=== PATIENT | female | born 1965 | race American Indian/Alaskan Native ===

== ENCOUNTER 2020-12-21 18:45 | Emergency (ER) | payer MEDICAID ==
[2020-12-21] MEDS: Ondansetron 4 MG Tab.DIS PO STA (19:41)
[2020-12-21] MEDS: Acetaminophen 500 MG Tab PO STA (19:41)
--- NOTE | 2020-12-21 20:48 | EDM.PDOC ---
ED HPI GENERAL MEDICAL PROBLEM - General Chief Complaint: Head Injury Stated Complaint: LACERATION Time Seen by Provider: 12/21/20 19:25 Source of Information: Reports: Patient History Limitations: Reports: No Limitations - History of Present Illness INITIAL COMMENTS - FREE TEXT/NARRATIVE: Patient presented to the ED because of head and facial injury. She was walking upstairs holding a cake lost her balance and hit her forehead on the stairs. There was no LOC but patient c/o headache, nausea and vomiting x1. She didn't sustain other injuries from the fall. Forehead Pain Score (Numeric/FACES): 10 - Related Data Allergies Allergy/AdvReac Type Severity Reaction Status Date / Time Penicillins Allergy Mild Rash Verified 12/23/20 00:50 Home Meds: Home Meds amLODIPine [Norvasc] 10 mg PO DAILY 12/21/20 [History] Acetaminophen [Tylenol Extra Strength] 1,000 mg PO Q6H PRN 12/23/20 [History] Gabapentin [Neurontin] 800 mg PO TID 12/23/20 [History] Ibuprofen 600 mg PO Q6H PRN 12/23/20 [History] Insulin Aspart [NovoLOG] 6 unit SUBCUT BIDMEALS 12/23/20 [History] Insulin Detemir [Levemir] 30 units SUBCUT BIDMEALS 12/23/20 [History] Levothyroxine 112 mcg PO DAILY@0600 12/23/20 [History] Loratadine 10 mg PO DAILY PRN 12/23/20 [History] Mirtazapine 7.5 mg PO BEDTIME 12/23/20 [History] PARoxetine [Paxil] 40 mg PO DAILY 12/23/20 [History] hydrOXYzine HCL [Hydroxyzine HCl] 50 mg PO Q6H PRN 12/23/20 [History] Past Medical History Cardiovascular History: Reports: Hypertension Psychiatric History: Reports: Anxiety Endocrine/Metabolic History: Reports: Diabetes, Type II Social & Family History - Tobacco Use Tobacco Use Status *Q: Current Every Day Tobacco User Years of Tobacco use: 20 Packs/Tins Daily: 0.2 - Caffeine Use Caffeine Use: Reports: Coffee ED ROS GENERAL - Review of Systems Review Of Systems: See Below Constitutional: Reports: No Symptoms HEENT: Reports: No Symptoms Respiratory: Reports: No Symptoms Cardiovascular: Reports: No Symptoms Endocrine: Reports: No Symptoms GI/Abdominal: Reports: No Symptoms : Reports: No Symptoms Musculoskeletal: Reports: No Symptoms Skin: Reports: Wound Neurological: Reports: Headache Psychiatric: Reports: No Symptoms ED EXAM, HEAD INJURY - Physical Exam Exam: See Below Exam Limited By: No Limitations General Appearance: Alert, No Apparent Distress Head: Facial Swelling (hematoma on forehead), Other Ears: Normal External Exam, Normal Canal, Hearing Grossly Normal, Normal TMs Nose: Normal Inspection, Normal Mucousa, No Blood Throat/Mouth: Normal Inspection, Normal Lips, Normal Teeth, Normal Oropharynx, Normal Voice, No Airway Compromise Neck: Non-Tender, Full Range of Motion, Normal Alignment Respiratory: No Respiratory Distress, Lungs Clear, Normal Breath Sounds, No Accessory Muscle Use, Chest Non-Tender Cardiovascular: Normal Peripheral Pulses, Regular Rate, Rhythm, No Edema GI/Abdominal Exam: Normal Bowel Sounds, Soft, Non-Tender, No Organomegaly, No Distention, No Abnormal Bruit Back Exam: Normal Inspection, Full Range of Motion Extremities: Normal Inspection, Normal Range of Motion, Non-Tender, No Pedal Edema, Normal Capillary Refill Neurologic: partner marketing intern II-XII nml As Tested, No Motor/Sensory Deficits, Alert, Normal Mood/Affect, Oriented x 3 Skin: Normal Color Course - Vital Signs Text/Narrative:: 1 cm laceration between eyebrows is already healing and didn't require any suturing. UTD with immunization Tylenol 1000 mg PO x1 Zofran ODT 4 mg PO x1 Phenergan 25 mg IM x1 Head and Facial CT result-negative Last Recorded V/S: Last Vital Signs Temp 36.6 C 12/21/20 21:00 Pulse 105 H 12/21/20 21:00 Resp 20 12/21/20 21:00 BP 159/94 H 12/21/20 21:00 Pulse Ox 98 12/21/20 21:00 - Orders/Labs/Meds Meds: Medications Discontinued Medications Generic Name Dose Route Start Last Admin Trade Name Mary PRN Reason Stop Dose Admin Acetaminophen 1,000 mg 12/21/20 19:26 12/21/20 19:41 Acetaminophen 500 Mg Tab PO 12/21/20 19:27 1,000 mg NOW STA Administration Ondansetron HCl 4 mg 12/21/20 19:25 12/21/20 19:41 Ondansetron 4 Mg Tab.Dis PO 12/21/20 19:26 4 mg NOW STA Administration Promethazine HCl 25 mg 12/21/20 21:01 12/21/20 21:07 Promethazine 25 Mg/Ml Sdv IM 12/21/20 21:02 25 mg NOW STA Administration Departure - Departure Time of Disposition: 21:00 Disposition: Home, Self-Care 01 Condition: Good Clinical Impression: Head, face & neck injury - Discharge Information Instructions: Facial or Scalp Contusion, [id number], Head Injury, Adult, [id number] Referrals: PCP,None [Primary Care Provider] - Forms: ED Department Discharge Additional Instructions: Please read discharge instructions on heads and facial injury, contusion(bruising) Take ibuprofen 800 mg with tylenol 1000 mg very 8 hours as needed for pain Zofran ODT 4 mg every 4 hours a needed for nausea Follow up as needed Sepsis Event Note (ED) - Evaluation Sepsis Screening Result: No Definite Risk
[2020-12-21] MEDS: Promethazine 25 MG/ML SDV IM STA (21:07)
== END 2020-12-21 21:10 | disposition home or self-care (01) ==
LOC: FB.ED 18:45
DX: S00.83XA Contusion of other part of head, initial encounter (principal); S19.9XXA Unspecified injury of neck, initial encounter; I10 Essential (primary) hypertension; E11.9 Type 2 diabetes mellitus without complications; Z72.0 Tobacco use; Z88.0 Allergy status to penicillin; Z79.4 Long term (current) use of insulin; Z79.899 Other long term (current) drug therapy; W22.09XA Striking against other stationary object, initial encounter
CPT/HCPCS: 70450; 70486; 96372; 99283; A9270; J2550

== ENCOUNTER 2020-12-22 17:45 | Inpatient (IN) | payer MEDICAID ==
[2020-12-22] MEDS ORDERED: Ketorolac 30 MG/ML SDV IVPUSH ONE (17:56)
[2020-12-22] MEDS ORDERED: Ondansetron 4 MG/2 ML SDV IVPUSH ONE (17:56)
[2020-12-22] MEDS ORDERED: Sodium Chloride 0.9% 1,000 ML IV ONE ×3 (17:57→20:14)
[2020-12-22] MEDS ORDERED: Metoclopramide 10 MG/2 ML SDV IVPUSH ONE (19:26)
[2020-12-22] MEDS ORDERED: Potassium Chloride 20 MEQ in Premix Bag 1 BAG IV ONE (20:14)
[2020-12-22] MEDS ORDERED: 50% Dextrose in Water 50 ML Syringe IVPUSH PRN ×2 (20:15→20:17)
[2020-12-22] MEDS ORDERED: Glucagon,Human Recombinant 1 MG Vial IM PRN ×2 (20:15→20:17)
[2020-12-22] MEDS ORDERED: Insulin Regular, Human 100 Units/ML 3 ML Vial IV ONE (20:15)
--- NOTE | 2020-12-22 20:18 | EDM.PDOC ---
ED HPI GENERAL MEDICAL PROBLEM - General Chief Complaint: General Stated Complaint: VOMITING W/ CONCUSSION Time Seen by Provider: 12/22/20 18:30 Source of Information: Reports: Patient, Family History Limitations: Reports: No Limitations - History of Present Illness INITIAL COMMENTS - FREE TEXT/NARRATIVE: c/o n/v x 12h fell on face 3d ago while intoxicated, CT head neg, CT max face neg has had since age 42, on insulin x 10y, takes Levemir 30u BID and Novolog 6u BID A1C was as low as 8, says it has now gone back up lives with dtr Yolanda who is just getting over COVID pt says she never had COVID, has had COVID vax x 2 no fever at home no diarrhea has mild GRIMM with inc'd pain at L orbit where she has swell, has had drainage down her throat Headache Pain Score (Numeric/FACES): 8 - Related Data Allergies Allergy/AdvReac Type Severity Reaction Status Date / Time No Known Allergies Allergy Verified 12/21/20 19:13 Home Meds: Home Meds amLODIPine [Norvasc] 10 mg PO DAILY 12/21/20 [History] Past Medical History Cardiovascular History: Reports: Hypertension Psychiatric History: Reports: Anxiety Endocrine/Metabolic History: Reports: Diabetes, Type II - Infectious Disease History Infectious Disease History: Reports: None Social & Family History - Family History Family Medical History: No Pertinent Family History - Tobacco Use Tobacco Use Status *Q: Current Every Day Tobacco User Years of Tobacco use: 40 Packs/Tins Daily: 1 - Caffeine Use Caffeine Use: Reports: None ED ROS GENERAL - Review of Systems Review Of Systems: See Below Constitutional: Reports: No Symptoms. Denies: Fever HEENT: Reports: No Symptoms Respiratory: Reports: No Symptoms Cardiovascular: Reports: No Symptoms Endocrine: Reports: No Symptoms GI/Abdominal: Reports: Nausea, Vomiting. Denies: Constipation, Diarrhea : Reports: No Symptoms Musculoskeletal: Reports: No Symptoms Skin: Reports: No Symptoms Neurological: Reports: No Symptoms Psychiatric: Reports: No Symptoms Hematologic/Lymphatic: Reports: No Symptoms Immunologic: Reports: No Symptoms ED EXAM, GENERAL - Physical Exam Exam: See Below Exam Limited By: No Limitations General Appearance: Alert, WD/WN, Other (alert, walks in room, not appearing ill despite high wbc/crp, does appear dehydrated, nontoxic) Eye Exam: Bilateral Eye: EOMI, PERRL, Other (mod periorbital edema b/l, some edema between L eye and ear, minimal ecchymosis) Ears: Normal External Exam, Normal Canal, Hearing Grossly Normal, Normal TMs Nose: Normal Inspection, Normal Mucosa, No Blood, Other (nares patent b/l, no visible d/c) Throat/Mouth: Normal Inspection, Normal Lips, Normal Gums, Normal Oropharynx, Normal Voice, No Airway Compromise Neck: Normal Inspection, Supple, Non-Tender, Full Range of Motion. No: Lymphadenopathy (R), Lymphadenopathy (L) Respiratory/Chest: No Respiratory Distress, Lungs Clear, Normal Breath Sounds, No Accessory Muscle Use, Chest Non-Tender, Other (no cough) Cardiovascular: Regular Rate, Rhythm, No Edema, No Murmur GI/Abdominal: Soft, Non-Tender, No Organomegaly, No Distention Back Exam: Normal Inspection, Full Range of Motion. No: CVA Tenderness (R), CVA Tenderness (L) Extremities: Normal Inspection, Normal Range of Motion, Non-Tender, No Pedal Edema Neurological: Alert, Oriented, CN II-XII Intact, Normal Cognition, No Motor/Sensory Deficits Psychiatric: Normal Affect, Normal Mood Skin Exam: Warm, Dry, Intact, Normal Color, No Rash Lymphatic: No Adenopathy Course - Vital Signs Last Recorded V/S: Last Vital Signs Temp 36.7 C 12/22/20 22:55 Pulse 116 H 12/22/20 22:55 Resp 18 12/22/20 22:55 BP 154/95 H 12/22/20 22:55 Pulse Ox 100 12/22/20 22:55 - Orders/Labs/Meds Orders: Active Orders 24 hr Category Date Time Status Admission Status [Patient Status] [ADT] Routine ADT 12/22/20 21:50 Active Chest 2V [CR] Stat Exams 12/22/20 20:11 Taken CULTURE BLOOD [BC] Urgent Lab 12/22/20 20:20 Received CULTURE BLOOD [BC] Urgent Lab 12/22/20 20:35 Received Dextrose 50% in Water Med 12/22/20 20:15 Active 50 ml IVPUSH ASDIRECTED PRN Dextrose 50% in Water Med 12/22/20 20:17 Active 50 ml IVPUSH ASDIRECTED PRN Glucagon,Human Recombinant [GlucaGen] Med 12/22/20 20:15 Active 1 mg IM ASDIRECTED PRN Glucagon,Human Recombinant [GlucaGen] Med 12/22/20 20:17 Active 1 mg IM ASDIRECTED PRN Insulin Glarg,Human.Rec.Analog [LantUS Solostar] Med 12/22/20 21:00 Active 30 units SUBCUT BID Blood Culture x2 Reflex Set [OM.PC] Urgent Oth 12/22/20 20:10 Ordered Medication Orders Dextrose/Water (50% Dextrose In Water 50 Ml Syringe) 50 ml IVPUSH ASDIRECTED PRN PRN Reason: Hypoglycemia Dextrose/Water (50% Dextrose In Water 50 Ml Syringe) 50 ml IVPUSH ASDIRECTED PRN PRN Reason: Hypoglycemia Glucagon (Glucagon,Human Recombinant 1 Mg Vial) 1 mg IM ASDIRECTED PRN PRN Reason: Hypoglycemia Glucagon (Glucagon,Human Recombinant 1 Mg Vial) 1 mg IM ASDIRECTED PRN PRN Reason: Hypoglycemia Insulin Glargine (Insulin Glargine,Human Rec. Analog 100 Units/Ml 3 Ml Pen) 30 units SUBCUT BID CAILIN Last Admin: 12/22/20 21:41 Dose: 30 units Documented by: NICOLÁS Cosigned by: DIFFCAL Labs: Laboratory Tests 12/22/20 12/22/20 12/22/20 Range/Units 18:25 18:25 18:25 WBC 29.5 H (3.0-10.3) x10-3/uL RBC 4.16 (3.60-5.20) x10(6)uL Hgb 12.7 (11.4-15.5) g/dL Hct 39.0 (34.2-48.2) % MCV 93.6 (76.7-100.5) fL MCH 30.6 (23.9-33.9) pg MCHC 32.7 (31.9-34.8) g/dL RDW 13.7 (12.3-16.5) % Plt Count 193 (151-488) x10(3)uL MPV 9.5 (7.1-12.4) fL Add Manual Diff Yes Neutrophils % (Manual) 80 (46-82) % Band Neutrophils % 7 H (0-6) % Lymphocytes % (Manual) 7 L (13-37) % Monocytes % (Manual) 5 (4-12) % Metamyelocytes % 1 H (0-0) % POC VBG pH (7.32-7.43) pH Units POC VBG pCO2 (41-51) mmHg POC VBG HCO3 (22-29) mmol/L VBG Base Excess (-2 - 3+) mmol/L O2 Delivery Device Oxygen Flow Rate LPM Sodium 128 L (135-145) mmol/L Potassium 3.2 L (3.5-5.3) mmol/L Chloride 88 L* (100-110) mmol/L Carbon Dioxide 20 L (21-32) mmol/L BUN 20 H (7-18) mg/dL Creatinine 1.3 H (0.55-1.02) mg/dL Est Cr Clr Drug Dosing 39.58 mL/min Estimated GFR (MDRD) 43 L (>60) BUN/Creatinine Ratio 15.4 (9-20) Glucose 618 H* (80-116) mg/dL Lactic Acid (0.4-2.0) mmol/L Calcium 8.6 (8.6-10.2) mg/dL Magnesium (1.8-2.5) mg/dL Total Bilirubin 1.6 H (0.1-1.3) mg/dL AST 17 (5-25) IU/L ALT 19 (12-36) U/L Alkaline Phosphatase 161 H (56-112) IU/L C-Reactive Protein 19.3 H* (0.5-0.9) mg/dL Total Protein 8.0 (6.0-8.0) g/dL Albumin 3.3 L (3.5-5.2) g/dL Globulin 4.7 g/dL Albumin/Globulin Ratio 0.7 SARS-CoV-2 RNA (JUAN) (NEGATIVE) 12/22/20 12/22/20 12/22/20 Range/Units 18:25 20:15 20:20 WBC (3.0-10.3) x10-3/uL RBC (3.60-5.20) x10(6)uL Hgb (11.4-15.5) g/dL Hct (34.2-48.2) % MCV (76.7-100.5) fL MCH (23.9-33.9) pg MCHC (31.9-34.8) g/dL RDW (12.3-16.5) % Plt Count (151-488) x10(3)uL MPV (7.1-12.4) fL Add Manual Diff Neutrophils % (Manual) (46-82) % Band Neutrophils % (0-6) % Lymphocytes % (Manual) (13-37) % Monocytes % (Manual) (4-12) % Metamyelocytes % (0-0) % POC VBG pH (7.32-7.43) pH Units POC VBG pCO2 (41-51) mmHg POC VBG HCO3 (22-29) mmol/L VBG Base Excess (-2 - 3+) mmol/L O2 Delivery Device Oxygen Flow Rate LPM Sodium (135-145) mmol/L Potassium (3.5-5.3) mmol/L Chloride (100-110) mmol/L Carbon Dioxide (21-32) mmol/L BUN (7-18) mg/dL Creatinine (0.55-1.02) mg/dL Est Cr Clr Drug Dosing mL/min Estimated GFR (MDRD) (>60) BUN/Creatinine Ratio (9-20) Glucose (80-116) mg/dL Lactic Acid 2.2 H* (0.4-2.0) mmol/L Calcium (8.6-10.2) mg/dL Magnesium 1.7 L (1.8-2.5) mg/dL Total Bilirubin (0.1-1.3) mg/dL AST (5-25) IU/L ALT (12-36) U/L Alkaline Phosphatase (56-112) IU/L C-Reactive Protein (0.5-0.9) mg/dL Total Protein (6.0-8.0) g/dL Albumin (3.5-5.2) g/dL Globulin g/dL Albumin/Globulin Ratio SARS-CoV-2 RNA (JUAN) Positive H (NEGATIVE) 12/22/20 Range/Units 20:20 WBC (3.0-10.3) x10-3/uL RBC (3.60-5.20) x10(6)uL Hgb (11.4-15.5) g/dL Hct (34.2-48.2) % MCV (76.7-100.5) fL MCH (23.9-33.9) pg MCHC (31.9-34.8) g/dL RDW (12.3-16.5) % Plt Count (151-488) x10(3)uL MPV (7.1-12.4) fL Add Manual Diff Neutrophils % (Manual) (46-82) % Band Neutrophils % (0-6) % Lymphocytes % (Manual) (13-37) % Monocytes % (Manual) (4-12) % Metamyelocytes % (0-0) % POC VBG pH 7.37 (7.32-7.43) pH Units POC VBG pCO2 37 L (41-51) mmHg POC VBG HCO3 21 L (22-29) mmol/L VBG Base Excess -4 L (-2 - 3+) mmol/L O2 Delivery Device Room air Oxygen Flow Rate 0 LPM Sodium (135-145) mmol/L Potassium (3.5-5.3) mmol/L Chloride (100-110) mmol/L Carbon Dioxide (21-32) mmol/L BUN (7-18) mg/dL Creatinine (0.55-1.02) mg/dL Est Cr Clr Drug Dosing mL/min Estimated GFR (MDRD) (>60) BUN/Creatinine Ratio (9-20) Glucose (80-116) mg/dL Lactic Acid (0.4-2.0) mmol/L Calcium (8.6-10.2) mg/dL Magnesium (1.8-2.5) mg/dL Total Bilirubin (0.1-1.3) mg/dL AST (5-25) IU/L ALT (12-36) U/L Alkaline Phosphatase (56-112) IU/L C-Reactive Protein (0.5-0.9) mg/dL Total Protein (6.0-8.0) g/dL Albumin (3.5-5.2) g/dL Globulin g/dL Albumin/Globulin Ratio SARS-CoV-2 RNA (JUAN) (NEGATIVE) Meds: Medications Generic Name Dose Route Start Last Admin Trade Name Freq PRN Reason Stop Dose Admin Dextrose/Water 50 ml 12/22/20 20:15 50% Dextrose In Water 50 Ml Syringe IVPUSH ASDIRECTED PRN Hypoglycemia Dextrose/Water 50 ml 12/22/20 20:17 50% Dextrose In Water 50 Ml Syringe IVPUSH ASDIRECTED PRN Hypoglycemia Glucagon 1 mg 12/22/20 20:15 Glucagon,Human Recombinant 1 Mg Vial IM ASDIRECTED PRN Hypoglycemia Glucagon 1 mg 12/22/20 20:17 Glucagon,Human Recombinant 1 Mg Vial IM ASDIRECTED PRN Hypoglycemia Insulin Glargine 30 units 12/22/20 21:00 12/22/20 21:41 Insulin Glargine,Human Rec. Analog 100 Units/Ml 3 Ml Pen SUBCUT 30 units BID CAILIN Administration Discontinued Medications Generic Name Dose Route Start Last Admin Trade Name Mary PRN Reason Stop Dose Admin Al Hydroxide/Mg Hydroxide 15 0 ml 12/22/20 21:45 12/22/20 21:50 ml/ Lidocaine HCl 15 ml PO 12/22/20 21:46 30 ml ONETIME ONE Administration Sodium Chloride 1,000 mls @ 999 mls/hr 12/22/20 17:57 12/22/20 18:10 Normal Saline IV 12/22/20 18:57 999 mls/hr .BOLUS ONE Administration Sodium Chloride 1,000 mls @ 999 mls/hr 12/22/20 20:14 12/22/20 21:00 Normal Saline IV 12/22/20 21:14 999 mls/hr .BOLUS ONE Administration Sodium Chloride 1,000 mls @ 999 mls/hr 12/22/20 20:14 12/22/20 22:28 Normal Saline IV 12/22/20 21:14 999 mls/hr .BOLUS ONE Administration Potassium Chloride 20 meq/ 100 mls @ 50 mls/hr 12/22/20 20:14 12/22/20 21:50 Premix IV 12/22/20 22:13 50 mls/hr ONETIME ONE Administration Insulin Human Regular 10 unit 12/22/20 20:15 12/22/20 20:55 Insulin Regular, Human 100 Units/Ml 3 Ml Vial IV 12/22/20 20:16 10 units ONETIME ONE Administration Ketorolac Tromethamine 30 mg 12/22/20 17:56 12/22/20 18:10 Ketorolac 30 Mg/Ml Sdv IVPUSH 12/22/20 17:57 30 mg ONETIME ONE Administration Metoclopramide HCl 10 mg 12/22/20 19:26 12/22/20 19:37 Metoclopramide 10 Mg/2 Ml Sdv IVPUSH 12/22/20 19:27 10 mg ONETIME ONE Administration Ondansetron HCl 4 mg 12/22/20 17:56 12/22/20 18:10 Ondansetron 4 Mg/2 Ml Sdv IVPUSH 12/22/20 17:57 4 mg ONETIME ONE Administration - Re-Assessments/Exams Free Text/Narrative Re-Assessment/Exam: 12/23/20 00:33 pt with positive COVID mod dehydration with secondary n/v Departure - Departure Time of Disposition: 23:30 Disposition: Admitted As Inpatient 68 Condition: Fair Clinical Impression: Pneumonia due to COVID-19 virus, DKA (diabetic ketoacidosis), Hypokalemia, Dehydration, Leukocytosis, Facial contusion - Discharge Information *PRESCRIPTION DRUG MONITORING PROGRAM REVIEWED*: Not Applicable *COPY OF PRESCRIPTION DRUG MONITORING REPORT IN PATIENT EMANI: Not Applicable Sepsis Event Note (ED) - Evaluation Sepsis Screening Result: No Definite Risk - Focused Exam Vital Signs: Vital Signs Temp Pulse Resp BP Pulse Ox 12/22/20 17:53 36.2 C 131 H 20 154/95 H 100 - My Orders Last 24 Hours: My Active Orders 12/22/20 20:10 Blood Culture x2 Reflex Set [OM.PC] Urgent 12/22/20 20:11 Chest 2V [CR] Stat 12/22/20 20:15 Dextrose 50% in Water 50 ml IVPUSH ASDIRECTED PRN Glucagon,Human Recombinant [GlucaGen] 1 mg IM ASDIRECTED PRN 12/22/20 20:17 Dextrose 50% in Water 50 ml IVPUSH ASDIRECTED PRN Glucagon,Human Recombinant [GlucaGen] 1 mg IM ASDIRECTED PRN 12/22/20 20:20 CULTURE BLOOD [BC] Urgent 12/22/20 20:35 CULTURE BLOOD [BC] Urgent 12/22/20 21:00 Insulin Glarg,Human.Rec.Analog [LantUS Solostar] 30 units SUBCUT BID 12/22/20 21:50 Admission Status [Patient Status] [ADT] Routine - Assessment/Plan Last 24 Hours: My Active Orders 12/22/20 20:10 Blood Culture x2 Reflex Set [OM.PC] Urgent 12/22/20 20:11 Chest 2V [CR] Stat 12/22/20 20:15 Dextrose 50% in Water 50 ml IVPUSH ASDIRECTED PRN Glucagon,Human Recombinant [GlucaGen] 1 mg IM ASDIRECTED PRN 12/22/20 20:17 Dextrose 50% in Water 50 ml IVPUSH ASDIRECTED PRN Glucagon,Human Recombinant [GlucaGen] 1 mg IM ASDIRECTED PRN 12/22/20 20:20 CULTURE BLOOD [BC] Urgent 12/22/20 20:35 CULTURE BLOOD [BC] Urgent 12/22/20 21:00 Insulin Glarg,Human.Rec.Analog [LantUS Solostar] 30 units SUBCUT BID 12/22/20 21:50 Admission Status [Patient Status] [ADT] Routine
[2020-12-22 21:08] LABS: BASE EXCESS VENOUS,POC -4 mmol/L (-2 - 3+); PCO2 VENOUS,POC 37 mmHg (41-51); PH VENOUS,POC 7.37 pH Units (7.32-7.43)
[2020-12-22] MEDS ORDERED: Insulin Glargine,Human Rec. Analog 100 Units/ML 3 ML Pen SUBCUT ONE (21:38)
[2020-12-22] MEDS: Insulin Glargine,Human Rec. Analog 100 Units/ML 3 ML Pen SUBCUT SCH (21:41)
[2020-12-22] MEDS ORDERED: Alum Hydroxide/Mag Hydroxide 15 ML, Lidocaine 2% 15 ML PO ONE ×2 (21:45)
[2020-12-23] MEDS ORDERED: 50% Dextrose in Water 50 ML Syringe IVPUSH PRN (00:41)
[2020-12-23] MEDS ORDERED: Glucagon,Human Recombinant 1 MG Vial IM PRN (00:41)
[2020-12-23] MEDS ORDERED: D5 1/2 NS w/ 20 mEq/L KCl 1,000 ML IV SCH ×2 (01:00→08:20)
[2020-12-23] MEDS: Metoclopramide 10 MG/2 ML SDV IVPUSH SCH ×4 (01:36→17:57)
[2020-12-23] MEDS: Magnesium Oxide 400 MG Tab PO SCH ×4 (01:37→18:00)
[2020-12-23] MEDS: Gabapentin 300 MG Cap PO SCH ×3 (01:37→20:45)
[2020-12-23] MEDS: Enoxaparin 40 MG/0.4 ML Syringe SUBCUT SCH (01:37)
[2020-12-23] MEDS: Ketorolac 30 MG/ML SDV IVPUSH SCH ×4 (01:51→17:57)
[2020-12-23] MEDS: Magnesium Hydroxide 400 MG/5 ML Susp 30 ML Cup PO PRN (01:57)
[2020-12-23] MEDS: Acetaminophen 325 MG Tab PO PRN ×2 (06:57→21:20)
[2020-12-23] MEDS ORDERED: Insulin Lispro 100 Unit/ML 3 ML KwikPen SUBCUT ONE (07:25)
[2020-12-23] MEDS: Sodium Chloride 0.9% 1,000 ML IV SCH ×3 (07:40→21:52)
[2020-12-23] MEDS: Insulin Lispro 100 Unit/ML 3 ML KwikPen SUBCUT SCH ×3 (07:47→17:58)
[2020-12-23] MEDS: Insulin Glargine,Human Rec. Analog 100 Units/ML 3 ML Pen SUBCUT SCH ×2 (08:30→20:52)
[2020-12-23] MEDS: amLODIPine 10 MG Tab PO SCH (08:33)
--- NOTE | 2020-12-23 09:22 | PCM.HP.2 ---
H&P History of Present Illness - General Date of Service: 12/23/20 Admit Problem/Dx: Admission Diagnosis/Problem Admission Diagnosis/Problem Diabetic ketoacidosis Source of Information: Patient, Old Records, Provider - History of Present Illness Initial Comments - Free Text/Narative: 55-year-old lady came to the emergency department due to a history of flulike symptoms that included nausea and vomiting. She states that she fell and hit her head hard bright 3 days ago. Emergency room notes show that she states she may have been intoxicated. CTs of face and head are negative. Patient was found to be Covid positive and found to likely have diabetic ketoacidosis. She was given insulin, fluids, electrolyte replenishment and admitted to inpatient status for treatment of DKA and Covid positive pneumonia. Headache Pain Score (Numeric/FACES): 3 - Related Data Allergies/Adverse Reactions: Allergies Allergy/AdvReac Type Severity Reaction Status Date / Time Penicillins Allergy Mild Rash Verified 12/23/20 00:50 Home Medications: Home Meds amLODIPine [Norvasc] 10 mg PO DAILY 12/21/20 [History] Acetaminophen [Tylenol Extra Strength] 1,000 mg PO Q6H PRN 12/23/20 [History] Gabapentin [Neurontin] 800 mg PO TID 12/23/20 [History] Ibuprofen 600 mg PO Q6H PRN 12/23/20 [History] Insulin Aspart [NovoLOG] 6 unit SUBCUT BIDMEALS 12/23/20 [History] Insulin Detemir [Levemir] 30 units SUBCUT BIDMEALS 12/23/20 [History] Levothyroxine 112 mcg PO DAILY@0600 12/23/20 [History] Loratadine 10 mg PO DAILY PRN 12/23/20 [History] Mirtazapine 7.5 mg PO BEDTIME 12/23/20 [History] PARoxetine [Paxil] 40 mg PO DAILY 12/23/20 [History] hydrOXYzine HCL [Hydroxyzine HCl] 50 mg PO Q6H PRN 12/23/20 [History] Past Medical History HEENT History: Reports: Sinusitis Cardiovascular History: Reports: Hypertension Gastrointestinal History: Reports: Chronic Constipation [employer] History: Reports: Musculoskeletal History: Reports: Fibromyalgia Neurological History: Reports: Neuropathy, Diabetic Psychiatric History: Reports: Anxiety Endocrine/Metabolic History: Reports: Diabetes, Type II Dermatologic History: Reports: Other (See Below) Other Dermatologic History: vitiligo since 14 years old - Infectious Disease History Infectious Disease History: Reports: None - Past Surgical History Cardiovascular Surgical History: Reports: None GI Surgical History: Reports: Appendectomy Female Surgical History: Reports: None Social & Family History - Family History Family Medical History: No Pertinent Family History - Tobacco Use Tobacco Use Status *Q: Current Every Day Tobacco User Years of Tobacco use: 40 Packs/Tins Daily: 0.5 - Caffeine Use Caffeine Use: Reports: None - Alcohol Use Days Per Week of Alcohol Use: 0 - Recreational Drug Use Recreational Drug Use: Yes Drug Use in Last 12 Months: Yes Recreational Drug Type: Reports: Marijuana/Hashish Recreational Drug Use Frequency: Daily Recreational Drug Last Use: 12/21/20 H&P Review of Systems - Review of Systems: Review Of Systems: See Below General: Reports: Weakness HEENT: Reports: Eye Pain, Headaches Pulmonary: Reports: Cough Cardiovascular: Reports: No Symptoms Gastrointestinal: Reports: Nausea, Vomiting Genitourinary: Reports: No Symptoms Musculoskeletal: Reports: Neck Pain Skin: Reports: No Symptoms Psychiatric: Reports: No Symptoms Neurological: Reports: No Symptoms Hematologic/Lymphatic: Reports: No Symptoms Immunologic: Reports: No Symptoms Exam - Exam Exam: See Below - Vital Signs Vital Signs: Last Vital Signs Temp 36.7 C 12/23/20 04:54 Pulse 116 H 12/23/20 04:54 Resp 18 12/23/20 04:54 BP 129/76 12/23/20 08:33 Pulse Ox 96 12/23/20 04:54 Weight: 64.864 kg - Exam Quality Assessment: Supplemental Oxygen, DVT Prophylaxis General: Alert, Oriented, Cooperative, Mild Distress HEENT: Other (Facial swelling, ecchymosis) Neck: Supple Lungs: Crackles Cardiovascular: Tachycardia GI/Abdominal Exam: Normal Bowel Sounds, Soft Back Exam: Normal Inspection Extremities: Pedal Edema Peripheral Pulses: 2+: Radial (L), Radial (R) Skin: Other (Facial abrasion left ear to the right) Neuro Extensive - Mental Status: Alert, Oriented x3 Psychiatric: Alert, Normal Affect - Patient Data Lab Results Last 24 hrs: Laboratory Results - last 24 hr 12/22/20 12/22/20 12/22/20 Range/Units 18:25 18:25 18:25 WBC 29.5 H (3.0-10.3) x10-3/uL RBC 4.16 (3.60-5.20) x10(6)uL Hgb 12.7 (11.4-15.5) g/dL Hct 39.0 (34.2-48.2) % MCV 93.6 (76.7-100.5) fL MCH 30.6 (23.9-33.9) pg MCHC 32.7 (31.9-34.8) g/dL RDW 13.7 (12.3-16.5) % Plt Count 193 (151-488) x10(3)uL MPV 9.5 (7.1-12.4) fL Add Manual Diff Yes Neutrophils % (Manual) 80 (46-82) % Band Neutrophils % 7 H (0-6) % Lymphocytes % (Manual) 7 L (13-37) % Monocytes % (Manual) 5 (4-12) % Metamyelocytes % 1 H (0-0) % POC VBG pH (7.32-7.43) pH Units POC VBG pCO2 (41-51) mmHg POC VBG HCO3 (22-29) mmol/L VBG Base Excess (-2 - 3+) mmol/L O2 Delivery Device Oxygen Flow Rate LPM Sodium 128 L (135-145) mmol/L Potassium 3.2 L (3.5-5.3) mmol/L Chloride 88 L* (100-110) mmol/L Carbon Dioxide 20 L (21-32) mmol/L BUN 20 H (7-18) mg/dL Creatinine 1.3 H (0.55-1.02) mg/dL Est Cr Clr Drug Dosing 39.58 mL/min Estimated GFR (MDRD) 43 L (>60) BUN/Creatinine Ratio 15.4 (9-20) Glucose 618 H* (80-116) mg/dL POC Glucose (80-116) mg/dL Lactic Acid (0.4-2.0) mmol/L Calcium 8.6 (8.6-10.2) mg/dL Magnesium (1.8-2.5) mg/dL Total Bilirubin 1.6 H (0.1-1.3) mg/dL AST 17 (5-25) IU/L ALT 19 (12-36) U/L Alkaline Phosphatase 161 H (56-112) IU/L C-Reactive Protein 19.3 H* (0.5-0.9) mg/dL Total Protein 8.0 (6.0-8.0) g/dL Albumin 3.3 L (3.5-5.2) g/dL Globulin 4.7 g/dL Albumin/Globulin Ratio 0.7 Urine Color (YELLOW) Urine Appearance (CLEAR) Urine pH (5.0-6.5) Ur Specific [place] (1.010-1.025) Urine Protein (NEGATIVE) mg/dL Urine Glucose (UA) (NORMAL) mg/dL Urine Ketones (NEGATIVE) mg/dL Urine Occult Blood (NEGATIVE) Urine Nitrite (NEGATIVE) Urine Bilirubin (NEGATIVE) Urine Urobilinogen (NEGATIVE) mg/dL Ur Leukocyte Esterase (NEGATIVE) Urine RBC (0-5) Urine WBC (0-5) Ur Squamous Epith Cells (NS,R,O) Urine Bacteria (NS) SARS-CoV-2 RNA (JUAN) (NEGATIVE) 12/22/20 12/22/20 12/22/20 Range/Units 18:25 20:15 20:20 WBC (3.0-10.3) x10-3/uL RBC (3.60-5.20) x10(6)uL Hgb (11.4-15.5) g/dL Hct (34.2-48.2) % MCV (76.7-100.5) fL MCH (23.9-33.9) pg MCHC (31.9-34.8) g/dL RDW (12.3-16.5) % Plt Count (151-488) x10(3)uL MPV (7.1-12.4) fL Add Manual Diff Neutrophils % (Manual) (46-82) % Band Neutrophils % (0-6) % Lymphocytes % (Manual) (13-37) % Monocytes % (Manual) (4-12) % Metamyelocytes % (0-0) % POC VBG pH (7.32-7.43) pH Units POC VBG pCO2 (41-51) mmHg POC VBG HCO3 (22-29) mmol/L VBG Base Excess (-2 - 3+) mmol/L O2 Delivery Device Oxygen Flow Rate LPM Sodium (135-145) mmol/L Potassium (3.5-5.3) mmol/L Chloride (100-110) mmol/L Carbon Dioxide (21-32) mmol/L BUN (7-18) mg/dL Creatinine (0.55-1.02) mg/dL Est Cr Clr Drug Dosing mL/min Estimated GFR (MDRD) (>60) BUN/Creatinine Ratio (9-20) Glucose (80-116) mg/dL POC Glucose (80-116) mg/dL Lactic Acid 2.2 H* (0.4-2.0) mmol/L Calcium (8.6-10.2) mg/dL Magnesium 1.7 L (1.8-2.5) mg/dL Total Bilirubin (0.1-1.3) mg/dL AST (5-25) IU/L ALT (12-36) U/L Alkaline Phosphatase (56-112) IU/L C-Reactive Protein (0.5-0.9) mg/dL Total Protein (6.0-8.0) g/dL Albumin (3.5-5.2) g/dL Globulin g/dL Albumin/Globulin Ratio Urine Color (YELLOW) Urine Appearance (CLEAR) Urine pH (5.0-6.5) Ur Specific [place] (1.010-1.025) Urine Protein (NEGATIVE) mg/dL Urine Glucose (UA) (NORMAL) mg/dL Urine Ketones (NEGATIVE) mg/dL Urine Occult Blood (NEGATIVE) Urine Nitrite (NEGATIVE) Urine Bilirubin (NEGATIVE) Urine Urobilinogen (NEGATIVE) mg/dL Ur Leukocyte Esterase (NEGATIVE) Urine RBC (0-5) Urine WBC (0-5) Ur Squamous Epith Cells (NS,R,O) Urine Bacteria (NS) SARS-CoV-2 RNA (JUAN) Positive H (NEGATIVE) 12/22/20 12/22/20 12/23/20 Range/Units 20:20 21:30 00:44 WBC (3.0-10.3) x10-3/uL RBC (3.60-5.20) x10(6)uL Hgb (11.4-15.5) g/dL Hct (34.2-48.2) % MCV (76.7-100.5) fL MCH (23.9-33.9) pg MCHC (31.9-34.8) g/dL RDW (12.3-16.5) % Plt Count (151-488) x10(3)uL MPV (7.1-12.4) fL Add Manual Diff Neutrophils % (Manual) (46-82) % Band Neutrophils % (0-6) % Lymphocytes % (Manual) (13-37) % Monocytes % (Manual) (4-12) % Metamyelocytes % (0-0) % POC VBG pH 7.37 (7.32-7.43) pH Units POC VBG pCO2 37 L (41-51) mmHg POC VBG HCO3 21 L (22-29) mmol/L VBG Base Excess -4 L (-2 - 3+) mmol/L O2 Delivery Device Room air Oxygen Flow Rate 0 LPM Sodium (135-145) mmol/L Potassium (3.5-5.3) mmol/L Chloride (100-110) mmol/L Carbon Dioxide (21-32) mmol/L BUN (7-18) mg/dL Creatinine (0.55-1.02) mg/dL Est Cr Clr Drug Dosing mL/min Estimated GFR (MDRD) (>60) BUN/Creatinine Ratio (9-20) Glucose (80-116) mg/dL POC Glucose 374 H (80-116) mg/dL Lactic Acid (0.4-2.0) mmol/L Calcium (8.6-10.2) mg/dL Magnesium (1.8-2.5) mg/dL Total Bilirubin (0.1-1.3) mg/dL AST (5-25) IU/L ALT (12-36) U/L Alkaline Phosphatase (56-112) IU/L C-Reactive Protein (0.5-0.9) mg/dL Total Protein (6.0-8.0) g/dL Albumin (3.5-5.2) g/dL Globulin g/dL Albumin/Globulin Ratio Urine Color Yellow (YELLOW) Urine Appearance Clear (CLEAR) Urine pH 5.0 (5.0-6.5) Ur Specific [place] 1.010 (1.010-1.025) Urine Protein 100 H (NEGATIVE) mg/dL Urine Glucose (UA) >1000 H (NORMAL) mg/dL Urine Ketones 50 H (NEGATIVE) mg/dL Urine Occult Blood Moderate H (NEGATIVE) Urine Nitrite Negative (NEGATIVE) Urine Bilirubin Negative (NEGATIVE) Urine Urobilinogen Normal (NEGATIVE) mg/dL Ur Leukocyte Esterase Negative (NEGATIVE) Urine RBC 0-5 (0-5) Urine WBC 0-5 (0-5) Ur Squamous Epith Cells Occasional (NS,R,O) Urine Bacteria Occasional H (NS) SARS-CoV-2 RNA (JUAN) (NEGATIVE) 12/23/20 12/23/20 Range/Units 06:20 06:20 WBC 24.3 H (3.0-10.3) x10-3/uL RBC 3.77 (3.60-5.20) x10(6)uL Hgb 11.4 (11.4-15.5) g/dL Hct 34.7 (34.2-48.2) % MCV 91.8 (76.7-100.5) fL MCH 30.3 (23.9-33.9) pg MCHC 32.9 (31.9-34.8) g/dL RDW 13.5 (12.3-16.5) % Plt Count 173 (151-488) x10(3)uL MPV 9.7 (7.1-12.4) fL Add Manual Diff Yes Neutrophils % (Manual) 86 H (46-82) % Band Neutrophils % 6 (0-6) % Lymphocytes % (Manual) 3 L (13-37) % Monocytes % (Manual) 5 (4-12) % Metamyelocytes % (0-0) % POC VBG pH (7.32-7.43) pH Units POC VBG pCO2 (41-51) mmHg POC VBG HCO3 (22-29) mmol/L VBG Base Excess (-2 - 3+) mmol/L O2 Delivery Device Oxygen Flow Rate LPM Sodium 129 L (135-145) mmol/L Potassium 3.7 (3.5-5.3) mmol/L Chloride 95 L D (100-110) mmol/L Carbon Dioxide 22 (21-32) mmol/L BUN 17 (7-18) mg/dL Creatinine 1.0 (0.55-1.02) mg/dL Est Cr Clr Drug Dosing 51.46 mL/min Estimated GFR (MDRD) 58 L (>60) BUN/Creatinine Ratio 17.0 (9-20) Glucose 396 H D (80-116) mg/dL POC Glucose (80-116) mg/dL Lactic Acid (0.4-2.0) mmol/L Calcium 7.4 L (8.6-10.2) mg/dL Magnesium (1.8-2.5) mg/dL Total Bilirubin (0.1-1.3) mg/dL AST (5-25) IU/L ALT (12-36) U/L Alkaline Phosphatase (56-112) IU/L C-Reactive Protein (0.5-0.9) mg/dL Total Protein (6.0-8.0) g/dL Albumin (3.5-5.2) g/dL Globulin g/dL Albumin/Globulin Ratio Urine Color (YELLOW) Urine Appearance (CLEAR) Urine pH (5.0-6.5) Ur Specific [place] (1.010-1.025) Urine Protein (NEGATIVE) mg/dL Urine Glucose (UA) (NORMAL) mg/dL Urine Ketones (NEGATIVE) mg/dL Urine Occult Blood (NEGATIVE) Urine Nitrite (NEGATIVE) Urine Bilirubin (NEGATIVE) Urine Urobilinogen (NEGATIVE) mg/dL Ur Leukocyte Esterase (NEGATIVE) Urine RBC (0-5) Urine WBC (0-5) Ur Squamous Epith Cells (NS,R,O) Urine Bacteria (NS) SARS-CoV-2 RNA (JUAN) (NEGATIVE) Result Diagrams: 12/23/20 06:20 12/23/20 06:20 Sepsis Event Note - Evaluation Sepsis Screening Result: Severe Sepsis Risk - Focused Exam Vital Signs: Vital Signs Temp Pulse Resp BP BP Pulse Ox 12/23/20 08:33 129/76 12/23/20 04:54 36.7 C 116 H 18 146/85 H 96 12/23/20 00:41 36.6 C 114 H 18 141/89 H 94 L 12/22/20 22:55 36.7 C 116 H 18 154/95 H 100 - Problem List (1) Diabetes mellitus type 2 in obese SNOMED Code(s): 31304692 ICD Code: E11.69 - TYPE 2 DIABETES MELLITUS WITH OTHER SPECIFIED COMPLICATION; E66.9 - OBESITY, UNSPECIFIED Status: Chronic Current Visit: Yes (2) Hypothyroidism SNOMED Code(s): 57276401 ICD Code: E03.9 - HYPOTHYROIDISM, UNSPECIFIED Status: Chronic Current Visit: Yes (3) DKA (diabetic ketoacidosis) SNOMED Code(s): 235001135, 463104136 ICD Code: E11.10 - TYPE 2 DIABETES MELLITUS WITH KETOACIDOSIS WITHOUT COMA Status: Acute Current Visit: Yes (4) Dehydration SNOMED Code(s): 46224664 ICD Code: E86.0 - DEHYDRATION Status: Acute Current Visit: Yes (5) Facial contusion SNOMED Code(s): 026357189 ICD Code: S00.83XA - CONTUSION OF OTHER PART OF HEAD, INITIAL ENCOUNTER Status: Acute Current Visit: Yes (6) Hypokalemia SNOMED Code(s): 18669408 ICD Code: E87.6 - HYPOKALEMIA Status: Acute Current Visit: Yes (7) Leukocytosis SNOMED Code(s): 231447325, 906468893 ICD Code: D72.829 - ELEVATED WHITE BLOOD CELL COUNT, UNSPECIFIED Status: A cute Current Visit: Yes (8) Pneumonia due to COVID-19 virus SNOMED Code(s): 735525081032850480 ICD Code: U07.1 - COVID-19; J12.82 - PNEUMONIA DUE TO CORONAVIRUS DISEASE 2018 Status: Acute Current Visit: Yes (9) Head, face & neck injury SNOMED Code(s): 926494818 ICD Code: S19.9XXA - UNSPECIFIED INJURY OF NECK, INITIAL ENCOUNTER; S09.90XA - UNSPECIFIED INJURY OF HEAD, INITIAL ENCOUNTER; S09.93XA - UNSPECIFIED INJURY OF FACE, INITIAL ENCOUNTER Status: Acute Current Visit: No (10) Hyponatremia SNOMED Code(s): 85032551 ICD Code: E87.1 - HYPO-OSMOLALITY AND HYPONATREMIA Status: Acute Current Visit: Yes Problem List Initiated/Reviewed/Updated: Yes Orders Last 24hrs: Active Orders 24 hr Category Date Time Status Admission Status [Patient Status] [ADT] Routine ADT 12/22/20 21:50 Active Patient Status [ADT] Routine ADT 12/23/20 09:19 Ordered Antiembolic Devices [RC] .Routine Care 12/23/20 09:21 Ordered Blood Glucose Check, Bedside [RC] QIDACANDBED Care 12/23/20 00:41 Active Oxygen Therapy [RC] PRN Care 12/23/20 00:41 Active Pulse Oximetry [RC] PRN Care 12/23/20 09:19 Ordered Up ad Jeny [RC] ASDIRECTED Care 12/23/20 00:41 Active VTE/DVT Education [RC] Click to Edit Care 12/23/20 09:21 Ordered VTE/DVT Education [RC] Per Unit Routine Care 12/23/20 00:41 Active VTE/DVT Education [RC] Per Unit Routine Care 12/23/20 00:54 Active Vital Signs [RC] Q4H Care 12/23/20 00:54 Active Vital Signs [RC] Q4H Care 12/23/20 09:19 Ordered Consistent Carbohydrate Diet [DIET] Diet 12/23/20 Breakfast Active Fluid Restriction [DIET] Diet 12/23/20 Lunch Active Chest 2V [CR] Stat Exams 12/22/20 20:11 Taken BASIC METABOLIC PANEL,BMP [CHEM] AM Lab 12/24/20 05:11 Ordered BASIC METABOLIC PANEL,BMP [CHEM] AM Lab 12/25/20 05:11 Ordered BASIC METABOLIC PANEL,BMP [CHEM] AM Lab 12/26/20 05:11 Ordered BASIC METABOLIC PANEL,BMP [CHEM] AM Lab 12/27/20 05:11 Ordered CBC WITH AUTO DIFF [HEME] AM Lab 12/24/20 05:11 Ordered CBC WITH AUTO DIFF [HEME] AM Lab 12/25/20 05:11 Ordered CBC WITH AUTO DIFF [HEME] AM Lab 12/26/20 05:11 Ordered CBC WITH AUTO DIFF [HEME] AM Lab 12/27/20 05:11 Ordered CULTURE BLOOD [BC] Urgent Lab 12/22/20 20:20 Received CULTURE BLOOD [BC] Urgent Lab 12/22/20 20:35 Received Acetaminophen [TylenoL] Med 12/23/20 00:54 Active 650 mg PO Q4H PRN Dextrose 50% in Water Med 12/23/20 00:41 Active 50 ml IVPUSH ASDIRECTED PRN Enoxaparin [Lovenox] Med 12/23/20 01:00 Active 40 mg SUBCUT Q24H Gabapentin [Neurontin] Med 12/23/20 01:00 Active 300 mg PO BID Glucagon,Human Recombinant [GlucaGen] Med 12/22/20 20:17 Active 1 mg IM ASDIRECTED PRN Insulin Glarg,Human.Rec.Analog [LantUS Solostar] Med 12/22/20 21:00 Active 30 units SUBCUT BID Insulin Lispro [HumaLOG] Med 12/23/20 08:00 Active See Protocol SUBCUT TIDMEALS Ketorolac [Toradol] Med 12/23/20 00:45 Active 30 mg IVPUSH Q6H Magnesium Hydroxide [Milk of Magnesia] Med 12/23/20 00:54 Active 30 ml PO Q12H PRN Magnesium Oxide Med 12/23/20 01:00 Active 400 mg PO Q6H Metoclopramide [Reglan] Med 12/23/20 00:45 Active 10 mg IVPUSH Q6H Sodium Chloride 0.9% [Normal Saline] 1,000 ml Med 12/23/20 08:00 Active IV ASDIRECTED Sodium Chloride 0.9% [Saline Flush] Med 12/23/20 06:32 Active 10 ml FLUSH ASDIRECTED PRN Zolpidem [Ambien] Med 12/23/20 00:54 Active 5 mg PO BEDTIME PRN amLODIPine [Norvasc] Med 12/23/20 09:00 Active 10 mg PO DAILY Blood Culture x2 Reflex Set [OM.PC] Urgent Oth 12/22/20 20:10 Ordered DVT/VTE Prophylaxis Reflex [OM.PC] Per Unit Routine Oth 12/23/20 09:19 Ordered Resuscitation Status Routine Resus Stat 12/23/20 00:41 Ordered Medication Orders Acetaminophen (Acetaminophen 325 Mg Tab) 650 mg PO Q4H PRN PRN Reason: Pain (Mild 1-3)/fever Last Admin: 12/23/20 06:57 Dose: 650 mg Documented by: KAVITA Amlodipine Besylate (Amlodipine 10 Mg Tab) 10 mg PO DAILY [facility] Last Admin: 12/23/20 08:33 Dose: 10 mg Documented by: KAVITA Dextrose/Water (50% Dextrose In Water 50 Ml Syringe) 50 ml IVPUSH ASDIRECTED PRN PRN Reason: Hypoglycemia Enoxaparin Sodium (Enoxaparin 40 Mg/0.4 Ml Syringe) 40 mg SUBCUT Q24H [facility] Last Admin: 12/23/20 01:37 Dose: 40 mg Documented by: KAVITA Gabapentin (Gabapentin 300 Mg Cap) 300 mg PO BID [facility] Last Admin: 12/23/20 09:12 Dose: 300 mg Documented by: Admin: 12/23/20 01:37 Dose: 300 mg Documented by: KAVITA Glucagon (Glucagon,Human Recombinant 1 Mg Vial) 1 mg IM ASDIRECTED PRN PRN Reason: Hypoglycemia Sodium Chloride (Normal Saline) 1,000 mls @ 150 mls/hr IV ASDIRECTED [facility] Insulin Glargine (Insulin Glargine,Human Rec. Analog 100 Units/Ml 3 Ml Pen) 30 units SUBCUT BID [facility] Last Admin: 12/23/20 08:30 Dose: 30 units Documented by: KAVITA Cosigned by: PJ Admin: 12/22/20 21:41 Dose: 30 units Documented by: NICOLÁS Cosigned by: ALEJANDRO Insulin Human Lispro (Insulin Lispro 100 Unit/Ml 3 Ml Kwikpen) 0 unit SUBCUT TIDMEALS [facility]; Protocol Last Admin: 12/23/20 07:47 Dose: 15 units Documented by: KAVITA Cosigned by: PJ Ketorolac Tromethamine (Ketorolac 30 Mg/Ml Sdv) 30 mg IVPUSH Q6H [facility] Stop: 12/28/20 00:43 Last Admin: 12/23/20 06:29 Dose: 30 mg Documented by: Admin: 12/23/20 01:51 Dose: 30 mg Documented by: KAVITA Magnesium Hydroxide (Magnesium Hydroxide 400 Mg/5 Ml Susp 30 Ml Cup) 30 ml PO Q12H PRN PRN Reason: Constipation Last Admin: 12/23/20 01:57 Dose: 30 ml Documented by: KAVITA Magnesium Oxide (Magnesium Oxide 400 Mg Tab) 400 mg PO Q6H [facility] Stop: 12/25/20 01:00 Last Admin: 12/23/20 06:32 Dose: 400 mg Documented by: Admin: 12/23/20 01:37 Dose: 400 mg Documented by: KAVITA Metoclopramide HCl (Metoclopramide 10 Mg/2 Ml Sdv) 10 mg IVPUSH Q6H [facility] Stop: 12/24/20 00:45 Last Admin: 12/23/20 06:28 Dose: 10 mg Documented by: Admin: 12/23/20 01:36 Dose: 10 mg Documented by: KAVITA Sodium Chloride (Sodium Chloride 0.9% 10 Ml Syringe) 10 ml FLUSH ASDIRECTED PRN PRN Reason: Keep Vein Open Zolpidem Tartrate (Zolpidem 5 Mg Tab) 5 mg PO BEDTIME PRN PRN Reason: Sleep Assessment/Plan Comment:: 1. Diabetes mellitus type 2 with significantly elevated glucose/DKA, hyponatremia, hypokalemia: Patient was well treated in the emergency department and DKA has grossly resolved. Continue with basal and subcutaneous sliding scale insulin, POC glucose x4, consistent carbohydrate diet, trend electrolytes 2. Facial contusion secondary to fall: Head and neck CTs are negative, continue to treat the patient with pain medication, ice 3. Chronic medical conditions: Restart home medications as indicated 4. DVT prophylaxis: Enoxaparin, 40 mg subcu every 12 hours 5. GI prophylaxis: Consistent carbohydrate diet 6. Disposition: Patient has only had Covid symptoms for approximately 4 to 5 days and will need continued isolation. Control of blood glucose likely achieved in 2 to 3 days. Patient is not requiring supplemental oxygen at this time but tomorrow is likely day 5 of Covid infection which sometimes sees exacerbation.
[2020-12-23] MEDS ORDERED: Sodium Chloride 0.9% 10 ML Syringe FLUSH SCH (12:00)
[2020-12-23] MEDS ORDERED: Bamlanivimab 700 MG, ETESEVIMAB 1,400 MG in Sodium Chloride 0.9% 100 ML IV ONE (12:00)
[2020-12-23] MEDS ORDERED: LORazepam 0.5 MG Tab PO ONE (12:03)
[2020-12-23] MEDS ORDERED: LORazepam 1 MG Tab PO SCH (13:00)
[2020-12-23] MEDS: Pantoprazole 40 MG Tab.CR PO SCH (13:55)
[2020-12-23] MEDS: Thiamine 100 MG Tab PO SCH (13:55)
[2020-12-23] MEDS: Multivitamin Tab PO SCH (13:55)
[2020-12-23] MEDS: Folic Acid 1 MG Tab PO SCH (13:55)
[2020-12-23] MEDS ORDERED: LORazepam 2 MG/ML SDV IV SCH (14:45)
[2020-12-23] MEDS: Morphine 2 MG/ML SYRINGE IVPUSH PRN (15:37)
[2020-12-24] MEDS: Magnesium Oxide 400 MG Tab PO SCH ×4 (00:45→18:17)
[2020-12-24] MEDS: Metoclopramide 10 MG/2 ML SDV IVPUSH SCH (00:46)
[2020-12-24] MEDS: Enoxaparin 40 MG/0.4 ML Syringe SUBCUT SCH (00:47)
[2020-12-24] MEDS: Sodium Chloride 0.9% 10 ML Syringe FLUSH PRN ×3 (00:53→21:13)
[2020-12-24] MEDS: Ketorolac 30 MG/ML SDV IVPUSH SCH ×4 (00:56→18:17)
[2020-12-24] MEDS: Sodium Chloride 0.9% 1,000 ML IV SCH ×2 (04:11→11:54)
[2020-12-24] MEDS: Acetaminophen 325 MG Tab PO PRN ×2 (05:15→20:18)
[2020-12-24] MEDS ORDERED: Potassium Chloride 20 MEQ Tab.ER PO ONE (07:54)
[2020-12-24] MEDS: Insulin Lispro 100 Unit/ML 3 ML KwikPen SUBCUT SCH ×3 (09:08→18:20)
[2020-12-24] MEDS: Insulin Glargine,Human Rec. Analog 100 Units/ML 3 ML Pen SUBCUT SCH ×2 (09:11→20:44)
[2020-12-24] MEDS: Folic Acid 1 MG Tab PO SCH (09:15)
[2020-12-24] MEDS: Multivitamin Tab PO SCH (09:16)
[2020-12-24] MEDS: Thiamine 100 MG Tab PO SCH (09:16)
[2020-12-24] MEDS: Pantoprazole 40 MG Tab.CR PO SCH (09:16)
[2020-12-24] MEDS: amLODIPine 10 MG Tab PO SCH (09:18)
[2020-12-24] MEDS: Gabapentin 300 MG Cap PO SCH ×2 (09:22→20:17)
--- NOTE | 2020-12-24 09:22 | PCM.PN ---
- General Info Date of Service: 12/24/20 Admission Dx/Problem (Free Text): Admission Diagnosis/Problem Admission Diagnosis/Problem Diabetic ketoacidosis Subjective Update: Patient lying in bed, awake, she does not open her eyes secondary to swelling, left greater than right secondary to traumatic fall prior to admission. She does complain of pain in her face Functional Status: Reports: Tolerating Diet, Ambulating, Urinating - Review of Systems General: Reports: No Symptoms HEENT: Reports: Other (Swelling, pain of the bilateral eyes and head) Pulmonary: Reports: No Symptoms Cardiovascular: Reports: No Symptoms Gastrointestinal: Reports: No Symptoms Genitourinary: Reports: No Symptoms Musculoskeletal: Reports: No Symptoms Skin: Reports: No Symptoms Neurological: Reports: No Symptoms Psychiatric: Reports: No Symptoms - Patient Data Vitals - Most Recent: Last Vital Signs Temp 37.6 C 12/24/20 04:00 Pulse 114 H 12/24/20 04:00 Resp 16 12/24/20 04:00 BP 143/80 H 12/24/20 04:00 Pulse Ox 96 12/24/20 04:00 Weight - Most Recent: 64.864 kg I&O - Last 24 Hours: Intake & Output 12/23/20 12/24/20 12/24/20 22:59 06:59 14:59 Intake Total 955 1207 Balance 955 1207 Lab Results Last 24 Hours: Laboratory Results - last 24 hr 12/23/20 12/23/20 12/23/20 Range/Units 11:22 12:20 17:02 WBC (3.0-10.3) x10-3/uL RBC (3.60-5.20) x10(6)uL Hgb (11.4-15.5) g/dL Hct (34.2-48.2) % MCV (76.7-100.5) fL MCH (23.9-33.9) pg MCHC (31.9-34.8) g/dL RDW (12.3-16.5) % Plt Count (151-488) x10(3)uL MPV (7.1-12.4) fL Add Manual Diff Neutrophils % (Manual) (46-82) % Band Neutrophils % (0-6) % Lymphocytes % (Manual) (13-37) % Monocytes % (Manual) (4-12) % Sodium (135-145) mmol/L Potassium (3.5-5.3) mmol/L Chloride (100-110) mmol/L Carbon Dioxide (21-32) mmol/L BUN (7-18) mg/dL Creatinine (0.55-1.02) mg/dL Est Cr Clr Drug Dosing mL/min Estimated GFR (MDRD) (>60) BUN/Creatinine Ratio (9-20) Glucose (80-116) mg/dL POC Glucose 267 H D 245 H (80-116) mg/dL Lactic Acid 1.4 (0.4-2.0) mmol/L Calcium (8.6-10.2) mg/dL Magnesium (1.8-2.5) mg/dL 12/23/20 12/24/20 12/24/20 Range/Units 20:50 06:50 06:50 WBC 18.6 H (3.0-10.3) x10-3/uL RBC 3.28 L (3.60-5.20) x10(6)uL Hgb 10.1 L (11.4-15.5) g/dL Hct 29.8 L (34.2-48.2) % MCV 90.8 (76.7-100.5) fL MCH 30.8 (23.9-33.9) pg MCHC 33.9 (31.9-34.8) g/dL RDW 13.8 (12.3-16.5) % Plt Count 168 (151-488) x10(3)uL MPV 8.9 (7.1-12.4) fL Add Manual Diff Yes Neutrophils % (Manual) 85 H (46-82) % Band Neutrophils % 6 (0-6) % Lymphocytes % (Manual) 4 L (13-37) % Monocytes % (Manual) 5 (4-12) % Sodium 130 L (135-145) mmol/L Potassium 3.3 L (3.5-5.3) mmol/L Chloride 100 D (100-110) mmol/L Carbon Dioxide 20 L (21-32) mmol/L BUN 12 (7-18) mg/dL Creatinine 0.7 (0.55-1.02) mg/dL Est Cr Clr Drug Dosing 73.51 mL/min Estimated GFR (MDRD) > 60 (>60) BUN/Creatinine Ratio 17.1 (9-20) Glucose 164 H D (80-116) mg/dL POC Glucose 210 H (80-116) mg/dL Lactic Acid (0.4-2.0) mmol/L Calcium 7.2 L (8.6-10.2) mg/dL Magnesium (1.8-2.5) mg/dL 12/24/20 12/24/20 Range/Units 06:50 08:59 WBC (3.0-10.3) x10-3/uL RBC (3.60-5.20) x10(6)uL Hgb (11.4-15.5) g/dL Hct (34.2-48.2) % MCV (76.7-100.5) fL MCH (23.9-33.9) pg MCHC (31.9-34.8) g/dL RDW (12.3-16.5) % Plt Count (151-488) x10(3)uL MPV (7.1-12.4) fL Add Manual Diff Neutrophils % (Manual) (46-82) % Band Neutrophils % (0-6) % Lymphocytes % (Manual) (13-37) % Monocytes % (Manual) (4-12) % Sodium (135-145) mmol/L Potassium (3.5-5.3) mmol/L Chloride (100-110) mmol/L Carbon Dioxide (21-32) mmol/L BUN (7-18) mg/dL Creatinine (0.55-1.02) mg/dL Est Cr Clr Drug Dosing mL/min Estimated GFR (MDRD) (>60) BUN/Creatinine Ratio (9-20) Glucose (80-116) mg/dL POC Glucose 220 H (80-116) mg/dL Lactic Acid (0.4-2.0) mmol/L Calcium (8.6-10.2) mg/dL Magnesium 1.9 (1.8-2.5) mg/dL Louie Results Last 24 Hours: Microbiology 12/22/20 20:35 Aerobic Blood Culture - Preliminary Blood - Venous - Lab Draw NO GROWTH AFTER 1 DAY Anaerobic Blood Culture - Preliminary NO GROWTH AFTER 1 DAY 12/22/20 20:20 Aerobic Blood Culture - Preliminary Blood - Venous NO GROWTH AFTER 1 DAY Anaerobic Blood Culture - Preliminary NO GROWTH AFTER 1 DAY Med Orders - Current: Current Medications Acetaminophen (Acetaminophen 325 Mg Tab) 650 mg PO Q4H PRN PRN Reason: Pain (Mild 1-3)/fever Last Admin: 12/24/20 05:15 Dose: 650 mg Documented by: Amlodipine Besylate (Amlodipine 10 Mg Tab) 10 mg PO DAILY [facility] Last Admin: 12/23/20 08:33 Dose: 10 mg Documented by: Dextrose/Water (50% Dextrose In Water 50 Ml Syringe) 50 ml IVPUSH ASDIRECTED PRN PRN Reason: Hypoglycemia Enoxaparin Sodium (Enoxaparin 40 Mg/0.4 Ml Syringe) 40 mg SUBCUT Q24H [facility] Last Admin: 12/24/20 00:47 Dose: 40 mg Documented by: Folic Acid (Folic Acid 1 Mg Tab) 1 mg PO DAILY [facility] Last Admin: 12/24/20 09:15 Dose: 1 mg Documented by: Gabapentin (Gabapentin 300 Mg Cap) 300 mg PO BID [facility] Last Admin: 12/23/20 20:45 Dose: 300 mg Documented by: Glucagon (Glucagon,Human Recombinant 1 Mg Vial) 1 mg IM ASDIRECTED PRN PRN Reason: Hypoglycemia Sodium Chloride (Normal Saline) 1,000 mls @ 150 mls/hr IV ASDIRECTED [facility] Last Admin: 12/24/20 04:11 Dose: 150 mls/hr Documented by: Insulin Glargine (Insulin Glargine,Human Rec. Analog 100 Units/Ml 3 Ml Pen) 30 units SUBCUT BID [facility] Last Admin: 12/24/20 09:11 Dose: 30 units Documented by: Insulin Human Lispro (Insulin Lispro 100 Unit/Ml 3 Ml Kwikpen) 0 unit SUBCUT TIDMEALS [facility]; Protocol Last Admin: 12/24/20 09:08 Dose: 6 units Documented by: Ketorolac Tromethamine (Ketorolac 30 Mg/Ml Sdv) 30 mg IVPUSH Q6H [facility] Stop: 12/28/20 00:43 Last Admin: 12/24/20 06:50 Dose: 30 mg Documented by: Lorazepam (Lorazepam 1 Mg Tab) 0 mg PO ASDIRECTED [facility]; Protocol Lorazepam (Lorazepam 2 Mg/Ml Sdv) 0 mg IV ASDIRECTED [facility]; Protocol Magnesium Hydroxide (Magnesium Hydroxide 400 Mg/5 Ml Susp 30 Ml Cup) 30 ml PO Q12H PRN PRN Reason: Constipation Last Admin: 12/23/20 01:57 Dose: 30 ml Documented by: Magnesium Oxide (Magnesium Oxide 400 Mg Tab) 400 mg PO Q6H [facility] Stop: 12/25/20 01:00 Last Admin: 12/24/20 06:50 Dose: 400 mg Documented by: Morphine Sulfate (Morphine 2 Mg/Ml Syringe) 2 mg IVPUSH Q4H PRN PRN Reason: Pain (severe 7-10) Last Admin: 12/23/20 15:37 Dose: 2 mg Documented by: Multivitamins/Minerals/Vitamin C (Multivitamin Tab) 1 tab PO DAILY [facility] Last Admin: 12/24/20 09:16 Dose: 1 tab Documented by: Pantoprazole Sodium (Pantoprazole 40 Mg Tab.Cr) 40 mg PO DAILY [facility] Last Admin: 12/24/20 09:16 Dose: 40 mg Documented by: Sodium Chloride (Sodium Chloride 0.9% 10 Ml Syringe) 10 ml FLUSH ASDIRECTED PRN PRN Reason: Keep Vein Open Last Admin: 12/24/20 00:53 Dose: 10 ml Documented by: Thiamine HCl (Thiamine 100 Mg Tab) 100 mg PO DAILY [facility] Last Admin: 12/24/20 09:16 Dose: 100 mg Documented by: Zolpidem Tartrate (Zolpidem 5 Mg Tab) 5 mg PO BEDTIME PRN PRN Reason: Sleep Discontinued Medications Al Hydroxide/Mg Hydroxide 15 (ml/ Lidocaine HCl 15 ml) 0 ml PO ONETIME ONE Stop: 12/22/20 21:46 Last Admin: 12/22/20 21:50 Dose: 30 ml Documented by: Dextrose/Water (50% Dextrose In Water 50 Ml Syringe) 50 ml IVPUSH ASDIRECTED PRN PRN Reason: Hypoglycemia Dextrose/Water (50% Dextrose In Water 50 Ml Syringe) 50 ml IVPUSH ASDIRECTED PRN PRN Reason: Hypoglycemia Glucagon (Glucagon,Human Recombinant 1 Mg Vial) 1 mg IM ASDIRECTED PRN PRN Reason: Hypoglycemia Glucagon (Glucagon,Human Recombinant 1 Mg Vial) 1 mg IM ASDIRECTED PRN PRN Reason: Hypoglycemia Sodium Chloride (Normal Saline) 1,000 mls @ 999 mls/hr IV .BOLUS ONE Stop: 12/22/20 18:57 Last Admin: 12/22/20 18:10 Dose: 999 mls/hr Documented by: Sodium Chloride (Normal Saline) 1,000 mls @ 999 mls/hr IV .BOLUS ONE Stop: 12/22/20 21:14 Last Admin: 12/22/20 21:00 Dose: 999 mls/hr Documented by: Sodium Chloride (Normal Saline) 1,000 mls @ 999 mls/hr IV .BOLUS ONE Stop: 12/22/20 21:14 Last Admin: 12/22/20 22:28 Dose: 999 mls/hr Documented by: Potassium Chloride 20 meq/ (Premix) 100 mls @ 50 mls/hr IV ONETIME ONE Stop: 12/22/20 22:13 Last Admin: 12/22/20 21:50 Dose: 50 mls/hr Documented by: Potassium Chloride/Dextrose/Sod Cl (D5 1/2 Ns W/ 20 Meq/L Kcl) 1,000 mls @ 150 mls/hr IV ASDIRECTED [facility] Stop: 12/23/20 08:20 Last Admin: 12/23/20 01:39 Dose: 150 mls/hr Documented by: Potassium Chloride/Dextrose/Sod Cl (D5 1/2 Ns W/ 20 Meq/L Kcl) 1,000 mls @ 150 mls/hr IV Q7H [facility] Magnesium Sulfate 4 gm/ (Dextrose/Water) 258 mls @ 100 mls/hr IV ONETIME ONE Stop: 12/23/20 10:06 Last Admin: 12/23/20 13:00 Dose: Not Given Documented by: Bamlanivimab 700 mg/Etesevimab 1,400 mg/ Sodium Chloride 160 mls @ 310 mls/hr I V ONETIME ONE Stop: 12/23/20 12:30 Last Admin: 12/23/20 12:29 Dose: 310 mls/hr Documented by: Insulin Human Regular (Insulin Regular, Human 100 Units/Ml 3 Ml Vial) 10 unit IV ONETIME ONE Stop: 12/22/20 20:16 Last Admin: 12/22/20 20:55 Dose: 10 units Documented by: Ketorolac Tromethamine (Ketorolac 30 Mg/Ml Sdv) 30 mg IVPUSH ONETIME ONE Stop: 12/22/20 17:57 Last Admin: 12/22/20 18:10 Dose: 30 mg Documented by: Lorazepam (Lorazepam 0.5 Mg Tab) 0.5 mg PO ONETIME ONE Stop: 12/23/20 12:04 Last Admin: 12/23/20 12:30 Dose: 0.5 mg Documented by: Metoclopramide HCl (Metoclopramide 10 Mg/2 Ml Sdv) 10 mg IVPUSH ONETIME ONE Stop: 12/22/20 19:27 Last Admin: 12/22/20 19:37 Dose: 10 mg Documented by: Metoclopramide HCl (Metoclopramide 10 Mg/2 Ml Sdv) 10 mg IVPUSH Q6H [facility] Stop: 12/24/20 00:45 Last Admin: 12/24/20 00:46 Dose: 10 mg Documented by: Ondansetron HCl (Ondansetron 4 Mg/2 Ml Sdv) 4 mg IVPUSH ONETIME ONE Stop: 12/22/20 17:57 Last Admin: 12/22/20 18:10 Dose: 4 mg Documented by: Potassium Chloride (Potassium Chloride 20 Meq Tab.Er) 40 meq PO ONETIME ONE Stop: 12/24/20 07:55 Last Admin: 12/24/20 09:07 Dose: 40 meq Documented by: Sodium Chloride (Sodium Chloride 0.9% 10 Ml Syringe) 30 ml FLUSH ASDIRECTED [facility] Stop: 12/23/20 16:00 Comments:: Patient was able to sit up in bed and sit with her legs crossed without any difficulties or pain. She did complain of pain in her head and was not able to open her eyes secondary to pain and swelling - Exam Quality Assessment: Supplemental Oxygen, DVT Prophylaxis General: Alert, Oriented, Cooperative, Mild Distress HEENT: Other (Significant swelling around the bilateral eyes, left greater than right, ecchymosis) Lungs: Crackles Cardiovascular: Regular Rhythm, No Murmurs, Tachycardia GI/Abdominal Exam: Normal Bowel Sounds, Soft, Non-Tender Back Exam: Normal Inspection Extremities: Normal Inspection Peripheral Pulses: 2+: Radial (L), Radial (R), Dorsalis Pedis (L), Dorsalis Pedis (R) Skin: Warm, Dry Wound/Incisions: Healing Well Neurological: No New Focal Deficit Psy/Mental Status: Alert, Anxious - Patient Data Lab Results Last 24 hrs: Laboratory Results - last 24 hr 12/23/20 12/23/20 12/23/20 Range/Units 11:22 12:20 17:02 WBC (3.0-10.3) x10-3/uL RBC (3.60-5.20) x10(6)uL Hgb (11.4-15.5) g/dL Hct (34.2-48.2) % MCV (76.7-100.5) fL MCH (23.9-33.9) pg MCHC (31.9-34.8) g/dL RDW (12.3-16.5) % Plt Count (151-488) x10(3)uL MPV (7.1-12.4) fL Add Manual Diff Neutrophils % (Manual) (46-82) % Band Neutrophils % (0-6) % Lymphocytes % (Manual) (13-37) % Monocytes % (Manual) (4-12) % Sodium (135-145) mmol/L Potassium (3.5-5.3) mmol/L Chloride (100-110) mmol/L Carbon Dioxide (21-32) mmol/L BUN (7-18) mg/dL Creatinine (0.55-1.02) mg/dL Est Cr Clr Drug Dosing mL/min Estimated GFR (MDRD) (>60) BUN/Creatinine Ratio (9-20) Glucose (80-116) mg/dL POC Glucose 267 H D 245 H (80-116) mg/dL Lactic Acid 1.4 (0.4-2.0) mmol/L Calcium (8.6-10.2) mg/dL Magnesium (1.8-2.5) mg/dL 12/23/20 12/24/20 12/24/20 Range/Units 20:50 06:50 06:50 WBC 18.6 H (3.0-10.3) x10-3/uL RBC 3.28 L (3.60-5.20) x10(6)uL Hgb 10.1 L (11.4-15.5) g/dL Hct 29.8 L (34.2-48.2) % MCV 90.8 (76.7-100.5) fL MCH 30.8 (23.9-33.9) pg MCHC 33.9 (31.9-34.8) g/dL RDW 13.8 (12.3-16.5) % Plt Count 168 (151-488) x10(3)uL MPV 8.9 (7.1-12.4) fL Add Manual Diff Yes Neutrophils % (Manual) 85 H (46-82) % Band Neutrophils % 6 (0-6) % Lymphocytes % (Manual) 4 L (13-37) % Monocytes % (Manual) 5 (4-12) % Sodium 130 L (135-145) mmol/L Potassium 3.3 L (3.5-5.3) mmol/L Chloride 100 D (100-110) mmol/L Carbon Dioxide 20 L (21-32) mmol/L BUN 12 (7-18) mg/dL Creatinine 0.7 (0.55-1.02) mg/dL Est Cr Clr Drug Dosing 73.51 mL/min Estimated GFR (MDRD) > 60 (>60) BUN/Creatinine Ratio 17.1 (9-20) Glucose 164 H D (80-116) mg/dL POC Glucose 210 H (80-116) mg/dL Lactic Acid (0.4-2.0) mmol/L Calcium 7.2 L (8.6-10.2) mg/dL Magnesium (1.8-2.5) mg/dL 12/24/20 12/24/20 Range/Units 06:50 08:59 WBC (3.0-10.3) x10-3/uL RBC (3.60-5.20) x10(6)uL Hgb (11.4-15.5) g/dL Hct (34.2-48.2) % MCV (76.7-100.5) fL MCH (23.9-33.9) pg MCHC (31.9-34.8) g/dL RDW (12.3-16.5) % Plt Count (151-488) x10(3)uL MPV (7.1-12.4) fL Add Manual Diff Neutrophils % (Manual) (46-82) % Band Neutrophils % (0-6) % Lymphocytes % (Manual) (13-37) % Monocytes % (Manual) (4-12) % Sodium (135-145) mmol/L Potassium (3.5-5.3) mmol/L Chloride (100-110) mmol/L Carbon Dioxide (21-32) mmol/L BUN (7-18) mg/dL Creatinine (0.55-1.02) mg/dL Est Cr Clr Drug Dosing mL/min Estimated GFR (MDRD) (>60) BUN/Creatinine Ratio (9-20) Glucose (80-116) mg/dL POC Glucose 220 H (80-116) mg/dL Lactic Acid (0.4-2.0) mmol/L Calcium (8.6-10.2) mg/dL Magnesium 1.9 (1.8-2.5) mg/dL Result Diagrams: 12/24/20 06:50 12/24/20 06:50 Louie Results Last 24 hrs: Microbiology 12/22/20 20:35 Aerobic Blood Culture - Preliminary Blood - Venous - Lab Draw NO GROWTH AFTER 1 DAY Anaerobic Blood Culture - Preliminary NO GROWTH AFTER 1 DAY 12/22/20 20:20 Aerobic Blood Culture - Preliminary Blood - Venous NO GROWTH AFTER 1 DAY Anaerobic Blood Culture - Preliminary NO GROWTH AFTER 1 DAY Sepsis Event Note - Evaluation Sepsis Screening Result: Sepsis Risk - Focused Exam Vital Signs: Vital Signs Temp Temp Pulse Resp BP Pulse Ox 12/24/20 04:00 37.6 C 114 H 16 143/80 H 96 12/24/20 01:00 37.4 C 112 H 16 120/73 94 L 12/23/20 21:20 37.7 C - Problem List & Annotations (1) Diabetes mellitus type 2 in obese SNOMED Code(s): 20323342 Code(s): E11.69 - TYPE 2 DIABETES MELLITUS WITH OTHER SPECIFIED COMPLICATION; E66.9 - OBESITY, UNSPECIFIED Status: Chronic Current Visit: Yes (2) Hypothyroidism SNOMED Code(s): 01730768 Code(s): E03.9 - HYPOTHYROIDISM, UNSPECIFIED Status: Chronic Current Visit: Yes (3) DKA (diabetic ketoacidosis) SNOMED Code(s): 973458829, 811113358 Code(s): E11.10 - TYPE 2 DIABETES MELLITUS WITH KETOACIDOSIS WITHOUT COMA Status: Acute Current Visit: Yes (4) Dehydration SNOMED Code(s): 67749580 Code(s): E86.0 - DEHYDRATION Status: Acute Current Visit: Yes (5) Facial contusion SNOMED Code(s): 776196841 Code(s): S00.83XA - CONTUSION OF OTHER PART OF HEAD, INITIAL ENCOUNTER Status: Acute Current Visit: Yes (6) Hypokalemia SNOMED Code(s): 00893567 Code(s): E87.6 - HYPOKALEMIA Status: Acute Current Visit: Yes (7) Leukocytosis SNOMED Code(s): 291428191, 355201722 Code(s): D72.829 - ELEVATED WHITE BLOOD CELL COUNT, UNSPECIFIED Status: Acute Current Visit: Yes (8) Pneumonia due to COVID-19 virus SNOMED Code(s): 400906067010384898 Code(s): U07.1 - COVID-19; J12.82 - PNEUMONIA DUE TO CORONAVIRUS DISEASE 2019 Status: Acute Current Visit: Yes (9) Head, face & neck injury SNOMED Code(s): 755374162 Code(s): S19.9XXA - UNSPECIFIED INJURY OF NECK, INITIAL ENCOUNTER; S09.90XA - UNSPECIFIED INJURY OF HEAD, INITIAL ENCOUNTER; S09.93XA - UNSPECIFIED INJURY OF FACE, INITIAL ENCOUNTER Status: Acute Current Visit: No (10) Hyponatremia SNOMED Code(s): 27810384 Code(s): E87.1 - HYPO-OSMOLALITY AND HYPONATREMIA Status: Acute Current Visit: Yes - Problem List Review Problem List Initiated/Reviewed/Updated: Yes - My Orders Last 24 Hours: My Active Orders 12/23/20 09:19 Patient Status [ADT] Routine Pulse Oximetry [RC] PRN DVT/VTE Prophylaxis Reflex [OM.PC] Per Unit Routine 12/23/20 09:21 Antiembolic Devices [RC] .Routine 12/23/20 10:05 Vital Signs [RC] Q12H 12/23/20 Lunch Fluid Restriction [DIET] 12/23/20 12:47 CIWAA Assessment [RC] Q1H Notify Provider [RC] PRN Anticoagulation Contraindications VTE [AST] Routine 12/23/20 13:00 Folic Acid 1 mg PO DAILY LORazepam [Ativan] See Protocol PO ASDIRECTED Multivitamins [Tab-A-Gunner] 1 tab PO DAILY Pantoprazole [ProTONIX] 40 mg PO DAILY Thiamine [Vitamin B-1] 100 mg PO DAILY 12/23/20 14:39 Morphine 2 mg IVPUSH Q4H PRN 12/23/20 14:45 LORazepam [Ativan] See Protocol IV ASDIRECTED - Plan Plan:: 1. Diabetes mellitus type 2 with significantly elevated glucose/DKA, hyponatremia, hypokalemia: Continue basal and sliding scale insulin, continue to trend glucose and electrolytes, patient's glucose has significantly improved there is no DKA/HHS at this time patient will be given electrolytes as needed 2. Facial contusion secondary to fall: Head and neck CTs are negative, continue to treat the patient with pain medication, ice. Added morphine yesterday but patient still complains of pain and nervous type feelings secondary to pain 3. Chronic medical conditions: Restart home medications as indicated 4. DVT prophylaxis: Enoxaparin, 40 mg subcu every 12 hours 5. GI prophylaxis: Consistent carbohydrate diet 6. Disposition: Patient has only had Covid symptoms for approximately 4 to 5 days and will need continued isolation, today is likely day 6. Patient has not had exacerbation of Covid symptoms at this time. We will continue to try to control pain and tenuous CIWA scale and treatment. Likely discharge in 2 to 3 days
[2020-12-24] MEDS: Morphine 2 MG/ML SYRINGE IVPUSH PRN (09:23)
[2020-12-24] MEDS: Azithromycin 500 MG in Sodium Chloride 0.9% 250 ML IV SCH (10:07)
[2020-12-24] MEDS ORDERED: cefTRIAXone 2 GM Vial IVPUSH ONE (20:39)
[2020-12-24] MEDS ORDERED: Acetaminophen/HYDROcodone 325-5 MG Tab PO PRN (20:44)
[2020-12-24] MEDS: Acetaminophen/HYDROcodone 325-5 MG Tab PO PRN (21:29)
[2020-12-24] MEDS ORDERED: Ketorolac 30 MG/ML SDV IVPUSH PRN (22:23)
[2020-12-25] MEDS: Magnesium Oxide 400 MG Tab PO SCH (00:17)
[2020-12-25] MEDS: Enoxaparin 40 MG/0.4 ML Syringe SUBCUT SCH (00:17)
[2020-12-25] MEDS: Acetaminophen/HYDROcodone 325-5 MG Tab PO PRN ×3 (04:12→22:20)
[2020-12-25] MEDS: Insulin Lispro 100 Unit/ML 3 ML KwikPen SUBCUT SCH ×3 (08:09→18:10)
[2020-12-25] MEDS: Gabapentin 300 MG Cap PO SCH ×2 (08:15→20:43)
[2020-12-25] MEDS: Folic Acid 1 MG Tab PO SCH (08:16)
[2020-12-25] MEDS: Pantoprazole 40 MG Tab.CR PO SCH (08:17)
[2020-12-25] MEDS: Multivitamin Tab PO SCH (08:17)
[2020-12-25] MEDS: Thiamine 100 MG Tab PO SCH (08:18)
[2020-12-25] MEDS: Insulin Glargine,Human Rec. Analog 100 Units/ML 3 ML Pen SUBCUT SCH ×2 (08:31→21:39)
[2020-12-25] MEDS: amLODIPine 10 MG Tab PO SCH (08:39)
--- NOTE | 2020-12-25 09:37 | PCM.PN ---
- General Info Date of Service: 12/25/20 Admission Dx/Problem (Free Text): Admission Diagnosis/Problem Admission Diagnosis/Problem Diabetic ketoacidosis Subjective Update: Patient continues to complain of bilateral forehead/eye pain with now complaints of back of the neck type pain. She states her eyes feel so swollen she cannot even open them. - Review of Systems General: Reports: No Symptoms HEENT: Reports: Other (Forehead/eye pain, neck pain as above) Pulmonary: Reports: No Symptoms Cardiovascular: Reports: No Symptoms Gastrointestinal: Reports: No Symptoms Genitourinary: Reports: No Symptoms Musculoskeletal: Reports: No Symptoms Skin: Reports: No Symptoms Neurological: Reports: No Symptoms Psychiatric: Reports: No Symptoms - Patient Data Vitals - Most Recent: Last Vital Signs Temp 37.4 C 12/25/20 09:00 Pulse 108 H 12/25/20 09:00 Resp 18 12/25/20 09:00 BP 146/82 H 12/25/20 09:00 Pulse Ox 95 12/25/20 09:00 Weight - Most Recent: 64.864 kg I&O - Last 24 Hours: Intake & Output 12/24/20 12/25/20 12/25/20 22:59 06:59 14:59 Intake Total 876 Balance 876 Lab Results Last 24 Hours: Laboratory Results - last 24 hr 12/24/20 12/24/20 12/24/20 Range/Units 11:40 17:59 20:39 WBC (3.0-10.3) x10-3/uL RBC (3.60-5.20) x10(6)uL Hgb (11.4-15.5) g/dL Hct (34.2-48.2) % MCV (76.7-100.5) fL MCH (23.9-33.9) pg MCHC (31.9-34.8) g/dL RDW (12.3-16.5) % Plt Count (151-488) x10(3)uL MPV (7.1-12.4) fL Add Manual Diff Neutrophils % (Manual) (46-82) % Lymphocytes % (Manual) (13-37) % Monocytes % (Manual) (4-12) % Sodium (135-145) mmol/L Potassium (3.5-5.3) mmol/L Chloride (100-110) mmol/L Carbon Dioxide (21-32) mmol/L BUN (7-18) mg/dL Creatinine (0.55-1.02) mg/dL Est Cr Clr Drug Dosing mL/min Estimated GFR (MDRD) (>60) BUN/Creatinine Ratio (9-20) Glucose (80-116) mg/dL POC Glucose 202 H 210 H 237 H (80-116) mg/dL Calcium (8.6-10.2) mg/dL 12/25/20 12/25/20 Range/Units 06:20 06:20 WBC 18.0 H (3.0-10.3) x10-3/uL RBC 3.18 L (3.60-5.20) x10(6)uL Hgb 9.9 L (11.4-15.5) g/dL Hct 29.1 L (34.2-48.2) % MCV 91.3 (76.7-100.5) fL MCH 31.0 (23.9-33.9) pg MCHC 33.9 (31.9-34.8) g/dL RDW 13.9 (12.3-16.5) % Plt Count 192 (151-488) x10(3)uL MPV 8.4 (7.1-12.4) fL Add Manual Diff Yes Neutrophils % (Manual) 87 H (46-82) % Lymphocytes % (Manual) 6 L (13-37) % Monocytes % (Manual) 7 (4-12) % Sodium 135 (135-145) mmol/L Potassium 3.5 (3.5-5.3) mmol/L Chloride 104 (100-110) mmol/L Carbon Dioxide 22 (21-32) mmol/L BUN 8 (7-18) mg/dL Creatinine 0.7 (0.55-1.02) mg/dL Est Cr Clr Drug Dosing 73.51 mL/min Estimated GFR (MDRD) > 60 (>60) BUN/Creatinine Ratio 11.4 (9-20) Glucose 174 H (80-116) mg/dL POC Glucose (80-116) mg/dL Calcium 7.1 L (8.6-10.2) mg/dL Louie Results Last 24 Hours: Microbiology 12/22/20 20:35 Aerobic Blood Culture - Preliminary Blood - Venous - Lab Draw NO GROWTH AFTER 2 DAYS Anaerobic Blood Culture - Preliminary NO GROWTH AFTER 2 DAYS 12/22/20 20:20 Aerobic Blood Culture - Preliminary Blood - Venous NO GROWTH AFTER 2 DAYS Anaerobic Blood Culture - Preliminary NO GROWTH AFTER 2 DAYS Med Orders - Current: Current Medications Acetaminophen (Acetaminophen 325 Mg Tab) 650 mg PO Q4H PRN PRN Reason: Pain (Mild 1-3)/fever Last Admin: 12/24/20 20:18 Dose: 650 mg Documented by: Hydrocodone Bitart/Acetaminophen (Acetaminophen/Hydrocodone 325-5 Mg Tab) 1 tab PO Q4H PRN PRN Reason: Pain (moderate 4-6) Hydrocodone Bitart/Acetaminophen (Acetaminophen/Hydrocodone 325-5 Mg Tab) 2 tab PO Q4H PRN PRN Reason: Pain (severe 7-10) Last Admin: 12/25/20 04:12 Dose: 2 tab Documented by: Amlodipine Besylate (Amlodipine 10 Mg Tab) 10 mg PO DAILY [facility] Last Admin: 12/25/20 08:39 Dose: 10 mg Documented by: Ceftriaxone Sodium (Ceftriaxone 1 Gm Vial) 1 gm IVPUSH Q24H [facility] Dextrose/Water (50% Dextrose In Water 50 Ml Syringe) 50 ml IVPUSH ASDIRECTED PRN PRN Reason: Hypoglycemia Enoxaparin Sodium (Enoxaparin 40 Mg/0.4 Ml Syringe) 40 mg SUBCUT Q24H [facility] Last Admin: 12/25/20 00:17 Dose: 40 mg Documented by: Erythromycin (Erythromycin Base 0.5% Ophth Oint 1 Gm Tube) 0 gm EYEBOTH BID [facility] Stop: 12/31/20 23:00 Folic Acid (Folic Acid 1 Mg Tab) 1 mg PO DAILY [facility] Last Admin: 12/25/20 08:16 Dose: 1 mg Documented by: Gabapentin (Gabapentin 300 Mg Cap) 300 mg PO BID [facility] Last Admin: 12/25/20 08:15 Dose: 300 mg Documented by: Glucagon (Glucagon,Human Recombinant 1 Mg Vial) 1 mg IM ASDIRECTED PRN PRN Reason: Hypoglycemia Azithromycin 500 mg/ Sodium (Chloride) 250 mls @ 250 mls/hr IV Q24H [facility] Last Admin: 12/24/20 10:07 Dose: 250 mls/hr Documented by: Insulin Glargine (Insulin Glargine,Human Rec. Analog 100 Units/Ml 3 Ml Pen) 30 units SUBCUT BID [facility] Last Admin: 12/25/20 08:31 Dose: 30 units Documented by: Insulin Human Lispro (Insulin Lispro 100 Unit/Ml 3 Ml Kwikpen) 0 unit SUBCUT TIDMEALS [facility]; Protocol Last Admin: 12/25/20 08:09 Dose: 3 units Documented by: Ketorolac Tromethamine (Ketorolac 30 Mg/Ml Sdv) 30 mg IVPUSH Q6H PRN PRN Reason: Headache/Pain Stop: 12/29/20 22:23 Lorazepam (Lorazepam 1 Mg Tab) 0 mg PO ASDIRECTED [facility]; Protocol Lorazepam (Lorazepam 2 Mg/Ml Sdv) 0 mg IV ASDIRECTED [facility]; Protocol Magnesium Hydroxide (Magnesium Hydroxide 400 Mg/5 Ml Susp 30 Ml Cup) 30 ml PO Q12H PRN PRN Reason: Constipation Last Admin: 12/23/20 01:57 Dose: 30 ml Documented by: Morphine Sulfate (Morphine 2 Mg/Ml Syringe) 2 mg IVPUSH Q4H PRN PRN Reason: Pain (severe 7-10) Last Admin: 12/24/20 09:23 Dose: 2 mg Documented by: Multivitamins/Minerals/Vitamin C (Multivitamin Tab) 1 tab PO DAILY [facility] Last Admin: 12/25/20 08:17 Dose: 1 tab Documented by: Pantoprazole Sodium (Pantoprazole 40 Mg Tab.Cr) 40 mg PO DAILY [facility] Last Admin: 12/25/20 08:17 Dose: 40 mg Documented by: Sodium Chloride (Sodium Chloride 0.9% 10 Ml Syringe) 10 ml FLUSH ASDIRECTED PRN PRN Reason: Keep Vein Open Last Admin: 12/24/20 21:13 Dose: 10 ml Documented by: Thiamine HCl (Thiamine 100 Mg Tab) 100 mg PO DAILY [facility] Last Admin: 12/25/20 08:18 Dose: 100 mg Documented by: Zolpidem Tartrate (Zolpidem 5 Mg Tab) 5 mg PO BEDTIME PRN PRN Reason: Sleep Discontinued Medications Ceftriaxone Sodium (Ceftriaxone 2 Gm Vial) 2 gm IVPUSH ONETIME ONE Stop: 12/24/20 20:40 Last Admin: 12/24/20 21:12 Dose: 2 gm Documented by: Al Hydroxide/Mg Hydroxide 15 (ml/ Lidocaine HCl 15 ml) 0 ml PO ONETIME ONE Stop: 12/22/20 21:46 Last Admin: 12/22/20 21:50 Dose: 30 ml Documented by: Dextrose/Water (50% Dextrose In Water 50 Ml Syringe) 50 ml IVPUSH ASDIRECTED PRN PRN Reason: Hypoglycemia Dextrose/Water (50% Dextrose In Water 50 Ml Syringe) 50 ml IVPUSH ASDIRECTED PRN PRN Reason: Hypoglycemia Glucagon (Glucagon,Human Recombinant 1 Mg Vial) 1 mg IM ASDIRECTED PRN PRN Reason: Hypoglycemia Glucagon (Glucagon,Human Recombinant 1 Mg Vial) 1 mg IM ASDIRECTED PRN PRN Reason: Hypoglycemia Sodium Chloride (Normal Saline) 1,000 mls @ 999 mls/hr IV .BOLUS ONE Stop: 12/22/20 18:57 Last Admin: 12/22/20 18:10 Dose: 999 mls/hr Documented by: Sodium Chloride (Normal Saline) 1,000 mls @ 999 mls/hr IV .BOLUS ONE Stop: 12/22/20 21:14 Last Admin: 12/22/20 21:00 Dose: 999 mls/hr Documented by: Sodium Chloride (Normal Saline) 1,000 mls @ 999 mls/hr IV .BOLUS ONE Stop: 12/22/20 21:14 Last Admin: 12/22/20 22:28 Dose: 999 mls/hr Documented by: Potassium Chloride 20 meq/ (Premix) 100 mls @ 50 mls/hr IV ONETIME ONE Stop: 12/22/20 22:13 Last Admin: 12/22/20 21:50 Dose: 50 mls/hr Documented by: Potassium Chloride/Dextrose/Sod Cl (D5 1/2 Ns W/ 20 Meq/L Kcl) 1,000 mls @ 150 mls/hr IV ASDIRECTED [facility] Stop: 12/23/20 08:20 Last Admin: 12/23/20 01:39 Dose: 150 mls/hr Documented by: Potassium Chloride/Dextrose/Sod Cl (D5 1/2 Ns W/ 20 Meq/L Kcl) 1,000 mls @ 150 mls/hr IV Q7H [facility] Sodium Chloride (Normal Saline) 1,000 mls @ 150 mls/hr IV ASDIRECTED [facility] Last Admin: 12/24/20 11:54 Dose: 150 mls/hr Documented by: Magnesium Sulfate 4 gm/ (Dextrose/Water) 258 mls @ 100 mls/hr IV ONETIME ONE Stop: 12/23/20 10:06 Last Admin: 12/23/20 13:00 Dose: Not Given Documented by: Bamlanivimab 700 mg/Etesevimab 1,400 mg/ Sodium Chloride 160 mls @ 310 mls/hr IV ONETIME ONE Stop: 12/23/20 12:30 Last Admin: 12/23/20 12:29 Dose: 310 mls/hr Documented by: Insulin Human Regular (Insulin Regular, Human 100 Units/Ml 3 Ml Vial) 10 unit IV ONETIME ONE Stop: 12/22/20 20:16 Last Admin: 12/22/20 20:55 Dose: 10 units Documented by: Ketorolac Tromethamine (Ketorolac 30 Mg/Ml Sdv) 30 mg IVPUSH ONETIME ONE Stop: 12/22/20 17:57 Last Admin: 12/22/20 18:10 Dose: 30 mg Documented by: Ketorolac Tromethamine (Ketorolac 30 Mg/Ml Sdv) 30 mg IVPUSH Q6H [facility] Stop: 12/28/20 00:43 Last Admin: 12/24/20 18:17 Dose: 30 mg Documented by: Lorazepam (Lorazepam 0.5 Mg Tab) 0.5 mg PO ONETIME ONE Stop: 12/23/20 12:04 Last Admin: 12/23/20 12:30 Dose: 0.5 mg Documented by: Magnesium Oxide (Magnesium Oxide 400 Mg Tab) 400 mg PO Q6H [facility] Stop: 12/25/20 01:00 Last Admin: 12/25/20 00:17 Dose: 400 mg Documented by: Metoclopramide HCl (Metoclopramide 10 Mg/2 Ml Sdv) 10 mg IVPUSH ONETIME ONE Stop: 12/22/20 19:27 Last Admin: 12/22/20 19:37 Dose: 10 mg Documented by: Metoclopramide HCl (Metoclopramide 10 Mg/2 Ml Sdv) 10 mg IVPUSH Q6H [facility] Stop: 12/24/20 00:45 Last Admin: 12/24/20 00:46 Dose: 10 mg Documented by: Ondansetron HCl (Ondansetron 4 Mg/2 Ml Sdv) 4 mg IVPUSH ONETIME ONE Stop: 12/22/20 17:57 Last Admin: 12/22/20 18:10 Dose: 4 mg Documented by: Potassium Chloride (Potassium Chloride 20 Meq Tab.Er) 40 meq PO ONETIME ONE Stop: 12/24/20 07:55 Last Admin: 12/24/20 09:07 Dose: 40 meq Documented by: Sodium Chloride (Sodium Chloride 0.9% 10 Ml Syringe) 30 ml FLUSH ASDIRECTED [facility] Stop: 12/23/20 16:00 Comments:: Patient awake, alert, oriented, able to roll over or sit up in bed without effort or help - Exam Quality Assessment: Supplemental Oxygen, DVT Prophylaxis General: Alert, Oriented, Mild Distress HEENT: Other (Bilateral eyes are significantly swollen from the proximal forehead to the upper eyelids, today her right eye is more swollen than left, clear fluid discharge from wounds on the right eyelid) Neck: Other (Tender to palpation posteriorly) Lungs: Clear to Auscultation Cardiovascular: Tachycardia GI/Abdominal Exam: Normal Bowel Sounds, Soft, Non-Tender Back Exam: Normal Inspection Extremities: Normal Inspection Peripheral Pulses: 2+: Radial (L), Radial (R), Dorsalis Pedis (L), Dorsalis Pedis (R) Skin: Other (Abrasions on forehead and upper eyelids as mentioned above) Wound/Incisions: Other (Some clear fluid drainage from abrasions on eyelids as mentioned above) Neurological: No New Focal Deficit Psy/Mental Status: Alert, Anxious - Patient Data Lab Results Last 24 hrs: Laboratory Results - last 24 hr 12/24/20 12/24/20 12/24/20 Range/Units 11:40 17:59 20:39 WBC (3.0-10.3) x10-3/uL RBC (3.60-5.20) x10(6)uL Hgb (11.4-15.5) g/dL Hct (34.2-48.2) % MCV (76.7-100.5) fL MCH (23.9-33.9) pg MCHC (31.9-34.8) g/dL RDW (12.3-16.5) % Plt Count (151-488) x10(3)uL MPV (7.1-12.4) fL Add Manual Diff Neutrophils % (Manual) (46-82) % Lymphocytes % (Manual) (13-37) % Monocytes % (Manual) (4-12) % Sodium (135-145) mmol/L Potassium (3.5-5.3) mmol/L Chloride (100-110) mmol/L Carbon Dioxide (21-32) mmol/L BUN (7-18) mg/dL Creatinine (0.55-1.02) mg/dL Est Cr Clr Drug Dosing mL/min Estimated GFR (MDRD) (>60) BUN/Creatinine Ratio (9-20) Glucose (80-116) mg/dL POC Glucose 202 H 210 H 237 H (80-116) mg/dL Calcium (8.6-10.2) mg/dL 12/25/20 12/25/20 Range/Units 06:20 06:20 WBC 18.0 H (3.0-10.3) x10-3/uL RBC 3.18 L (3.60-5.20) x10(6)uL Hgb 9.9 L (11.4-15.5) g/dL Hct 29.1 L (34.2-48.2) % MCV 91.3 (76.7-100.5) fL MCH 31.0 (23.9-33.9) pg MCHC 33.9 (31.9-34.8) g/dL RDW 13.9 (12.3-16.5) % Plt Count 192 (151-488) x10(3)uL MPV 8.4 (7.1-12.4) fL Add Manual Diff Yes Neutrophils % (Manual) 87 H (46-82) % Lymphocytes % (Manual) 6 L (13-37) % Monocytes % (Manual) 7 (4-12) % Sodium 135 (135-145) mmol/L Potassium 3.5 (3.5-5.3) mmol/L Chloride 104 (100-110) mmol/L Carbon Dioxide 22 (21-32) mmol/L BUN 8 (7-18) mg/dL Creatinine 0.7 (0.55-1.02) mg/dL Est Cr Clr Drug Dosing 73.51 mL/min Estimated GFR (MDRD) > 60 (>60) BUN/Creatinine Ratio 11.4 (9-20) Glucose 174 H (80-116) mg/dL POC Glucose (80-116) mg/dL Calcium 7.1 L (8.6-10.2) mg/dL Result Diagrams: 12/25/20 06:20 12/25/20 06:20 Louie Results Last 24 hrs: Microbiology 12/22/20 20:35 Aerobic Blood Culture - Preliminary Blood - Venous - Lab Draw NO GROWTH AFTER 2 DAYS Anaerobic Blood Culture - Preliminary NO GROWTH AFTER 2 DAYS 12/22/20 20:20 Aerobic Blood Culture - Preliminary Blood - Venous NO GROWTH AFTER 2 DAYS Anaerobic Blood Culture - Preliminary NO GROWTH AFTER 2 DAYS Sepsis Event Note - Evaluation Sepsis Screening Result: Sepsis Risk - Focused Exam Vital Signs: Vital Signs Temp Temp Pulse Resp BP BP Pulse Ox 12/25/20 09:00 37.4 C 108 H 18 146/82 H 95 12/25/20 08:39 146/82 H 12/25/20 04:09 37.8 C 110 H 20 160/88 H 96 12/25/20 00:50 37.4 C 98 20 131/75 97 - Problem List & Annotations (1) Diabetes mellitus type 2 in obese SNOMED Code(s): 42940710 Code(s): E11.69 - TYPE 2 DIABETES MELLITUS WITH OTHER SPECIFIED COMPLICATION; E66.9 - OBESITY, UNSPECIFIED Status: Chronic Current Visit: Yes (2) Hypothyroidism SNOMED Code(s): 26892759 Code(s): E03.9 - HYPOTHYROIDISM, UNSPECIFIED Status: Chronic Current Visit: Yes (3) DKA (diabetic ketoacidosis) SNOMED Code(s): 000372518, 002164100 Code(s): E11.10 - TYPE 2 DIABETES MELLITUS WITH KETOACIDOSIS WITHOUT COMA Status: Acute Current Visit: Yes (4) Dehydration SNOMED Code(s): 68659516 Code(s): E86.0 - DEHYDRATION Status: Acute Current Visit: Yes (5) Facial contusion SNOMED Code(s): 548817754 Code(s): S00.83XA - CONTUSION OF OTHER PART OF HEAD, INITIAL ENCOUNTER Status: Acute Current Visit: Yes (6) Hypokalemia SNOMED Code(s): 23298619 Code(s): E87.6 - HYPOKALEMIA Status: Acute Current Visit: Yes (7) Leukocytosis SNOMED Code(s): 255471936, 663257679 Code(s): D72.829 - ELEVATED WHITE BLOOD CELL COUNT, UNSPECIFIED Status: Acute Current Visit: Yes (8) Pneumonia due to COVID-19 virus SNOMED Code(s): 606308432896619250 Code(s): U07.1 - COVID-19; J12.82 - PNEUMONIA DUE TO CORONAVIRUS DISEASE 2018 Status: Acute Current Visit: Yes (9) Head, face & neck injury SNOMED Code(s): 442704004 Code(s): S19.9XXA - UNSPECIFIED INJURY OF NECK, INITIAL ENCOUNTER; S09.90XA - UNSPECIFIED INJURY OF HEAD, INITIAL ENCOUNTER; S09.93XA - UNSPECIFIED INJURY OF FACE, INITIAL ENCOUNTER Status: Acute Current Visit: No (10) Hyponatremia SNOMED Code(s): 28706271 Code(s): E87.1 - HYPO-OSMOLALITY AND HYPONATREMIA Status: Acute Current Visit: Yes - Problem List Review Problem List Initiated/Reviewed/Updated: Yes - My Orders Last 24 Hours: My Active Orders 12/24/20 10:00 Azithromycin [Zithromax] 500 mg Sodium Chloride 0.9% [Normal Saline AdvBag] 250 ml IV Q24H 12/25/20 09:45 Erythromycin Base [Erythromycin 0.5% Ophth Oint] See Dose Instructions EYEBOTH BID - Plan Plan:: 1. Diabetes mellitus type 2 with significantly elevated glucose/DKA, hyponatremia, hypokalemia: Continue basal and sliding scale insulin, continue to trend glucose and electrolytes, patient's glucose has significantly improved there is no DKA/HHS at this time patient will be given electrolytes as needed 2. Facial contusion secondary to fall: Head and neck CTs are negative, continue to treat the patient with pain medication, ice. Increased pain control yesterd ay, patient started on ceftriaxone in addition to azithromycin for possible soft skin/tissue infection, started erythromycin ointment to the eyes today 3. Chronic medical conditions: Restart home medications as indicated 4. DVT prophylaxis: Enoxaparin, 40 mg subcu every 12 hours 5. GI prophylaxis: Consistent carbohydrate diet 6. Disposition: Patient likely on day 7-8 beginning of Covid symptoms. Is asymptomatic for Covid at this time. Continue to treat patient's injuries from her fall. It looks like she may have developed some cellulitis around her eyes, upper eyelids. Patient started on ceftriaxone overnight in addition to azithromycin which was started yesterday for possible lung infection. Patient started on erythromycin ointment topically today. Discharge 1 to 2 days pending improvement of swelling. Consider transfer to a facility for incision and drainage if patient swelling/skin infection does not significantly improve.
[2020-12-25] MEDS: Erythromycin Base 0.5% Ophth Oint 1 GM Tube EYEBOTH SCH ×2 (10:00→21:37)
[2020-12-25] MEDS: Azithromycin 500 MG in Sodium Chloride 0.9% 250 ML IV SCH (10:03)
[2020-12-25] MEDS: Sodium Chloride 0.9% 10 ML Syringe FLUSH PRN ×2 (10:05→20:44)
[2020-12-25] MEDS: Acetaminophen 325 MG Tab PO PRN (18:33)
[2020-12-25] MEDS: Magnesium Hydroxide 400 MG/5 ML Susp 30 ML Cup PO PRN (20:43)
[2020-12-25] MEDS: cefTRIAXone 1 GM Vial IVPUSH SCH (21:38)
[2020-12-26] MEDS: Enoxaparin 40 MG/0.4 ML Syringe SUBCUT SCH (00:50)
[2020-12-26] MEDS: Insulin Lispro 100 Unit/ML 3 ML KwikPen SUBCUT SCH ×3 (08:13→17:04)
[2020-12-26] MEDS: Gabapentin 300 MG Cap PO SCH ×2 (08:14→21:23)
[2020-12-26] MEDS: Thiamine 100 MG Tab PO SCH (08:14)
[2020-12-26] MEDS: Folic Acid 1 MG Tab PO SCH (08:15)
[2020-12-26] MEDS: Pantoprazole 40 MG Tab.CR PO SCH (08:15)
[2020-12-26] MEDS: Multivitamin Tab PO SCH (08:15)
[2020-12-26] MEDS: amLODIPine 10 MG Tab PO SCH (08:15)
[2020-12-26] MEDS: Acetaminophen 325 MG Tab PO PRN (08:24)
[2020-12-26] MEDS: Erythromycin Base 0.5% Ophth Oint 1 GM Tube EYEBOTH SCH (08:25)
[2020-12-26] MEDS: Magnesium Hydroxide 400 MG/5 ML Susp 30 ML Cup PO PRN (08:26)
[2020-12-26] MEDS: Insulin Glargine,Human Rec. Analog 100 Units/ML 3 ML Pen SUBCUT SCH ×2 (08:27→21:57)
[2020-12-26] MEDS: Acetaminophen 325 MG Tab PO SCH ×3 (09:12→21:24)
[2020-12-26] MEDS: Ketorolac 30 MG/ML SDV IVPUSH SCH ×3 (09:13→21:23)
[2020-12-26] MEDS: Doxycycline 100 MG Tab PO SCH ×2 (09:14→21:24)
[2020-12-26] MEDS: Sodium Chloride 0.9% 10 ML Syringe FLUSH PRN ×3 (09:15→21:25)
--- NOTE | 2020-12-26 10:36 | PCM.PN ---
- General Info Date of Service: 12/26/20 Admission Dx/Problem (Free Text): Sayda denies any withdrawal symptoms, states she had itching and hallucinations with Hydrocodone last night, she had been changed from scheduled Toradol to prn and had Hydrocodone added yesterday, received 7 doses total. She has not had any fevers. Having more swelling in her jaw and back of her head/neck which is where her pain is located. She states when she fell she landing on her nose, that feels better. She is still having serous drainage out of her eyes, they are swollen shut. She also states she has her taste back, denies any shortness of breath, cough. She is 8-9 days out of onset of covid symptoms. She had bamlanivimab, sodium improved. - Patient Data Vitals - Most Recent: Last Vital Signs Temp 99.1 F 12/26/20 08:00 Pulse 99 12/26/20 08:00 Resp 18 12/26/20 08:00 BP 141/78 H 12/26/20 08:15 Pulse Ox 98 12/26/20 08:00 Weight - Most Recent: 143 lb Lab Results Last 24 Hours: Laboratory Results - last 24 hr 12/25/20 12/25/20 12/25/20 Range/Units 11:59 17:59 20:56 WBC (3.0-10.3) x10-3/uL RBC (3.60-5.20) x10(6)uL Hgb (11.4-15.5) g/dL Hct (34.2-48.2) % MCV (76.7-100.5) fL MCH (23.9-33.9) pg MCHC (31.9-34.8) g/dL RDW (12.3-16.5) % Plt Count (151-488) x10(3)uL MPV (7.1-12.4) fL Add Manual Diff Neutrophils % (Manual) (46-82) % Band Neutrophils % (0-6) % Lymphocytes % (Manual) (13-37) % Monocytes % (Manual) (4-12) % Metamyelocytes % (0-0) % Sodium (135-145) mmol/L Potassium (3.5-5.3) mmol/L Chloride (100-110) mmol/L Carbon Dioxide (21-32) mmol/L BUN (7-18) mg/dL Creatinine (0.55-1.02) mg/dL Est Cr Clr Drug Dosing mL/min Estimated GFR (MDRD) (>60) BUN/Creatinine Ratio (9-20) Glucose (80-116) mg/dL POC Glucose 268 H 248 H 274 H (80-116) mg/dL Calcium (8.6-10.2) mg/dL 12/26/20 12/26/20 Range/Units 06:30 06:30 WBC 15.4 H (3.0-10.3) x10-3/uL RBC 3.33 L (3.60-5.20) x10(6)uL Hgb 10.0 L (11.4-15.5) g/dL Hct 30.4 L (34.2-48.2) % MCV 91.2 (76.7-100.5) fL MCH 30.0 (23.9-33.9) pg MCHC 32.9 (31.9-34.8) g/dL RDW 13.9 (12.3-16.5) % Plt Count 249 (151-488) x10(3)uL MPV 8.3 (7.1-12.4) fL Add Manual Diff Yes Neutrophils % (Manual) 77 (46-82) % Band Neutrophils % 1 (0-6) % Lymphocytes % (Manual) 16 (13-37) % Monocytes % (Manual) 5 (4-12) % Metamyelocytes % 1 H (0-0) % Sodium 135 (135-145) mmol/L Potassium 3.4 L (3.5-5.3) mmol/L Chloride 102 (100-110) mmol/L Carbon Dioxide 25 (21-32) mmol/L BUN 7 (7-18) mg/dL Creatinine 0.7 (0.55-1.02) mg/dL Est Cr Clr Drug Dosing 73.51 mL/min Estimated GFR (MDRD) > 60 (>60) BUN/Creatinine Ratio 10.0 (9-20) Glucose 128 H (80-116) mg/dL POC Glucose (80-116) mg/dL Calcium 7.2 L (8.6-10.2) mg/dL Louie Results Last 24 Hours: Microbiology 12/22/20 20:35 Aerobic Blood Culture - Preliminary Blood - Venous - Lab Draw NO GROWTH AFTER 3 DAYS Anaerobic Blood Culture - Preliminary NO GROWTH AFTER 3 DAYS 12/22/20 20:20 Aerobic Blood Culture - Preliminary Blood - Venous NO GROWTH AFTER 3 DAYS Anaerobic Blood Culture - Preliminary NO GROWTH AFTER 3 DAYS Med Orders - Current: Current Medications Acetaminophen (Acetaminophen 325 Mg Tab) 650 mg PO Q6H [facility] Last Admin: 12/26/20 09:12 Dose: Not Given Documented by: Amlodipine Besylate (Amlodipine 10 Mg Tab) 10 mg PO DAILY [facility] [place] Last Admin: 12/26/20 08:15 Dose: 10 mg Documented by: Ceftriaxone Sodium (Ceftriaxone 1 Gm Vial) 1 gm IVPUSH Q24H [facility] [place] Last Admin: 12/25/20 21:38 Dose: 1 gm Documented by: Dextrose/Water (50% Dextrose In Water 50 Ml Syringe) 50 ml IVPUSH ASDIRECTED PRN PRN Reason: Hypoglycemia Doxycycline Hyclate (Doxycycline 100 Mg Tab) 100 mg PO BID [facility] [place] Last Admin: 12/26/20 09:14 Dose: 100 mg Documented by: Enoxaparin Sodium (Enoxaparin 40 Mg/0.4 Ml Syringe) 40 mg SUBCUT Q24H [facility] [place] Last Admin: 12/26/20 00:50 Dose: 40 mg Documented by: Erythromycin (Erythromycin Base 0.5% Ophth Oint 1 Gm Tube) 0 gm EYEBOTH BID [facility] [place] Stop: 12/31/20 23:00 Last Admin: 12/26/20 08:25 Dose: 1 applic Documented by: Folic Acid (Folic Acid 1 Mg Tab) 1 mg PO DAILY [facility] [place] Last Admin: 12/26/20 08:15 Dose: 1 mg Documented by: Gabapentin (Gabapentin 300 Mg Cap) 300 mg PO BID [facility] [place] Last Admin: 12/26/20 08:14 Dose: 300 mg Documented by: Glucagon (Glucagon,Human Recombinant 1 Mg Vial) 1 mg IM ASDIRECTED PRN PRN Reason: Hypoglycemia Insulin Glargine (Insulin Glargine,Human Rec. Analog 100 Units/Ml 3 Ml Pen) 30 units SUBCUT BID [facility] [place] Last Admin: 12/26/20 08:27 Dose: 30 units Documented by: Insulin Human Lispro (Insulin Lispro 100 Unit/Ml 3 Ml Kwikpen) 0 unit SUBCUT TIDMEALS [facility] [place]; Protocol Last Admin: 12/26/20 08:13 Dose: Not Given Documented by: Ketorolac Tromethamine (Ketorolac 30 Mg/Ml Sdv) 30 mg IVPUSH Q6H [facility] [place] Stop: 12/29/20 03:01 Last Admin: 12/26/20 09:13 Dose: 30 mg Documented by: Magnesium Hydroxide (Magnesium Hydroxide 400 Mg/5 Ml Susp 30 Ml Cup) 30 ml PO Q12H PRN PRN Reason: Constipation Last Admin: 12/26/20 08:26 Dose: 30 ml Documented by: Morphine Sulfate (Morphine 2 Mg/Ml Syringe) 2 mg IVPUSH Q4H PRN PRN Reason: Pain (severe 7-10) Last Admin: 12/24/20 09:23 Dose: 2 mg Documented by: Multivitamins/Minerals/Vitamin C (Multivitamin Tab) 1 tab PO DAILY [facility] [place] Last Admin: 12/26/20 08:15 Dose: 1 tab Documented by: Pantoprazole Sodium (Pantoprazole 40 Mg Tab.Cr) 40 mg PO DAILY [facility] [place] Last Admin: 12/26/20 08:15 Dose: 40 mg Documented by: Sodium Chloride (Sodium Chloride 0.9% 10 Ml Syringe) 10 ml FLUSH ASDIRECTED PRN PRN Reason: Keep Vein Open Last Admin: 12/26/20 09:15 Dose: 10 ml Documented by: Thiamine HCl (Thiamine 100 Mg Tab) 100 mg PO DAILY [facility] [place] Last Admin: 12/26/20 08:14 Dose: 100 mg Documented by: Zolpidem Tartrate (Zolpidem 5 Mg Tab) 5 mg PO BEDTIME PRN PRN Reason: Sleep Discontinued Medications Acetaminophen (Acetaminophen 325 Mg Tab) 650 mg PO Q4H PRN PRN Reason: Pain (Mild 1-3)/fever Last Admin: 12/26/20 08:24 Dose: 650 mg Documented by: Hydrocodone Bitart/Acetaminophen (Acetaminophen/Hydrocodone 325-5 Mg Tab) 1 tab PO Q4H PRN PRN Reason: Pain (moderate 4-6) Last Admin: 12/26/20 04:04 Dose: 1 tab Documented by: Hydrocodone Bitart/Acetaminophen (Acetaminophen/Hydrocodone 325-5 Mg Tab) 2 tab PO Q4H PRN PRN Reason: Pain (severe 7-10) Last Admin: 12/25/20 22:20 Dose: 2 tab Documented by: Ceftriaxone Sodium (Ceftriaxone 2 Gm Vial) 2 gm IVPUSH ONETIME ONE Stop: 12/24/20 20:40 Last Admin: 12/24/20 21:12 Dose: 2 gm Documented by: Al Hydroxide/Mg Hydroxide 15 (ml/ Lidocaine HCl 15 ml) 0 ml PO ONETIME ONE Stop: 12/22/20 21:46 Last Admin: 12/22/20 21:50 Dose: 30 ml Documented by: Dextrose/Water (50% Dextrose In Water 50 Ml Syringe) 50 ml IVPUSH ASDIRECTED PRN PRN Reason: Hypoglycemia Dextrose/Water (50% Dextrose In Water 50 Ml Syringe) 50 ml IVPUSH ASDIRECTED PRN PRN Reason: Hypoglycemia Glucagon (Glucagon,Human Recombinant 1 Mg Vial) 1 mg IM ASDIRECTED PRN PRN Reason: Hypoglycemia Glucagon (Glucagon,Human Recombinant 1 Mg Vial) 1 mg IM ASDIRECTED PRN PRN Reason: Hypoglycemia Sodium Chloride (Normal Saline) 1,000 mls @ 999 mls/hr IV .BOLUS ONE Stop: 12/22/20 18:57 Last Admin: 12/22/20 18:10 Dose: 999 mls/hr Documented by: Sodium Chloride (Normal Saline) 1,000 mls @ 999 mls/hr IV .BOLUS ONE Stop: 12/22/20 21:14 Last Admin: 12/22/20 21:00 Dose: 999 mls/hr Documented by: Sodium Chloride (Normal Saline) 1,000 mls @ 999 mls/hr IV .BOLUS ONE Stop: 12/22/20 21:14 Last Admin: 12/22/20 22:28 Dose: 999 mls/hr Documented by: Potassium Chloride 20 meq/ (Premix) 100 mls @ 50 mls/hr IV ONETIME ONE Stop: 12/22/20 22:13 Last Admin: 12/22/20 21:50 Dose: 50 mls/hr Documented by: Potassium Chloride/Dextrose/Sod Cl (D5 1/2 Ns W/ 20 Meq/L Kcl) 1,000 mls @ 150 mls/hr IV ASDIRECTED [facility] Stop: 12/23/20 08:20 Last Admin: 12/23/20 01:39 Dose: 150 mls/hr Documented by: Potassium Chloride/Dextrose/Sod Cl (D5 1/2 Ns W/ 20 Meq/L Kcl) 1,000 mls @ 150 mls/hr IV Q7H [facility] [place] Sodium Chloride (Normal Saline) 1,000 mls @ 150 mls/hr IV ASDIRECTED [facility] Last Admin: 12/24/20 11:54 Dose: 150 mls/hr Documented by: Magnesium Sulfate 4 gm/ (Dextrose/Water) 258 mls @ 100 mls/hr IV ONETIME ONE Stop: 12/23/20 10:06 Last Admin: 12/23/20 13:00 Dose: Not Given Documented by: Bamlanivimab 700 mg/Etesevimab 1,400 mg/ Sodium Chloride 160 mls @ 310 mls/hr IV ONETIME ONE Stop: 12/23/20 12:30 Last Admin: 12/23/20 12:29 Dose: 310 mls/hr Documented by: Azithromycin 500 mg/ Sodium (Chloride) 250 mls @ 250 mls/hr IV Q24H [facility] Last Admin: 12/25/20 10:03 Dose: 250 mls/hr Documented by: Insulin Human Regular (Insulin Regular, Human 100 Units/Ml 3 Ml Vial) 10 unit IV ONETIME ONE Stop: 12/22/20 20:16 Last Admin: 12/22/20 20:55 Dose: 10 units Documented by: Ketorolac Tromethamine (Ketorolac 30 Mg/Ml Sdv) 30 mg IVPUSH ONETIME ONE Stop: 12/22/20 17:57 Last Admin: 12/22/20 18:10 Dose: 30 mg Documented by: Ketorolac Tromethamine (Ketorolac 30 Mg/Ml Sdv) 30 mg IVPUSH Q6H [facility] Stop: 12/28/20 00:43 Last Admin: 12/24/20 18:17 Dose: 30 mg Documented by: Ketorolac Tromethamine (Ketorolac 30 Mg/Ml Sdv) 30 mg IVPUSH Q6H PRN PRN Reason: Headache/Pain Stop: 12/29/20 22:23 Lorazepam (Lorazepam 0.5 Mg Tab) 0.5 mg PO ONETIME ONE Stop: 12/23/20 12:04 Last Admin: 12/23/20 12:30 Dose: 0.5 mg Documented by: Lorazepam (Lorazepam 1 Mg Tab) 0 mg PO ASDIRECTED [facility]; Protocol Lorazepam (Lorazepam 2 Mg/Ml Sdv) 0 mg IV ASDIRECTED [facility]; Protocol Magnesium Oxide (Magnesium Oxide 400 Mg Tab) 400 mg PO Q6H [facility] Stop: 12/25/20 01:00 Last Admin: 12/25/20 00:17 Dose: 400 mg Documented by: Metoclopramide HCl (Metoclopramide 10 Mg/2 Ml Sdv) 10 mg IVPUSH ONETIME ONE Stop: 12/22/20 19:27 Last Admin: 12/22/20 19:37 Dose: 10 mg Documented by: Metoclopramide HCl (Metoclopramide 10 Mg/2 Ml Sdv) 10 mg IVPUSH Q6H [facility] [place] Stop: 12/24/20 00:45 Last Admin: 12/24/20 00:46 Dose: 10 mg Documented by: Ondansetron HCl (Ondansetron 4 Mg/2 Ml Sdv) 4 mg IVPUSH ONETIME ONE Stop: 12/22/20 17:57 Last Admin: 12/22/20 18:10 Dose: 4 mg Documented by: Potassium Chloride (Potassium Chloride 20 Meq Tab.Er) 40 meq PO ONETIME ONE Stop: 12/24/20 07:55 Last Admin: 12/24/20 09:07 Dose: 40 meq Documented by: Sodium Chloride (Sodium Chloride 0.9% 10 Ml Syringe) 30 ml FLUSH ASDIRECTED [facility] Stop: 12/23/20 16:00 - Exam Quality Assessment: No: Supplemental Oxygen General: Alert, Oriented, Cooperative HEENT: Other (Bilateral eyelids: Markedly swollen, TTP, serosanguinous fluid expressed, unable to open; Bilateral occiput: TTP, moderate swelling, No erythema or warmth.) Neck: Supple (TTP along paraspinal mm), Other (Swelling under bilateral mandible, TTP, no erythema or warmth) Lungs: Clear to Auscultation, Normal Respiratory Effort Cardiovascular: Regular Rate, Regular Rhythm GI/Abdominal Exam: Normal Bowel Sounds, Soft, Non-Tender, No Distention Extremities: No Pedal Edema, Normal Capillary Refill Peripheral Pulses: 2+: Brachial (R), Radial (L) - Patient Data Lab Results Last 24 hrs: Laboratory Results - last 24 hr 12/25/20 12/25/20 12/25/20 Range/Units 11:59 17:59 20:56 WBC (3.0-10.3) x10-3/uL RBC (3.60-5.20) x10(6)uL Hgb (11.4-15.5) g/dL Hct (34.2-48.2) % MCV (76.7-100.5) fL MCH (23.9-33.9) pg MCHC (31.9-34.8) g/dL RDW (12.3-16.5) % Plt Count (151-488) x10(3)uL MPV (7.1-12.4) fL Add Manual Diff Neutrophils % (Manual) (46-82) % Band Neutrophils % (0-6) % Lymphocytes % (Manual) (13-37) % Monocytes % (Manual) (4-12) % Metamyelocytes % (0-0) % Sodium (135-145) mmol/L Potassium (3.5-5.3) mmol/L Chloride (100-110) mmol/L Carbon Dioxide (21-32) mmol/L BUN (7-18) mg/dL Creatinine (0.55-1.02) mg/dL Est Cr Clr Drug Dosing mL/min Estimated GFR (MDRD) (>60) BUN/Creatinine Ratio (9-20) Glucose (80-116) mg/dL POC Glucose 268 H 248 H 274 H (80-116) mg/dL Calcium (8.6-10.2) mg/dL 12/26/20 12/26/20 Range/Units 06:30 06:30 WBC 15.4 H (3.0-10.3) x10-3/uL RBC 3.33 L (3.60-5.20) x10(6)uL Hgb 10.0 L (11.4-15.5) g/dL Hct 30.4 L (34.2-48.2) % MCV 91.2 (76.7-100.5) fL MCH 30.0 (23.9-33.9) pg MCHC 32.9 (31.9-34.8) g/dL RDW 13.9 (12.3-16.5) % Plt Count 249 (151-488) x10(3)uL MPV 8.3 (7.1-12.4) fL Add Manual Diff Yes Neutrophils % (Manual) 77 (46-82) % Band Neutrophils % 1 (0-6) % Lymphocytes % (Manual) 16 (13-37) % Monocytes % (Manual) 5 (4-12) % Metamyelocytes % 1 H (0-0) % Sodium 135 (135-145) mmol/L Potassium 3.4 L (3.5-5.3) mmol/L Chloride 102 (100-110) mmol/L Carbon Dioxide 25 (21-32) mmol/L BUN 7 (7-18) mg/dL Creatinine 0.7 (0.55-1.02) mg/dL Est Cr Clr Drug Dosing 73.51 mL/min Estimated GFR (MDRD) > 60 (>60) BUN/Creatinine Ratio 10.0 (9-20) Glucose 128 H (80-116) mg/dL POC Glucose (80-116) mg/dL Calcium 7.2 L (8.6-10.2) mg/dL Result Diagrams: 12/26/20 06:30 12/26/20 06:30 Louie Results Last 24 hrs: Microbiology 12/22/20 20:35 Aerobic Blood Culture - Preliminary Blood - Venous - Lab Draw NO GROWTH AFTER 3 DAYS Anaerobic Blood Culture - Preliminary NO GROWTH AFTER 3 DAYS 12/22/20 20:20 Aerobic Blood Culture - Preliminary Blood - Venous NO GROWTH AFTER 3 DAYS Anaerobic Blood Culture - Preliminary NO GROWTH AFTER 3 DAYS Sepsis Event Note - Evaluation Sepsis Screening Result: Sepsis Risk - Focused Exam Vital Signs: Vital Signs Temp Pulse Resp BP BP Pulse Ox Pulse Ox 12/26/20 08:15 141/78 H 12/26/20 08:00 99.1 F 99 18 141/78 H 98 12/26/20 04:00 98.8 F 98 16 131/80 99 12/26/20 00:51 98.4 F 91 16 129/80 97 12/26/20 00:50 97 - Problem List & Annotations (1) Cellulitis SNOMED Code(s): 950638742 Code(s): L03.90 - CELLULITIS, UNSPECIFIED Status: Acute Current Visit: Ye s Qualifiers: Site of cellulitis: face Qualified Code(s): L03.211 - Cellulitis of face (2) Facial contusion SNOMED Code(s): 374817569 Code(s): S00.83XA - CONTUSION OF OTHER PART OF HEAD, INITIAL ENCOUNTER Status: Acute Current Visit: Yes (3) Hypokalemia SNOMED Code(s): 17917171 Code(s): E87.6 - HYPOKALEMIA Status: Acute Current Visit: Yes (4) Leukocytosis SNOMED Code(s): 267274937, 625187975 Code(s): D72.829 - ELEVATED WHITE BLOOD CELL COUNT, UNSPECIFIED Status: Acute Current Visit: Yes (5) Head, face & neck injury SNOMED Code(s): 053290719 Code(s): S19.9XXA - UNSPECIFIED INJURY OF NECK, INITIAL ENCOUNTER; S09.90XA - UNSPECIFIED INJURY OF HEAD, INITIAL ENCOUNTER; S09.93XA - UNSPECIFIED INJURY OF FACE, INITIAL ENCOUNTER Status: Acute Current Visit: No (6) SARS-CoV-2 positive SNOMED Code(s): 7897146138339626 Code(s): U07.1 - COVID-19 Status: Acute Current Visit: Yes Annotation/Comment:: CXR: clear, no pneumonia. Positive on admission, received Bamlanivimab. (7) Diabetes mellitus type 2 in obese SNOMED Code(s): 63460834 Code(s): E11.69 - TYPE 2 DIABETES MELLITUS WITH OTHER SPECIFIED COMPLICATION; E66.9 - OBESITY, UNSPECIFIED Status: Chronic Current Visit: Yes (8) Hypothyroidism SNOMED Code(s): 08139258 Code(s): E03.9 - HYPOTHYROIDISM, UNSPECIFIED Status: Chronic Current Visit: Yes (9) Hyponatremia SNOMED Code(s): 21557831 Code(s): E87.1 - HYPO-OSMOLALITY AND HYPONATREMIA Status: Resolved Current Visit: Yes - Problem List Review Problem List Initiated/Reviewed/Updated: Yes - My Orders Last 24 Hours: My Active Orders 12/26/20 09:00 Acetaminophen [TylenoL] 650 mg PO Q6H Doxycycline [Vibra-Tabs] 100 mg PO BID Ketorolac [Toradol] 30 mg IVPUSH Q6H - Plan Plan:: 1. Cellulitis/Facial contusion secondary to fall: Rocephin and dc azithromycin changed to Doxycycline for better soft tissue penetration. Discontinue Erythromycin ointment. Acetaminophen 650 mg q6h with Toradol 30 mg IV q6h, Morphine as needed severe pain. If not improved with change of antibiotics and s cheduled antiinflammatories, will add Decadron. Repeat CBC tomorrow. 2. DM: glucose checks tid, Humalog sliding scale, Lantus 30 units bid. 3. Hyponatremia: resolved. 4. Disposition: Covid, taste has returned, possibly day 8-9. Received Bamlanivimab infusion. WBC has trended down, will adjust treatments as necessary. If swelling worsens will repeat Max/facial CT.
[2020-12-26] MEDS ORDERED: Bisacodyl 10 MG Supp RECTAL PRN (20:17)
[2020-12-26] MEDS: cefTRIAXone 1 GM Vial IVPUSH SCH (21:23)
[2020-12-26] MEDS: Zolpidem 5 MG Tab PO PRN (22:45)
[2020-12-27] MEDS: Enoxaparin 40 MG/0.4 ML Syringe SUBCUT SCH (00:21)
[2020-12-27] MEDS: Ketorolac 30 MG/ML SDV IVPUSH SCH ×4 (03:25→21:41)
[2020-12-27] MEDS: Acetaminophen 325 MG Tab PO SCH ×4 (03:26→21:43)
[2020-12-27] MEDS: Sodium Chloride 0.9% 10 ML Syringe FLUSH PRN ×5 (03:27→21:34)
[2020-12-27] MEDS: Insulin Lispro 100 Unit/ML 3 ML KwikPen SUBCUT SCH ×3 (07:57→17:57)
[2020-12-27] MEDS: Gabapentin 300 MG Cap PO SCH (07:59)
[2020-12-27] MEDS: Folic Acid 1 MG Tab PO SCH (07:59)
[2020-12-27] MEDS: Pantoprazole 40 MG Tab.CR PO SCH (07:59)
[2020-12-27] MEDS: Doxycycline 100 MG Tab PO SCH (07:59)
[2020-12-27] MEDS: Thiamine 100 MG Tab PO SCH (07:59)
[2020-12-27] MEDS: amLODIPine 10 MG Tab PO SCH (08:19)
[2020-12-27] MEDS: Multivitamin Tab PO SCH (08:21)
[2020-12-27] MEDS ORDERED: Loratadine 10 MG Tab PO PRN (08:53)
[2020-12-27] MEDS ORDERED: Insulin Glargine,Human Rec. Analog 100 Units/ML 3 ML Pen SUBCUT ONE ×2 (08:58→21:57)
[2020-12-27] MEDS ORDERED: Iopamidol 755 Mg/ML 100 ML Bottle IV ONE ×2 (09:00→09:18)
[2020-12-27] MEDS: Levothyroxine 112 MCG Tab PO SCH (09:18)
[2020-12-27] MEDS: PARoxetine 20 MG Tab PO SCH (09:18)
[2020-12-27] MEDS: Polyethylene Glycol 3350 Powder 17 GM Packet PO SCH (09:18)
[2020-12-27] MEDS ORDERED: Dexamethasone 4 MG/ML SDV IVPUSH ONE (10:47)
--- NOTE | 2020-12-27 11:02 | PCM.PN ---
- General Info Date of Service: 12/27/20 Subjective Update: Sayda states pain in her neck is better and swelling under her jaw is improved but still having drainage from her eyes and nose, swelling about the same, can't open her eyes. Had minimal response to prune juice yesterday so added MiraLax today. CT max/sinus done this morning. - Patient Data Vitals - Most Recent: Last Vital Signs Temp 99.4 F 12/27/20 08:00 Pulse 98 12/27/20 08:00 Resp 18 12/27/20 08:00 BP 145/89 H 12/27/20 08:19 Pulse Ox 100 12/27/20 08:00 Weight - Most Recent: 143 lb I&O - Last 24 Hours: Intake & Output 12/26/20 12/27/20 12/27/20 22:59 06:59 14:59 Intake Total 200 Balance 200 Lab Results Last 24 Hours: Laboratory Results - last 24 hr 12/26/20 12/26/20 12/26/20 Range/Units 11:31 17:00 21:19 WBC (3.0-10.3) x10-3/uL RBC (3.60-5.20) x10(6)uL Hgb (11.4-15.5) g/dL Hct (34.2-48.2) % MCV (76.7-100.5) fL MCH (23.9-33.9) pg MCHC (31.9-34.8) g/dL RDW (12.3-16.5) % Plt Count (151-488) x10(3)uL MPV (7.1-12.4) fL Add Manual Diff Neutrophils % (Manual) (46-82) % Band Neutrophils % (0-6) % Lymphocytes % (Manual) (13-37) % Monocytes % (Manual) (4-12) % Sodium (135-145) mmol/L Potassium (3.5-5.3) mmol/L Chloride (100-110) mmol/L Carbon Dioxide (21-32) mmol/L BUN (7-18) mg/dL Creatinine (0.55-1.02) mg/dL Est Cr Clr Drug Dosing mL/min Estimated GFR (MDRD) (>60) BUN/Creatinine Ratio (9-20) Glucose (80-116) mg/dL POC Glucose 151 H D 207 H 166 H (80-116) mg/dL Calcium (8.6-10.2) mg/dL 12/27/20 12/27/20 12/27/20 Range/Units 06:05 06:30 06:30 WBC 16.6 H (3.0-10.3) x10-3/uL RBC 3.32 L (3.60-5.20) x10(6)uL Hgb 10.1 L (11.4-15.5) g/dL Hct 29.6 L (34.2-48.2) % MCV 89.3 (76.7-100.5) fL MCH 30.4 (23.9-33.9) pg MCHC 34.1 (31.9-34.8) g/dL RDW 13.8 (12.3-16.5) % Plt Count 304 (151-488) x10(3)uL MPV 7.8 (7.1-12.4) fL Add Manual Diff Yes Neutrophils % (Manual) 73 (46-82) % Band Neutrophils % 1 (0-6) % Lymphocytes % (Manual) 15 (13-37) % Monocytes % (Manual) 11 (4-12) % Sodium 127 L (135-145) mmol/L Potassium 3.5 (3.5-5.3) mmol/L Chloride 103 (100-110) mmol/L Carbon Dioxide 26 (21-32) mmol/L BUN 7 (7-18) mg/dL Creatinine 0.7 (0.55-1.02) mg/dL Est Cr Clr Drug Dosing 73.51 mL/min Estimated GFR (MDRD) > 60 (>60) BUN/Creatinine Ratio 10.0 (9-20) Glucose 73 L (80-116) mg/dL POC Glucose 83 D (80-116) mg/dL Calcium 7.5 L (8.6-10.2) mg/dL Louie Results Last 24 Hours: Microbiology 12/22/20 20:35 Aerobic Blood Culture - Preliminary Blood - Venous - Lab Draw NO GROWTH AFTER 4 DAYS Anaerobic Blood Culture - Preliminary NO GROWTH AFTER 4 DAYS 12/22/20 20:20 Aerobic Blood Culture - Preliminary Blood - Venous NO GROWTH AFTER 4 DAYS Anaerobic Blood Culture - Preliminary NO GROWTH AFTER 4 DAYS Med Orders - Current: Current Medications Acetaminophen (Acetaminophen 325 Mg Tab) 650 mg PO Q6H [facility] Last Admin: 12/27/20 07:59 Dose: 650 mg Documented by: Amlodipine Besylate (Amlodipine 10 Mg Tab) 10 mg PO DAILY [facility] Last Admin: 12/27/20 08:19 Dose: 10 mg Documented by: Bisacodyl (Bisacodyl 10 Mg Supp) 10 mg RECTAL DAILY PRN PRN Reason: Constipation Last Admin: 12/26/20 21:58 Dose: 10 mg Documented by: Ceftriaxone Sodium (Ceftriaxone 1 Gm Vial) 2 gm IVPUSH Q24H [facility] Dexamethasone (Dexamethasone 4 Mg/Ml Sdv) 6 mg IVPUSH ONETIME ONE Stop: 12/27/20 10:48 Dextrose/Water (50% Dextrose In Water 50 Ml Syringe) 50 ml IVPUSH ASDIRECTED PRN PRN Reason: Hypoglycemia Enoxaparin Sodium (Enoxaparin 40 Mg/0.4 Ml Syringe) 40 mg SUBCUT Q24H [facility] Last Admin: 12/27/20 00:21 Dose: 40 mg Documented by: Folic Acid (Folic Acid 1 Mg Tab) 1 mg PO DAILY [facility] Last Admin: 12/27/20 07:59 Dose: 1 mg Documented by: Gabapentin (Gabapentin 400 Mg Cap) 800 mg PO TID [facility] Glucagon (Glucagon,Human Recombinant 1 Mg Vial) 1 mg IM ASDIRECTED PRN PRN Reason: Hypoglycemia Hydroxyzine Pamoate (Hydroxyzine Pamoate 50 Mg Cap) 50 mg PO Q6H PRN PRN Reason: Anxiety Doxycycline Hyclate 100 mg/ (Sodium Chloride) 100 mls @ 100 mls/hr IV Q12HR [facility] Insulin Glargine (Insulin Glargine,Human Rec. Analog 100 Units/Ml 3 Ml Pen) 30 units SUBCUT BID [facility] Last Admin: 12/26/20 21:57 Dose: 30 units Documented by: Insulin Human Lispro (Insulin Lispro 100 Unit/Ml 3 Ml Kwikpen) 0 unit SUBCUT TIDMEALS [facility]; Protocol Last Admin: 12/27/20 07:57 Dose: Not Given Documented by: Ketorolac Tromethamine (Ketorolac 30 Mg/Ml Sdv) 30 mg IVPUSH Q6H [facility] Stop: 12/29/20 03:01 Last Admin: 12/27/20 07:59 Dose: 30 mg Documented by: Levothyroxine Sodium (Levothyroxine 112 Mcg Tab) 112 mcg PO DAILY@0600 [facility] Last Admin: 12/27/20 09:18 Dose: 112 mcg Documented by: Loratadine (Loratadine 10 Mg Tab) 10 mg PO DAILY PRN PRN Reason: Allergies Magnesium Hydroxide (Magnesium Hydroxide 400 Mg/5 Ml Susp 30 Ml Cup) 30 ml PO Q12H PRN PRN Reason: Constipation Last Admin: 12/26/20 08:26 Dose: 30 ml Documented by: Mirtazapine (Mirtazapine 15 Mg Tab) 7.5 mg PO BEDTIME [facility] Morphine Sulfate (Morphine 2 Mg/Ml Syringe) 2 mg IVPUSH Q4H PRN PRN Reason: Pain (severe 7-10) Last Admin: 12/24/20 09:23 Dose: 2 mg Documented by: Multivitamins/Minerals/Vitamin C (Multivitamin Tab) 1 tab PO DAILY [facility] Last Admin: 12/27/20 08:21 Dose: 1 tab Documented by: Pantoprazole Sodium (Pantoprazole 40 Mg Tab.Cr) 40 mg PO DAILY [facility] Last Admin: 12/27/20 07:59 Dose: 40 mg Documented by: Paroxetine HCl (Paroxetine 20 Mg Tab) 40 mg PO DAILY [facility] Last Admin: 12/27/20 09:18 Dose: 40 mg Documented by: Polyethylene Glycol (Polyethylene Glycol 3350 Powder 17 Gm Packet) 17 gm PO DAILY [facility] Last Admin: 12/27/20 09:18 Dose: 17 gm Documented by: Sodium Chloride (Sodium Chloride 0.9% 10 Ml Syringe) 10 ml FLUSH ASDIRECTED PRN PRN Reason: Keep Vein Open Last Admin: 12/27/20 03:27 Dose: 10 ml Documented by: Thiamine HCl (Thiamine 100 Mg Tab) 100 mg PO DAILY [facility] Last Admin: 12/27/20 07:59 Dose: 100 mg Documented by: Zolpidem Tartrate (Zolpidem 5 Mg Tab) 5 mg PO BEDTIME PRN PRN Reason: Sleep Last Admin: 12/26/20 22:45 Dose: 5 mg Documented by: Discontinued Medications Acetaminophen (Acetaminophen 325 Mg Tab) 650 mg PO Q4H PRN PRN Reason: Pain (Mild 1-3)/fever Last Admin: 12/26/20 08:24 Dose: 650 mg Documented by: Hydrocodone Bitart/Acetaminophen (Acetaminophen/Hydrocodone 325-5 Mg Tab) 1 tab PO Q4H PRN PRN Reason: Pain (moderate 4-6) Last Admin: 12/26/20 04:04 Dose: 1 tab Documented by: Hydrocodone Bitart/Acetaminophen (Acetaminophen/Hydrocodone 325-5 Mg Tab) 2 tab PO Q4H PRN PRN Reason: Pain (severe 7-10) Last Admin: 12/25/20 22:20 Dose: 2 tab Documented by: Ceftriaxone Sodium (Ceftriaxone 2 Gm Vial) 2 gm IVPUSH ONETIME ONE Stop: 12/24/20 20:40 Last Admin: 12/24/20 21:12 Dose: 2 gm Documented by: Ceftriaxone Sodium (Ceftriaxone 1 Gm Vial) 1 gm IVPUSH Q24H [facility] Last Admin: 12/26/20 21:23 Dose: 1 gm Documented by: Al Hydroxide/Mg Hydroxide 15 (ml/ Lidocaine HCl 15 ml) 0 ml PO ONETIME ONE Stop: 12/22/20 21:46 Last Admin: 12/22/20 21:50 Dose: 30 ml Documented by: Dextrose/Water (50% Dextrose In Water 50 Ml Syringe) 50 ml IVPUSH ASDIRECTED PRN PRN Reason: Hypoglycemia Dextrose/Water (50% Dextrose In Water 50 Ml Syringe) 50 ml IVPUSH ASDIRECTED PRN PRN Reason: Hypoglycemia Doxycycline Hyclate (Doxycycline 100 Mg Tab) 100 mg PO BID [facility] Last Admin: 12/27/20 07:59 Dose: 100 mg Documented by: Erythromycin (Erythromycin Base 0.5% Ophth Oint 1 Gm Tube) 0 gm EYEBOTH BID [facility] Stop: 12/31/20 23:00 Last Admin: 12/26/20 08:25 Dose: 1 applic Documented by: Gabapentin (Gabapentin 300 Mg Cap) 300 mg PO BID [facility] Last Admin: 12/27/20 07:59 Dose: 300 mg Documented by: Glucagon (Glucagon,Human Recombinant 1 Mg Vial) 1 mg IM ASDIRECTED PRN PRN Reason: Hypoglycemia Glucagon (Glucagon,Human Recombinant 1 Mg Vial) 1 mg IM ASDIRECTED PRN PRN Reason: Hypoglycemia Sodium Chloride (Normal Saline) 1,000 mls @ 999 mls/hr IV .BOLUS ONE Stop: 12/22/20 18:57 Last Admin: 12/22/20 18:10 Dose: 999 mls/hr Documented by: Sodium Chloride (Normal Saline) 1,000 mls @ 999 mls/hr IV .BOLUS ONE Stop: 12/22/20 21:14 Last Admin: 12/22/20 21:00 Dose: 999 mls/hr Documented by: Sodium Chloride (Normal Saline) 1,000 mls @ 999 mls/hr IV .BOLUS ONE Stop: 12/22/20 21:14 Last Admin: 12/22/20 22:28 Dose: 999 mls/hr Documented by: Potassium Chloride 20 meq/ (Premix) 100 mls @ 50 mls/hr IV ONETIME ONE Stop: 12/22/20 22:13 Last Admin: 12/22/20 21:50 Dose: 50 mls/hr Documented by: Potassium Chloride/Dextrose/Sod Cl (D5 1/2 Ns W/ 20 Meq/L Kcl) 1,000 mls @ 150 mls/hr IV ASDIRECTED [facility] Stop: 12/23/20 08:20 Last Admin: 12/23/20 01:39 Dose: 150 mls/hr Documented by: Potassium Chloride/Dextrose/Sod Cl (D5 1/2 Ns W/ 20 Meq/L Kcl) 1,000 mls @ 150 mls/hr IV Q7H [facility] Sodium Chloride (Normal Saline) 1,000 mls @ 150 mls/hr IV ASDIRECTED [facility] Last Admin: 12/24/20 11:54 Dose: 150 mls/hr Documented by: Magnesium Sulfate 4 gm/ (Dextrose/Water) 258 mls @ 100 mls/hr IV ONETIME ONE Stop: 12/23/20 10:06 Last Admin: 12/23/20 13:00 Dose: Not Given Documented by: Bamlanivimab 700 mg/Etesevimab 1,400 mg/ Sodium Chloride 160 mls @ 310 mls/hr IV ONETIME ONE Stop: 12/23/20 12:30 Last Admin: 12/23/20 12:29 Dose: 310 mls/hr Documented by: Azithromycin 500 mg/ Sodium (Chloride) 250 mls @ 250 mls/hr IV Q24H [facility] Last Admin: 12/25/20 10:03 Dose: 250 mls/hr Documented by: Insulin Glargine (Insulin Glargine,Human Rec. Analog 100 Units/Ml 3 Ml Pen) 15 units SUBCUT ONETIME ONE Stop: 12/27/20 08:59 Last Admin: 12/27/20 09:20 Dose: 15 unit Documented by: Insulin Human Regular (Insulin Regular, Human 100 Units/Ml 3 Ml Vial) 10 unit IV ONETIME ONE Stop: 12/22/20 20:16 Last Admin: 12/22/20 20:55 Dose: 10 units Documented by: Iopamidol (Iopamidol 755 Mg/Ml 100 Ml Bottle) 85 ml IV . DIRECTED ONE Stop: 12/27/20 09:19 Last Admin: 12/27/20 10:02 Dose: Not Given Documented by: Ketorolac Tromethamine (Ketorolac 30 Mg/Ml Sdv) 30 mg IVPUSH ONETIME ONE Stop: 12/22/20 17:57 Last Admin: 12/22/20 18:10 Dose: 30 mg Documented by: Ketorolac Tromethamine (Ketorolac 30 Mg/Ml Sdv) 30 mg IVPUSH Q6H [facility] Stop: 12/28/20 00:43 Last Admin: 12/24/20 18:17 Dose: 30 mg Documented by: Ketorolac Tromethamine (Ketorolac 30 Mg/Ml Sdv) 30 mg IVPUSH Q6H PRN PRN Reason: Headache/Pain Stop: 12/29/20 22:23 Lorazepam (Lorazepam 0.5 Mg Tab) 0.5 mg PO ONETIME ONE Stop: 12/23/20 12:04 Last Admin: 12/23/20 12:30 Dose: 0.5 mg Documented by: Lorazepam (Lorazepam 1 Mg Tab) 0 mg PO ASDIRECTED [facility]; Protocol Lorazepam (Lorazepam 2 Mg/Ml Sdv) 0 mg IV ASDIRECTED [facility]; Protocol Magnesium Oxide (Magnesium Oxide 400 Mg Tab) 400 mg PO Q6H [facility] Stop: 12/25/20 01:00 Last Admin: 12/25/20 00:17 Dose: 400 mg Documented by: Metoclopramide HCl (Metoclopramide 10 Mg/2 Ml Sdv) 10 mg IVPUSH ONETIME ONE Stop: 12/22/20 19:27 Last Admin: 12/22/20 19:37 Dose: 10 mg Documented by: Metoclopramide HCl (Metoclopramide 10 Mg/2 Ml Sdv) 10 mg IVPUSH Q6H [facility] Stop: 12/24/20 00:45 Last Admin: 12/24/20 00:46 Dose: 10 mg Documented by: Ondansetron HCl (Ondansetron 4 Mg/2 Ml Sdv) 4 mg IVPUSH ONETIME ONE Stop: 12/22/20 17:57 Last Admin: 12/22/20 18:10 Dose: 4 mg Documented by: Potassium Chloride (Potassium Chloride 20 Meq Tab.Er) 40 meq PO ONETIME ONE Stop: 12/24/20 07:55 Last Admin: 12/24/20 09:07 Dose: 40 meq Documented by: Sodium Chloride (Sodium Chloride 0.9% 10 Ml Syringe) 30 ml FLUSH ASDIRECTED [facility] Stop: 12/23/20 16:00 - Exam General: Alert, Oriented, Cooperative HEENT: Other (Bilateral eyes: swelling unchanged, erythema improved, serous drainage from eyes and nose bridge, unable to open her eyelids manually, TTP) Neck: Lymphadenopathy, Other (Paraspinal mm: NT. Postauricular TTP, under mandible swelling improved, mild TTP.) Lungs: Clear to Auscultation, Normal Respiratory Effort. No: Crackles, Wheezing Cardiovascular: Regular Rate, Regular Rhythm GI/Abdominal Exam: Normal Bowel Sounds, Soft, Non-Tender, No Distention Extremities: No Pedal Edema Wound/Incisions: Drainage, Erythema Improving - Patient Data Lab Results Last 24 hrs: Laboratory Results - last 24 hr 12/26/20 12/26/20 12/26/20 Range/Units 11:31 17:00 21:19 WBC (3.0-10.3) x10-3/uL RBC (3.60-5.20) x10(6)uL Hgb (11.4-15.5) g/dL Hct (34.2-48.2) % MCV (76.7-100.5) fL MCH (23.9-33.9) pg MCHC (31.9-34.8) g/dL RDW (12.3-16.5) % Plt Count (151-488) x10(3)uL MPV (7.1-12.4) fL Add Manual Diff Neutrophils % (Manual) (46-82) % Band Neutrophils % (0-6) % Lymphocytes % (Manual) (13-37) % Monocytes % (Manual) (4-12) % Sodium (135-145) mmol/L Potassium (3.5-5.3) mmol/L Chloride (100-110) mmol/L Carbon Dioxide (21-32) mmol/L BUN (7-18) mg/dL Creatinine (0.55-1.02) mg/dL Est Cr Clr Drug Dosing mL/min Estimated GFR (MDRD) (>60) BUN/Creatinine Ratio (9-20) Glucose (80-116) mg/dL POC Glucose 151 H D 207 H 166 H (80-116) mg/dL Calcium (8.6-10.2) mg/dL 12/27/20 12/27/20 12/27/20 Range/Units 06:05 06:30 06:30 WBC 16.6 H (3.0-10.3) x10-3/uL RBC 3.32 L (3.60-5.20) x10(6)uL Hgb 10.1 L (11.4-15.5) g/dL Hct 29.6 L (34.2-48.2) % MCV 89.3 (76.7-100.5) fL MCH 30.4 (23.9-33.9) pg MCHC 34.1 (31.9-34.8) g/dL RDW 13.8 (12.3-16.5) % Plt Count 304 (151-488) x10(3)uL MPV 7.8 (7.1-12.4) fL Add Manual Diff Yes Neutrophils % (Manual) 73 (46-82) % Band Neutrophils % 1 (0-6) % Lymphocytes % (Manual) 15 (13-37) % Monocytes % (Manual) 11 (4-12) % Sodium 127 L (135-145) mmol/L Potassium 3.5 (3.5-5.3) mmol/L Chloride 103 (100-110) mmol/L Carbon Dioxide 26 (21-32) mmol/L BUN 7 (7-18) mg/dL Creatinine 0.7 (0.55-1.02) mg/dL Est Cr Clr Drug Dosing 73.51 mL/min Estimated GFR (MDRD) > 60 (>60) BUN/Creatinine Ratio 10.0 (9-20) Glucose 73 L (80-116) mg/dL POC Glucose 83 D (80-116) mg/dL Calcium 7.5 L (8.6-10.2) mg/dL Result Diagrams: 12/27/20 06:30 12/27/20 06:30 Louie Results Last 24 hrs: Microbiology 12/22/20 20:35 Aerobic Blood Culture - Preliminary Blood - Venous - Lab Draw NO GROWTH AFTER 4 DAYS Anaerobic Blood Culture - Preliminary NO GROWTH AFTER 4 DAYS 12/22/20 20:20 Aerobic Blood Culture - Preliminary Blood - Venous NO GROWTH AFTER 4 DAYS Anaerobic Blood Culture - Preliminary NO GROWTH AFTER 4 DAYS Sepsis Event Note - Evaluation Sepsis Screening Result: Sepsis Risk - Focused Exam Vital Signs: Vital Signs Temp Pulse Pulse Resp BP BP Pulse Ox 12/27/20 08:19 145/89 H 12/27/20 08:00 99.4 F 98 18 145/89 H 100 12/27/20 04:00 98.5 F 100 16 142/78 H 96 12/27/20 00:31 98.5 F 94 16 137/65 99 12/27/20 00:30 99 - Problem List & Annotations (1) Cellulitis SNOMED Code(s): 110306968 Code(s): L03.90 - CELLULITIS, UNSPECIFIED Status: Acute Current Visit: Yes Qualifiers: Site of cellulitis: face Qualified Code(s): L03.211 - Cellulitis of face Annotation/Comment:: Preseptal periorbital cellulitis per CT max/sinus today. No abscess. (2) Facial contusion SNOMED Code(s): 660659433 Code(s): S00.83XA - CONTUSION OF OTHER PART OF HEAD, INITIAL ENCOUNTER Status: Acute Current Visit: Yes (3) Hypokalemia SNOMED Code(s): 11194594 Code(s): E87.6 - HYPOKALEMIA Status: Acute Current Visit: Yes Annotation/Comment:: Improving. (4) Leukocytosis SNOMED Code(s): 855659244, 064371386 Code(s): D72.829 - ELEVATED WHITE BLOOD CELL COUNT, UNSPECIFIED Status: Acute Current Visit: Yes (5) Head, face & neck injury SNOMED Code(s): 957661324 Code(s): S19.9XXA - UNSPECIFIED INJURY OF NECK, INITIAL ENCOUNTER; S09.90XA - UNSPECIFIED INJURY OF HEAD, INITIAL ENCOUNTER; S09.93XA - UNSPECIFIED INJURY OF FACE, INITIAL ENCOUNTER Status: Acute Current Visit: No (6) SARS-CoV-2 positive SNOMED Code(s): 3788119758505636 Code(s): U07.1 - COVID-19 Status: Acute Current Visit: Yes Annotation/Comment:: CXR: clear, no pneumonia. Positive on admission, received Bamlanivimab. (7) Diabetes mellitus type 2 in obese SNOMED Code(s): 29019526 Code(s): E11.69 - TYPE 2 DIABETES MELLITUS WITH OTHER SPECIFIED COMPLICATION; E66.9 - OBESITY, UNSPECIFIED Status: Chronic Current Visit: Yes (8) Hypothyroidism SNOMED Code(s): 57403041 Code(s): E03.9 - HYPOTHYROIDISM, UNSPECIFIED Status: Chronic Current Visit: Yes (9) Hyponatremia SNOMED Code(s): 86248139 Code(s): E87.1 - HYPO-OSMOLALITY AND HYPONATREMIA Status: Acute Current Visit: Yes Annotation/Comment:: Normal yesterday but back down to 127 today. - Problem List Review Problem List Initiated/Reviewed/Updated: Yes - My Orders Last 24 Hours: My Active Orders 12/26/20 15:38 Warming Measures [Cooling Warming Measures] [RC] ASDIRECTED 12/26/20 20:17 bisacodyL [Dulcolax] 10 mg RECTAL DAILY PRN 12/27/20 06:00 Levothyroxine 112 mcg PO DAILY@0600 12/27/20 08:51 Max Facial Sinus w Cont [CT] Routine 12/27/20 08:53 Loratadine [Claritin] 10 mg PO DAILY PRN hydrOXYzine pamoate [Vistaril] 50 mg PO Q6H PRN 12/27/20 09:00 PARoxetine [Paxil] 40 mg PO DAILY polyethylene glycoL 3350 [MiraLAX] 17 gm PO DAILY 12/27/20 10:47 dexAMETHasone [Decadron] 6 mg IVPUSH ONETIME ONE 12/27/20 10:55 cefTRIAXone [Rocephin] 2 gm IVPUSH Q24H 12/27/20 14:00 Gabapentin [Neurontin] 800 mg PO TID 12/27/20 21:00 Doxycycline [Vibramycin] 100 mg Sodium Chloride 0.9% [Normal Saline] 100 ml IV Q12HR Mirtazapine [Remeron] 7.5 mg PO BEDTIME 12/28/20 06:00 BASIC METABOLIC PANEL,BMP [CHEM] Routine CBC WITH AUTO DIFF [HEME] Routine - Plan Plan:: 1. Preseptal periorbital Cellulitis secondary to trauma: Rocephin increased 2g IV q24h, change Doxycycline to IV. Discontinue Erythromycin ointment. Acetaminophen 650 mg q6h with Toradol 30 mg IV q6h, Morphine as needed severe pain. CT max/sinus showed preseptal periorbital cellulitis, no abscess formation, reactive lymph nodes. No sinusitis. Decadron 6 mg IV x 1, reassess tomorrow if she needs another dose. If not improving will need to change doxycycline to Vancomycin. Repeat CBC tomorrow. 2. DM: glucose checks tid, Humalog sliding scale change to medium dose, Lantus 30 units bid. Had low of 70s this morning so held Lantus 30 units and gave 15 units onetime dose. Resume 30 units bid for this evening. 3. Hyponatremia: 127 today, recheck tomorrow.. 4. Covid positive: taste has returned. Received Bamlanivimab infusion. 5. Disposition: anticipate 24-48hr of IV antibiotics for periorbital cellulitis. Switch to orals when able.
[2020-12-27] MEDS: cefTRIAXone 1 GM Vial IVPUSH SCH (11:21)
[2020-12-27] MEDS: Gabapentin 400 MG Cap PO SCH ×2 (13:44→21:41)
[2020-12-27] MEDS: Insulin Glargine,Human Rec. Analog 100 Units/ML 3 ML Pen SUBCUT SCH (21:30)
[2020-12-27] MEDS: Doxycycline 100 MG in Sodium Chloride 0.9% 100 ML IV SCH (21:33)
[2020-12-27] MEDS: Mirtazapine 15 MG Tab PO SCH (21:40)
[2020-12-28] MEDS: Enoxaparin 40 MG/0.4 ML Syringe SUBCUT SCH (00:41)
[2020-12-28] MEDS: Ketorolac 30 MG/ML SDV IVPUSH SCH ×4 (03:11→21:06)
[2020-12-28] MEDS: Acetaminophen 325 MG Tab PO SCH ×4 (03:11→21:05)
[2020-12-28] MEDS: Sodium Chloride 0.9% 10 ML Syringe FLUSH PRN ×4 (03:12→23:00)
[2020-12-28] MEDS: Levothyroxine 112 MCG Tab PO SCH (06:57)
[2020-12-28] MEDS: Insulin Lispro 100 Unit/ML 3 ML KwikPen SUBCUT SCH ×3 (07:57→17:47)
[2020-12-28] MEDS: Doxycycline 100 MG in Sodium Chloride 0.9% 100 ML IV SCH ×2 (08:48→21:42)
[2020-12-28] MEDS: PARoxetine 20 MG Tab PO SCH (08:51)
[2020-12-28] MEDS: Multivitamin Tab PO SCH (08:52)
[2020-12-28] MEDS: Folic Acid 1 MG Tab PO SCH (08:52)
[2020-12-28] MEDS: Polyethylene Glycol 3350 Powder 17 GM Packet PO SCH (08:52)
[2020-12-28] MEDS: Gabapentin 400 MG Cap PO SCH ×3 (08:52→21:18)
[2020-12-28] MEDS: amLODIPine 10 MG Tab PO SCH (08:53)
[2020-12-28] MEDS: Thiamine 100 MG Tab PO SCH (08:53)
[2020-12-28] MEDS: Pantoprazole 40 MG Tab.CR PO SCH (08:53)
[2020-12-28] MEDS: Insulin Glargine,Human Rec. Analog 100 Units/ML 3 ML Pen SUBCUT SCH ×2 (08:55→21:22)
[2020-12-28] MEDS: cefTRIAXone 1 GM Vial IVPUSH SCH (10:14)
--- NOTE | 2020-12-28 17:23 | PCM.PN ---
- General Info Date of Service: 12/28/20 Subjective Update: Lori's swelling is improved, states she can open her left eye a little bit today and no drainage out of either eye or nose. Pain is improved. She states she feels her thinking is clearer today. She remembered that her son/daughter tested positive for Covid on Dec 15, she had been with them over the holiday weekend and started having flu-like symptoms on Dec 17, but didn't think anything of it at the time since she was vaccinated. She tested positive on Dec 22. She has not had BM yet but feels she will, she states normally she goes every 3 days. - Patient Data Vitals - Most Recent: Last Vital Signs Temp 98.7 F 12/28/20 16:00 Pulse 93 12/28/20 16:00 Resp 18 12/28/20 16:00 BP 137/80 12/28/20 16:00 Pulse Ox 100 12/28/20 16:00 Weight - Most Recent: 143 lb Lab Results Last 24 Hours: Laboratory Results - last 24 hr 12/27/20 12/27/20 12/28/20 Range/Units 17:53 22:00 06:55 WBC 20.6 H (3.0-10.3) x10-3/uL RBC 3.30 L (3.60-5.20) x10(6)uL Hgb 10.0 L (11.4-15.5) g/dL Hct 30.1 L (34.2-48.2) % MCV 91.4 (76.7-100.5) fL MCH 30.4 (23.9-33.9) pg MCHC 33.3 (31.9-34.8) g/dL RDW 14.1 (12.3-16.5) % Plt Count 400 (151-488) x10(3)uL MPV 7.4 (7.1-12.4) fL Add Manual Diff Yes Neutrophils % (Manual) 75 (46-82) % Band Neutrophils % 2 (0-6) % Lymphocytes % (Manual) 17 (13-37) % Monocytes % (Manual) 6 (4-12) % Sodium (135-145) mmol/L Potassium (3.5-5.3) mmol/L Chloride (100-110) mmol/L Carbon Dioxide (21-32) mmol/L BUN (7-18) mg/dL Creatinine (0.55-1.02) mg/dL Est Cr Clr Drug Dosing mL/min Estimated GFR (MDRD) (>60) BUN/Creatinine Ratio (9-20) Glucose (80-116) mg/dL POC Glucose 273 H 363 H D (80-116) mg/dL Calcium (8.6-10.2) mg/dL 12/28/20 12/28/20 Range/Units 06:55 11:56 WBC (3.0-10.3) x10-3/uL RBC (3.60-5.20) x10(6)uL Hgb (11.4-15.5) g/dL Hct (34.2-48.2) % MCV (76.7-100.5) fL MCH (23.9-33.9) pg MCHC (31.9-34.8) g/dL RDW (12.3-16.5) % Plt Count (151-488) x10(3)uL MPV (7.1-12.4) fL Add Manual Diff Neutrophils % (Manual) (46-82) % Band Neutrophils % (0-6) % Lymphocytes % (Manual) (13-37) % Monocytes % (Manual) (4-12) % Sodium 134 L (135-145) mmol/L Potassium 4.0 (3.5-5.3) mmol/L Chloride 101 (100-110) mmol/L Carbon Dioxide 25 (21-32) mmol/L BUN 10 (7-18) mg/dL Creatinine 0.8 (0.55-1.02) mg/dL Est Cr Clr Drug Dosing 64.32 mL/min Estimated GFR (MDRD) > 60 (>60) BUN/Creatinine Ratio 12.5 (9-20) Glucose 234 H D (80-116) mg/dL POC Glucose 189 H D (80-116) mg/dL Calcium 7.8 L (8.6-10.2) mg/dL Louie Results Last 24 Hours: Microbiology 12/22/20 20:35 Aerobic Blood Culture - Final Blood - Venous - Lab Draw NO GROWTH AFTER 5 DAYS Anaerobic Blood Culture - Final NO GROWTH AFTER 5 DAYS 12/22/20 20:20 Aerobic Blood Culture - Final Blood - Venous NO GROWTH AFTER 5 DAYS Anaerobic Blood Culture - Final NO GROWTH AFTER 5 DAYS Med Orders - Current: Current Medications Acetaminophen (Acetaminophen 325 Mg Tab) 650 mg PO Q6H [facility] Last Admin: 12/28/20 14:43 Dose: 650 mg Documented by: Amlodipine Besylate (Amlodipine 10 Mg Tab) 10 mg PO DAILY [facility] Last Admin: 12/28/20 08:53 Dose: 10 mg Documented by: Bisacodyl (Bisacodyl 10 Mg Supp) 10 mg RECTAL DAILY PRN PRN Reason: Constipation Last Admin: 12/26/20 21:58 Dose: 10 mg Documented by: Ceftriaxone Sodium (Ceftriaxone 1 Gm Vial) 2 gm IVPUSH Q24H [facility] Last Admin: 12/28/20 10:14 Dose: 2 gm Documented by: Dextrose/Water (50% Dextrose In Water 50 Ml Syringe) 50 ml IVPUSH ASDIRECTED PRN PRN Reason: Hypoglycemia Enoxaparin Sodium (Enoxaparin 40 Mg/0.4 Ml Syringe) 40 mg SUBCUT Q24H [facility] Last Admin: 12/28/20 00:41 Dose: 40 mg Documented by: Folic Acid (Folic Acid 1 Mg Tab) 1 mg PO DAILY [facility] Last Admin: 12/28/20 08:52 Dose: 1 mg Documented by: Gabapentin (Gabapentin 400 Mg Cap) 800 mg PO TID [facility] Last Admin: 12/28/20 14:43 Dose: 800 mg Documented by: Glucagon (Glucagon,Human Recombinant 1 Mg Vial) 1 mg IM ASDIRECTED PRN PRN Reason: Hypoglycemia Hydroxyzine Pamoate (Hydroxyzine Pamoate 50 Mg Cap) 50 mg PO Q6H PRN PRN Reason: Anxiety Doxycycline Hyclate 100 mg/ (Sodium Chloride) 100 mls @ 100 mls/hr IV Q12H [facility] Last Admin: 12/28/20 08:48 Dose: 100 mls/hr Documented by: Insulin Glargine (Insulin Glargine,Human Rec. Analog 100 Units/Ml 3 Ml Pen) 30 units SUBCUT BID [facility] Last Admin: 12/28/20 08:55 Dose: 30 units Documented by: Insulin Human Lispro (Insulin Lispro 100 Unit/Ml 3 Ml Kwikpen) 0 unit SUBCUT TIDMEALS [facility]; Protocol Last Admin: 12/28/20 12:07 Dose: 3 units Documented by: Ketorolac Tromethamine (Ketorolac 30 Mg/Ml Sdv) 30 mg IVPUSH Q6H [facility] Stop: 12/29/20 03:01 Last Admin: 12/28/20 14:43 Dose: 30 mg Documented by: Levothyroxine Sodium (Levothyroxine 112 Mcg Tab) 112 mcg PO DAILY@0600 [facility] Last Admin: 12/28/20 06:57 Dose: 112 mcg Documented by: Loratadine (Loratadine 10 Mg Tab) 10 mg PO DAILY PRN PRN Reason: Allergies Magnesium Hydroxide (Magnesium Hydroxide 400 Mg/5 Ml Susp 30 Ml Cup) 30 ml PO Q12H PRN PRN Reason: Constipation Last Admin: 12/26/20 08:26 Dose: 30 ml Documented by: Mirtazapine (Mirtazapine 15 Mg Tab) 7.5 mg PO BEDTIME [facility] Last Admin: 12/27/20 21:40 Dose: 7.5 mg Documented by: Morphine Sulfate (Morphine 2 Mg/Ml Syringe) 2 mg IVPUSH Q4H PRN PRN Reason: Pain (severe 7-10) Last Admin: 12/24/20 09:23 Dose: 2 mg Documented by: Multivitamins/Minerals/Vitamin C (Multivitamin Tab) 1 tab PO DAILY [facility] Last Admin: 12/28/20 08:52 Dose: 1 tab Documented by: Pantoprazole Sodium (Pantoprazole 40 Mg Tab.Cr) 40 mg PO DAILY [facility] Last Admin: 12/28/20 08:53 Dose: 40 mg Documented by: Paroxetine HCl (Paroxetine 20 Mg Tab) 40 mg PO DAILY [facility] Last Admin: 12/28/20 08:51 Dose: 40 mg Documented by: Polyethylene Glycol (Polyethylene Glycol 3350 Powder 17 Gm Packet) 17 gm PO DAILY [facility] Last Admin: 12/28/20 08:52 Dose: 17 gm Documented by: Sodium Chloride (Sodium Chloride 0.9% 10 Ml Syringe) 10 ml FLUSH ASDIRECTED PRN PRN Reason: Keep Vein Open Last Admin: 12/28/20 14:43 Dose: 10 ml Documented by: Thiamine HCl (Thiamine 100 Mg Tab) 100 mg PO DAILY [facility] Last Admin: 12/28/20 08:53 Dose: 100 mg Documented by: Zolpidem Tartrate (Zolpidem 5 Mg Tab) 5 mg PO BEDTIME PRN PRN Reason: Sleep Last Admin: 12/26/20 22:45 Dose: 5 mg Documented by: Discontinued Medications Acetaminophen (Acetaminophen 325 Mg Tab) 650 mg PO Q4H PRN PRN Reason: Pain (Mild 1-3)/fever Last Admin: 12/26/20 08:24 Dose: 650 mg Documented by: Hydrocodone Bitart/Acetaminophen (Acetaminophen/Hydrocodone 325-5 Mg Tab) 1 tab PO Q4H PRN PRN Reason: Pain (moderate 4-6) Last Admin: 12/26/20 04:04 Dose: 1 tab Documented by: Hydrocodone Bitart/Acetaminophen (Acetaminophen/Hydrocodone 325-5 Mg Tab) 2 tab PO Q4H PRN PRN Reason: Pain (severe 7-10) Last Admin: 12/25/20 22:20 Dose: 2 tab Documented by: Ceftriaxone Sodium (Ceftriaxone 2 Gm Vial) 2 gm IVPUSH ONETIME ONE Stop: 12/24/20 20:40 Last Admin: 12/24/20 21:12 Dose: 2 gm Documented by: Ceftriaxone Sodium (Ceftriaxone 1 Gm Vial) 1 gm IVPUSH Q24H [facility] Last Admin: 12/26/20 21:23 Dose: 1 gm Documented by: Al Hydroxide/Mg Hydroxide 15 (ml/ Lidocaine HCl 15 ml) 0 ml PO ONETIME ONE Stop: 12/22/20 21:46 Last Admin: 12/22/20 21:50 Dose: 30 ml Documented by: Dexamethasone (Dexamethasone 4 Mg/Ml Sdv) 6 mg IVPUSH ONETIME ONE Stop: 12/27/20 10:48 Last Admin: 12/27/20 11:21 Dose: 6 mg Documented by: Dextrose/Water (50% Dextrose In Water 50 Ml Syringe) 50 ml IVPUSH ASDIRECTED PRN PRN Reason: Hypoglycemia Dextrose/Water (50% Dextrose In Water 50 Ml Syringe) 50 ml IVPUSH ASDIRECTED PRN PRN Reason: Hypoglycemia Doxycycline Hyclate (Doxycycline 100 Mg Tab) 100 mg PO BID [facility] Last Admin: 12/27/20 07:59 Dose: 100 mg Documented by: Erythromycin (Erythromycin Base 0.5% Ophth Oint 1 Gm Tube) 0 gm EYEBOTH BID [facility] Stop: 12/31/20 23:00 Last Admin: 12/26/20 08:25 Dose: 1 applic Documented by: Gabapentin (Gabapentin 300 Mg Cap) 300 mg PO BID [facility] Last Admin: 12/27/20 07:59 Dose: 300 mg Documented by: Glucagon (Glucagon,Human Recombinant 1 Mg Vial) 1 mg IM ASDIRECTED PRN PRN Reason: Hypoglycemia Glucagon (Glucagon,Human Recombinant 1 Mg Vial) 1 mg IM ASDIRECTED PRN PRN Reason: Hypoglycemia Sodium Chloride (Normal Saline) 1,000 mls @ 999 mls/hr IV .BOLUS ONE Stop: 12/22/20 18:57 Last Admin: 12/22/20 18:10 Dose: 999 mls/hr Documented by: Sodium Chloride (Normal Saline) 1,000 mls @ 999 mls/hr IV .BOLUS ONE Stop: 12/22/20 21:14 Last Admin: 12/22/20 21:00 Dose: 999 mls/hr Documented by: Sodium Chloride (Normal Saline) 1,000 mls @ 999 mls/hr IV .BOLUS ONE Stop: 12/22/20 21:14 Last Admin: 12/22/20 22:28 Dose: 999 mls/hr Documented by: Potassium Chloride 20 meq/ (Premix) 100 mls @ 50 mls/hr IV ONETIME ONE Stop: 12/22/20 22:13 Last Admin: 12/22/20 21:50 Dose: 50 mls/hr Documented by: Potassium Chloride/Dextrose/Sod Cl (D5 1/2 Ns W/ 20 Meq/L Kcl) 1,000 mls @ 150 mls/hr IV ASDIRECTED [facility] Stop: 12/23/20 08:20 Last Admin: 12/23/20 01:39 Dose: 150 mls/hr Documented by: Potassium Chloride/Dextrose/Sod Cl (D5 1/2 Ns W/ 20 Meq/L Kcl) 1,000 mls @ 150 mls/hr IV Q7H [facility] Sodium Chloride (Normal Saline) 1,000 mls @ 150 mls/hr IV ASDIRECTED [facility] Last Admin: 12/24/20 11:54 Dose: 150 mls/hr Documented by: Magnesium Sulfate 4 gm/ (Dextrose/Water) 258 mls @ 100 mls/hr IV ONETIME ONE Stop: 12/23/20 10:06 Last Admin: 12/23/20 13:00 Dose: Not Given Documented by: Bamlanivimab 700 mg/Etesevimab 1,400 mg/ Sodium Chloride 160 mls @ 310 mls/hr IV ONETIME ONE Stop: 12/23/20 12:30 Last Admin: 12/23/20 12:29 Dose: 310 mls/hr Documented by: Azithromycin 500 mg/ Sodium (Chloride) 250 mls @ 250 mls/hr IV Q24H [facility] Last Admin: 12/25/20 10:03 Dose: 250 mls/hr Documented by: Insulin Glargine (Insulin Glargine,Human Rec. Analog 100 Units/Ml 3 Ml Pen) 15 units SUBCUT ONETIME ONE Stop: 12/27/20 08:59 Last Admin: 12/27/20 09:20 Dose: 15 unit Documented by: Insulin Human Regular (Insulin Regular, Human 100 Units/Ml 3 Ml Vial) 10 unit IV ONETIME ONE Stop: 12/22/20 20:16 Last Admin: 12/22/20 20:55 Dose: 10 units Documented by: Iopamidol (Iopamidol 755 Mg/Ml 100 Ml Bottle) 85 ml IV . DIRECTED ONE Stop: 12/27/20 09:19 Last Admin: 12/27/20 10:02 Dose: Not Given Documented by: Iopamidol (Iopamidol 755 Mg/Ml 100 Ml Bottle) 85 ml IV . DIRECTED ONE Stop: 12/27/20 09:01 Last Admin: 12/28/20 08:45 Dose: 85 ml Documented by: Ketorolac Tromethamine (Ketorolac 30 Mg/Ml Sdv) 30 mg IVPUSH ONETIME ONE Stop: 12/22/20 17:57 Last Admin: 12/22/20 18:10 Dose: 30 mg Documented by: Ketorolac Tromethamine (Ketorolac 30 Mg/Ml Sdv) 30 mg IVPUSH Q6H [facility] Stop: 12/28/20 00:43 Last Admin: 12/24/20 18:17 Dose: 30 mg Documented by: Ketorolac Tromethamine (Ketorolac 30 Mg/Ml Sdv) 30 mg IVPUSH Q6H PRN PRN Reason: Headache/Pain Stop: 12/29/20 22:23 Lorazepam (Lorazepam 0.5 Mg Tab) 0.5 mg PO ONETIME ONE Stop: 12/23/20 12:04 Last Admin: 12/23/20 12:30 Dose: 0.5 mg Documented by: Lorazepam (Lorazepam 1 Mg Tab) 0 mg PO ASDIRECTED [facility]; Protocol Lorazepam (Lorazepam 2 Mg/Ml Sdv) 0 mg IV ASDIRECTED [facility]; Protocol Magnesium Oxide (Magnesium Oxide 400 Mg Tab) 400 mg PO Q6H [facility] Stop: 12/25/20 01:00 Last Admin: 12/25/20 00:17 Dose: 400 mg Documented by: Metoclopramide HCl (Metoclopramide 10 Mg/2 Ml Sdv) 10 mg IVPUSH ONETIME ONE Stop: 12/22/20 19:27 Last Admin: 12/22/20 19:37 Dose: 10 mg Documented by: Metoclopramide HCl (Metoclopramide 10 Mg/2 Ml Sdv) 10 mg IVPUSH Q6H [facility] Stop: 12/24/20 00:45 Last Admin: 12/24/20 00:46 Dose: 10 mg Documented by: Ondansetron HCl (Ondansetron 4 Mg/2 Ml Sdv) 4 mg IVPUSH ONETIME ONE Stop: 12/22/20 17:57 Last Admin: 12/22/20 18:10 Dose: 4 mg Documented by: Potassium Chloride (Potassium Chloride 20 Meq Tab.Er) 40 meq PO ONETIME ONE Stop: 12/24/20 07:55 Last Admin: 12/24/20 09:07 Dose: 40 meq Documented by: Sodium Chloride (Sodium Chloride 0.9% 10 Ml Syringe) 30 ml FLUSH ASDIRECTED [facility] Stop: 12/23/20 16:00 - Exam General: Alert, Oriented, Cooperative HEENT: Other (Swelling & erythema improved, abrasions have crusted over, no drainage on palpation, mild TTP bilateral eyelids, can open left eyelid 3 mm) Neck: Lymphadenopathy (improved), Other (Swelling decreased postauricular area and under mandible) Lungs: Clear to Auscultation, Normal Respiratory Effort Cardiovascular: Regular Rate, Regular Rhythm GI/Abdominal Exam: Normal Bowel Sounds, Soft, Non-Tender, No Distention - Patient Data Lab Results Last 24 hrs: Laboratory Results - last 24 hr 12/27/20 12/27/20 12/28/20 Range/Units 17:53 22:00 06:55 WBC 20.6 H (3.0-10.3) x10-3/uL RBC 3.30 L (3.60-5.20) x10(6)uL Hgb 10.0 L (11.4-15.5) g/dL Hct 30.1 L (34.2-48.2) % MCV 91.4 (76.7-100.5) fL MCH 30.4 (23.9-33.9) pg MCHC 33.3 (31.9-34.8) g/dL RDW 14.1 (12.3-16.5) % Plt Count 400 (151-488) x10(3)uL MPV 7.4 (7.1-12.4) fL Add Manual Diff Yes Neutrophils % (Manual) 75 (46-82) % Band Neutrophils % 2 (0-6) % Lymphocytes % (Manual) 17 (13-37) % Monocytes % (Manual) 6 (4-12) % Sodium (135-145) mmol/L Potassium (3.5-5.3) mmol/L Chloride (100-110) mmol/L Carbon Dioxide (21-32) mmol/L BUN (7-18) mg/dL Creatinine (0.55-1.02) mg/dL Est Cr Clr Drug Dosing mL/min Estimated GFR (MDRD) (>60) BUN/Creatinine Ratio (9-20) Glucose (80-116) mg/dL POC Glucose 273 H 363 H D (80-116) mg/dL Calcium (8.6-10.2) mg/dL 12/28/20 12/28/20 Range/Units 06:55 11:56 WBC (3.0-10.3) x10-3/uL RBC (3.60-5.20) x10(6)uL Hgb (11.4-15.5) g/dL Hct (34.2-48.2) % MCV (76.7-100.5) fL MCH (23.9-33.9) pg MCHC (31.9-34.8) g/dL RDW (12.3-16.5) % Plt Count (151-488) x10(3)uL MPV (7.1-12.4) fL Add Manual Diff Neutrophils % (Manual) (46-82) % Band Neutrophils % (0-6) % Lymphocytes % (Manual) (13-37) % Monocytes % (Manual) (4-12) % Sodium 134 L (135-145) mmol/L Potassium 4.0 (3.5-5.3) mmol/L Chloride 101 (100-110) mmol/L Carbon Dioxide 25 (21-32) mmol/L BUN 10 (7-18) mg/dL Creatinine 0.8 (0.55-1.02) mg/dL Est Cr Clr Drug Dosing 64.32 mL/min Estimated GFR (MDRD) > 60 (>60) BUN/Creatinine Ratio 12.5 (9-20) Glucose 234 H D (80-116) mg/dL POC Glucose 189 H D (80-116) mg/dL Calcium 7.8 L (8.6-10.2) mg/dL Result Diagrams: 12/28/20 06:55 12/28/20 06:55 Louie Results Last 24 hrs: Microbiology 12/22/20 20:35 Aerobic Blood Culture - Final Blood - Venous - Lab Draw NO GROWTH AFTER 5 DAYS Anaerobic Blood Culture - Final NO GROWTH AFTER 5 DAYS 12/22/20 20:20 Aerobic Blood Culture - Final Blood - Venous NO GROWTH AFTER 5 DAYS Anaerobic Blood Culture - Final NO GROWTH AFTER 5 DAYS Sepsis Event Note - Evaluation Sepsis Screening Result: Sepsis Risk - Focused Exam Vital Signs: Vital Signs Temp Pulse Resp BP BP BP Pulse Ox 12/28/20 16:00 98.7 F 93 18 137/80 100 12/28/20 12:00 98.0 F 95 16 140/84 98 12/28/20 08:53 135/85 12/28/20 08:00 98.5 F 88 16 135/85 98 - Problem List & Annotations (1) Cellulitis SNOMED Code(s): 030677886 Code(s): L03.90 - CELLULITIS, UNSPECIFIED Status: Acute Current Visit: Yes Qualifiers: Site of cellulitis: face Qualified Code(s): L03.211 - Cellulitis of face Annotation/Comment:: Preseptal periorbital cellulitis per CT max/sinus today. No abscess. (2) Facial contusion SNOMED Code(s): 298673156 Code(s): S00.83XA - CONTUSION OF OTHER PART OF HEAD, INITIAL ENCOUNTER Sta tus: Acute Current Visit: Yes (3) Hypokalemia SNOMED Code(s): 46960343 Code(s): E87.6 - HYPOKALEMIA Status: Resolved Current Visit: Yes Annotation/Comment:: Resolved, 4.0 (4) Leukocytosis SNOMED Code(s): 336937176, 481574798 Code(s): D72.829 - ELEVATED WHITE BLOOD CELL COUNT, UNSPECIFIED Status: Acute Current Visit: Yes (5) Head, face & neck injury SNOMED Code(s): 491670718 Code(s): S19.9XXA - UNSPECIFIED INJURY OF NECK, INITIAL ENCOUNTER; S09.90XA - UNSPECIFIED INJURY OF HEAD, INITIAL ENCOUNTER; S09.93XA - UNSPECIFIED INJURY OF FACE, INITIAL ENCOUNTER Status: Acute Current Visit: No (6) SARS-CoV-2 positive SNOMED Code(s): 8862917476647457 Code(s): U07.1 - COVID-19 Status: Acute Current Visit: Yes Annotation/Comment:: CXR: clear, no pneumonia. Positive on admission, received Bamlanivimab. (7) Diabetes mellitus type 2 in obese SNOMED Code(s): 38632946 Code(s): E11.69 - TYPE 2 DIABETES MELLITUS WITH OTHER SPECIFIED COMPLICATION; E66.9 - OBESITY, UNSPECIFIED Status: Chronic Current Visit: Yes (8) Hypothyroidism SNOMED Code(s): 53286462 Code(s): E03.9 - HYPOTHYROIDISM, UNSPECIFIED Status: Chronic Current Visit: Yes (9) Hyponatremia SNOMED Code(s): 21349931 Code(s): E87.1 - HYPO-OSMOLALITY AND HYPONATREMIA Status: Resolved Current Visit: Yes Annotation/Comment:: 134 today. - Problem List Review Problem List Initiated/Reviewed/Updated: Yes - My Orders Last 24 Hours: My Active Orders 12/27/20 21:00 Doxycycline [Vibramycin] 100 mg Sodium Chloride 0.9% [Normal Saline] 100 ml IV Q12H Mirtazapine [Remeron] 7.5 mg PO BEDTIME 12/29/20 06:00 BASIC METABOLIC PANEL,BMP [CHEM] Routine CBC WITH AUTO DIFF [HEME] Routine - Plan Plan:: 1. Preseptal periorbital Cellulitis secondary to trauma: Rocephin 2g IV q24h, Doxycycline IV. Acetaminophen 650 mg q6h with Toradol 30 mg IV q6h, Morphine as needed severe pain. CT max/sinus showed preseptal periorbital cellulitis, no abscess formation, reactive lymph nodes. No sinusitis. Decadron 6 mg IV x 1, Repeat CBC tomorrow. 2. DM: glucose checks tid, Humalog sliding scale change to high dose, Lantus 30 units bid. 3. Hyponatremia: 134 today, recheck tomorrow. 4. Covid positive: Exposure Dec 12, family tested positive Nov 1, she had flulike symptoms Nov 3, tested positive Nov 8, would come out of isolation Nov 19 if she hospitalized. Received Bamlanivimab infusion. 5. Disposition: anticipate 48hr of IV antibiotics for periorbital cellulitis. Switch to orals when able.
[2020-12-28] MEDS: Mirtazapine 15 MG Tab PO SCH (21:18)
[2020-12-28] MEDS: Zolpidem 5 MG Tab PO PRN (23:24)
[2020-12-29] MEDS: Enoxaparin 40 MG/0.4 ML Syringe SUBCUT SCH (01:17)
[2020-12-29] MEDS: Ketorolac 30 MG/ML SDV IVPUSH SCH (04:11)
[2020-12-29] MEDS: Acetaminophen 325 MG Tab PO SCH ×4 (04:12→20:33)
[2020-12-29] MEDS: Levothyroxine 112 MCG Tab PO SCH (06:33)
[2020-12-29] MEDS: Pantoprazole 40 MG Tab.CR PO SCH ×2 (06:33→09:50)
[2020-12-29] MEDS: Insulin Lispro 100 Unit/ML 3 ML KwikPen SUBCUT SCH ×3 (08:22→18:22)
[2020-12-29] MEDS: Insulin Glargine,Human Rec. Analog 100 Units/ML 3 ML Pen SUBCUT SCH ×3 (08:23→20:30)
[2020-12-29] MEDS: Gabapentin 400 MG Cap PO SCH ×3 (08:26→20:32)
[2020-12-29] MEDS: amLODIPine 10 MG Tab PO SCH (08:27)
[2020-12-29] MEDS: Folic Acid 1 MG Tab PO SCH (08:27)
[2020-12-29] MEDS: Multivitamin Tab PO SCH (08:28)
[2020-12-29] MEDS: Thiamine 100 MG Tab PO SCH (08:28)
[2020-12-29] MEDS: Polyethylene Glycol 3350 Powder 17 GM Packet PO SCH (08:31)
[2020-12-29] MEDS ORDERED: cefTRIAXone 2 GM Vial IVPUSH SCH (09:00)
[2020-12-29] MEDS: PARoxetine 20 MG Tab PO SCH (09:51)
[2020-12-29] MEDS: Doxycycline 100 MG in Sodium Chloride 0.9% 100 ML IV SCH ×2 (09:53→21:13)
[2020-12-29] MEDS: Sodium Chloride 0.9% 10 ML Syringe FLUSH PRN ×3 (09:54→21:15)
[2020-12-29] MEDS: Ibuprofen 200 MG Tab PO SCH ×3 (10:07→20:31)
[2020-12-29] MEDS ORDERED: Dexamethasone 4 MG/ML SDV IVPUSH SCH (10:45)
[2020-12-29] MEDS: cefTRIAXone 2 GM Vial IVPUSH SCH (11:11)
--- NOTE | 2020-12-29 13:14 | PCM.PN ---
- General Info Date of Service: 12/29/20 Subjective Update: Lori states she can't open her eye today, no drainage, pain is controlled. I didn't order Dexamethasone yesterday which was only change from Tuesday. No fevers, chills. No shortness of breath or cough. Had BM, urinating well. Functional Status: Reports: Pain Controlled, Tolerating Diet, Ambulating, Urinating - Patient Data Vitals - Most Recent: Last Vital Signs Temp 98.2 F 12/29/20 08:00 Pulse 86 12/29/20 08:00 Resp 18 12/29/20 08:00 BP 147/82 H 12/29/20 08:27 Pulse Ox 97 12/29/20 08:00 Weight - Most Recent: 143 lb Lab Results Last 24 Hours: Laboratory Results - last 24 hr 12/28/20 12/28/20 12/29/20 Range/Units 17:43 21:34 06:45 WBC 19.2 H (3.0-10.3) x10-3/uL Corrected WBC 18.8 H (4.5-12.0) X10(3) RBC 3.08 L (3.60-5.20) x10(6)uL Hgb 9.4 L (11.4-15.5) g/dL Hct 28.3 L (34.2-48.2) % MCV 91.8 (76.7-100.5) fL MCH 30.6 (23.9-33.9) pg MCHC 33.4 (31.9-34.8) g/dL RDW 14.1 (12.3-16.5) % Plt Count 448 (151-488) x10(3)uL MPV 7.1 (7.1-12.4) fL Add Manual Diff Yes Neutrophils % (Manual) 71 (46-82) % Band Neutrophils % 5 (0-6) % Lymphocytes % (Manual) 17 (13-37) % Monocytes % (Manual) 6 (4-12) % Metamyelocytes % 1 H (0-0) % Nucleated RBCs 2 H (0-0) /100WBC Polychromasia Few Sodium (135-145) mmol/L Potassium (3.5-5.3) mmol/L Chloride (100-110) mmol/L Carbon Dioxide (21-32) mmol/L BUN (7-18) mg/dL Creatinine (0.55-1.02) mg/dL Est Cr Clr Drug Dosing mL/min Estimated GFR (MDRD) (>60) BUN/Creatinine Ratio (9-20) Glucose (80-116) mg/dL POC Glucose 176 H 122 H (80-116) mg/dL Calcium (8.6-10.2) mg/dL 12/29/20 12/29/20 12/29/20 Range/Units 06:45 06:45 12:07 WBC (3.0-10.3) x10-3/uL Corrected WBC (4.5-12.0) X10(3) RBC (3.60-5.20) x10(6)uL Hgb (11.4-15.5) g/dL Hct (34.2-48.2) % MCV (76.7-100.5) fL MCH (23.9-33.9) pg MCHC (31.9-34.8) g/dL RDW (12.3-16.5) % Plt Count (151-488) x10(3)uL MPV (7.1-12.4) fL Add Manual Diff Neutrophils % (Manual) (46-82) % Band Neutrophils % (0-6) % Lymphocytes % (Manual) (13-37) % Monocytes % (Manual) (4-12) % Metamyelocytes % (0-0) % Nucleated RBCs (0-0) /100WBC Polychromasia Sodium 140 (135-145) mmol/L Potassium 4.0 (3.5-5.3) mmol/L Chloride 106 D (100-110) mmol/L Carbon Dioxide 28 (21-32) mmol/L BUN 9 (7-18) mg/dL Creatinine 0.8 (0.55-1.02) mg/dL Est Cr Clr Drug Dosing 64.32 mL/min Estimated GFR (MDRD) > 60 (>60) BUN/Creatinine Ratio 11.3 (9-20) Glucose 233 H (80-116) mg/dL POC Glucose 205 H D 328 H D (80-116) mg/dL Calcium 7.4 L (8.6-10.2) mg/dL Med Orders - Current: Current Medications Acetaminophen (Acetaminophen 325 Mg Tab) 650 mg PO Q6H [facility] Last Admin: 12/29/20 08:28 Dose: 650 mg Documented by: Amlodipine Besylate (Amlodipine 10 Mg Tab) 10 mg PO DAILY [facility] Last Admin: 12/29/20 08:27 Dose: 10 mg Documented by: Bisacodyl (Bisacodyl 10 Mg Supp) 10 mg RECTAL DAILY PRN PRN Reason: Constipation Last Admin: 12/26/20 21:58 Dose: 10 mg Documented by: Ceftriaxone Sodium (Ceftriaxone 2 Gm Vial) 2 gm IVPUSH Q24H [facility] Last Admin: 12/29/20 11:11 Dose: 2 gm Documented by: Dexamethasone (Dexamethasone 4 Mg/Ml Sdv) 8 mg IVPUSH DAILY [facility] Stop: 12/31/20 10:46 Last Admin: 12/29/20 11:08 Dose: 8 mg Documented by: Dextrose/Water (50% Dextrose In Water 50 Ml Syringe) 50 ml IVPUSH ASDIRECTED PRN PRN Reason: Hypoglycemia Enoxaparin Sodium (Enoxaparin 40 Mg/0.4 Ml Syringe) 40 mg SUBCUT Q24H [facility] Last Admin: 12/29/20 01:17 Dose: 40 mg Documented by: Folic Acid (Folic Acid 1 Mg Tab) 1 mg PO DAILY [facility] Last Admin: 12/29/20 08:27 Dose: 1 mg Documented by: Gabapentin (Gabapentin 400 Mg Cap) 800 mg PO TID [facility] Last Admin: 12/29/20 08:26 Dose: 800 mg Documented by: Glucagon (Glucagon,Human Recombinant 1 Mg Vial) 1 mg IM ASDIRECTED PRN PRN Reason: Hypoglycemia Hydroxyzine Pamoate (Hydroxyzine Pamoate 50 Mg Cap) 50 mg PO Q6H PRN PRN Reason: Anxiety Last Admin: 12/29/20 01:26 Dose: 50 mg Documented by: Doxycycline Hyclate 100 mg/ (Sodium Chloride) 100 mls @ 100 mls/hr IV Q12H [facility] Last Admin: 12/29/20 09:53 Dose: 100 mls/hr Documented by: Ibuprofen (Ibuprofen 200 Mg Tab) 200 mg PO Q6H [facility] Last Admin: 12/29/20 10:07 Dose: 200 mg Documented by: Insulin Glargine (Insulin Glargine,Human Rec. Analog 100 Units/Ml 3 Ml Pen) 30 units SUBCUT BID [facility] Last Admin: 12/29/20 08:23 Dose: 30 units Documented by: Insulin Human Lispro (Insulin Lispro 100 Unit/Ml 3 Ml Kwikpen) 0 unit SUBCUT TIDMEALS [facility]; Protocol Last Admin: 12/29/20 12:14 Dose: 12 units Documented by: Levothyroxine Sodium (Levothyroxine 112 Mcg Tab) 112 mcg PO DAILY@0600 [facility] Last Admin: 12/29/20 06:33 Dose: 112 mcg Documented by: Loratadine (Loratadine 10 Mg Tab) 10 mg PO DAILY PRN PRN Reason: Allergies Magnesium Hydroxide (Magnesium Hydroxide 400 Mg/5 Ml Susp 30 Ml Cup) 30 ml PO Q12H PRN PRN Reason: Constipation Last Admin: 12/26/20 08:26 Dose: 30 ml Documented by: Mirtazapine (Mirtazapine 15 Mg Tab) 7.5 mg PO BEDTIME [facility] Last Admin: 12/28/20 21:18 Dose: 7.5 mg Documented by: Morphine Sulfate (Morphine 2 Mg/Ml Syringe) 2 mg IVPUSH Q4H PRN PRN Reason: Pain (severe 7-10) Last Admin: 12/24/20 09:23 Dose: 2 mg Documented by: Multivitamins/Minerals/Vitamin C (Multivitamin Tab) 1 tab PO DAILY [facility] Last Admin: 12/29/20 08:28 Dose: 1 tab Documented by: Pantoprazole Sodium (Pantoprazole 40 Mg Tab.Cr) 40 mg PO DAILY [facility] Last Admin: 12/29/20 09:50 Dose: 40 mg Documented by: Paroxetine HCl (Paroxetine 20 Mg Tab) 40 mg PO DAILY [facility] Last Admin: 12/29/20 09:51 Dose: 40 mg Documented by: Polyethylene Glycol (Polyethylene Glycol 3350 Powder 17 Gm Packet) 17 gm PO DAILY [facility] Last Admin: 12/29/20 08:31 Dose: Not Given Documented by: Sodium Chloride (Sodium Chloride 0.9% 10 Ml Syringe) 10 ml FLUSH ASDIRECTED PRN PRN Reason: Keep Vein Open Last Admin: 12/29/20 11:07 Dose: 10 ml Documented by: Thiamine HCl (Thiamine 100 Mg Tab) 100 mg PO DAILY [facility] Last Admin: 12/29/20 08:28 Dose: 100 mg Documented by: Zolpidem Tartrate (Zolpidem 5 Mg Tab) 5 mg PO BEDTIME PRN PRN Reason: Sleep Last Admin: 12/26/20 22:45 Dose: 5 mg Documented by: Discontinued Medications Acetaminophen (Acetaminophen 325 Mg Tab) 650 mg PO Q4H PRN PRN Reason: Pain (Mild 1-3)/fever Last Admin: 12/26/20 08:24 Dose: 650 mg Documented by: Hydrocodone Bitart/Acetaminophen (Acetaminophen/Hydrocodone 325-5 Mg Tab) 1 tab PO Q4H PRN PRN Reason: Pain (moderate 4-6) Last Admin: 12/26/20 04:04 Dose: 1 tab Documented by: Hydrocodone Bitart/Acetaminophen (Acetaminophen/Hydrocodone 325-5 Mg Tab) 2 tab PO Q4H PRN PRN Reason: Pain (severe 7-10) Last Admin: 12/25/20 22:20 Dose: 2 tab Documented by: Ceftriaxone Sodium (Ceftriaxone 2 Gm Vial) 2 gm IVPUSH ONETIME ONE Stop: 12/24/20 20:40 Last Admin: 12/24/20 21:12 Dose: 2 gm Documented by: Ceftriaxone Sodium (Ceftriaxone 1 Gm Vial) 1 gm IVPUSH Q24H [facility] Last Admin: 12/26/20 21:23 Dose: 1 gm Documented by: Ceftriaxone Sodium (Ceftriaxone 1 Gm Vial) 2 gm IVPUSH Q24H [facility] Last Admin: 12/28/20 10:14 Dose: 2 gm Documented by: Al Hydroxide/Mg Hydroxide 15 (ml/ Lidocaine HCl 15 ml) 0 ml PO ONETIME ONE Stop: 12/22/20 21:46 Last Admin: 12/22/20 21:50 Dose: 30 ml Documented by: Dexamethasone (Dexamethasone 4 Mg/Ml Sdv) 6 mg IVPUSH ONETIME ONE Stop: 12/27/20 10:48 Last Admin: 12/27/20 11:21 Dose: 6 mg Documented by: Dextrose/Water (50% Dextrose In Water 50 Ml Syringe) 50 ml IVPUSH ASDIRECTED PRN PRN Reason: Hypoglycemia Dextrose/Water (50% Dextrose In Water 50 Ml Syringe) 50 ml IVPUSH ASDIRECTED PRN PRN Reason: Hypoglycemia Doxycycline Hyclate (Doxycycline 100 Mg Tab) 100 mg PO BID [facility] Last Admin: 12/27/20 07:59 Dose: 100 mg Documented by: Erythromycin (Erythromycin Base 0.5% Ophth Oint 1 Gm Tube) 0 gm EYEBOTH BID [facility] Stop: 12/31/20 23:00 Last Admin: 12/26/20 08:25 Dose: 1 applic Documented by: Gabapentin (Gabapentin 300 Mg Cap) 300 mg PO BID [facility] Last Admin: 12/27/20 07:59 Dose: 300 mg Documented by: Glucagon (Glucagon,Human Recombinant 1 Mg Vial) 1 mg IM ASDIRECTED PRN PRN Reason: Hypoglycemia Glucagon (Glucagon,Human Recombinant 1 Mg Vial) 1 mg IM ASDIRECTED PRN PRN Reason: Hypoglycemia Sodium Chloride (Normal Saline) 1,000 mls @ 999 mls/hr IV .BOLUS ONE Stop: 12/22/20 18:57 Last Admin: 12/22/20 18:10 Dose: 999 mls/hr Documented by: Sodium Chloride (Normal Saline) 1,000 mls @ 999 mls/hr IV .BOLUS ONE Stop: 12/22/20 21:14 Last Admin: 12/22/20 21:00 Dose: 999 mls/hr Documented by: Sodium Chloride (Normal Saline) 1,000 mls @ 999 mls/hr IV .BOLUS ONE Stop: 12/22/20 21:14 Last Admin: 12/22/20 22:28 Dose: 999 mls/hr Documented by: Potassium Chloride 20 meq/ (Premix) 100 mls @ 50 mls/hr IV ONETIME ONE Stop: 12/22/20 22:13 Last Admin: 12/22/20 21:50 Dose: 50 mls/hr Documented by: Potassium Chloride/Dextrose/Sod Cl (D5 1/2 Ns W/ 20 Meq/L Kcl) 1,000 mls @ 150 mls/hr IV ASDIRECTED [facility] Stop: 12/23/20 08:20 Last Admin: 12/23/20 01:39 Dose: 150 mls/hr Documented by: Potassium Chloride/Dextrose/Sod Cl (D5 1/2 Ns W/ 20 Meq/L Kcl) 1,000 mls @ 150 mls/hr IV Q7H [facility] Sodium Chloride (Normal Saline) 1,000 mls @ 150 mls/hr IV ASDIRECTED [facility] Last Admin: 12/24/20 11:54 Dose: 150 mls/hr Documented by: Magnesium Sulfate 4 gm/ (Dextrose/Water) 258 mls @ 100 mls/hr IV ONETIME ONE Stop: 12/23/20 10:06 Last Admin: 12/23/20 13:00 Dose: Not Given Documented by: Bamlanivimab 700 mg/Etesevimab 1,400 mg/ Sodium Chloride 160 mls @ 310 mls/hr IV ONETIME ONE Stop: 12/23/20 12:30 Last Admin: 12/23/20 12:29 Dose: 310 mls/hr Documented by: Azithromycin 500 mg/ Sodium (Chloride) 250 mls @ 250 mls/hr IV Q24H [facility] Last Admin: 12/25/20 10:03 Dose: 250 mls/hr Documented by: Insulin Glargine (Insulin Glargine,Human Rec. Analog 100 Units/Ml 3 Ml Pen) 15 units SUBCUT ONETIME ONE Stop: 12/27/20 08:59 Last Admin: 12/27/20 09:20 Dose: 15 unit Documented by: Insulin Human Regular (Insulin Regular, Human 100 Units/Ml 3 Ml Vial) 10 unit IV ONETIME ONE Stop: 12/22/20 20:16 Last Admin: 12/22/20 20:55 Dose: 10 units Documented by: Iopamidol (Iopamidol 755 Mg/Ml 100 Ml Bottle) 85 ml IV . DIRECTED ONE Stop: 12/27/20 09:19 Last Admin: 12/27/20 10:02 Dose: Not Given Documented by: Iopamidol (Iopamidol 755 Mg/Ml 100 Ml Bottle) 85 ml IV . DIRECTED ONE Stop: 12/27/20 09:01 Last Admin: 12/28/20 08:45 Dose: 85 ml Documented by: Ketorolac Tromethamine (Ketorolac 30 Mg/Ml Sdv) 30 mg IVPUSH ONETIME ONE Stop: 12/22/20 17:57 Last Admin: 12/22/20 18:10 Dose: 30 mg Documented by: Ketorolac Tromethamine (Ketorolac 30 Mg/Ml Sdv) 30 mg IVPUSH Q6H [facility] Stop: 12/28/20 00:43 Last Admin: 12/24/20 18:17 Dose: 30 mg Documented by: Ketorolac Tromethamine (Ketorolac 30 Mg/Ml Sdv) 30 mg IVPUSH Q6H PRN PRN Reason: Headache/Pain Stop: 12/29/20 22:23 Ketorolac Tromethamine (Ketorolac 30 Mg/Ml Sdv) 30 mg IVPUSH Q6H [facility] Stop: 12/29/20 03:01 Last Admin: 12/29/20 04:11 Dose: 30 mg Documented by: Lorazepam (Lorazepam 0.5 Mg Tab) 0.5 mg PO ONETIME ONE Stop: 12/23/20 12:04 Last Admin: 12/23/20 12:30 Dose: 0.5 mg Documented by: Lorazepam (Lorazepam 1 Mg Tab) 0 mg PO ASDIRECTED [facility]; Protocol Lorazepam (Lorazepam 2 Mg/Ml Sdv) 0 mg IV ASDIRECTED [facility]; Protocol Magnesium Oxide (Magnesium Oxide 400 Mg Tab) 400 mg PO Q6H [facility] Stop: 12/25/20 01:00 Last Admin: 12/25/20 00:17 Dose: 400 mg Documented by: Metoclopramide HCl (Metoclopramide 10 Mg/2 Ml Sdv) 10 mg IVPUSH ONETIME ONE Stop: 12/22/20 19:27 Last Admin: 12/22/20 19:37 Dose: 10 mg Documented by: Metoclopramide HCl (Metoclopramide 10 Mg/2 Ml Sdv) 10 mg IVPUSH Q6H [facility] Stop: 12/24/20 00:45 Last Admin: 12/24/20 00:46 Dose: 10 mg Documented by: Ondansetron HCl (Ondansetron 4 Mg/2 Ml Sdv) 4 mg IVPUSH ONETIME ONE Stop: 12/22/20 17:57 Last Admin: 12/22/20 18:10 Dose: 4 mg Documented by: Potassium Chloride (Potassium Chloride 20 Meq Tab.Er) 40 meq PO ONETIME ONE Stop: 12/24/20 07:55 Last Admin: 12/24/20 09:07 Dose: 40 meq Documented by: Sodium Chloride (Sodium Chloride 0.9% 10 Ml Syringe) 30 ml FLUSH ASDIRECTED [facility] Stop: 12/23/20 16:00 - Exam General: Alert, Oriented, Cooperative HEENT: Other (Bilateral eyelids: swelling slightly increased today. Abrasions crusted over. No drainage. TTP just over eyelids today, NT over forehead. No swelling under mandible. ) Neck: Trachea Midline Lungs: Clear to Auscultation, Normal Respiratory Effort Cardiovascular: Regular Rate, Regular Rhythm GI/Abdominal Exam: Normal Bowel Sounds, Soft, Non-Tender, No Distention - Patient Data Lab Results Last 24 hrs: Laboratory Results - last 24 hr 12/28/20 12/28/20 12/29/20 Range/Units 17:43 21:34 06:45 WBC 19.2 H (3.0-10.3) x10-3/uL Corrected WBC 18.8 H (4.5-12.0) X10(3) RBC 3.08 L (3.60-5.20) x10(6)uL Hgb 9.4 L (11.4-15.5) g/dL Hct 28.3 L (34.2-48.2) % MCV 91.8 (76.7-100.5) fL MCH 30.6 (23.9-33.9) pg MCHC 33.4 (31.9-34.8) g/dL RDW 14.1 (12.3-16.5) % Plt Count 448 (151-488) x10(3)uL MPV 7.1 (7.1-12.4) fL Add Manual Diff Yes Neutrophils % (Manual) 71 (46-82) % Band Neutrophils % 5 (0-6) % Lymphocytes % (Manual) 17 (13-37) % Monocytes % (Manual) 6 (4-12) % Metamyelocytes % 1 H (0-0) % Nucleated RBCs 2 H (0-0) /100WBC Polychromasia Few Sodium (135-145) mmol/L Potassium (3.5-5.3) mmol/L Chloride (100-110) mmol/L Carbon Dioxide (21-32) mmol/L BUN (7-18) mg/dL Creatinine (0.55-1.02) mg/dL Est Cr Clr Drug Dosing mL/min Estimated GFR (MDRD) (>60) BUN/Creatinine Ratio (9-20) Glucose (80-116) mg/dL POC Glucose 176 H 122 H (80-116) mg/dL Calcium (8.6-10.2) mg/dL 12/29/20 12/29/20 12/29/20 Range/Units 06:45 06:45 12:07 WBC (3.0-10.3) x10-3/uL Corrected WBC (4.5-12.0) X10(3) RBC (3.60-5.20) x10(6)uL Hgb (11.4-15.5) g/dL Hct (34.2-48.2) % MCV (76.7-100.5) fL MCH (23.9-33.9) pg MCHC (31.9-34.8) g/dL RDW (12.3-16.5) % Plt Count (151-488) x10(3)uL MPV (7.1-12.4) fL Add Manual Diff Neutrophils % (Manual) (46-82) % Band Neutrophils % (0-6) % Lymphocytes % (Manual) (13-37) % Monocytes % (Manual) (4-12) % Metamyelocytes % (0-0) % Nucleated RBCs (0-0) /100WBC Polychromasia Sodium 140 (135-145) mmol/L Potassium 4.0 (3.5-5.3) mmol/L Chloride 106 D (100-110) mmol/L Carbon Dioxide 28 (21-32) mmol/L BUN 9 (7-18) mg/dL Creatinine 0.8 (0.55-1.02) mg/dL Est Cr Clr Drug Dosing 64.32 mL/min Estimated GFR (MDRD) > 60 (>60) BUN/Creatinine Ratio 11.3 (9-20) Glucose 233 H (80-116) mg/dL POC Glucose 205 H D 328 H D (80-116) mg/dL Calcium 7.4 L (8.6-10.2) mg/dL Result Diagrams: 12/29/20 06:45 12/29/20 06:45 Sepsis Event Note - Evaluation Sepsis Screening Result: Sepsis Risk - Focused Exam Vital Signs: Vital Signs Temp Temp Pulse Resp BP BP Pulse Ox 12/29/20 08:27 147/82 H 12/29/20 08:00 98.2 F 86 18 147/82 H 97 12/29/20 04:00 98.6 F 88 16 157/79 H 98 12/29/20 02:00 96 12/29/20 01:30 97.9 F 75 16 158/80 H 96 - Problem List & Annotations (1) Cellulitis SNOMED Code(s): 713517109 Code(s): L03.90 - CELLULITIS, UNSPECIFIED Status: Acute Current Visit: Yes Qualifiers: Site of cellulitis: face Qualified Code(s): L03.211 - Cellulitis of face Annotation/Comment:: Preseptal periorbital cellulitis per CT max/sinus today. No abscess. (2) Facial contusion SNOMED Code(s): 698898371 Code(s): S00.83XA - CONTUSION OF OTHER PART OF HEAD, INITIAL ENCOUNTER Status: Acute Current Visit: Yes (3) Leukocytosis SNOMED Code(s): 531411444, 315824383 Code(s): D72.829 - ELEVATED WHITE BLOOD CELL COUNT, UNSPECIFIED Status: Acute Current Visit: Yes (4) Head, face & neck injury SNOMED Code(s): 386326453 Code(s): S19.9XXA - UNSPECIFIED INJURY OF NECK, INITIAL ENCOUNTER; S09.90XA - UNSPECIFIED INJURY OF HEAD, INITIAL ENCOUNTER; S09.93XA - UNSPECIFIED INJURY OF FACE, INITIAL ENCOUNTER Status: Acute Current Visit: No (5) SARS-CoV-2 positive SNOMED Code(s): 2868233267723848 Code(s): U07.1 - COVID-19 Status: Acute Current Visit: Yes Annotation/Comment:: CXR: clear, no pneumonia. Positive on admission, received Bamlanivimab. (6) Diabetes mellitus type 2 in obese SNOMED Code(s): 97985105 Code(s): E11.69 - TYPE 2 DIABETES MELLITUS WITH OTHER SPECIFIED COMPLICATION; E66.9 - OBESITY, UNSPECIFIED Status: Chronic Current Visit: Yes (7) Hypothyroidism SNOMED Code(s): 40055506 Code(s): E03.9 - HYPOTHYROIDISM, UNSPECIFIED Status: Chronic Current Visit: Yes (8) Hyponatremia SNOMED Code(s): 67316514 Code(s): E87.1 - HYPO-OSMOLALITY AND HYPONATREMIA Status: Resolved Current Visit: Yes (9) Hypokalemia SNOMED Code(s): 49024853 Code(s): E87.6 - HYPOKALEMIA Status: Resolved Current Visit: Yes Annotation/Comment:: Resolved, 4.0 - Problem List Review Problem List Initiated/Reviewed/Updated: Yes - My Orders Last 24 Hours: My Active Orders 12/29/20 09:00 Ibuprofen [Motrin] 200 mg PO Q6H 12/29/20 10:45 dexAMETHasone [Decadron] 8 mg IVPUSH DAILY 12/29/20 11:00 cefTRIAXone [Rocephin] 2 gm IVPUSH Q24H 12/30/20 06:00 BASIC METABOLIC PANEL,BMP [CHEM] Routine CBC WITH AUTO DIFF [HEME] Routine - Plan Plan:: 1. Preseptal periorbital Cellulitis secondary to trauma: Rocephin 2g IV q24h, Doxycycline 100 mg IV bid, day 3. Acetaminophen 650 mg q6h with Ibuprofen 200 mg po q6h, Morphine as needed severe pain. Dexamethasone 8 mg IV x 2 days. Repeat labs tomorrow. 2. DM: glucose checks tid, Humalog sliding scale change to high dose, Lantus 30 units bid. 3. Covid positive: Exposure Dec 12-, family tested positive Nov 1, she had flulike symptoms Nov 3, tested positive Nov 8, would come out of isolation Dec 19 if she hospitalized. Received Bamlanivimab infusion. 5. Disposition: anticipate 48hr of IV antibiotics for periorbital cellulitis. Switch to orals when able.
[2020-12-29] MEDS: Mirtazapine 15 MG Tab PO SCH (20:33)
[2020-12-29] MEDS ORDERED: Insulin Lispro 100 Unit/ML 3 ML KwikPen SUBCUT ONE (20:54)
[2020-12-30] MEDS: Enoxaparin 40 MG/0.4 ML Syringe SUBCUT SCH (00:25)
[2020-12-30] MEDS: Zolpidem 5 MG Tab PO PRN (00:33)
[2020-12-30] MEDS: Ibuprofen 200 MG Tab PO SCH ×2 (02:44→08:07)
[2020-12-30] MEDS: Acetaminophen 325 MG Tab PO SCH ×4 (02:52→20:38)
[2020-12-30] MEDS: Levothyroxine 112 MCG Tab PO SCH (05:51)
[2020-12-30] MEDS: Insulin Lispro 100 Unit/ML 3 ML KwikPen SUBCUT SCH ×4 (08:02→21:11)
[2020-12-30] MEDS: Insulin Glargine,Human Rec. Analog 100 Units/ML 3 ML Pen SUBCUT SCH ×2 (08:03→21:10)
[2020-12-30] MEDS: Polyethylene Glycol 3350 Powder 17 GM Packet PO SCH (08:05)
[2020-12-30] MEDS: Folic Acid 1 MG Tab PO SCH (08:05)
[2020-12-30] MEDS: amLODIPine 10 MG Tab PO SCH (08:06)
[2020-12-30] MEDS: Pantoprazole 40 MG Tab.CR PO SCH (08:06)
[2020-12-30] MEDS: Multivitamin Tab PO SCH (08:06)
[2020-12-30] MEDS: PARoxetine 20 MG Tab PO SCH (08:06)
[2020-12-30] MEDS: Thiamine 100 MG Tab PO SCH (08:07)
[2020-12-30] MEDS: Gabapentin 400 MG Cap PO SCH ×3 (08:09→20:37)
[2020-12-30] MEDS ORDERED: ALPRAZolam 0.5 MG Tab PO ONE (08:45)
[2020-12-30] MEDS: Doxycycline 100 MG in Sodium Chloride 0.9% 100 ML IV SCH ×2 (09:22→20:36)
[2020-12-30] MEDS ORDERED: Sodium Chloride 0.9% 250 ML IV SCH (10:00)
[2020-12-30] MEDS: Saccharomyces Boulardii (Probiotic) 250 MG Cap PO SCH ×2 (11:34→20:37)
--- NOTE | 2020-12-30 11:54 | PCM.PN ---
- General Info Date of Service: 12/30/20 Subjective Update: Sayda did not sleep at all last night even with Mirtazapine, Ambien & Vistaril. She can open her right eye a little bit, swelling is down but left eye is more swollen today. 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 She has tolerated Doxycycline in the past. She stated she felt very anxious and tired this morning, will discontinue Dexamethasone. She had bowel movement. No fevers, chills. No drainage from eyes or nose abrasion. Crust on both eyelids have fallen off. - Patient Data Vitals - Most Recent: Last Vital Signs Temp 97.7 F 12/30/20 08:00 Pulse 88 12/30/20 08:00 Resp 18 12/30/20 08:00 BP 146/83 H 12/30/20 08:06 Pulse Ox 97 12/30/20 08:00 Weight - Most Recent: 143 lb Lab Results Last 24 Hours: Laboratory Results - last 24 hr 12/29/20 12/29/20 12/29/20 Range/Units 12:07 18:00 20:21 WBC (3.0-10.3) x10-3/uL RBC (3.60-5.20) x10(6)uL Hgb (11.4-15.5) g/dL Hct (34.2-48.2) % MCV (76.7-100.5) fL MCH (23.9-33.9) pg MCHC (31.9-34.8) g/dL RDW (12.3-16.5) % Plt Count (151-488) x10(3)uL MPV (7.1-12.4) fL Add Manual Diff Neutrophils % (Manual) (46-82) % Band Neutrophils % (0-6) % Lymphocytes % (Manual) (13-37) % Monocytes % (Manual) (4-12) % Sodium (135-145) mmol/L Potassium (3.5-5.3) mmol/L Chloride (100-110) mmol/L Carbon Dioxide (21-32) mmol/L BUN (7-18) mg/dL Creatinine (0.55-1.02) mg/dL Est Cr Clr Drug Dosing mL/min Estimated GFR (MDRD) (>60) BUN/Creatinine Ratio (9-20) Glucose (80-116) mg/dL POC Glucose 328 H D 493 H* D 535 H* (80-116) mg/dL Calcium (8.6-10.2) mg/dL 12/29/20 12/30/20 12/30/20 Range/Units 22:34 06:20 06:20 WBC 25.1 H (3.0-10.3) x10-3/uL RBC 3.25 L (3.60-5.20) x10(6)uL Hgb 9.7 L (11.4-15.5) g/dL Hct 30.0 L (34.2-48.2) % MCV 92.3 (76.7-100.5) fL MCH 29.9 (23.9-33.9) pg MCHC 32.4 (31.9-34.8) g/dL RDW 14.2 (12.3-16.5) % Plt Count 510 H (151-488) x10(3)uL MPV 7.2 (7.1-12.4) fL Add Manual Diff Yes Neutrophils % (Manual) 87 H (46-82) % Band Neutrophils % 1 (0-6) % Lymphocytes % (Manual) 10 L (13-37) % Monocytes % (Manual) 2 L (4-12) % Sodium 129 L D (135-145) mmol/L Potassium 4.1 (3.5-5.3) mmol/L Chloride 96 L D (100-110) mmol/L Carbon Dioxide 22 (21-32) mmol/L BUN 16 (7-18) mg/dL Creatinine 0.9 (0.55-1.02) mg/dL Est Cr Clr Drug Dosing 57.17 mL/min Estimated GFR (MDRD) > 60 (>60) BUN/Creatinine Ratio 17.8 (9-20) Glucose 418 H* D (80-116) mg/dL POC Glucose 446 H* D (80-116) mg/dL Calcium 7.9 L (8.6-10.2) mg/dL 12/30/20 Range/Units 11:35 WBC (3.0-10.3) x10-3/uL RBC (3.60-5.20) x10(6)uL Hgb (11.4-15.5) g/dL Hct (34.2-48.2) % MCV (76.7-100.5) fL MCH (23.9-33.9) pg MCHC (31.9-34.8) g/dL RDW (12.3-16.5) % Plt Count (151-488) x10(3)uL MPV (7.1-12.4) fL Add Manual Diff Neutrophils % (Manual) (46-82) % Band Neutrophils % (0-6) % Lymphocytes % (Manual) (13-37) % Monocytes % (Manual) (4-12) % Sodium (135-145) mmol/L Potassium (3.5-5.3) mmol/L Chloride (100-110) mmol/L Carbon Dioxide (21-32) mmol/L BUN (7-18) mg/dL Creatinine (0.55-1.02) mg/dL Est Cr Clr Drug Dosing mL/min Estimated GFR (MDRD) (>60) BUN/Creatinine Ratio (9-20) Glucose (80-116) mg/dL POC Glucose 368 H (80-116) mg/dL Calcium (8.6-10.2) mg/dL Med Orders - Current: Current Medications Acetaminophen (Acetaminophen 325 Mg Tab) 650 mg PO Q6H [facility] Last Admin: 12/30/20 08:05 Dose: 650 mg Documented by: Amlodipine Besylate (Amlodipine 10 Mg Tab) 10 mg PO DAILY [facility] Last Admin: 12/30/20 08:06 Dose: 10 mg Documented by: Bisacodyl (Bisacodyl 10 Mg Supp) 10 mg RECTAL DAILY PRN PRN Reason: Constipation Last Admin: 12/26/20 21:58 Dose: 10 mg Documented by: Ceftriaxone Sodium (Ceftriaxone 2 Gm Vial) 2 gm IVPUSH Q24H [facility] Last Admin: 12/29/20 11:11 Dose: 2 gm Documented by: Dextrose/Water (50% Dextrose In Water 50 Ml Syringe) 50 ml IVPUSH ASDIRECTED PRN PRN Reason: Hypoglycemia Enoxaparin Sodium (Enoxaparin 40 Mg/0.4 Ml Syringe) 40 mg SUBCUT Q24H [facility] Last Admin: 12/30/20 00:25 Dose: 40 mg Documented by: Folic Acid (Folic Acid 1 Mg Tab) 1 mg PO DAILY [facility] Last Admin: 12/30/20 08:05 Dose: 1 mg Documented by: Gabapentin (Gabapentin 400 Mg Cap) 800 mg PO TID [facility] Last Admin: 12/30/20 08:09 Dose: 800 mg Documented by: Glucagon (Glucagon,Human Recombinant 1 Mg Vial) 1 mg IM ASDIRECTED PRN PRN Reason: Hypoglycemia Hydroxyzine Pamoate (Hydroxyzine Pamoate 50 Mg Cap) 50 mg PO Q6H PRN PRN Reason: Anxiety Last Admin: 12/29/20 20:34 Dose: 50 mg Documented by: Doxycycline Hyclate 100 mg/ (Sodium Chloride) 100 mls @ 100 mls/hr IV Q12H [facility] Last Admin: 12/30/20 09:22 Dose: 100 mls/hr Documented by: Sodium Chloride (Normal Saline) 250 mls @ 30 mls/hr IV ASDIRECTED [facility] Last Admin: 12/30/20 10:00 Dose: 30 mls/hr Documented by: Ibuprofen (Ibuprofen 600 Mg Tab) 600 mg PO Q6H [facility] Insulin Glargine (Insulin Glargine,Human Rec. Analog 100 Units/Ml 3 Ml Pen) 35 units SUBCUT BID [facility] Last Admin: 12/30/20 08:03 Dose: 35 units Documented by: Insulin Human Lispro (Insulin Lispro 100 Unit/Ml 3 Ml Kwikpen) 0 unit SUBCUT QIDACANDBED [facility]; Protocol Last Admin: 12/30/20 11:38 Dose: 15 units Documented by: Levothyroxine Sodium (Levothyroxine 112 Mcg Tab) 112 mcg PO DAILY@0600 [facility] Last Admin: 12/30/20 05:51 Dose: 112 mcg Documented by: Loratadine (Loratadine 10 Mg Tab) 10 mg PO DAILY PRN PRN Reason: Allergies Magnesium Hydroxide (Magnesium Hydroxide 400 Mg/5 Ml Susp 30 Ml Cup) 30 ml PO Q12H PRN PRN Reason: Constipation Last Admin: 12/26/20 08:26 Dose: 30 ml Documented by: Mirtazapine (Mirtazapine 15 Mg Tab) 7.5 mg PO BEDTIME [facility] Last Admin: 12/29/20 20:33 Dose: 7.5 mg Documented by: Morphine Sulfate (Morphine 2 Mg/Ml Syringe) 2 mg IVPUSH Q4H PRN PRN Reason: Pain (severe 7-10) Last Admin: 12/24/20 09:23 Dose: 2 mg Documented by: Multivitamins/Minerals/Vitamin C (Multivitamin Tab) 1 tab PO DAILY [facility] Last Admin: 12/30/20 08:06 Dose: 1 tab Documented by: Pantoprazole Sodium (Pantoprazole 40 Mg Tab.Cr) 40 mg PO DAILY [facility] Last Admin: 12/30/20 08:06 Dose: 40 mg Documented by: Paroxetine HCl (Paroxetine 20 Mg Tab) 40 mg PO DAILY [facility] Last Admin: 12/30/20 08:06 Dose: 40 mg Documented by: Polyethylene Glycol (Polyethylene Glycol 3350 Powder 17 Gm Packet) 17 gm PO DAILY [facility] Last Admin: 12/30/20 08:05 Dose: 17 gm Documented by: Saccharomyces Boulardii (Saccharomyces Boulardii (Probiotic) 250 Mg Cap) 250 mg PO BID [facility] Last Admin: 12/30/20 11:34 Dose: 250 mg Documented by: Sodium Chloride (Sodium Chloride 0.9% 10 Ml Syringe) 10 ml FLUSH ASDIRECTED PRN PRN Reason: Keep Vein Open Last Admin: 12/29/20 21:15 Dose: 10 ml Documented by: Thiamine HCl (Thiamine 100 Mg Tab) 100 mg PO DAILY [facility] Last Admin: 12/30/20 08:07 Dose: 100 mg Documented by: Zolpidem Tartrate (Zolpidem 5 Mg Tab) 5 mg PO BEDTIME PRN PRN Reason: Sleep Last Admin: 12/30/20 00:33 Dose: 5 mg Documented by: Discontinued Medications Acetaminophen (Acetaminophen 325 Mg Tab) 650 mg PO Q4H PRN PRN Reason: Pain (Mild 1-3)/fever Last Admin: 12/26/20 08:24 Dose: 650 mg Documented by: Hydrocodone Bitart/Acetaminophen (Acetaminophen/Hydrocodone 325-5 Mg Tab) 1 tab PO Q4H PRN PRN Reason: Pain (moderate 4-6) Last Admin: 12/26/20 04:04 Dose: 1 tab Documented by: Hydrocodone Bitart/Acetaminophen (Acetaminophen/Hydrocodone 325-5 Mg Tab) 2 tab PO Q4H PRN PRN Reason: Pain (severe 7-10) Last Admin: 12/25/20 22:20 Dose: 2 tab Documented by: Alprazolam (Alprazolam 0.5 Mg Tab) 0.5 mg PO ONETIME ONE Stop: 12/30/20 08:46 Last Admin: 12/30/20 09:22 Dose: 0.5 mg Documented by: Ceftriaxone Sodium (Ceftriaxone 2 Gm Vial) 2 gm IVPUSH ONETIME ONE Stop: 12/24/20 20:40 Last Admin: 12/24/20 21:12 Dose: 2 gm Documented by: Ceftriaxone Sodium (Ceftriaxone 1 Gm Vial) 1 gm IVPUSH Q24H [facility] Last Admin: 12/26/20 21:23 Dose: 1 gm Documented by: Ceftriaxone Sodium (Ceftriaxone 1 Gm Vial) 2 gm IVPUSH Q24H [facility] Last Admin: 12/28/20 10:14 Dose: 2 gm Documented by: Al Hydroxide/Mg Hydroxide 15 (ml/ Lidocaine HCl 15 ml) 0 ml PO ONETIME ONE Stop: 12/22/20 21:46 Last Admin: 12/22/20 21:50 Dose: 30 ml Documented by: Dexamethasone (Dexamethasone 4 Mg/Ml Sdv) 6 mg IVPUSH ONETIME ONE Stop: 12/27/20 10:48 Last Admin: 12/27/20 11:21 Dose: 6 mg Documented by: Dexamethasone (Dexamethasone 4 Mg/Ml Sdv) 8 mg IVPUSH DAILY [facility] Stop: 12/31/20 10:46 Last Admin: 12/29/20 11:08 Dose: 8 mg Documented by: Dextrose/Water (50% Dextrose In Water 50 Ml Syringe) 50 ml IVPUSH ASDIRECTED PRN PRN Reason: Hypoglycemia Dextrose/Water (50% Dextrose In Water 50 Ml Syringe) 50 ml IVPUSH ASDIRECTED PRN PRN Reason: Hypoglycemia Doxycycline Hyclate (Doxycycline 100 Mg Tab) 100 mg PO BID [facility] Last Admin: 12/27/20 07:59 Dose: 100 mg Documented by: Erythromycin (Erythromycin Base 0.5% Ophth Oint 1 Gm Tube) 0 gm EYEBOTH BID [facility] Stop: 12/31/20 23:00 Last Admin: 12/26/20 08:25 Dose: 1 applic Documented by: Gabapentin (Gabapentin 300 Mg Cap) 300 mg PO BID [facility] Last Admin: 12/27/20 07:59 Dose: 300 mg Documented by: Glucagon (Glucagon,Human Recombinant 1 Mg Vial) 1 mg IM ASDIRECTED PRN PRN Reason: Hypoglycemia Glucagon (Glucagon,Human Recombinant 1 Mg Vial) 1 mg IM ASDIRECTED PRN PRN Reason: Hypoglycemia Sodium Chloride (Normal Saline) 1,000 mls @ 999 mls/hr IV .BOLUS ONE Stop: 12/22/20 18:57 Last Admin: 12/22/20 18:10 Dose: 999 mls/hr Documented by: Sodium Chloride (Normal Saline) 1,000 mls @ 999 mls/hr IV .BOLUS ONE Stop: 12/22/20 21:14 Last Admin: 12/22/20 21:00 Dose: 999 mls/hr Documented by: Sodium Chloride (Normal Saline) 1,000 mls @ 999 mls/hr IV .BOLUS ONE Stop: 12/22/20 21:14 Last Admin: 12/22/20 22:28 Dose: 999 mls/hr Documented by: Potassium Chloride 20 meq/ (Premix) 100 mls @ 50 mls/hr IV ONETIME ONE Stop: 12/22/20 22:13 Last Admin: 12/22/20 21:50 Dose: 50 mls/hr Documented by: Potassium Chloride/Dextrose/Sod Cl (D5 1/2 Ns W/ 20 Meq/L Kcl) 1,000 mls @ 150 mls/hr IV ASDIRECTED [facility] Stop: 12/23/20 08:20 Last Admin: 12/23/20 01:39 Dose: 150 mls/hr Documented by: Potassium Chloride/Dextrose/Sod Cl (D5 1/2 Ns W/ 20 Meq/L Kcl) 1,000 mls @ 150 mls/hr IV Q7H [facility] Sodium Chloride (Normal Saline) 1,000 mls @ 150 mls/hr IV ASDIRECTED [facility] Last Admin: 12/24/20 11:54 Dose: 150 mls/hr Documented by: Magnesium Sulfate 4 gm/ (Dextrose/Water) 258 mls @ 100 mls/hr IV ONETIME ONE Stop: 12/23/20 10:06 Last Admin: 12/23/20 13:00 Dose: Not Given Documented by: Bamlanivimab 700 mg/Etesevimab 1,400 mg/ Sodium Chloride 160 mls @ 310 mls/hr IV ONETIME ONE Stop: 12/23/20 12:30 Last Admin: 12/23/20 12:29 Dose: 310 mls/hr Documented by: Azithromycin 500 mg/ Sodium (Chloride) 250 mls @ 250 mls/hr IV Q24H [facility] Last Admin: 12/25/20 10:03 Dose: 250 mls/hr Documented by: Ibuprofen (Ibuprofen 200 Mg Tab) 200 mg PO Q6H [facility] Last Admin: 12/30/20 08:07 Dose: 200 mg Documented by: Insulin Glargine (Insulin Glargine,Human Rec. Analog 100 Units/Ml 3 Ml Pen) 30 units SUBCUT BID [facility] Last Admin: 12/29/20 20:30 Dose: Not Given Documented by: Insulin Glargine (Insulin Glargine,Human Rec. Analog 100 Units/Ml 3 Ml Pen) 15 units SUBCUT ONETIME ONE Stop: 12/27/20 08:59 Last Admin: 12/27/20 09:20 Dose: 15 unit Documented by: Insulin Human Lispro (Insulin Lispro 100 Unit/Ml 3 Ml Kwikpen) 0 unit SUBCUT TIDMEALS [facility]; Protocol Last Admin: 12/30/20 08:02 Dose: 15 units Documented by: Insulin Human Lispro (Insulin Lispro 100 Unit/Ml 3 Ml Kwikpen) 20 unit SUBCUT ONETIME ONE Stop: 12/29/20 20:55 Last Admin: 12/29/20 21:17 Dose: 20 units Documented by: Insulin Human Regular (Insulin Regular, Human 100 Units/Ml 3 Ml Vial) 10 unit IV ONETIME ONE Stop: 12/22/20 20:16 Last Admin: 12/22/20 20:55 Dose: 10 units Documented by: Iopamidol (Iopamidol 755 Mg/Ml 100 Ml Bottle) 85 ml IV . DIRECTED ONE Stop: 12/27/20 09:19 Last Admin: 12/27/20 10:02 Dose: Not Given Documented by: Iopamidol (Iopamidol 755 Mg/Ml 100 Ml Bottle) 85 ml IV . DIRECTED ONE Stop: 12/27/20 09:01 Last Admin: 12/28/20 08:45 Dose: 85 ml Documented by: Ketorolac Tromethamine (Ketorolac 30 Mg/Ml Sdv) 30 mg IVPUSH ONETIME ONE Stop: 12/22/20 17:57 Last Admin: 12/22/20 18:10 Dose: 30 mg Documented by: Ketorolac Tromethamine (Ketorolac 30 Mg/Ml Sdv) 30 mg IVPUSH Q6H [facility] Stop: 12/28/20 00:43 Last Admin: 12/24/20 18:17 Dose: 30 mg Documented by: Ketorolac Tromethamine (Ketorolac 30 Mg/Ml Sdv) 30 mg IVPUSH Q6H PRN PRN Reason: Headache/Pain Stop: 12/29/20 22:23 Ketorolac Tromethamine (Ketorolac 30 Mg/Ml Sdv) 30 mg IVPUSH Q6H [facility] Stop: 12/29/20 03:01 Last Admin: 12/29/20 04:11 Dose: 30 mg Documented by: Lorazepam (Lorazepam 0.5 Mg Tab) 0.5 mg PO ONETIME ONE Stop: 12/23/20 12:04 Last Admin: 12/23/20 12:30 Dose: 0.5 mg Documented by: Lorazepam (Lorazepam 1 Mg Tab) 0 mg PO ASDIRECTED [facility]; Protocol Lorazepam (Lorazepam 2 Mg/Ml Sdv) 0 mg IV ASDIRECTED [facility]; Protocol Magnesium Oxide (Magnesium Oxide 400 Mg Tab) 400 mg PO Q6H [facility] Stop: 12/25/20 01:00 Last Admin: 12/25/20 00:17 Dose: 400 mg Documented by: Metoclopramide HCl (Metoclopramide 10 Mg/2 Ml Sdv) 10 mg IVPUSH ONETIME ONE Stop: 12/22/20 19:27 Last Admin: 12/22/20 19:37 Dose: 10 mg Documented by: Metoclopramide HCl (Metoclopramide 10 Mg/2 Ml Sdv) 10 mg IVPUSH Q6H [facility] Stop: 12/24/20 00:45 Last Admin: 12/24/20 00:46 Dose: 10 mg Documented by: Ondansetron HCl (Ondansetron 4 Mg/2 Ml Sdv) 4 mg IVPUSH ONETIME ONE Stop: 12/22/20 17:57 Last Admin: 12/22/20 18:10 Dose: 4 mg Documented by: Potassium Chloride (Potassium Chloride 20 Meq Tab.Er) 40 meq PO ONETIME ONE Stop: 12/24/20 07:55 Last Admin: 12/24/20 09:07 Dose: 40 meq Documented by: Sodium Chloride (Sodium Chloride 0.9% 10 Ml Syringe) 30 ml FLUSH ASDIRECTED [facility] Stop: 12/23/20 16:00 - Exam General: Alert, Oriented, Cooperative HEENT: Other (Right eye opens 5 mm, erythema resolved on right, swelling signficantly down. Left eye: more swollen than yesterday, erythema more pronounced on amelanotic skin. Crust have come off bilateral eyelids. No drainage expressed. TTP on left, improved on right. ) Lungs: Clear to Auscultation, Normal Respiratory Effort Cardiovascular: Regular Rate, Regular Rhythm GI/Abdominal Exam: Normal Bowel Sounds, Soft, Non-Tender, No Distention Peripheral Pulses: 2+: Radial (L), Radial (R) Psy/Mental Status: Anxious - Patient Data Lab Results Last 24 hrs: Laboratory Results - last 24 hr 12/29/20 12/29/20 12/29/20 Range/Units 12:07 18:00 20:21 WBC (3.0-10.3) x10-3/uL RBC (3.60-5.20) x10(6)uL Hgb (11.4-15.5) g/dL Hct (34.2-48.2) % MCV (76.7-100.5) fL MCH (23.9-33.9) pg MCHC (31.9-34.8) g/dL RDW (12.3-16.5) % Plt Count (151-488) x10(3)uL MPV (7.1-12.4) fL Add Manual Diff Neutrophils % (Manual) (46-82) % Band Neutrophils % (0-6) % Lymphocytes % (Manual) (13-37) % Monocytes % (Manual) (4-12) % Sodium (135-145) mmol/L Potassium (3.5-5.3) mmol/L Chloride (100-110) mmol/L Carbon Dioxide (21-32) mmol/L BUN (7-18) mg/dL Creatinine (0.55-1.02) mg/dL Est Cr Clr Drug Dosing mL/min Estimated GFR (MDRD) (>60) BUN/Creatinine Ratio (9-20) Glucose (80-116) mg/dL POC Glucose 328 H D 493 H* D 535 H* (80-116) mg/dL Calcium (8.6-10.2) mg/dL 12/29/20 12/30/20 12/30/20 Range/Units 22:34 06:20 06:20 WBC 25.1 H (3.0-10.3) x10-3/uL RBC 3.25 L (3.60-5.20) x10(6)uL Hgb 9.7 L (11.4-15.5) g/dL Hct 30.0 L (34.2-48.2) % MCV 92.3 (76.7-100.5) fL MCH 29.9 (23.9-33.9) pg MCHC 32.4 (31.9-34.8) g/dL RDW 14.2 (12.3-16.5) % Plt Count 510 H (151-488) x10(3)uL MPV 7.2 (7.1-12.4) fL Add Manual Diff Yes Neutrophils % (Manual) 87 H (46-82) % Band Neutrophils % 1 (0-6) % Lymphocytes % (Manual) 10 L (13-37) % Monocytes % (Manual) 2 L (4-12) % Sodium 129 L D (135-145) mmol/L Potassium 4.1 (3.5-5.3) mmol/L Chloride 96 L D (100-110) mmol/L Carbon Dioxide 22 (21-32) mmol/L BUN 16 (7-18) mg/dL Creatinine 0.9 (0.55-1.02) mg/dL Est Cr Clr Drug Dosing 57.17 mL/min Estimated GFR (MDRD) > 60 (>60) BUN/Creatinine Ratio 17.8 (9-20) Glucose 418 H* D (80-116) mg/dL POC Glucose 446 H* D (80-116) mg/dL Calcium 7.9 L (8.6-10.2) mg/dL // Range/Units 11:35 WBC (3.0-10.3) x10-3/uL RBC (3.60-5.20) x10(6)uL Hgb (11.4-15.5) g/dL Hct (34.2-48.2) % MCV (76.7-100.5) fL MCH (23.9-33.9) pg MCHC (31.9-34.8) g/dL RDW (12.3-16.5) % Plt Count (151-488) x10(3)uL MPV (7.1-12.4) fL Add Manual Diff Neutrophils % (Manual) (46-82) % Band Neutrophils % (0-6) % Lymphocytes % (Manual) (13-37) % Monocytes % (Manual) (4-12) % Sodium (135-145) mmol/L Potassium (3.5-5.3) mmol/L Chloride (100-110) mmol/L Carbon Dioxide (21-32) mmol/L BUN (7-18) mg/dL Creatinine (0.55-1.02) mg/dL Est Cr Clr Drug Dosing mL/min Estimated GFR (MDRD) (>60) BUN/Creatinine Ratio (9-20) Glucose (80-116) mg/dL POC Glucose 368 H (80-116) mg/dL Calcium (8.6-10.2) mg/dL Result Diagrams: 12/30/20 06:20 12/30/20 06:20 Sepsis Event Note - Evaluation Sepsis Screening Result: No Definite Risk - Focused Exam Vital Signs: Vital Signs Temp Temp Pulse Resp BP BP Pulse Ox 12/30/20 08:06 146/83 H 12/30/20 08:00 97.7 F 88 18 146/83 H 97 12/30/20 05:30 92 20 136/75 97 12/30/20 00:00 98.9 F 93 18 131/77 98 - Problem List & Annotations (1) Cellulitis SNOMED Code(s): 372141455 Code(s): L03.90 - CELLULITIS, UNSPECIFIED Status: Acute Current Visit: Yes Qualifiers: Site of cellulitis: face Qualified Code(s): L03.211 - Cellulitis of face Annotation/Comment:: Preseptal periorbital cellulitis per CT max/sinus today. No abscess. (2) Facial contusion SNOMED Code(s): 827075080 Code(s): S00.83XA - CONTUSION OF OTHER PART OF HEAD, INITIAL ENCOUNTER Status: Acute Current Visit: Yes (3) Leukocytosis SNOMED Code(s): 665215012, 737392023 Code(s): D72.829 - ELEVATED WHITE BLOOD CELL COUNT, UNSPECIFIED Status: Acute Current Visit: Yes (4) Head, face & neck injury SNOMED Code(s): 850376890 Code(s): S19.9XXA - UNSPECIFIED INJURY OF NECK, INITIAL ENCOUNTER; S09.90XA - UNSPECIFIED INJURY OF HEAD, INITIAL ENCOUNTER; S09.93XA - UNSPECIFIED INJURY OF FACE, INITIAL ENCOUNTER Status: Acute Current Visit: No (5) SARS-CoV-2 positive SNOMED Code(s): 0163692862952554 Code(s): U07.1 - COVID-19 Status: Acute Current Visit: Yes Annotation/Comment:: CXR: clear, no pneumonia. Positive on admission, received Bamlanivimab. (6) Diabetes mellitus type 2 in obese SNOMED Code(s): 39556352 Code(s): E11.69 - TYPE 2 DIABETES MELLITUS WITH OTHER SPECIFIED COMPLICATION; E66.9 - OBESITY, UNSPECIFIED Status: Chronic Current Visit: Yes (7) Hypothyroidism SNOMED Code(s): 07221761 Code(s): E03.9 - HYPOTHYROIDISM, UNSPECIFIED Status: Chronic Current Visit: Yes (8) Hyponatremia SNOMED Code(s): 12154964 Code(s): E87.1 - HYPO-OSMOLALITY AND HYPONATREMIA Status: Acute Current Visit: Yes (9) Hypokalemia SNOMED Code(s): 13776854 Code(s): E87.6 - HYPOKALEMIA Status: Resolved Current Visit: Yes Annotation/Comment:: Resolved, 4.1 - Problem List Review Problem List Initiated/Reviewed/Updated: Yes - My Orders Last 24 Hours: My Active Orders 12/29/20 11:00 cefTRIAXone [Rocephin] 2 gm IVPUSH Q24H 12/30/20 09:00 Insulin Glarg,Human.Rec.Analog [LantUS Solostar] 35 units SUBCUT BID 12/30/20 10:00 Saccharomyces Boulardii [Florastor] 250 mg PO BID Sodium Chloride 0.9% [Normal Saline] 250 ml IV ASDIRECTED 12/30/20 15:00 Ibuprofen [Motrin] 600 mg PO Q6H 12/31/20 06:00 CBC WITH AUTO DIFF [HEME] Routine COMPREHENSIVE METABOLIC PN,CMP [CHEM] Routine - Plan Plan:: 1. Preseptal periorbital Cellulitis secondary to trauma: Rocephin 2g IV q24h, Doxycycline 100 mg IV bid, day 4. Acetaminophen 650 mg q6h with Ibuprofen 600 mg po q6h, Morphine as needed severe pain. Discontinue Dexamethasone, likely steroid flare, though could have laid on that side more to account for one eye better and other eye worse. WBC increased 25, after Dexamethasone, Plts increased 510, could be secondary to steroids. Pt reported it took 4-5 days with prior MRSA infections to see a change. IV infiltrated, new one placed. If that one goes, may need PICC. She does live in town and could do outpatient infusions if needed, but would have be able to see to go home, to drive as well as to give her home insulin. Repeat labs tomorrow. 2. DM: glucose checks qid&hs, Humalog high dose sliding scale change to qid&hs. Lantus 35 units bid. 3. Covid positive: Exposure Dec 12-, family tested positive Nov 1, she had flulike symptoms Nov 3, tested positive Nov 8, would come out of isolation Dec 19 if she still hospitalized. Received Bamlanivimab infusion. 5. Disposition: fluctuating course, clinically improved though left eye worse today. Hold steroids, continue antibiotics. When we are able ideal to switch to orals, but if needs longer course of IV will look at doing PICC line, midline catheter is not available at our facility. Discharge Thurs/Fri.
[2020-12-30] MEDS: cefTRIAXone 2 GM Vial IVPUSH SCH (12:00)
[2020-12-30] MEDS: Ibuprofen 600 MG Tab PO SCH ×2 (14:09→20:39)
--- NOTE | 2020-12-30 17:29 | CR ---
CHEST ONE VIEW INDICATION: Status post PICC line placement. FINDINGS: An AP portable upright view of the chest 12/30/20 was compared with 12/22/20 and now reveals a PICC line from the left arm with its tip in the area of the right atrium. It should be retracted 2 cm from better positioning. The chest was otherwise unchanged in appearance with no definite acute process. Report was called to Dr. Summers at 1625 hours. PERLAD
[2020-12-30] MEDS: Heparin Sodium 10 Units/ML 5 ML Syringe FLUSH PRN ×2 (17:48→22:06)
--- NOTE | 2020-12-30 19:02 | CR ---
CHEST ONE VIEW FINDINGS: Two views of the chest, one upright and one supine with LPO positioning revealed the tip of the PICC line to be well within the right atrium. It should be retracted approximately 7 to 8 cm for better positioning. No complicating process was identified - no other changes suggested compared with the previous study. Report was called to Dr. Summers at 1827 hours 12/30/20. TAYLOR
[2020-12-30] MEDS: Mirtazapine 15 MG Tab PO SCH (20:38)
[2020-12-30] MEDS: Sodium Chloride 0.9% 10 ML Syringe FLUSH PRN ×2 (21:00→22:06)
[2020-12-31] MEDS: Enoxaparin 40 MG/0.4 ML Syringe SUBCUT SCH (02:41)
[2020-12-31] MEDS: Ibuprofen 600 MG Tab PO SCH ×4 (02:42→20:50)
[2020-12-31] MEDS: Acetaminophen 325 MG Tab PO SCH ×4 (02:43→20:49)
[2020-12-31] MEDS: Levothyroxine 112 MCG Tab PO SCH (06:52)
[2020-12-31] MEDS: Saccharomyces Boulardii (Probiotic) 250 MG Cap PO SCH ×2 (08:00→20:49)
[2020-12-31] MEDS: Folic Acid 1 MG Tab PO SCH (08:01)
[2020-12-31] MEDS: Polyethylene Glycol 3350 Powder 17 GM Packet PO SCH (08:04)
[2020-12-31] MEDS: Gabapentin 400 MG Cap PO SCH ×3 (08:08→20:49)
[2020-12-31] MEDS: Insulin Glargine,Human Rec. Analog 100 Units/ML 3 ML Pen SUBCUT SCH ×2 (08:09→21:13)
[2020-12-31] MEDS: amLODIPine 10 MG Tab PO SCH (08:12)
[2020-12-31] MEDS: Multivitamin Tab PO SCH (08:13)
[2020-12-31] MEDS: Pantoprazole 40 MG Tab.CR PO SCH (08:13)
[2020-12-31] MEDS: PARoxetine 20 MG Tab PO SCH (08:13)
[2020-12-31] MEDS: Thiamine 100 MG Tab PO SCH (08:16)
[2020-12-31] MEDS: Insulin Lispro 100 Unit/ML 3 ML KwikPen SUBCUT SCH ×4 (08:28→21:16)
[2020-12-31] MEDS: Doxycycline 100 MG in Sodium Chloride 0.9% 100 ML IV SCH (08:29)
[2020-12-31] MEDS: Heparin Sodium 10 Units/ML 5 ML Syringe FLUSH PRN ×3 (09:55→22:05)
[2020-12-31] MEDS: Sodium Chloride 0.9% 10 ML Syringe FLUSH PRN ×5 (09:55→21:01)
[2020-12-31] MEDS: Morphine 2 MG/ML SYRINGE IVPUSH PRN ×3 (10:00→20:33)
[2020-12-31] MEDS: cefTRIAXone 2 GM Vial IVPUSH SCH (10:17)
--- NOTE | 2020-12-31 10:56 | PCM.PN ---
- General Info Date of Service: 12/31/20 Subjective Update: PICC line placed as IV infiltrated and second peripheral was also causing pain, continue need to IV antibiotics. No drainage. Right eye continues to improve. Forehead more swollen today, left eye same. States she would like to try something in addition to Tylenol/Ibuprofen for pain that is oral. She can see out of right eye now. No discharge. BS trending down. - Patient Data Vitals - Most Recent: Last Vital Signs Temp 98.2 F 12/31/20 03:00 Pulse 93 12/31/20 03:00 Resp 16 12/31/20 03:00 BP 143/76 H 12/31/20 08:12 Pulse Ox 96 12/31/20 03:00 Weight - Most Recent: 143 lb Lab Results Last 24 Hours: Laboratory Results - last 24 hr 12/30/20 12/30/20 12/30/20 Range/Units 11:35 17:20 20:56 WBC (3.0-10.3) x10-3/uL RBC (3.60-5.20) x10(6)uL Hgb (11.4-15.5) g/dL Hct (34.2-48.2) % MCV (76.7-100.5) fL MCH (23.9-33.9) pg MCHC (31.9-34.8) g/dL RDW (12.3-16.5) % Plt Count (151-488) x10(3)uL MPV (7.1-12.4) fL Add Manual Diff Neutrophils % (Manual) (46-82) % Band Neutrophils % (0-6) % Lymphocytes % (Manual) (13-37) % Monocytes % (Manual) (4-12) % Sodium (135-145) mmol/L Potassium (3.5-5.3) mmol/L Chloride (100-110) mmol/L Carbon Dioxide (21-32) mmol/L BUN (7-18) mg/dL Creatinine (0.55-1.02) mg/dL Est Cr Clr Drug Dosing mL/min Estimated GFR (MDRD) (>60) BUN/Creatinine Ratio (9-20) Glucose (80-116) mg/dL POC Glucose 368 H 332 H 255 H (80-116) mg/dL Calcium (8.6-10.2) mg/dL Total Bilirubin (0.1-1.3) mg/dL AST (5-25) IU/L ALT (12-36) U/L Alkaline Phosphatase (56-112) IU/L Total Protein (6.0-8.0) g/dL Albumin (3.5-5.2) g/dL Globulin g/dL Albumin/Globulin Ratio 12/31/20 12/31/20 Range/Units 06:50 06:50 WBC 20.1 H (3.0-10.3) x10-3/uL RBC 3.21 L (3.60-5.20) x10(6)uL Hgb 9.8 L (11.4-15.5) g/dL Hct 29.7 L (34.2-48.2) % MCV 92.5 (76.7-100.5) fL MCH 30.4 (23.9-33.9) pg MCHC 32.9 (31.9-34.8) g/dL RDW 14.5 (12.3-16.5) % Plt Count 558 H (151-488) x10(3)uL MPV 6.9 L (7.1-12.4) fL Add Manual Diff Yes Neutrophils % (Manual) 77 (46-82) % Band Neutrophils % 4 (0-6) % Lymphocytes % (Manual) 15 (13-37) % Monocytes % (Manual) 4 (4-12) % Sodium 138 (135-145) mmol/L Potassium 4.1 (3.5-5.3) mmol/L Chloride 105 D (100-110) mmol/L Carbon Dioxide 26 (21-32) mmol/L BUN 11 (7-18) mg/dL Creatinine 0.9 (0.55-1.02) mg/dL Est Cr Clr Drug Dosing 57.17 mL/min Estimated GFR (MDRD) > 60 (>60) BUN/Creatinine Ratio 12.2 (9-20) Glucose 302 H D (80-116) mg/dL POC Glucose (80-116) mg/dL Calcium 7.8 L (8.6-10.2) mg/dL Total Bilirubin 0.2 (0.1-1.3) mg/dL AST 16 (5-25) IU/L ALT 21 D (12-36) U/L Alkaline Phosphatase 142 H (56-112) IU/L Total Protein 6.4 (6.0-8.0) g/dL Albumin 2.1 L (3.5-5.2) g/dL Globulin 4.3 g/dL Albumin/Globulin Ratio 0.5 Med Orders - Current: Current Medications Acetaminophen (Acetaminophen 325 Mg Tab) 650 mg PO Q6H [facility] Last Admin: 12/31/20 08:14 Dose: 650 mg Documented by: Amlodipine Besylate (Amlodipine 10 Mg Tab) 10 mg PO DAILY [facility] Last Admin: 12/31/20 08:12 Dose: 10 mg Documented by: Bisacodyl (Bisacodyl 10 Mg Supp) 10 mg RECTAL DAILY PRN PRN Reason: Constipation Last Admin: 12/26/20 21:58 Dose: 10 mg Documented by: Ceftriaxone Sodium (Ceftriaxone 2 Gm Vial) 2 gm IVPUSH Q24H [facility] Last Admin: 12/31/20 10:17 Dose: 2 gm Documented by: Dextrose/Water (50% Dextrose In Water 50 Ml Syringe) 50 ml IVPUSH ASDIRECTED PRN PRN Reason: Hypoglycemia Enoxaparin Sodium (Enoxaparin 40 Mg/0.4 Ml Syringe) 40 mg SUBCUT Q24H [facility] Last Admin: 12/31/20 02:41 Dose: 40 mg Documented by: Folic Acid (Folic Acid 1 Mg Tab) 1 mg PO DAILY [facility] Last Admin: 12/31/20 08:01 Dose: 1 mg Documented by: Gabapentin (Gabapentin 400 Mg Cap) 800 mg PO TID [facility] Last Admin: 12/31/20 08:08 Dose: 800 mg Documented by: Glucagon (Glucagon,Human Recombinant 1 Mg Vial) 1 mg IM ASDIRECTED PRN PRN Reason: Hypoglycemia Heparin Sodium (Porcine) (Heparin Sodium 10 Units/Ml 5 Ml Syringe) 50 unit FLUSH ASDIRECTED PRN PRN Reason: Keep Vein Open Last Admin: 12/31/20 10:31 Dose: 50 unit Documented by: Hydroxyzine Pamoate (Hydroxyzine Pamoate 50 Mg Cap) 50 mg PO Q6H PRN PRN Reason: Anxiety Last Admin: 12/29/20 20:34 Dose: 50 mg Documented by: Doxycycline Hyclate 100 mg/ (Sodium Chloride) 100 mls @ 100 mls/hr IV Q12H [facility] Last Admin: 12/31/20 08:29 Dose: 100 mls/hr Documented by: Sodium Chloride (Normal Saline) 250 mls @ 30 mls/hr IV ASDIRECTED [facility] Last Admin: 12/30/20 10:00 Dose: 30 mls/hr Documented by: Ibuprofen (Ibuprofen 600 Mg Tab) 600 mg PO Q6H [facility] Last Admin: 12/31/20 08:06 Dose: 600 mg Documented by: Insulin Glargine (Insulin Glargine,Human Rec. Analog 100 Units/Ml 3 Ml Pen) 35 units SUBCUT BID [facility] Last Admin: 12/31/20 08:09 Dose: 35 units Documented by: Insulin Human Lispro (Insulin Lispro 100 Unit/Ml 3 Ml Kwikpen) 0 unit SUBCUT QIDACANDBED [facility]; Protocol Last Admin: 12/31/20 08:28 Dose: 12 units Documented by: Levothyroxine Sodium (Levothyroxine 112 Mcg Tab) 112 mcg PO DAILY@0600 [facility] Last Admin: 12/31/20 06:52 Dose: 112 mcg Documented by: Loratadine (Loratadine 10 Mg Tab) 10 mg PO DAILY PRN PRN Reason: Allergies Magnesium Hydroxide (Magnesium Hydroxide 400 Mg/5 Ml Susp 30 Ml Cup) 30 ml PO Q12H PRN PRN Reason: Constipation Last Admin: 12/26/20 08:26 Dose: 30 ml Documented by: Mirtazapine (Mirtazapine 15 Mg Tab) 7.5 mg PO BEDTIME [facility] Last Admin: 12/30/20 20:38 Dose: 7.5 mg Documented by: Morphine Sulfate (Morphine 2 Mg/Ml Syringe) 2 mg IVPUSH Q4H PRN PRN Reason: Pain (severe 7-10) Last Admin: 12/31/20 10:00 Dose: 2 mg Documented by: Multivitamins/Minerals/Vitamin C (Multivitamin Tab) 1 tab PO DAILY [facility] Last Admin: 12/31/20 08:13 Dose: 1 tab Documented by: Pantoprazole Sodium (Pantoprazole 40 Mg Tab.Cr) 40 mg PO DAILY [facility] Last Admin: 12/31/20 08:13 Dose: 40 mg Documented by: Paroxetine HCl (Paroxetine 20 Mg Tab) 40 mg PO DAILY [facility] Last Admin: 12/31/20 08:13 Dose: 40 mg Documented by: Polyethylene Glycol (Polyethylene Glycol 3350 Powder 17 Gm Packet) 17 gm PO DAILY [facility] Last Admin: 12/31/20 08:04 Dose: Not Given Documented by: Saccharomyces Boulardii (Saccharomyces Boulardii (Probiotic) 250 Mg Cap) 250 mg PO BID [facility] Last Admin: 12/31/20 08:00 Dose: 250 mg Documented by: Sodium Chloride (Sodium Chloride 0.9% 10 Ml Syringe) 10 ml FLUSH ASDIRECTED PRN PRN Reason: Keep Vein Open Last Admin: 12/31/20 10:17 Dose: 10 ml Documented by: Thiamine HCl (Thiamine 100 Mg Tab) 100 mg PO DAILY [facility] Last Admin: 12/31/20 08:16 Dose: 100 mg Documented by: Zolpidem Tartrate (Zolpidem 5 Mg Tab) 5 mg PO BEDTIME PRN PRN Reason: Sleep Last Admin: 12/30/20 00:33 Dose: 5 mg Documented by: Discontinued Medications Acetaminophen (Acetaminophen 325 Mg Tab) 650 mg PO Q4H PRN PRN Reason: Pain (Mild 1-3)/fever Last Admin: 12/26/20 08:24 Dose: 650 mg Documented by: Hydrocodone Bitart/Acetaminophen (Acetaminophen/Hydrocodone 325-5 Mg Tab) 1 tab PO Q4H PRN PRN Reason: Pain (moderate 4-6) Last Admin: 12/26/20 04:04 Dose: 1 tab Documented by: Hydrocodone Bitart/Acetaminophen (Acetaminophen/Hydrocodone 325-5 Mg Tab) 2 tab PO Q4H PRN PRN Reason: Pain (severe 7-10) Last Admin: 12/25/20 22:20 Dose: 2 tab Documented by: Alprazolam (Alprazolam 0.5 Mg Tab) 0.5 mg PO ONETIME ONE Stop: 12/30/20 08:46 Last Admin: 12/30/20 09:22 Dose: 0.5 mg Documented by: Ceftriaxone Sodium (Ceftriaxone 2 Gm Vial) 2 gm IVPUSH ONETIME ONE Stop: 12/24/20 20:40 Last Admin: 12/24/20 21:12 Dose: 2 gm Documented by: Ceftriaxone Sodium (Ceftriaxone 1 Gm Vial) 1 gm IVPUSH Q24H [facility] Last Admin: 12/26/20 21:23 Dose: 1 gm Documented by: Ceftriaxone Sodium (Ceftriaxone 1 Gm Vial) 2 gm IVPUSH Q24H [facility] Last Admin: 12/28/20 10:14 Dose: 2 gm Documented by: Al Hydroxide/Mg Hydroxide 15 (ml/ Lidocaine HCl 15 ml) 0 ml PO ONETIME ONE Stop: 12/22/20 21:46 Last Admin: 12/22/20 21:50 Dose: 30 ml Documented by: Dexamethasone (Dexamethasone 4 Mg/Ml Sdv) 6 mg IVPUSH ONETIME ONE Stop: 12/27/20 10:48 Last Admin: 12/27/20 11:21 Dose: 6 mg Documented by: Dexamethasone (Dexamethasone 4 Mg/Ml Sdv) 8 mg IVPUSH DAILY [facility] Stop: 12/31/20 10:46 Last Admin: 12/29/20 11:08 Dose: 8 mg Documented by: Dextrose/Water (50% Dextrose In Water 50 Ml Syringe) 50 ml IVPUSH ASDIRECTED PRN PRN Reason: Hypoglycemia Dextrose/Water (50% Dextrose In Water 50 Ml Syringe) 50 ml IVPUSH ASDIRECTED PRN PRN Reason: Hypoglycemia Doxycycline Hyclate (Doxycycline 100 Mg Tab) 100 mg PO BID [facility] Last Admin: 12/27/20 07:59 Dose: 100 mg Documented by: Erythromycin (Erythromycin Base 0.5% Ophth Oint 1 Gm Tube) 0 gm EYEBOTH BID [facility] Stop: 12/31/20 23:00 Last Admin: 12/26/20 08:25 Dose: 1 applic Documented by: Gabapentin (Gabapentin 300 Mg Cap) 300 mg PO BID [facility] Last Admin: 12/27/20 07:59 Dose: 300 mg Documented by: Glucagon (Glucagon,Human Recombinant 1 Mg Vial) 1 mg IM ASDIRECTED PRN PRN Reason: Hypoglycemia Glucagon (Glucagon,Human Recombinant 1 Mg Vial) 1 mg IM ASDIRECTED PRN PRN Reason: Hypoglycemia Sodium Chloride (Normal Saline) 1,000 mls @ 999 mls/hr IV .BOLUS ONE Stop: 12/22/20 18:57 Last Admin: 12/22/20 18:10 Dose: 999 mls/hr Documented by: Sodium Chloride (Normal Saline) 1,000 mls @ 999 mls/hr IV .BOLUS ONE Stop: 12/22/20 21:14 Last Admin: 12/22/20 21:00 Dose: 999 mls/hr Documented by: Sodium Chloride (Normal Saline) 1,000 mls @ 999 mls/hr IV .BOLUS ONE Stop: 12/22/20 21:14 Last Admin: 12/22/20 22:28 Dose: 999 mls/hr Documented by: Potassium Chloride 20 meq/ (Premix) 100 mls @ 50 mls/hr IV ONETIME ONE Stop: 12/22/20 22:13 Last Admin: 12/22/20 21:50 Dose: 50 mls/hr Documented by: Potassium Chloride/Dextrose/Sod Cl (D5 1/2 Ns W/ 20 Meq/L Kcl) 1,000 mls @ 150 mls/hr IV ASDIRECTED [facility] Stop: 12/23/20 08:20 Last Admin: 12/23/20 01:39 Dose: 150 mls/hr Documented by: Potassium Chloride/Dextrose/Sod Cl (D5 1/2 Ns W/ 20 Meq/L Kcl) 1,000 mls @ 150 mls/hr IV Q7H [facility] Sodium Chloride (Normal Saline) 1,000 mls @ 150 mls/hr IV ASDIRECTED [facility] Last Admin: 12/24/20 11:54 Dose: 150 mls/hr Documented by: Magnesium Sulfate 4 gm/ (Dextrose/Water) 258 mls @ 100 mls/hr IV ONETIME ONE Stop: 12/23/20 10:06 Last Admin: 12/23/20 13:00 Dose: Not Given Documented by: Bamlanivimab 700 mg/Etesevimab 1,400 mg/ Sodium Chloride 160 mls @ 310 mls/hr IV ONETIME ONE Stop: 12/23/20 12:30 Last Admin: 12/23/20 12:29 Dose: 310 mls/hr Documented by: Azithromycin 500 mg/ Sodium (Chloride) 250 mls @ 250 mls/hr IV Q24H [facility] Last Admin: 12/25/20 10:03 Dose: 250 mls/hr Documented by: Ibuprofen (Ibuprofen 200 Mg Tab) 200 mg PO Q6H [facility] Last Admin: 12/30/20 08:07 Dose: 200 mg Documented by: Insulin Glargine (Insulin Glargine,Human Rec. Analog 100 Units/Ml 3 Ml Pen) 30 units SUBCUT BID [facility] Last Admin: 12/29/20 20:30 Dose: Not Given Documented by: Insulin Glargine (Insulin Glargine,Human Rec. Analog 100 Units/Ml 3 Ml Pen) 15 units SUBCUT ONETIME ONE Stop: 12/27/20 08:59 Last Admin: 12/27/20 09:20 Dose: 15 unit Documented by: Insulin Human Lispro (Insulin Lispro 100 Unit/Ml 3 Ml Kwikpen) 0 unit SUBCUT TIDMEALS [facility]; Protocol Last Admin: 12/30/20 08:02 Dose: 15 units Documented by: Insulin Human Lispro (Insulin Lispro 100 Unit/Ml 3 Ml Kwikpen) 20 unit SUBCUT ONETIME ONE Stop: 12/29/20 20:55 Last Admin: 12/29/20 21:17 Dose: 20 units Documented by: Insulin Human Regular (Insulin Regular, Human 100 Units/Ml 3 Ml Vial) 10 unit IV ONETIME ONE Stop: 12/22/20 20:16 Last Admin: 12/22/20 20:55 Dose: 10 units Documented by: Iopamidol (Iopamidol 755 Mg/Ml 100 Ml Bottle) 85 ml IV . DIRECTED ONE Stop: 12/27/20 09:19 Last Admin: 12/27/20 10:02 Dose: Not Given Documented by: Iopamidol (Iopamidol 755 Mg/Ml 100 Ml Bottle) 85 ml IV . DIRECTED ONE Stop: 12/27/20 09:01 Last Admin: 12/28/20 08:45 Dose: 85 ml Documented by: Ketorolac Tromethamine (Ketorolac 30 Mg/Ml Sdv) 30 mg IVPUSH ONETIME ONE Stop: 12/22/20 17:57 Last Admin: 12/22/20 18:10 Dose: 30 mg Documented by: Ketorolac Tromethamine (Ketorolac 30 Mg/Ml Sdv) 30 mg IVPUSH Q6H [facility] Stop: 12/28/20 00:43 Last Admin: 12/24/20 18:17 Dose: 30 mg Documented by: Ketorolac Tromethamine (Ketorolac 30 Mg/Ml Sdv) 30 mg IVPUSH Q6H PRN PRN Reason: Headache/Pain Stop: 12/29/20 22:23 Ketorolac Tromethamine (Ketorolac 30 Mg/Ml Sdv) 30 mg IVPUSH Q6H [facility] Stop: 12/29/20 03:01 Last Admin: 12/29/20 04:11 Dose: 30 mg Documented by: Lorazepam (Lorazepam 0.5 Mg Tab) 0.5 mg PO ONETIME ONE Stop: 12/23/20 12:04 Last Admin: 12/23/20 12:30 Dose: 0.5 mg Documented by: Lorazepam (Lorazepam 1 Mg Tab) 0 mg PO ASDIRECTED [facility]; Protocol Lorazepam (Lorazepam 2 Mg/Ml Sdv) 0 mg IV ASDIRECTED [facility]; Protocol Magnesium Oxide (Magnesium Oxide 400 Mg Tab) 400 mg PO Q6H [facility] Stop: 12/25/20 01:00 Last Admin: 12/25/20 00:17 Dose: 400 mg Documented by: Metoclopramide HCl (Metoclopramide 10 Mg/2 Ml Sdv) 10 mg IVPUSH ONETIME ONE Stop: 12/22/20 19:27 Last Admin: 12/22/20 19:37 Dose: 10 mg Documented by: Metoclopramide HCl (Metoclopramide 10 Mg/2 Ml Sdv) 10 mg IVPUSH Q6H [facility] Stop: 12/24/20 00:45 Last Admin: 12/24/20 00:46 Dose: 10 mg Documented by: Ondansetron HCl (Ondansetron 4 Mg/2 Ml Sdv) 4 mg IVPUSH ONETIME ONE Stop: 12/22/20 17:57 Last Admin: 12/22/20 18:10 Dose: 4 mg Documented by: Potassium Chloride (Potassium Chloride 20 Meq Tab.Er) 40 meq PO ONETIME ONE Stop: 12/24/20 07:55 Last Admin: 12/24/20 09:07 Dose: 40 meq Documented by: Sodium Chloride (Sodium Chloride 0.9% 10 Ml Syringe) 30 ml FLUSH ASDIRECTED [facility] Stop: 12/23/20 16:00 - Exam Quality Assessment: Central Line/PICC Central Line Total Time: 0Days 9Hours General: Alert, Oriented, Cooperative HEENT: Other (Right eye: swelling down, no erythema, NT, can open on her own. Left eye: swollen same, erythema only in areas of vitiligo, TTP; Forehead swelling increased.) Neck: Other (No swelling under mandible, occiput, postauricular or neck. ) Lungs: Clear to Auscultation, Normal Respiratory Effort Cardiovascular: Regular Rate, Regular Rhythm GI/Abdominal Exam: Normal Bowel Sounds, Soft, Non-Tender, No Distention Extremities: No Pedal Edema, Normal Capillary Refill - Patient Data Lab Results Last 24 hrs: Laboratory Results - last 24 hr 12/30/20 12/30/20 12/30/20 Range/Units 11:35 17:20 20:56 WBC (3.0-10.3) x10-3/uL RBC (3.60-5.20) x10(6)uL Hgb (11.4-15.5) g/dL Hct (34.2-48.2) % MCV (76.7-100.5) fL MCH (23.9-33.9) pg MCHC (31.9-34.8) g/dL RDW (12.3-16.5) % Plt Count (151-488) x10(3)uL MPV (7.1-12.4) fL Add Manual Diff Neutrophils % (Manual) (46-82) % Band Neutrophils % (0-6) % Lymphocytes % (Manual) (13-37) % Monocytes % (Manual) (4-12) % Sodium (135-145) mmol/L Potassium (3.5-5.3) mmol/L Chloride (100-110) mmol/L Carbon Dioxide (21-32) mmol/L BUN (7-18) mg/dL Creatinine (0.55-1.02) mg/dL Est Cr Clr Drug Dosing mL/min Estimated GFR (MDRD) (>60) BUN/Creatinine Ratio (9-20) Glucose (80-116) mg/dL POC Glucose 368 H 332 H 255 H (80-116) mg/dL Calcium (8.6-10.2) mg/dL Total Bilirubin (0.1-1.3) mg/dL AST (5-25) IU/L ALT (12-36) U/L Alkaline Phosphatase (56-112) IU/L Total Protein (6.0-8.0) g/dL Albumin (3.5-5.2) g/dL Globulin g/dL Albumin/Globulin Ratio 12/31/20 12/31/20 Range/Units 06:50 06:50 WBC 20.1 H (3.0-10.3) x10-3/uL RBC 3.21 L (3.60-5.20) x10(6)uL Hgb 9.8 L (11.4-15.5) g/dL Hct 29.7 L (34.2-48.2) % MCV 92.5 (76.7-100.5) fL MCH 30.4 (23.9-33.9) pg MCHC 32.9 (31.9-34.8) g/dL RDW 14.5 (12.3-16.5) % Plt Count 558 H (151-488) x10(3)uL MPV 6.9 L (7.1-12.4) fL Add Manual Diff Yes Neutrophils % (Manual) 77 (46-82) % Band Neutrophils % 4 (0-6) % Lymphocytes % (Manual) 15 (13-37) % Monocytes % (Manual) 4 (4-12) % Sodium 138 (135-145) mmol/L Potassium 4.1 (3.5-5.3) mmol/L Chloride 105 D (100-110) mmol/L Carbon Dioxide 26 (21-32) mmol/L BUN 11 (7-18) mg/dL Creatinine 0.9 (0.55-1.02) mg/dL Est Cr Clr Drug Dosing 57.17 mL/min Estimated GFR (MDRD) > 60 (>60) BUN/Creatinine Ratio 12.2 (9-20) Glucose 302 H D (80-116) mg/dL POC Glucose (80-116) mg/dL Calcium 7.8 L (8.6-10.2) mg/dL Total Bilirubin 0.2 (0.1-1.3) mg/dL AST 16 (5-25) IU/L ALT 21 D (12-36) U/L Alkaline Phosphatase 142 H (56-112) IU/L Total Protein 6.4 (6.0-8.0) g/dL Albumin 2.1 L (3.5-5.2) g/dL Globulin 4.3 g/dL Albumin/Globulin Ratio 0.5 Result Diagrams: 12/31/20 06:50 12/31/20 06:50 Sepsis Event Note - Evaluation Sepsis Screening Result: No Definite Risk - Focused Exam Vital Signs: Vital Signs Temp Pulse Resp BP BP Pulse Ox 12/31/20 08:12 143/76 H 12/31/20 03:00 98.2 F 93 16 157/86 H 96 - Problem List & Annotations (1) Cellulitis SNOMED Code(s): 681361153 Code(s): L03.90 - CELLULITIS, UNSPECIFIED Status: Acute Current Visit: Yes Qualifiers: Site of cellulitis: face Qualified Code(s): L03.211 - Cellulitis of face Annotation/Comment:: Preseptal periorbital cellulitis per CT max/sinus today. No abscess. (2) Facial contusion SNOMED Code(s): 371449487 Code(s): S00.83XA - CONTUSION OF OTHER PART OF HEAD, INITIAL ENCOUNTER Status: Acute Current Visit: Yes (3) Leukocytosis SNOMED Code(s): 829656778, 262689668 Code(s): D72.829 - ELEVATED WHITE BLOOD CELL COUNT, UNSPECIFIED Status: Acute Current Visit: Yes (4) Head, face & neck injury SNOMED Code(s): 610510306 Code(s): S19.9XXA - UNSPECIFIED INJURY OF NECK, INITIAL ENCOUNTER; S09.90XA - UNSPECIFIED INJURY OF HEAD, INITIAL ENCOUNTER; S09.93XA - UNSPECIFIED INJURY OF FACE, INITIAL ENCOUNTER Status: Acute Current Visit: No (5) SARS-CoV-2 positive SNOMED Code(s): 9223660262363770 Code(s): U07.1 - COVID-19 Status: Acute Current Visit: Yes Annotation/Comment:: CXR: clear, no pneumonia. Positive on admission, received Bamlanivimab. (6) Diabetes mellitus type 2 in obese SNOMED Code(s): 69907578 Code(s): E11.69 - TYPE 2 DIABETES MELLITUS WITH OTHER SPECIFIED COMPLICATION; E66.9 - OBESITY, UNSPECIFIED Status: Chronic Current Visit: Yes (7) Hypothyroidism SNOMED Code(s): 70124328 Code(s): E03.9 - HYPOTHYROIDISM, UNSPECIFIED Status: Chronic Current Visit: Yes (8) Hyponatremia SNOMED Code(s): 57701775 Code(s): E87.1 - HYPO-OSMOLALITY AND HYPONATREMIA Status: Resolved Current Visit: Yes Annotation/Comment:: NA 138. (9) Hypokalemia SNOMED Code(s): 55324284 Code(s): E87.6 - HYPOKALEMIA Status: Resolved Current Visit: Yes Annotation/Comment:: Resolved, 4.1 - Problem List Review Problem List Initiated/Reviewed/Updated: Yes - My Orders Last 24 Hours: My Active Orders 12/30/20 10:00 Saccharomyces Boulardii [Florastor] 250 mg PO BID Sodium Chloride 0.9% [Normal Saline] 250 ml IV ASDIRECTED 12/30/20 15:00 Ibuprofen [Motrin] 600 mg PO Q6H 12/30/20 17:28 Heparin Sodium [Heparin Lock Flush 10 Units/ML] 50 unit FLUSH ASDIRECTED PRN 12/30/20 18:34 CXR [Chest 1V Frontal] [CR] Routine - Plan Plan:: 1. Preseptal periorbital Cellulitis secondary to trauma: Rocephin 2g IV q24h, Doxycycline 100 mg IV bid, day 5. Acetaminophen 650 mg q6h with Ibuprofen 600 mg po q6h, Morphine as needed severe pain. WBC decreased 20, Plts increased 558, could be secondary to steroids. PICC placed due to peripheral IV infiltration & second IV is hurting so will remove. She does live in town and could do outpatient infusions if needed, but would have be able to see to go home, to drive as well as to give her home insulin. Repeat labs tomorrow. Continue moist warm compresses to eyes. 2. DM: glucose checks qid&hs, Humalog high dose sliding scale change to qid&hs. Lantus 35 units bid. 3. Covid positive: would come out of isolation Jan 02 if she still hospitalized. Received Bamlanivimab infusion. 4. Disposition: fluctuating course, clinically improving right eye, left eye stable. Continue IV antibiotics. PICC line placed, will continue IV antibiotics. Discharge once she can see and manage insulin at home.
--- NOTE | 2020-12-31 11:19 | CT ---
An AP view of the chest was obtained and revealed the PICC line to be poorly visualized, but felt to be definitely within the right atrium, retraction of 2 cm is recommended for further evaluation. MTDD
--- NOTE | 2020-12-31 11:22 | CT ---
INDICATION: PICC line placement, further retraction. FINDINGS: After approximately 7 cm to 8 cm retraction, the tip of the PICC line appeared to be at or in the opening to the right atrium and should be retracted 2 cm for better positioning. Report was called to Dr. Summers at 1916 hours 12/30/20. [facility]
[2020-12-31] MEDS: Acetaminophen/HYDROcodone 325-10 MG Tab PO PRN ×3 (12:30→21:24)
[2020-12-31] MEDS: metroNIDAZOLE/Normal Saline 500 MG in Premix Bag 1 BAG IV SCH (18:18)
--- NOTE | 2020-12-31 18:56 | CT ---
INDICATION: Followup cellulitis. Unable to obtain IV access. CT MAXILLOFACIAL WITHOUT CONTRAST: Spiral 2.5 mm axial sections were obtained through the maxillofacial area with sagittal and coronal reconstructions, 12/31/20, and compared with 12/27/20. TOTAL EXAM DLP: 797.35 mGy/cm. Increased density of the periorbital tissues extending into the temporal areas and frontal areas remains present with soft tissue swelling in the frontal area and bitemporal area, slightly more prominent than on the previous examination. The periorbital swelling also appears to be increased with increased density of the soft tissues. There are some of what appear to be gas bubbles in the soft tissues about the right orbit and nasal area on the right of midline. Findings suggest progressively more severe cellulitis. The paranasal sinuses remain well aerated. Underlying bony structures appear to be intact without periosteal new bone formation to suggest a definite inflammatory process of bone. IMPRESSION: Findings are compatible with increasing severity of cellulitis. Bilateral mid and posterior cervical lymphadenopathy remains present with some fairly enlarged lymph nodes present, especially on the left. Report was called to Dr. Summers at 1820 hours. [facility]
[2020-12-31] MEDS ORDERED: VANCOmycin 1 GM/200 ML 1 GM in Premix Bag 1 BAG IV SCH (20:00)
[2020-12-31] MEDS: Mirtazapine 15 MG Tab PO SCH (20:49)
[2020-12-31] MEDS: VANCOmycin 1 GM/200 ML 1 GM in Premix Bag 1 BAG IV SCH (20:52)
[2020-12-31] MEDS: Zolpidem 5 MG Tab PO PRN (21:18)
[2021-01-01] MEDS: Enoxaparin 40 MG/0.4 ML Syringe SUBCUT SCH (01:16)
[2021-01-01] MEDS: metroNIDAZOLE/Normal Saline 500 MG in Premix Bag 1 BAG IV SCH ×3 (01:17→18:27)
[2021-01-01] MEDS: Morphine 2 MG/ML SYRINGE IVPUSH PRN ×2 (01:24→06:43)
[2021-01-01] MEDS: Heparin Sodium 10 Units/ML 5 ML Syringe FLUSH PRN ×3 (02:26→21:34)
[2021-01-01] MEDS: Acetaminophen/HYDROcodone 325-10 MG Tab PO PRN ×3 (02:26→23:43)
[2021-01-01] MEDS: Acetaminophen 325 MG Tab PO SCH ×4 (02:31→20:25)
[2021-01-01] MEDS: Ibuprofen 600 MG Tab PO SCH ×4 (02:32→20:26)
[2021-01-01] MEDS: Levothyroxine 112 MCG Tab PO SCH (06:42)
[2021-01-01] MEDS: Saccharomyces Boulardii (Probiotic) 250 MG Cap PO SCH ×2 (08:58→20:26)
[2021-01-01] MEDS: Insulin Lispro 100 Unit/ML 3 ML KwikPen SUBCUT SCH ×4 (08:58→20:27)
[2021-01-01] MEDS: VANCOmycin 1 GM/200 ML 1 GM in Premix Bag 1 BAG IV SCH ×2 (08:59→20:18)
[2021-01-01] MEDS: PARoxetine 20 MG Tab PO SCH (08:59)
[2021-01-01] MEDS: Thiamine 100 MG Tab PO SCH (08:59)
[2021-01-01] MEDS: Pantoprazole 40 MG Tab.CR PO SCH (09:00)
[2021-01-01] MEDS: Multivitamin Tab PO SCH (09:00)
[2021-01-01] MEDS: Folic Acid 1 MG Tab PO SCH (09:01)
[2021-01-01] MEDS: Polyethylene Glycol 3350 Powder 17 GM Packet PO SCH (09:01)
[2021-01-01] MEDS: amLODIPine 10 MG Tab PO SCH (09:01)
[2021-01-01] MEDS ORDERED: Insulin Glargine,Human Rec. Analog 100 Units/ML 3 ML Pen SUBCUT ONE (09:10)
[2021-01-01] MEDS: Insulin Glargine,Human Rec. Analog 100 Units/ML 3 ML Pen SUBCUT SCH ×2 (09:23→22:14)
[2021-01-01] MEDS: HYDROmorphone 2 MG/ML SDV IVPUSH PRN ×3 (09:39→20:03)
[2021-01-01] MEDS: Gabapentin 400 MG Cap PO SCH ×3 (09:40→20:26)
[2021-01-01] MEDS: cefTRIAXone 2 GM Vial IVPUSH SCH (12:00)
[2021-01-01] MEDS ORDERED: Ondansetron 4 MG/2 ML SDV IVPUSH PRN (13:49)
--- NOTE | 2021-01-01 15:27 | PCM.PN ---
- General Info Date of Service: 01/01/21 Subjective Update: Sayda had worsening swelling yesterday afternoon, had purulent drainage from nose bridge, and left eye. Wound culture obtained, grew gram positive cocci, moderate growth so far. Repeated CT facial/sinus but unable to do contrast as couldn't use PICC line and couldn't get peripheral IV in. CT showed worsening cellulitis and areas of gas in the tissues but no abscess. Spoke with [facility] last night as they had no medical beds available, he r ecommended discontinuing Doxycycline, keep Rocephin and Flagyl(had been add after results of CT were known), add Vancomycin. He recommended IV antibiotics for 14 days, will day 1 being today. This morning, her eyes are less swollen, no drainage. Pain controlled partially with morphine, Hydrocodone/APAP, Tylenol/ibuprofen, so Morphine was discontinued and Dilaudid given at 1 mg; she had better pain control but felt she was more loopy and nauseous so decreased dose to 0.5 mg with Hydroxyzine po as needed and Zofran IV as needed. Also had low blood sugar 67 this morning, Lantus 15 units given, decreased Lantus evening dose to 30 units. She had juice and symptoms improved. - Patient Data Vitals - Most Recent: Last Vital Signs Temp 98.8 F 01/01/21 10:05 Pulse 98 01/01/21 10:05 Resp 18 01/01/21 10:05 BP 128/73 01/01/21 10:05 Pulse Ox 95 01/01/21 10:05 Weight - Most Recent: 143 lb Lab Results Last 24 Hours: Laboratory Results - last 24 hr 12/31/20 12/31/20 01/01/21 Range/Units 17:11 20:46 06:35 WBC 18.3 H (3.0-10.3) x10-3/uL RBC 2.87 L (3.60-5.20) x10(6)uL Hgb 8.8 L (11.4-15.5) g/dL Hct 26.6 L (34.2-48.2) % MCV 92.9 (76.7-100.5) fL MCH 30.6 (23.9-33.9) pg MCHC 32.9 (31.9-34.8) g/dL RDW 14.4 (12.3-16.5) % Plt Count 565 H (151-488) x10(3)uL MPV 6.7 L (7.1-12.4) fL Add Manual Diff Yes Neutrophils % (Manual) 81 (46-82) % Band Neutrophils % 2 (0-6) % Lymphocytes % (Manual) 13 (13-37) % Monocytes % (Manual) 4 (4-12) % Sodium (135-145) mmol/L Potassium (3.5-5.3) mmol/L Chloride (100-110) mmol/L Carbon Dioxide (21-32) mmol/L BUN (7-18) mg/dL Creatinine (0.55-1.02) mg/dL Est Cr Clr Drug Dosing mL/min Estimated GFR (MDRD) (>60) BUN/Creatinine Ratio (9-20) Glucose (80-116) mg/dL POC Glucose 137 H D 214 H (80-116) mg/dL Calcium (8.6-10.2) mg/dL 01/01/21 01/01/21 01/01/21 Range/Units 06:35 08:54 11:19 WBC (3.0-10.3) x10-3/uL RBC (3.60-5.20) x10(6)uL Hgb (11.4-15.5) g/dL Hct (34.2-48.2) % MCV (76.7-100.5) fL MCH (23.9-33.9) pg MCHC (31.9-34.8) g/dL RDW (12.3-16.5) % Plt Count (151-488) x10(3)uL MPV (7.1-12.4) fL Add Manual Diff Neutrophils % (Manual) (46-82) % Band Neutrophils % (0-6) % Lymphocytes % (Manual) (13-37) % Monocytes % (Manual) (4-12) % Sodium 140 (135-145) mmol/L Potassium 4.0 (3.5-5.3) mmol/L Chloride 105 (100-110) mmol/L Carbon Dioxide 27 (21-32) mmol/L BUN 14 (7-18) mg/dL Creatinine 0.8 (0.55-1.02) mg/dL Est Cr Clr Drug Dosing 64.32 mL/min Estimated GFR (MDRD) > 60 (>60) BUN/Creatinine Ratio 17.5 (9-20) Glucose 67 L D (80-116) mg/dL POC Glucose 115 D 123 H (80-116) mg/dL Calcium 7.7 L (8.6-10.2) mg/dL Med Orders - Current: Current Medications Acetaminophen (Acetaminophen 325 Mg Tab) 650 mg PO Q6H [facility] Last Admin: 01/01/21 15:02 Dose: 650 mg Documented by: Hydrocodone Bitart/Acetaminophen (Acetaminophen/Hydrocodone 325-10 Mg Tab) 1 tab PO Q4H PRN PRN Reason: Pain (moderate 4-6) Last Admin: 01/01/21 02:26 Dose: 1 tab Documented by: Amlodipine Besylate (Amlodipine 10 Mg Tab) 10 mg PO DAILY [facility] Last Admin: 01/01/21 09:01 Dose: 10 mg Documented by: Bisacodyl (Bisacodyl 10 Mg Supp) 10 mg RECTAL DAILY PRN PRN Reason: Constipation Last Admin: 12/26/20 21:58 Dose: 10 mg Documented by: Ceftriaxone Sodium (Ceftriaxone 2 Gm Vial) 2 gm IVPUSH Q24H [facility] Stop: 01/12/21 11:01 Last Admin: 01/01/21 12:00 Dose: 2 gm Documented by: Dextrose/Water (50% Dextrose In Water 50 Ml Syringe) 50 ml IVPUSH ASDIRECTED PRN PRN Reason: Hypoglycemia Enoxaparin Sodium (Enoxaparin 40 Mg/0.4 Ml Syringe) 40 mg SUBCUT Q24H [facility] Last Admin: 01/01/21 01:16 Dose: 40 mg Documented by: Folic Acid (Folic Acid 1 Mg Tab) 1 mg PO DAILY [facility] Last Admin: 01/01/21 09:01 Dose: 1 mg Documented by: Gabapentin (Gabapentin 400 Mg Cap) 800 mg PO TID [facility] Last Admin: 01/01/21 14:50 Dose: 800 mg Documented by: Glucagon (Glucagon,Human Recombinant 1 Mg Vial) 1 mg IM ASDIRECTED PRN PRN Reason: Hypoglycemia Heparin Sodium (Porcine) (Heparin Sodium 10 Units/Ml 5 Ml Syringe) 50 unit FLUSH ASDIRECTED PRN PRN Reason: Keep Vein Open Last Admin: 01/01/21 06:44 Dose: 50 unit Documented by: Hydromorphone HCl (Hydromorphone 2 Mg/Ml Sdv) 0.5 mg IVPUSH Q2H PRN PRN Reason: Pain (severe 7-10) Hydroxyzine Pamoate (Hydroxyzine Pamoate 50 Mg Cap) 50 mg PO Q6H PRN PRN Reason: Anxiety/itching/swelling/nause Last Admin: 12/31/20 21:18 Dose: 50 mg Documented by: Sodium Chloride (Normal Saline) 250 mls @ 30 mls/hr IV ASDIRECTED [facility] Last Admin: 12/30/20 10:00 Dose: 30 mls/hr Documented by: Metronidazole 500 mg/ Premix 100 mls @ 100 mls/hr IV Q8H [facility] Stop: 01/14/21 18:01 Last Admin: 01/01/21 10:15 Dose: 100 mls/hr Documented by: Vancomycin HCl 1 gm/ Premix 200 mls @ 200 mls/hr IV Q12H [facility] Last Admin: 01/01/21 08:59 Dose: 200 mls/hr Documented by: Ibuprofen (Ibuprofen 600 Mg Tab) 600 mg PO Q6H [facility] Last Admin: 01/01/21 14:50 Dose: 600 mg Documented by: Insulin Glargine (Insulin Glargine,Human Rec. Analog 100 Units/Ml 3 Ml Pen) 30 units SUBCUT BID [facility] Last Admin: 01/01/21 09:23 Dose: Not Given Documented by: Insulin Human Lispro (Insulin Lispro 100 Unit/Ml 3 Ml Kwikpen) 0 unit SUBCUT QIDACANDBED [facility]; Protocol Last Admin: 01/01/21 12:45 Dose: Not Given Documented by: Levothyroxine Sodium (Levothyroxine 112 Mcg Tab) 112 mcg PO DAILY@0600 [facility] Last Admin: 01/01/21 06:42 Dose: 112 mcg Documented by: Loratadine (Loratadine 10 Mg Tab) 10 mg PO DAILY PRN PRN Reason: Allergies Magnesium Hydroxide (Magnesium Hydroxide 400 Mg/5 Ml Susp 30 Ml Cup) 30 ml PO Q12H PRN PRN Reason: Constipation Last Admin: 12/26/20 08:26 Dose: 30 ml Documented by: Mirtazapine (Mirtazapine 15 Mg Tab) 7.5 mg PO BEDTIME [facility] Last Admin: 12/31/20 20:49 Dose: 7.5 mg Documented by: Multivitamins/Minerals/Vitamin C (Multivitamin Tab) 1 tab PO DAILY [facility] Last Admin: 01/01/21 09:00 Dose: 1 tab Documented by: Ondansetron HCl (Ondansetron 4 Mg/2 Ml Sdv) 4 mg IVPUSH Q6H PRN PRN Reason: Nausea/Vomiting Pantoprazole Sodium (Pantoprazole 40 Mg Tab.Cr) 40 mg PO DAILY [facility] Last Admin: 01/01/21 09:00 Dose: 40 mg Documented by: Paroxetine HCl (Paroxetine 20 Mg Tab) 40 mg PO DAILY [facility] Last Admin: 01/01/21 08:59 Dose: 40 mg Documented by: Polyethylene Glycol (Polyethylene Glycol 3350 Powder 17 Gm Packet) 17 gm PO DAILY [facility] Last Admin: 01/01/21 09:01 Dose: 17 gm Documented by: Saccharomyces Boulardii (Saccharomyces Boulardii (Probiotic) 250 Mg Cap) 250 mg PO BID [facility] Last Admin: 01/01/21 08:58 Dose: 250 mg Documented by: Sodium Chloride (Sodium Chloride 0.9% 10 Ml Syringe) 10 ml FLUSH ASDIRECTED PRN PRN Reason: Keep Vein Open Last Admin: 12/31/20 21:01 Dose: 10 ml Documented by: Thiamine HCl (Thiamine 100 Mg Tab) 100 mg PO DAILY [facility] Last Admin: 01/01/21 08:59 Dose: 100 mg Documented by: Vancomycin HCl (Pharmacy To Dose - Vancomycin) 1 dose .XX ASDIRECTED [facility] Zolpidem Tartrate (Zolpidem 5 Mg Tab) 5 mg PO BEDTIME PRN PRN Reason: Sleep Last Admin: 12/31/20 21:18 Dose: 5 mg Documented by: Discontinued Medications Acetaminophen (Acetaminophen 325 Mg Tab) 650 mg PO Q4H PRN PRN Reason: Pain (Mild 1-3)/fever Last Admin: 12/26/20 08:24 Dose: 650 mg Documented by: Hydrocodone Bitart/Acetaminophen (Acetaminophen/Hydrocodone 325-5 Mg Tab) 1 tab PO Q4H PRN PRN Reason: Pain (moderate 4-6) Last Admin: 12/26/20 04:04 Dose: 1 tab Documented by: Hydrocodone Bitart/Acetaminophen (Acetaminophen/Hydrocodone 325-5 Mg Tab) 2 tab PO Q4H PRN PRN Reason: Pain (severe 7-10) Last Admin: 12/25/20 22:20 Dose: 2 tab Documented by: Alprazolam (Alprazolam 0.5 Mg Tab) 0.5 mg PO ONETIME ONE Stop: 12/30/20 08:46 Last Admin: 12/30/20 09:22 Dose: 0.5 mg Documented by: Ceftriaxone Sodium (Ceftriaxone 2 Gm Vial) 2 gm IVPUSH ONETIME ONE Stop: 12/24/20 20:40 Last Admin: 12/24/20 21:12 Dose: 2 gm Documented by: Ceftriaxone Sodium (Ceftriaxone 1 Gm Vial) 1 gm IVPUSH Q24H [facility] Last Admin: 12/26/20 21:23 Dose: 1 gm Documented by: Ceftriaxone Sodium (Ceftriaxone 1 Gm Vial) 2 gm IVPUSH Q24H [facility] Last Admin: 12/28/20 10:14 Dose: 2 gm Documented by: Al Hydroxide/Mg Hydroxide 15 (ml/ Lidocaine HCl 15 ml) 0 ml PO ONETIME ONE Stop: 12/22/20 21:46 Last Admin: 12/22/20 21:50 Dose: 30 ml Documented by: Dexamethasone (Dexamethasone 4 Mg/Ml Sdv) 6 mg IVPUSH ONETIME ONE Stop: 12/27/20 10:48 Last Admin: 12/27/20 11:21 Dose: 6 mg Documented by: Dexamethasone (Dexamethasone 4 Mg/Ml Sdv) 8 mg IVPUSH DAILY [facility] Stop: 12/31/20 10:46 Last Admin: 12/29/20 11:08 Dose: 8 mg Documented by: Dextrose/Water (50% Dextrose In Water 50 Ml Syringe) 50 ml IVPUSH ASDIRECTED PRN PRN Reason: Hypoglycemia Dextrose/Water (50% Dextrose In Water 50 Ml Syringe) 50 ml IVPUSH ASDIRECTED PRN PRN Reason: Hypoglycemia Doxycycline Hyclate (Doxycycline 100 Mg Tab) 100 mg PO BID [facility] Last Admin: 12/27/20 07:59 Dose: 100 mg Documented by: Erythromycin (Erythromycin Base 0.5% Ophth Oint 1 Gm Tube) 0 gm EYEBOTH BID [facility] Stop: 12/31/20 23:00 Last Admin: 12/26/20 08:25 Dose: 1 applic Documented by: Gabapentin (Gabapentin 300 Mg Cap) 300 mg PO BID [facility] Last Admin: 12/27/20 07:59 Dose: 300 mg Documented by: Glucagon (Glucagon,Human Recombinant 1 Mg Vial) 1 mg IM ASDIRECTED PRN PRN Reason: Hypoglycemia Glucagon (Glucagon,Human Recombinant 1 Mg Vial) 1 mg IM ASDIRECTED PRN PRN Reason: Hypoglycemia Hydromorphone HCl (Hydromorphone 2 Mg/Ml Sdv) 1 mg IVPUSH Q2H PRN PRN Reason: Pain (severe 7-10) Last Admin: 01/01/21 13:22 Dose: 1 mg Documented by: Sodium Chloride (Normal Saline) 1,000 mls @ 999 mls/hr IV .BOLUS ONE Stop: 12/22/20 18:57 Last Admin: 12/22/20 18:10 Dose: 999 mls/hr Documented by: Sodium Chloride (Normal Saline) 1,000 mls @ 999 mls/hr IV .BOLUS ONE Stop: 12/22/20 21:14 Last Admin: 12/22/20 21:00 Dose: 999 mls/hr Documented by: Sodium Chloride (Normal Saline) 1,000 mls @ 999 mls/hr IV .BOLUS ONE Stop: 12/22/20 21:14 Last Admin: 12/22/20 22:28 Dose: 999 mls/hr Documented by: Potassium Chloride 20 meq/ (Premix) 100 mls @ 50 mls/hr IV ONETIME ONE Stop: 12/22/20 22:13 Last Admin: 12/22/20 21:50 Dose: 50 mls/hr Documented by: Potassium Chloride/Dextrose/Sod Cl (D5 1/2 Ns W/ 20 Meq/L Kcl) 1,000 mls @ 150 mls/hr IV ASDIRECTED [facility] Stop: 12/23/20 08:20 Last Admin: 12/23/20 01:39 Dose: 150 mls/hr Documented by: Potassium Chloride/Dextrose/Sod Cl (D5 1/2 Ns W/ 20 Meq/L Kcl) 1,000 mls @ 150 mls/hr IV Q7H [facility] Sodium Chloride (Normal Saline) 1,000 mls @ 150 mls/hr IV ASDIRECTED [facility] Last Admin: 12/24/20 11:54 Dose: 150 mls/hr Documented by: Magnesium Sulfate 4 gm/ (Dextrose/Water) 258 mls @ 100 mls/hr IV ONETIME ONE Stop: 12/23/20 10:06 Last Admin: 12/23/20 13:00 Dose: Not Given Documented by: Bamlanivimab 700 mg/Etesevimab 1,400 mg/ Sodium Chloride 160 mls @ 310 mls/hr IV ONETIME ONE Stop: 12/23/20 12:30 Last Admin: 12/23/20 12:29 Dose: 310 mls/hr Documented by: Azithromycin 500 mg/ Sodium (Chloride) 250 mls @ 250 mls/hr IV Q24H [facility] Last Admin: 12/25/20 10:03 Dose: 250 mls/hr Documented by: Doxycycline Hyclate 100 mg/ (Sodium Chloride) 100 mls @ 100 mls/hr IV Q12H [facility] Last Admin: 12/31/20 08:29 Dose: 100 mls/hr Documented by: Vancomycin HCl 1 gm/ Premix 200 mls @ 200 mls/hr IV Q12H [facility] Stop: 01/14/21 20:01 Last Admin: 12/31/20 21:06 Dose: Not Given Documented by: Ibuprofen (Ibuprofen 200 Mg Tab) 200 mg PO Q6H [facility] Last Admin: 12/30/20 08:07 Dose: 200 mg Documented by: Insulin Glargine (Insulin Glargine,Human Rec. Analog 100 Units/Ml 3 Ml Pen) 30 units SUBCUT BID [facility] Last Admin: 12/29/20 20:30 Dose: Not Given Documented by: Insulin Glargine (Insulin Glargine,Human Rec. Analog 100 Units/Ml 3 Ml Pen) 15 units SUBCUT ONETIME ONE Stop: 12/27/20 08:59 Last Admin: 12/27/20 09:20 Dose: 15 unit Documented by: Insulin Glargine (Insulin Glargine,Human Rec. Analog 100 Units/Ml 3 Ml Pen) 35 units SUBCUT BID [facility] Last Admin: 12/31/20 21:13 Dose: 35 units Documented by: Insulin Glargine (Insulin Glargine,Human Rec. Analog 100 Units/Ml 3 Ml Pen) 15 units SUBCUT ONETIME ONE Stop: 01/01/21 09:11 Last Admin: 01/01/21 09:42 Dose: 15 unit Documented by: Insulin Human Lispro (Insulin Lispro 100 Unit/Ml 3 Ml Kwikpen) 0 unit SUBCUT TIDMEALS [facility]; Protocol Last Admin: 12/30/20 08:02 Dose: 15 units Documented by: Insulin Human Lispro (Insulin Lispro 100 Unit/Ml 3 Ml Kwikpen) 20 unit SUBCUT ONETIME ONE Stop: 12/29/20 20:55 Last Admin: 12/29/20 21:17 Dose: 20 units Documented by: Insulin Human Regular (Insulin Regular, Human 100 Units/Ml 3 Ml Vial) 10 unit IV ONETIME ONE Stop: 12/22/20 20:16 Last Admin: 12/22/20 20:55 Dose: 10 units Documented by: Iopamidol (Iopamidol 755 Mg/Ml 100 Ml Bottle) 85 ml IV . DIRECTED ONE Stop: 12/27/20 09:19 Last Admin: 12/27/20 10:02 Dose: Not Given Documented by: Iopamidol (Iopamidol 755 Mg/Ml 100 Ml Bottle) 85 ml IV . DIRECTED ONE Stop: 12/27/20 09:01 Last Admin: 12/28/20 08:45 Dose: 85 ml Documented by: Ketorolac Tromethamine (Ketorolac 30 Mg/Ml Sdv) 30 mg IVPUSH ONETIME ONE Stop: 12/22/20 17:57 Last Admin: 12/22/20 18:10 Dose: 30 mg Documented by: Ketorolac Tromethamine (Ketorolac 30 Mg/Ml Sdv) 30 mg IVPUSH Q6H [facility] Stop: 12/28/20 00:43 Last Admin: 12/24/20 18:17 Dose: 30 mg Documented by: Ketorolac Tromethamine (Ketorolac 30 Mg/Ml Sdv) 30 mg IVPUSH Q6H PRN PRN Reason: Headache/Pain Stop: 12/29/20 22:23 Ketorolac Tromethamine (Ketorolac 30 Mg/Ml Sdv) 30 mg IVPUSH Q6H [facility] Stop: 12/29/20 03:01 Last Admin: 12/29/20 04:11 Dose: 30 mg Documented by: Lorazepam (Lorazepam 0.5 Mg Tab) 0.5 mg PO ONETIME ONE Stop: 12/23/20 12:04 Last Admin: 12/23/20 12:30 Dose: 0.5 mg Documented by: Lorazepam (Lorazepam 1 Mg Tab) 0 mg PO ASDIRECTED [facility]; Protocol Lorazepam (Lorazepam 2 Mg/Ml Sdv) 0 mg IV ASDIRECTED [facility]; Protocol Magnesium Oxide (Magnesium Oxide 400 Mg Tab) 400 mg PO Q6H [facility] Stop: 12/25/20 01:00 Last Admin: 12/25/20 00:17 Dose: 400 mg Documented by: Metoclopramide HCl (Metoclopramide 10 Mg/2 Ml Sdv) 10 mg IVPUSH ONETIME ONE Stop: 12/22/20 19:27 Last Admin: 12/22/20 19:37 Dose: 10 mg Documented by: Metoclopramide HCl (Metoclopramide 10 Mg/2 Ml Sdv) 10 mg IVPUSH Q6H [facility] Stop: 12/24/20 00:45 Last Admin: 12/24/20 00:46 Dose: 10 mg Documented by: Morphine Sulfate (Morphine 2 Mg/Ml Syringe) 2 mg IVPUSH Q4H PRN PRN Reason: Pain (severe 7-10) Last Admin: 01/01/21 06:43 Dose: 2 mg Documented by: Ondansetron HCl (Ondansetron 4 Mg/2 Ml Sdv) 4 mg IVPUSH ONETIME ONE Stop: 12/22/20 17:57 Last Admin: 12/22/20 18:10 Dose: 4 mg Documented by: Potassium Chloride (Potassium Chloride 20 Meq Tab.Er) 40 meq PO ONETIME ONE Stop: 12/24/20 07:55 Last Admin: 12/24/20 09:07 Dose: 40 meq Documented by: Sodium Chloride (Sodium Chloride 0.9% 10 Ml Syringe) 30 ml FLUSH ASDIRECTED [facility] Stop: 12/23/20 16:00 - Exam Central Line Total Time: 1Days 19Hours General: Alert, Oriented, Cooperative, No Acute Distress HEENT: Other (Bilateral eyelids: swelling decreased, erythema improved. TTP improved. No drainage. Forehead: moderate swelling, TTP) Neck: Lymphadenopathy Lungs: Clear to Auscultation, Normal Respiratory Effort Cardiovascular: Regular Rate, Regular Rhythm GI/Abdominal Exam: Normal Bowel Sounds, Soft, Non-Tender, No Distention (Female) Exam: Deferred Extremities: No Pedal Edema - Patient Data Lab Results Last 24 hrs: Laboratory Results - last 24 hr 12/31/20 12/31/20 01/01/21 Range/Units 17:11 20:46 06:35 WBC 18.3 H (3.0-10.3) x10-3/uL RBC 2.87 L (3.60-5.20) x10(6)uL Hgb 8.8 L (11.4-15.5) g/dL Hct 26.6 L (34.2-48.2) % MCV 92.9 (76.7-100.5) fL MCH 30.6 (23.9-33.9) pg MCHC 32.9 (31.9-34.8) g/dL RDW 14.4 (12.3-16.5) % Plt Count 565 H (151-488) x10(3)uL MPV 6.7 L (7.1-12.4) fL Add Manual Diff Yes Neutrophils % (Manual) 81 (46-82) % Band Neutrophils % 2 (0-6) % Lymphocytes % (Manual) 13 (13-37) % Monocytes % (Manual) 4 (4-12) % Sodium (135-145) mmol/L Potassium (3.5-5.3) mmol/L Chloride (100-110) mmol/L Carbon Dioxide (21-32) mmol/L BUN (7-18) mg/dL Creatinine (0.55-1.02) mg/dL Est Cr Clr Drug Dosing mL/min Estimated GFR (MDRD) (>60) BUN/Creatinine Ratio (9-20) Glucose (80-116) mg/dL POC Glucose 137 H D 214 H (80-116) mg/dL Calcium (8.6-10.2) mg/dL 01/01/21 01/01/21 01/01/21 Range/Units 06:35 08:54 11:19 WBC (3.0-10.3) x10-3/uL RBC (3.60-5.20) x10(6)uL Hgb (11.4-15.5) g/dL Hct (34.2-48.2) % MCV (76.7-100.5) fL MCH (23.9-33.9) pg MCHC (31.9-34.8) g/dL RDW (12.3-16.5) % Plt Count (151-488) x10(3)uL MPV (7.1-12.4) fL Add Manual Diff Neutrophils % (Manual) (46-82) % Band Neutrophils % (0-6) % Lymphocytes % (Manual) (13-37) % Monocytes % (Manual) (4-12) % Sodium 140 (135-145) mmol/L Potassium 4.0 (3.5-5.3) mmol/L Chloride 105 (100-110) mmol/L Carbon Dioxide 27 (21-32) mmol/L BUN 14 (7-18) mg/dL Creatinine 0.8 (0.55-1.02) mg/dL Est Cr Clr Drug Dosing 64.32 mL/min Estimated GFR (MDRD) > 60 (>60) BUN/Creatinine Ratio 17.5 (9-20) Glucose 67 L D (80-116) mg/dL POC Glucose 115 D 123 H (80-116) mg/dL Calcium 7.7 L (8.6-10.2) mg/dL Result Diagrams: 01/01/21 06:35 01/01/21 06:35 Sepsis Event Note - Evaluation Sepsis Screening Result: No Definite Risk - Focused Exam Vital Signs: Vital Signs Temp Temp Pulse Resp BP BP Pulse Ox 01/01/21 10:05 98.8 F 98 18 128/73 95 01/01/21 09:01 138/74 01/01/21 06:56 98.4 F 86 16 127/66 98 - Problem List & Annotations (1) Cellulitis SNOMED Code(s): 808565285 Code(s): L03.90 - CELLULITIS, UNSPECIFIED Status: Acute Current Visit: Yes Qualifiers: Site of cellulitis: face Qualified Code(s): L03.211 - Cellulitis of face Annotation/Comment:: Preseptal periorbital cellulitis, repeat CT showed worsening cellulitis with gas formation, no abscess. Wound culture: moderate growth of gram positive cocci. (2) Facial contusion SNOMED Code(s): 218401713 Code(s): S00.83XA - CONTUSION OF OTHER PART OF HEAD, INITIAL ENCOUNTER Status: Acute Current Visit: Yes (3) Leukocytosis SNOMED Code(s): 203592152, 361895350 Code(s): D72.829 - ELEVATED WHITE BLOOD CELL COUNT, UNSPECIFIED Status: Acute Current Visit: Yes Annotation/Comment:: Improved 18.3. (4) SARS-CoV-2 positive SNOMED Code(s): 7942913353623867 Code(s): U07.1 - COVID-19 Status: Acute Current Visit: Yes Annotation/C omment:: CXR: clear, no pneumonia. Positive on admission, received Bamlanivimab. (5) Head, face & neck injury SNOMED Code(s): 343668089 Code(s): S19.9XXA - UNSPECIFIED INJURY OF NECK, INITIAL ENCOUNTER; S09.90XA - UNSPECIFIED INJURY OF HEAD, INITIAL ENCOUNTER; S09.93XA - UNSPECIFIED INJURY OF FACE, INITIAL ENCOUNTER Status: Acute Current Visit: No (6) Diabetes mellitus type 2 in obese SNOMED Code(s): 00809698 Code(s): E11.69 - TYPE 2 DIABETES MELLITUS WITH OTHER SPECIFIED COMPLICATION; E66.9 - OBESITY, UNSPECIFIED Status: Chronic Current Visit: Yes (7) Hypothyroidism SNOMED Code(s): 22216189 Code(s): E03.9 - HYPOTHYROIDISM, UNSPECIFIED Status: Chronic Current Visit: Yes (8) Hyponatremia SNOMED Code(s): 12255532 Code(s): E87.1 - HYPO-OSMOLALITY AND HYPONATREMIA Status: Resolved Current Visit: Yes Annotation/Comment:: NA 140. (9) Hypokalemia SNOMED Code(s): 97413712 Code(s): E87.6 - HYPOKALEMIA Status: Resolved Current Visit: Yes Annotation/Comment:: Resolved, 4.1 - Problem List Review Problem List Initiated/Reviewed/Updated: Yes - My Orders Last 24 Hours: My Active Orders 12/31/20 15:50 CULTURE EYE + SMEAR [RM] Routine 12/31/20 18:00 metroNIDAZOLE/Normal Saline [Flagyl in NS 500 MG/100 ML] 500 mg Premix Bag 1 bag IV Q8H 12/31/20 20:00 Pharmacy to Dose - Vancomycin 1 dose .XX ASDIRECTED 12/31/20 21:00 VANCOmycin 1 GM/200 ML 1 gm Premix Bag 1 bag IV Q12H 01/01/21 09:00 Insulin Glarg,Human.Rec.Analog [LantUS Solostar] 30 units SUBCUT BID 01/01/21 10:44 Renew/Continue Central Line Access [OM.PC] Routine 01/01/21 13:49 HYDROmorphone [Dilaudid] 0.5 mg IVPUSH Q2H PRN Ondansetron [Zofran] 4 mg IVPUSH Q6H PRN 01/02/21 08:30 BASIC METABOLIC PANEL,BMP [CHEM] Routine CBC WITH AUTO DIFF [HEME] Routine VANCOMYCIN TROUGH [CHEM] Timed - Plan Plan:: 1. Preseptal periorbital Cellulitis secondary to trauma: Rocephin 2g IV q24h, Vancomycin per pharmacy q12h, trough goal 10-15, trough tomorrow at 830, Flagyl 500 mg IV q8h day 02/27. Acetaminophen 650 mg q6h with Ibuprofen 600 mg po q6h, Dilaudid 0.5 mg IV q2h as needed severe pain. WBC decreased 18.3, Plts increased 565. Repeat labs tomorrow. Continue moist warm compresses to eyes. Hydroxyzine po as needed nausea or Zofran IV as needed nausea. Wound culture growing Gram positive cocci, moderate growth, ID & DANIKA pending. No change in antibiotics at this time. 2. DM: glucose checks qid&hs, Humalog high dose sliding scale change to qid&hs. Decreased Lantus 30 units bid. One time dose of Lantus 15 units this am due to low blood sugar. Adjust as needed. 3. Covid positive: would come out of isolation Jan 01 at 1999. Received Bamlanivimab infusion. 4. Disposition: Continue IV antibiotics 14 days, today is day 1. She doesn't have swing bed benefits with her insurance. Once we have bacteria identified and narrow antibiotics, she can see well enough to drive and administer her home insulin will discharge and do outpatient antibiotic infusion(ideally).
[2021-01-01] MEDS: Mirtazapine 15 MG Tab PO SCH (20:26)
[2021-01-01] MEDS: Sodium Chloride 0.9% 10 ML Syringe FLUSH PRN (21:33)
[2021-01-02] MEDS: Enoxaparin 40 MG/0.4 ML Syringe SUBCUT SCH (00:02)
[2021-01-02] MEDS: Ibuprofen 600 MG Tab PO SCH ×4 (02:56→20:55)
[2021-01-02] MEDS: Acetaminophen 325 MG Tab PO SCH ×4 (02:57→20:56)
[2021-01-02] MEDS: metroNIDAZOLE/Normal Saline 500 MG in Premix Bag 1 BAG IV SCH ×3 (02:58→18:29)
[2021-01-02] MEDS: Sodium Chloride 0.9% 10 ML Syringe FLUSH PRN ×7 (03:15→21:35)
[2021-01-02] MEDS: HYDROmorphone 2 MG/ML SDV IVPUSH PRN ×3 (03:15→19:45)
[2021-01-02] MEDS: Heparin Sodium 10 Units/ML 5 ML Syringe FLUSH PRN ×5 (04:02→21:36)
[2021-01-02] MEDS: Levothyroxine 112 MCG Tab PO SCH (05:25)
[2021-01-02] MEDS: Insulin Lispro 100 Unit/ML 3 ML KwikPen SUBCUT SCH ×4 (07:58→20:58)
[2021-01-02] MEDS: Gabapentin 400 MG Cap PO SCH ×3 (08:00→20:55)
[2021-01-02] MEDS: Pantoprazole 40 MG Tab.CR PO SCH (08:04)
[2021-01-02] MEDS: Thiamine 100 MG Tab PO SCH (08:04)
[2021-01-02] MEDS: amLODIPine 10 MG Tab PO SCH (08:04)
[2021-01-02] MEDS: Saccharomyces Boulardii (Probiotic) 250 MG Cap PO SCH ×2 (08:04→20:56)
[2021-01-02] MEDS: Multivitamin Tab PO SCH (08:04)
[2021-01-02] MEDS: Folic Acid 1 MG Tab PO SCH (08:04)
[2021-01-02] MEDS: PARoxetine 20 MG Tab PO SCH (08:05)
[2021-01-02] MEDS ORDERED: Insulin Glargine,Human Rec. Analog 100 Units/ML 3 ML Pen SUBCUT ONE (09:31)
[2021-01-02] MEDS: Acetaminophen/HYDROcodone 325-10 MG Tab PO PRN ×4 (09:46→23:48)
[2021-01-02] MEDS: Insulin Glargine,Human Rec. Analog 100 Units/ML 3 ML Pen SUBCUT SCH ×2 (09:47→20:57)
[2021-01-02] MEDS: Polyethylene Glycol 3350 Powder 17 GM Packet PO SCH (09:50)
[2021-01-02] MEDS: VANCOmycin 1 GM/200 ML 1 GM in Premix Bag 1 BAG IV SCH ×2 (09:58→20:33)
[2021-01-02] MEDS ORDERED: Iopamidol 755 Mg/ML 100 ML Bottle IV ONE (10:18)
[2021-01-02] MEDS: cefTRIAXone 2 GM Vial IVPUSH SCH (12:27)
--- NOTE | 2021-01-02 13:21 | PCM.PN ---
- General Info Date of Service: 01/02/21 Subjective Update: She states pain is worse, but swelling in her eyes are improved, forehead is still quite swollen. Labs are improved. She has a power PICC in place so verified with radiology they can do contrast through power PICC, was miscommunication on Tuesday that they had to have a peripheral line. - Patient Data Vitals - Most Recent: Last Vital Signs Temp 98.4 F 01/02/21 08:00 Pulse 87 01/02/21 08:00 Resp 16 01/02/21 08:00 BP 167/89 H 01/02/21 08:04 Pulse Ox 98 01/02/21 08:00 Weight - Most Recent: 143 lb Lab Results Last 24 Hours: Laboratory Results - last 24 hr 01/01/21 01/01/21 01/02/21 Range/Units 17:05 20:07 03:30 WBC (3.0-10.3) x10-3/uL RBC (3.60-5.20) x10(6)uL Hgb (11.4-15.5) g/dL Hct (34.2-48.2) % MCV (76.7-100.5) fL MCH (23.9-33.9) pg MCHC (31.9-34.8) g/dL RDW (12.3-16.5) % Plt Count (151-488) x10(3)uL MPV (7.1-12.4) fL Add Manual Diff Neutrophils % (Manual) (46-82) % Lymphocytes % (Manual) (13-37) % Monocytes % (Manual) (4-12) % Sodium (135-145) mmol/L Potassium (3.5-5.3) mmol/L Chloride (100-110) mmol/L Carbon Dioxide (21-32) mmol/L BUN (7-18) mg/dL Creatinine (0.55-1.02) mg/dL Est Cr Clr Drug Dosing mL/min Estimated GFR (MDRD) (>60) BUN/Creatinine Ratio (9-20) Glucose (80-116) mg/dL POC Glucose 70 L 150 H D 145 H (80-116) mg/dL Calcium (8.6-10.2) mg/dL Vancomycin Trough (<0.8) ug/mL 01/02/21 01/02/21 01/02/21 Range/Units 06:36 09:15 09:15 WBC 16.5 H (3.0-10.3) x10-3/uL RBC 2.94 L (3.60-5.20) x10(6)uL Hgb 9.1 L (11.4-15.5) g/dL Hct 27.3 L (34.2-48.2) % MCV 92.5 (76.7-100.5) fL MCH 30.8 (23.9-33.9) pg MCHC 33.3 (31.9-34.8) g/dL RDW 14.6 (12.3-16.5) % Plt Count 575 H (151-488) x10(3)uL MPV 6.6 L (7.1-12.4) fL Add Manual Diff Yes Neutrophils % (Manual) 85 H (46-82) % Lymphocytes % (Manual) 11 L (13-37) % Monocytes % (Manual) 4 (4-12) % Sodium 136 (135-145) mmol/L Potassium 4.5 (3.5-5.3) mmol/L Chloride 102 (100-110) mmol/L Carbon Dioxide 28 (21-32) mmol/L BUN 12 (7-18) mg/dL Creatinine 0.9 (0.55-1.02) mg/dL Est Cr Clr Drug Dosing 57.17 mL/min Estimated GFR (MDRD) > 60 (>60) BUN/Creatinine Ratio 13.3 (9-20) Glucose 192 H D (80-116) mg/dL POC Glucose 190 H (80-116) mg/dL Calcium 8.0 L (8.6-10.2) mg/dL Vancomycin Trough 11.3 H (<0.8) ug/mL 01/02/21 Range/Units 11:10 WBC (3.0-10.3) x10-3/uL RBC (3.60-5.20) x10(6)uL Hgb (11.4-15.5) g/dL Hct (34.2-48.2) % MCV (76.7-100.5) fL MCH (23.9-33.9) pg MCHC (31.9-34.8) g/dL RDW (12.3-16.5) % Plt Count (151-488) x10(3)uL MPV (7.1-12.4) fL Add Manual Diff Neutrophils % (Manual) (46-82) % Lymphocytes % (Manual) (13-37) % Monocytes % (Manual) (4-12) % Sodium (135-145) mmol/L Potassium (3.5-5.3) mmol/L Chloride (100-110) mmol/L Carbon Dioxide (21-32) mmol/L BUN (7-18) mg/dL Creatinine (0.55-1.02) mg/dL Est Cr Clr Drug Dosing mL/min Estimated GFR (MDRD) (>60) BUN/Creatinine Ratio (9-20) Glucose (80-116) mg/dL POC Glucose 158 H (80-116) mg/dL Calcium (8.6-10.2) mg/dL Vancomycin Trough (<0.8) ug/mL Med Orders - Current: Current Medications Acetaminophen (Acetaminophen 325 Mg Tab) 650 mg PO Q6H [facility] Last Admin: 01/02/21 08:04 Dose: 650 mg Documented by: Hydrocodone Bitart/Acetaminophen (Acetaminophen/Hydrocodone 325-10 Mg Tab) 1 tab PO Q4H PRN PRN Reason: Pain (moderate 4-6) Last Admin: 01/02/21 09:46 Dose: 1 tab Documented by: Amlodipine Besylate (Amlodipine 10 Mg Tab) 10 mg PO DAILY [facility] Last Admin: 01/02/21 08:04 Dose: 10 mg Documented by: Bisacodyl (Bisacodyl 10 Mg Supp) 10 mg RECTAL DAILY PRN PRN Reason: Constipation Last Admin: 12/26/20 21:58 Dose: 10 mg Documented by: Ceftriaxone Sodium (Ceftriaxone 2 Gm Vial) 2 gm IVPUSH Q24H [facility] Stop: 01/12/21 11:01 Last Admin: 01/02/21 12:27 Dose: 2 gm Documented by: Dextrose/Water (50% Dextrose In Water 50 Ml Syringe) 50 ml IVPUSH ASDIRECTED PRN PRN Reason: Hypoglycemia Enoxaparin Sodium (Enoxaparin 40 Mg/0.4 Ml Syringe) 40 mg SUBCUT Q24H [facility] Last Admin: 01/02/21 00:02 Dose: 40 mg Documented by: Folic Acid (Folic Acid 1 Mg Tab) 1 mg PO DAILY [facility] Last Admin: 01/02/21 08:04 Dose: 1 mg Documented by: Gabapentin (Gabapentin 400 Mg Cap) 800 mg PO TID [facility] Last Admin: 01/02/21 08:00 Dose: 800 mg Documented by: Glucagon (Glucagon,Human Recombinant 1 Mg Vial) 1 mg IM ASDIRECTED PRN PRN Reason: Hypoglycemia Heparin Sodium (Porcine) (Heparin Sodium 10 Units/Ml 5 Ml Syringe) 50 unit F LUSH ASDIRECTED PRN PRN Reason: Keep Vein Open Last Admin: 01/02/21 12:35 Dose: 50 unit Documented by: Hydromorphone HCl (Hydromorphone 2 Mg/Ml Sdv) 1 mg IVPUSH Q2H PRN PRN Reason: Pain (severe 7-10) Hydroxyzine Pamoate (Hydroxyzine Pamoate 50 Mg Cap) 50 mg PO Q6H PRN PRN Reason: Anxiety/itching/swelling/nause Last Admin: 01/01/21 23:43 Dose: 50 mg Documented by: Sodium Chloride (Normal Saline) 250 mls @ 30 mls/hr IV ASDIRECTED [facility] Last Admin: 12/30/20 10:00 Dose: 30 mls/hr Documented by: Metronidazole 500 mg/ Premix 100 mls @ 100 mls/hr IV Q8H [facility] Stop: 01/14/21 18:01 Last Admin: 01/02/21 11:06 Dose: 100 mls/hr Documented by: Vancomycin HCl 1 gm/ Premix 200 mls @ 200 mls/hr IV Q12H [facility] Last Admin: 01/02/21 09:58 Dose: 200 mls/hr Documented by: Ibuprofen (Ibuprofen 600 Mg Tab) 600 mg PO Q6H [facility] Last Admin: 01/02/21 08:07 Dose: 600 mg Documented by: Insulin Glargine (Insulin Glargine,Human Rec. Analog 100 Units/Ml 3 Ml Pen) 28 units SUBCUT BID [facility] Last Admin: 01/02/21 09:47 Dose: 28 units Documented by: Insulin Human Lispro (Insulin Lispro 100 Unit/Ml 3 Ml Kwikpen) 0 unit SUBCUT QIDACANDBED [facility]; Protocol Last Admin: 01/02/21 11:20 Dose: 2 units Documented by: Levothyroxine Sodium (Levothyroxine 112 Mcg Tab) 112 mcg PO DAILY@0600 [facility] Last Admin: 01/02/21 05:25 Dose: 112 mcg Documented by: Loratadine (Loratadine 10 Mg Tab) 10 mg PO DAILY PRN PRN Reason: Allergies Magnesium Hydroxide (Magnesium Hydroxide 400 Mg/5 Ml Susp 30 Ml Cup) 30 ml PO Q12H PRN PRN Reason: Constipation Last Admin: 12/26/20 08:26 Dose: 30 ml Documented by: Mirtazapine (Mirtazapine 15 Mg Tab) 7.5 mg PO BEDTIME [facility] Last Admin: 01/01/21 20:26 Dose: 7.5 mg Documented by: Multivitamins/Minerals/Vitamin C (Multivitamin Tab) 1 tab PO DAILY [facility] Last Admin: 01/02/21 08:04 Dose: 1 tab Documented by: Ondansetron HCl (Ondansetron 4 Mg/2 Ml Sdv) 4 mg IVPUSH Q6H PRN PRN Reason: Nausea/Vomiting Pantoprazole Sodium (Pantoprazole 40 Mg Tab.Cr) 40 mg PO DAILY [facility] Last Admin: 01/02/21 08:04 Dose: 40 mg Documented by: Paroxetine HCl (Paroxetine 20 Mg Tab) 40 mg PO DAILY [facility] Last Admin: 01/02/21 08:05 Dose: 40 mg Documented by: Polyethylene Glycol (Polyethylene Glycol 3350 Powder 17 Gm Packet) 17 gm PO DAILY [facility] Last Admin: 01/02/21 09:50 Dose: Not Given Documented by: Saccharomyces Boulardii (Saccharomyces Boulardii (Probiotic) 250 Mg Cap) 250 mg PO BID [facility] Last Admin: 01/02/21 08:04 Dose: 250 mg Documented by: Sodium Chloride (Sodium Chloride 0.9% 10 Ml Syringe) 10 ml FLUSH ASDIRECTED PRN PRN Reason: Keep Vein Open Last Admin: 01/02/21 09:18 Dose: 10 ml Documented by: Thiamine HCl (Thiamine 100 Mg Tab) 100 mg PO DAILY [facility] Last Admin: 01/02/21 08:04 Dose: 100 mg Documented by: Vancomycin HCl (Pharmacy To Dose - Vancomycin) 1 dose .XX ASDIRECTED [facility] Zolpidem Tartrate (Zolpidem 5 Mg Tab) 5 mg PO BEDTIME PRN PRN Reason: Sleep Last Admin: 12/31/20 21:18 Dose: 5 mg Documented by: Discontinued Medications Acetaminophen (Acetaminophen 325 Mg Tab) 650 mg PO Q4H PRN PRN Reason: Pain (Mild 1-3)/fever Last Admin: 12/26/20 08:24 Dose: 650 mg Documented by: Hydrocodone Bitart/Acetaminophen (Acetaminophen/Hydrocodone 325-5 Mg Tab) 1 tab PO Q4H PRN PRN Reason: Pain (moderate 4-6) Last Admin: 12/26/20 04:04 Dose: 1 tab Documented by: Hydrocodone Bitart/Acetaminophen (Acetaminophen/Hydrocodone 325-5 Mg Tab) 2 tab PO Q4H PRN PRN Reason: Pain (severe 7-10) Last Admin: 12/25/20 22:20 Dose: 2 tab Documented by: Alprazolam (Alprazolam 0.5 Mg Tab) 0.5 mg PO ONETIME ONE Stop: 12/30/20 08:46 Last Admin: 12/30/20 09:22 Dose: 0.5 mg Documented by: Ceftriaxone Sodium (Ceftriaxone 2 Gm Vial) 2 gm IVPUSH ONETIME ONE Stop: 12/24/20 20:40 Last Admin: 12/24/20 21:12 Dose: 2 gm Documented by: Ceftriaxone Sodium (Ceftriaxone 1 Gm Vial) 1 gm IVPUSH Q24H [facility] Last Admin: 12/26/20 21:23 Dose: 1 gm Documented by: Ceftriaxone Sodium (Ceftriaxone 1 Gm Vial) 2 gm IVPUSH Q24H [facility] Last Admin: 12/28/20 10:14 Dose: 2 gm Documented by: Al Hydroxide/Mg Hydroxide 15 (ml/ Lidocaine HCl 15 ml) 0 ml PO ONETIME ONE Stop: 12/22/20 21:46 Last Admin: 12/22/20 21:50 Dose: 30 ml Documented by: Dexamethasone (Dexamethasone 4 Mg/Ml Sdv) 6 mg IVPUSH ONETIME ONE Stop: 12/27/20 10:48 Last Admin: 12/27/20 11:21 Dose: 6 mg Documented by: Dexamethasone (Dexamethasone 4 Mg/Ml Sdv) 8 mg IVPUSH DAILY [facility] Stop: 12/31/20 10:46 Last Admin: 12/29/20 11:08 Dose: 8 mg Documented by: Dextrose/Water (50% Dextrose In Water 50 Ml Syringe) 50 ml IVPUSH ASDIRECTED PRN PRN Reason: Hypoglycemia Dextrose/Water (50% Dextrose In Water 50 Ml Syringe) 50 ml IVPUSH ASDIRECTED PRN PRN Reason: Hypoglycemia Doxycycline Hyclate (Doxycycline 100 Mg Tab) 100 mg PO BID [facility] Last Admin: 12/27/20 07:59 Dose: 100 mg Documented by: Erythromycin (Erythromycin Base 0.5% Ophth Oint 1 Gm Tube) 0 gm EYEBOTH BID [facility] Stop: 12/31/20 23:00 Last Admin: 12/26/20 08:25 Dose: 1 applic Documented by: Gabapentin (Gabapentin 300 Mg Cap) 300 mg PO BID [facility] Last Admin: 12/27/20 07:59 Dose: 300 mg Documented by: Glucagon (Glucagon,Human Recombinant 1 Mg Vial) 1 mg IM ASDIRECTED PRN PRN Reason: Hypoglycemia Glucagon (Glucagon,Human Recombinant 1 Mg Vial) 1 mg IM ASDIRECTED PRN PRN Reason: Hypoglycemia Hydromorphone HCl (Hydromorphone 2 Mg/Ml Sdv) 1 mg IVPUSH Q2H PRN PRN Reason: Pain (severe 7-10) Last Admin: 01/01/21 13:22 Dose: 1 mg Documented by: Hydromorphone HCl (Hydromorphone 2 Mg/Ml Sdv) 0.5 mg IVPUSH Q2H PRN PRN Reason: Pain (severe 7-10) Last Admin: 01/02/21 07:56 Dose: 0.5 mg Documented by: Sodium Chloride (Normal Saline) 1,000 mls @ 999 mls/hr IV .BOLUS ONE Stop: 12/22/20 18:57 Last Admin: 12/22/20 18:10 Dose: 999 mls/hr Documented by: Sodium Chloride (Normal Saline) 1,000 mls @ 999 mls/hr IV .BOLUS ONE Stop: 12/22/20 21:14 Last Admin: 12/22/20 21:00 Dose: 999 mls/hr Documented by: Sodium Chloride (Normal Saline) 1,000 mls @ 999 mls/hr IV .BOLUS ONE Stop: 12/22/20 21:14 Last Admin: 12/22/20 22:28 Dose: 999 mls/hr Documented by: Potassium Chloride 20 meq/ (Premix) 100 mls @ 50 mls/hr IV ONETIME ONE Stop: 12/22/20 22:13 Last Admin: 12/22/20 21:50 Dose: 50 mls/hr Documented by: Potassium Chloride/Dextrose/Sod Cl (D5 1/2 Ns W/ 20 Meq/L Kcl) 1,000 mls @ 150 mls/hr IV ASDIRECTED [facility] Stop: 12/23/20 08:20 Last Admin: 12/23/20 01:39 Dose: 150 mls/hr Documented by: Potassium Chloride/Dextrose/Sod Cl (D5 1/2 Ns W/ 20 Meq/L Kcl) 1,000 mls @ 150 mls/hr IV Q7H [facility] Sodium Chloride (Normal Saline) 1,000 mls @ 150 mls/hr IV ASDIRECTED [facility] Last Admin: 12/24/20 11:54 Dose: 150 mls/hr Documented by: Magnesium Sulfate 4 gm/ (Dextrose/Water) 258 mls @ 100 mls/hr IV ONETIME ONE Stop: 12/23/20 10:06 Last Admin: 12/23/20 13:00 Dose: Not Given Documented by: Bamlanivimab 700 mg/Etesevimab 1,400 mg/ Sodium Chloride 160 mls @ 310 mls/hr IV ONETIME ONE Stop: 12/23/20 12:30 Last Admin: 12/23/20 12:29 Dose: 310 mls/hr Documented by: Azithromycin 500 mg/ Sodium (Chloride) 250 mls @ 250 mls/hr IV Q24H [facility] Last Admin: 12/25/20 10:03 Dose: 250 mls/hr Documented by: Doxycycline Hyclate 100 mg/ (Sodium Chloride) 100 mls @ 100 mls/hr IV Q12H [facility] Last Admin: 12/31/20 08:29 Dose: 100 mls/hr Documented by: Vancomycin HCl 1 gm/ Premix 200 mls @ 200 mls/hr IV Q12H [facility] Stop: 01/14/21 20:01 Last Admin: 12/31/20 21:06 Dose: Not Given Documented by: Ibuprofen (Ibuprofen 200 Mg Tab) 200 mg PO Q6H [facility] Last Admin: 12/30/20 08:07 Dose: 200 mg Documented by: Insulin Glargine (Insulin Glargine,Human Rec. Analog 100 Units/Ml 3 Ml Pen) 30 units SUBCUT BID [facility] Last Admin: 12/29/20 20:30 Dose: Not Given Documented by: Insulin Glargine (Insulin Glargine,Human Rec. Analog 100 Units/Ml 3 Ml Pen) 15 units SUBCUT ONETIME ONE Stop: 12/27/20 08:59 Last Admin: 12/27/20 09:20 Dose: 15 unit Documented by: Insulin Glargine (Insulin Glargine,Human Rec. Analog 100 Units/Ml 3 Ml Pen) 35 units SUBCUT BID [facility] Last Admin: 12/31/20 21:13 Dose: 35 units Documented by: Insulin Glargine (Insulin Glargine,Human Rec. Analog 100 Units/Ml 3 Ml Pen) 30 units SUBCUT BID [facility] Last Admin: 01/01/21 22:14 Dose: Not Given Documented by: Insulin Glargine (Insulin Glargine,Human Rec. Analog 100 Units/Ml 3 Ml Pen) 15 units SUBCUT ONETIME ONE Stop: 01/01/21 09:11 Last Admin: 01/01/21 09:42 Dose: 15 unit Documented by: Insulin Human Lispro (Insulin Lispro 100 Unit/Ml 3 Ml Kwikpen) 0 unit SUBCUT TIDMEALS [facility]; Protocol Last Admin: 12/30/20 08:02 Dose: 15 units Documented by: Insulin Human Lispro (Insulin Lispro 100 Unit/Ml 3 Ml Kwikpen) 20 unit SUBCUT ONETIME ONE Stop: 12/29/20 20:55 Last Admin: 12/29/20 21:17 Dose: 20 units Documented by: Insulin Human Regular (Insulin Regular, Human 100 Units/Ml 3 Ml Vial) 10 unit IV ONETIME ONE Stop: 12/22/20 20:16 Last Admin: 12/22/20 20:55 Dose: 10 units Documented by: Iopamidol (Iopamidol 755 Mg/Ml 100 Ml Bottle) 85 ml IV . DIRECTED ONE Stop: 12/27/20 09:19 Last Admin: 12/27/20 10:02 Dose: Not Given Documented by: Iopamidol (Iopamidol 755 Mg/Ml 100 Ml Bottle) 85 ml IV . DIRECTED ONE Stop: 12/27/20 09:01 Last Admin: 12/28/20 08:45 Dose: 85 ml Documented by: Iopamidol (Iopamidol 755 Mg/Ml 100 Ml Bottle) 85 ml IV . DIRECTED ONE Stop: 01/02/21 10:19 Ketorolac Tromethamine (Ketorolac 30 Mg/Ml Sdv) 30 mg IVPUSH ONETIME ONE Stop: 12/22/20 17:57 Last Admin: 12/22/20 18:10 Dose: 30 mg Documented by: Ketorolac Tromethamine (Ketorolac 30 Mg/Ml Sdv) 30 mg IVPUSH Q6H [facility] Stop: 12/28/20 00:43 Last Admin: 12/24/20 18:17 Dose: 30 mg Documented by: Ketorolac Tromethamine (Ketorolac 30 Mg/Ml Sdv) 30 mg IVPUSH Q6H PRN PRN Reason: Headache/Pain Stop: 12/29/20 22:23 Ketorolac Tromethamine (Ketorolac 30 Mg/Ml Sdv) 30 mg IVPUSH Q6H [facility] Stop: 12/29/20 03:01 Last Admin: 12/29/20 04:11 Dose: 30 mg Documented by: Lorazepam (Lorazepam 0.5 Mg Tab) 0.5 mg PO ONETIME ONE Stop: 12/23/20 12:04 Last Admin: 12/23/20 12:30 Dose: 0.5 mg Documented by: Lorazepam (Lorazepam 1 Mg Tab) 0 mg PO ASDIRECTED [facility]; Protocol Lorazepam (Lorazepam 2 Mg/Ml Sdv) 0 mg IV ASDIRECTED [facility]; Protocol Magnesium Oxide (Magnesium Oxide 400 Mg Tab) 400 mg PO Q6H [facility] Stop: 12/25/20 01:00 Last Admin: 12/25/20 00:17 Dose: 400 mg Documented by: Metoclopramide HCl (Metoclopramide 10 Mg/2 Ml Sdv) 10 mg IVPUSH ONETIME ONE Stop: 12/22/20 19:27 Last Admin: 12/22/20 19:37 Dose: 10 mg Documented by: Metoclopramide HCl (Metoclopramide 10 Mg/2 Ml Sdv) 10 mg IVPUSH Q6H [facility] Stop: 12/24/20 00:45 Last Admin: 12/24/20 00:46 Dose: 10 mg Documented by: Morphine Sulfate (Morphine 2 Mg/Ml Syringe) 2 mg IVPUSH Q4H PRN PRN Reason: Pain (severe 7-10) Last Admin: 01/01/21 06:43 Dose: 2 mg Documented by: Ondansetron HCl (Ondansetron 4 Mg/2 Ml Sdv) 4 mg IVPUSH ONETIME ONE Stop: 12/22/20 17:57 Last Admin: 12/22/20 18:10 Dose: 4 mg Documented by: Potassium Chloride (Potassium Chloride 20 Meq Tab.Er) 40 meq PO ONETIME ONE Stop: 12/24/20 07:55 Last Admin: 12/24/20 09:07 Dose: 40 meq Documented by: Sodium Chloride (Sodium Chloride 0.9% 10 Ml Syringe) 30 ml FLUSH ASDIRECTED [facility] Stop: 12/23/20 16:00 - Exam Central Line Total Time: 2Days 9Hours General: Alert, Oriented, Cooperative, Mild Distress (anxious, frustrated) HEENT: Other (Right eyelid: swelling decreased, no erythema, abrasion starting to crust over again. Left eyelid: abrasion starting to crust over, some pus present along eyelid margin. Nose bridge, some pus along abrasion. Forehead: prominent swelling midline, TTP, no erythema, but warm to touch. ) Neck: Trachea Midline, Lymphadenopathy Lungs: Clear to Auscultation, Normal Respiratory Effort Cardiovascular: Regular Rate, Regular Rhythm GI/Abdominal Exam: Normal Bowel Sounds, Soft, Non-Tender, No Distention Extremities: No Pedal Edema, Normal Capillary Refill Peripheral Pulses: 2+: Radial (L), Radial (R) Wound/Incisions: Drainage, Erythema Improving - Patient Data Lab Results Last 24 hrs: Laboratory Results - last 24 hr 01/01/21 01/01/21 01/02/21 Range/Units 17:05 20:07 03:30 WBC (3.0-10.3) x10-3/uL RBC (3.60-5.20) x10(6)uL Hgb (11.4-15.5) g/dL Hct (34.2-48.2) % MCV (76.7-100.5) fL MCH (23.9-33.9) pg MCHC (31.9-34.8) g/dL RDW (12.3-16.5) % Plt Count (151-488) x10(3)uL MPV (7.1-12.4) fL Add Manual Diff Neutrophils % (Manual) (46-82) % Lymphocytes % (Manual) (13-37) % Monocytes % (Manual) (4-12) % Sodium (135-145) mmol/L Potassium (3.5-5.3) mmol/L Chloride (100-110) mmol/L Carbon Dioxide (21-32) mmol/L BUN (7-18) mg/dL Creatinine (0.55-1.02) mg/dL Est Cr Clr Drug Dosing mL/min Estimated GFR (MDRD) (>60) BUN/Creatinine Ratio (9-20) Glucose (80-116) mg/dL POC Glucose 70 L 150 H D 145 H (80-116) mg/dL Calcium (8.6-10.2) mg/dL Vancomycin Trough (<0.8) ug/mL 01/02/21 01/02/21 01/02/21 Range/Units 06:36 09:15 09:15 WBC 16.5 H (3.0-10.3) x10-3/uL RBC 2.94 L (3.60-5.20) x10(6)uL Hgb 9.1 L (11.4-15.5) g/dL Hct 27.3 L (34.2-48.2) % MCV 92.5 (76.7-100.5) fL MCH 30.8 (23.9-33.9) pg MCHC 33.3 (31.9-34.8) g/dL RDW 14.6 (12.3-16.5) % Plt Count 575 H (151-488) x10(3)uL MPV 6.6 L (7.1-12.4) fL Add Manual Diff Yes Neutrophils % (Manual) 85 H (46-82) % Lymphocytes % (Manual) 11 L (13-37) % Monocytes % (Manual) 4 (4-12) % Sodium 136 (135-145) mmol/L Potassium 4.5 (3.5-5.3) mmol/L Chloride 102 (100-110) mmol/L Carbon Dioxide 28 (21-32) mmol/L BUN 12 (7-18) mg/dL Creatinine 0.9 (0.55-1.02) mg/dL Est Cr Clr Drug Dosing 57.17 mL/min Estimated GFR (MDRD) > 60 (>60) BUN/Creatinine Ratio 13.3 (9-20) Glucose 192 H D (80-116) mg/dL POC Glucose 190 H (80-116) mg/dL Calcium 8.0 L (8.6-10.2) mg/dL Vancomycin Trough 11.3 H (<0.8) ug/mL 01/02/21 Range/Units 11:10 WBC (3.0-10.3) x10-3/uL RBC (3.60-5.20) x10(6)uL Hgb (11.4-15.5) g/dL Hct (34.2-48.2) % MCV (76.7-100.5) fL MCH (23.9-33.9) pg MCHC (31.9-34.8) g/dL RDW (12.3-16.5) % Plt Count (151-488) x10(3)uL MPV (7.1-12.4) fL Add Manual Diff Neutrophils % (Manual) (46-82) % Lymphocytes % (Manual) (13-37) % Monocytes % (Manual) (4-12) % Sodium (135-145) mmol/L Potassium (3.5-5.3) mmol/L Chloride (100-110) mmol/L Carbon Dioxide (21-32) mmol/L BUN (7-18) mg/dL Creatinine (0.55-1.02) mg/dL Est Cr Clr Drug Dosing mL/min Estimated GFR (MDRD) (>60) BUN/Creatinine Ratio (9-20) Glucose (80-116) mg/dL POC Glucose 158 H (80-116) mg/dL Calcium (8.6-10.2) mg/dL Vancomycin Trough (<0.8) ug/mL Result Diagrams: 01/02/21 09:15 01/02/21 09:15 Sepsis Event Note - Evaluation Sepsis Screening Result: No Definite Risk - Focused Exam Vital Signs: Vital Signs Temp Temp Pulse Resp BP BP Pulse Ox 01/02/21 08:04 167/89 H 01/02/21 08:00 98.4 F 87 16 132/80 98 01/02/21 03:52 98.4 F 81 18 113/68 97 - Problem List & Annotations (1) Cellulitis SNOMED Code(s): 082973289 Code(s): L03.90 - CELLULITIS, UNSPECIFIED Status: Acute Current Visit: Yes Qualifiers: Site of cellulitis: face Qualified Code(s): L03.211 - Cellulitis of face Annotation/Comment:: Preseptal periorbital cellulitis, repeat CT showed worsening cellulitis with gas formation, no abscess. Wound culture: moderate gr owth of gram positive cocci, ID & DANIKA pending. Repeat CT facial/sinus. (2) Leukocytosis SNOMED Code(s): 913936602, 707210520 Code(s): D72.829 - ELEVATED WHITE BLOOD CELL COUNT, UNSPECIFIED Status: Acute Current Visit: Yes Annotation/Comment:: Improved 16.5. (3) Facial contusion SNOMED Code(s): 639159343 Code(s): S00.83XA - CONTUSION OF OTHER PART OF HEAD, INITIAL ENCOUNTER Status: Acute Current Visit: Yes (4) SARS-CoV-2 positive SNOMED Code(s): 8266193416162338 Code(s): U07.1 - COVID-19 Status: Acute Current Visit: Yes Annotation/Comment:: Isolation discontinued last night at 2000. (5) Head, face & neck injury SNOMED Code(s): 345644318 Code(s): S19.9XXA - UNSPECIFIED INJURY OF NECK, INITIAL ENCOUNTER; S09.90XA - UNSPECIFIED INJURY OF HEAD, INITIAL ENCOUNTER; S09.93XA - UNSPECIFIED INJURY OF FACE, INITIAL ENCOUNTER Status: Acute Current Visit: No (6) Diabetes mellitus type 2 in obese SNOMED Code(s): 06097373 Code(s): E11.69 - TYPE 2 DIABETES MELLITUS WITH OTHER SPECIFIED COMPLICATION; E66.9 - OBESITY, UNSPECIFIED Status: Chronic Current Visit: Yes (7) Hypothyroidism SNOMED Code(s): 97425328 Code(s): E03.9 - HYPOTHYROIDISM, UNSPECIFIED Status: Chronic Current Visit: Yes (8) Hyponatremia SNOMED Code(s): 13098167 Code(s): E87.1 - HYPO-OSMOLALITY AND HYPONATREMIA Status: Resolved Current Visit: Yes Annotation/Comment:: NA 140. (9) Hypokalemia SNOMED Code(s): 67792066 Code(s): E87.6 - HYPOKALEMIA Status: Resolved Current Visit: Yes Annotation/Comment:: Resolved, 4.1 (10) History of MRSA infection SNOMED Code(s): 941466776, 271755627 Code(s): Z86.14 - PERSONAL HISTORY OF METHICILLIN RESIS STAPH INFECTION Status: Acute Current Visit: Yes - Problem List Review Problem List Initiated/Reviewed/Updated: Yes - My Orders Last 24 Hours: My Active Orders 01/01/21 13:49 Ondansetron [Zofran] 4 mg IVPUSH Q6H PRN 01/02/21 08:55 HYDROmorphone [Dilaudid] 1 mg IVPUSH Q2H PRN 01/02/21 09:00 Insulin Glarg,Human.Rec.Analog [LantUS Solostar] 28 units SUBCUT BID 01/02/21 10:05 Max Facial Sinus w Cont [CT] Routine 01/02/21 10:09 Nurse Communication: Isolation [RC] ASDIRECTED Isolation [COMM] Stat 01/03/21 06:00 BASIC METABOLIC PANEL,BMP [CHEM] Routine CBC WITH AUTO DIFF [HEME] Routine 01/03/21 20:30 VANCOMYCIN TROUGH [CHEM] Timed - Plan Plan:: 1. Preseptal periorbital Cellulitis secondary to trauma: Rocephin 2g IV q24h, Vancomycin per pharmacy q12h, trough goal 10-15, trough 11.3, Flagyl 500 mg IV q8h day 03/30. Acetaminophen 650 mg q6h with Ibuprofen 600 mg po q6h, Dilaudid 1 mg IV q2h as needed severe pain. WBC decreased 16.5, Plts increased 575. Repeat labs tomorrow. Continue moist warm compresses to eyes. Hydroxyzine po as needed nausea or Zofran IV as needed nausea. Wound culture growing Gram positive cocci, moderate growth, ID & DANIKA pending. No change in antibiotics at this time. [place] stated no medical beds, [facility] called back and said they wouldn't be able to take today. Pt frustrated with her progress, advised unless there is an abscess would not be a surgical candidate for I&D. Repeat CT facial with contrast ordered, she has power PICC in so can have contrast through PICC line. History of MRSA so will contact precautions for MRSA until we get ID from wound culture. 2. DM: glucose checks qid&hs, Humalog high dose sliding scale change to qid&hs. Decreased Lantus 28 units bid. Adjust as needed. 3. Covid positive: came out of isolation Jan 01 at 2000. Received Bamlanivimab infusion. 4. Disposition: Continue IV antibiotics 14 days, today is day 2. She doesn't have swing bed benefits with her insurance. Once we have bacteria identified and narrow antibiotics, she can see well enough to drive and administer her home insulin will discharge and do outpatient antibiotic infusion(ideally).
--- NOTE | 2021-01-02 15:11 | CT ---
INDICATION: Followup cellulitis, question abscess. CT MAXILLOFACIAL SOFT TISSUE: Spiral 2.5 mm axial sections were obtained axially through the maxillofacial area with sagittal and coronal reconstructions, 01/02/21, and compared with 12/31/20. TOTAL EXAM DLP: 806.71 mGy/cm. Soft tissue swelling is stable on the left and increased on the right with gas bubbles in the prefrontal soft tissue in the midline, as well as in the area of right orbit, which is new, and increased in the area of the left orbit. Soft tissue swelling appears to be most increased on the right at and just above the right orbit and also in the superior frontal area bilaterally. Gas bubble is also new in the superior frontal area. This is seen on the right. However, no definite encapsulated abscess formation was identified. The density of the swollen areas has somewhat decreased, suggesting less cellularity. IMPRESSION: Increasing severity of cellulitis with increased gas-forming infection suggested. The area of swelling has extended superiorly in the frontal area and to the right orbit and temporal area. Continued swelling is present on the left. Report was called to Dr. Summers at 1449 hours. [facility]
[2021-01-02] MEDS: Mirtazapine 15 MG Tab PO SCH (20:56)
[2021-01-02] MEDS: Zolpidem 5 MG Tab PO PRN (21:03)
[2021-01-03] MEDS: Enoxaparin 40 MG/0.4 ML Syringe SUBCUT SCH (00:38)
[2021-01-03] MEDS: metroNIDAZOLE/Normal Saline 500 MG in Premix Bag 1 BAG IV SCH ×3 (02:51→18:08)
[2021-01-03] MEDS: Sodium Chloride 0.9% 10 ML Syringe FLUSH PRN ×10 (02:55→23:10)
[2021-01-03] MEDS: HYDROmorphone 2 MG/ML SDV IVPUSH PRN ×5 (03:00→21:27)
[2021-01-03] MEDS: Ibuprofen 600 MG Tab PO SCH ×4 (03:00→21:10)
[2021-01-03] MEDS: Acetaminophen 325 MG Tab PO SCH ×4 (03:00→21:10)
[2021-01-03] MEDS: Heparin Sodium 10 Units/ML 5 ML Syringe FLUSH PRN ×7 (04:06→23:10)
[2021-01-03] MEDS: Levothyroxine 112 MCG Tab PO SCH (06:34)
[2021-01-03] MEDS: Acetaminophen/HYDROcodone 325-10 MG Tab PO PRN ×4 (06:34→19:45)
[2021-01-03] MEDS: Gabapentin 400 MG Cap PO SCH ×3 (08:45→21:10)
[2021-01-03] MEDS: Multivitamin Tab PO SCH (08:46)
[2021-01-03] MEDS: Folic Acid 1 MG Tab PO SCH (08:46)
[2021-01-03] MEDS: Saccharomyces Boulardii (Probiotic) 250 MG Cap PO SCH ×2 (08:47→21:10)
[2021-01-03] MEDS: amLODIPine 10 MG Tab PO SCH (08:48)
[2021-01-03] MEDS: Polyethylene Glycol 3350 Powder 17 GM Packet PO SCH (08:48)
[2021-01-03] MEDS: Pantoprazole 40 MG Tab.CR PO SCH (08:49)
[2021-01-03] MEDS: PARoxetine 20 MG Tab PO SCH (08:49)
[2021-01-03] MEDS: Thiamine 100 MG Tab PO SCH (08:50)
[2021-01-03] MEDS ORDERED: Insulin Lispro 100 Unit/ML 3 ML KwikPen SUBCUT ONE (08:53)
[2021-01-03] MEDS: Insulin Lispro 100 Unit/ML 3 ML KwikPen SUBCUT SCH ×4 (08:55→21:15)
[2021-01-03] MEDS: VANCOmycin 1 GM/200 ML 1 GM in Premix Bag 1 BAG IV SCH (09:14)
[2021-01-03] MEDS: Insulin Glargine,Human Rec. Analog 100 Units/ML 3 ML Pen SUBCUT SCH ×2 (09:14→21:14)
[2021-01-03] MEDS ORDERED: DAPTOmycin 500 MG Vial IV SCH (14:30)
[2021-01-03] MEDS: Cefepime 2 GM Vial IVPUSH SCH ×2 (16:13→23:09)
[2021-01-03] MEDS: cefTRIAXone 2 GM Vial IVPUSH SCH (16:53)
--- NOTE | 2021-01-03 18:06 | PCM.PN ---
- General Info Date of Service: 01/03/21 Subjective Update: Sayda's swelling has worsened today, she has been on Vancomycin, Flagyl since 12/30 evening and Rocephin since last week. Wound culture came back MRSA sensitive to Daptomycin(1), Clindamycin(<=0.5), Tetracycline(<=4), Linezolid(2), Vancomycin(2), Bactrim(<=0.5/9.5). WBC improved to 15.0. Plts up to 586. Dilaudid controlling the pain when given with Sieper. She also notes that she can feel swelling in her cheeks and down into her jaw, can taste drainage in back of her throat. - Patient Data Vitals - Most Recent: Last Vital Signs Temp 98.2 F 01/03/21 03:00 Pulse 86 01/03/21 03:00 Resp 16 01/03/21 03:00 BP 146/88 H 01/03/21 08:48 Pulse Ox 95 01/03/21 03:00 Weight - Most Recent: 143 lb Lab Results Last 24 Hours: Laboratory Results - last 24 hr 01/02/21 01/03/21 01/03/21 Range/Units 20:27 07:00 07:00 WBC 15.0 H (3.0-10.3) x10-3/uL RBC 2.90 L (3.60-5.20) x10(6)uL Hgb 9.0 L (11.4-15.5) g/dL Hct 27.0 L (34.2-48.2) % MCV 93.0 (76.7-100.5) fL MCH 31.1 (23.9-33.9) pg MCHC 33.4 (31.9-34.8) g/dL RDW 14.4 (12.3-16.5) % Plt Count 586 H (151-488) x10(3)uL MPV 6.8 L (7.1-12.4) fL Add Manual Diff Yes Neutrophils % (Manual) 87 H (46-82) % Lymphocytes % (Manual) 10 L (13-37) % Monocytes % (Manual) 3 L (4-12) % Sodium 132 L (135-145) mmol/L Potassium 4.6 (3.5-5.3) mmol/L Chloride 99 L (100-110) mmol/L Carbon Dioxide 25 (21-32) mmol/L BUN 14 (7-18) mg/dL Creatinine 0.9 (0.55-1.02) mg/dL Est Cr Clr Drug Dosing 57.17 mL/min Estimated GFR (MDRD) > 60 (>60) BUN/Creatinine Ratio 15.6 (9-20) Glucose 454 H* D (80-116) mg/dL POC Glucose 216 H D (80-116) mg/dL Calcium 8.0 L (8.6-10.2) mg/dL Creatine Kinase (60-160) IU/L 01/03/21 01/03/21 01/03/21 Range/Units 07:00 11:58 17:12 WBC (3.0-10.3) x10-3/uL RBC (3.60-5.20) x10(6)uL Hgb (11.4-15.5) g/dL Hct (34.2-48.2) % MCV (76.7-100.5) fL MCH (23.9-33.9) pg MCHC (31.9-34.8) g/dL RDW (12.3-16.5) % Plt Count (151-488) x10(3)uL MPV (7.1-12.4) fL Add Manual Diff Neutrophils % (Manual) (46-82) % Lymphocytes % (Manual) (13-37) % Monocytes % (Manual) (4-12) % Sodium (135-145) mmol/L Potassium (3.5-5.3) mmol/L Chloride (100-110) mmol/L Carbon Dioxide (21-32) mmol/L BUN (7-18) mg/dL Creatinine (0.55-1.02) mg/dL Est Cr Clr Drug Dosing mL/min Estimated GFR (MDRD) (>60) BUN/Creatinine Ratio (9-20) Glucose (80-116) mg/dL POC Glucose 175 H 294 H D (80-116) mg/dL Calcium (8.6-10.2) mg/dL Creatine Kinase 37 L (60-160) IU/L Louie Results Last 24 Hours: Microbiology 12/31/20 15:50 Gram Stain - Final Eye, Left Testing performed by: [address] [id number] SEE SEPARATE/SCANNED REPORT Eye Culture - Final Testing performed by: [address] [id number] SEE SEPARATE/SCANNED REPORT Med Orders - Current: Current Medications Acetaminophen (Acetaminophen 325 Mg Tab) 650 mg PO Q6H [facility] Last Admin: 01/03/21 14:46 Dose: 650 mg Documented by: Hydrocodone Bitart/Acetaminophen (Acetaminophen/Hydrocodone 325-10 Mg Tab) 1 tab PO Q4H PRN PRN Reason: Pain (moderate 4-6) Last Admin: 01/03/21 14:46 Dose: 1 tab Documented by: Amlodipine Besylate (Amlodipine 10 Mg Tab) 10 mg PO DAILY [facility] Last Admin: 01/03/21 08:48 Dose: 10 mg Documented by: Bisacodyl (Bisacodyl 10 Mg Supp) 10 mg RECTAL DAILY PRN PRN Reason: Constipation Last Admin: 12/26/20 21:58 Dose: 10 mg Documented by: Cefepime HCl (Cefepime 2 Gm Vial) 2 gm IVPUSH Q8H [facility] Last Admin: 01/03/21 16:13 Dose: 2 gm Documented by: Dextrose/Water (50% Dextrose In Water 50 Ml Syringe) 50 ml IVPUSH ASDIRECTED PRN PRN Reason: Hypoglycemia Enoxaparin Sodium (Enoxaparin 40 Mg/0.4 Ml Syringe) 40 mg SUBCUT Q24H [facility] Last Admin: 01/03/21 00:38 Dose: 40 mg Documented by: Folic Acid (Folic Acid 1 Mg Tab) 1 mg PO DAILY [facility] Last Admin: 01/03/21 08:46 Dose: 1 mg Documented by: Gabapentin (Gabapentin 400 Mg Cap) 800 mg PO TID [facility] Last Admin: 01/03/21 14:41 Dose: 800 mg Documented by: Glucagon (Glucagon,Human Recombinant 1 Mg Vial) 1 mg IM ASDIRECTED PRN PRN Reason: Hypoglycemia Heparin Sodium (Porcine) (Heparin Sodium 10 Units/Ml 5 Ml Syringe) 50 unit FLUSH ASDIRECTED PRN PRN Reason: Keep Vein Open Last Admin: 01/03/21 16:48 Dose: 50 unit Documented by: Hydromorphone HCl (Hydromorphone 2 Mg/Ml Sdv) 1 mg IVPUSH Q2H PRN PRN Reason: Pain (severe 7-10) Last Admin: 01/03/21 13:00 Dose: 1 mg Documented by: Hydroxyzine Pamoate (Hydroxyzine Pamoate 50 Mg Cap) 50 mg PO Q6H PRN PRN Reason: Anxiety/itching/swelling/nause Last Admin: 01/02/21 23:49 Dose: 50 mg Documented by: Sodium Chloride (Normal Saline) 250 mls @ 30 mls/hr IV ASDIRECTED [facility] Last Admin: 12/30/20 10:00 Dose: 30 mls/hr Documented by: Metronidazole 500 mg/ Premix 100 mls @ 100 mls/hr IV Q8H [facility] Stop: 01/14/21 18:01 Last Admin: 01/03/21 10:41 Dose: 100 mls/hr Documented by: Daptomycin 390 mg/ Sodium (Chloride) 50 mls @ 100 mls/hr IV Q24H [facility] Last Admin: 01/03/21 16:13 Dose: 100 mls/hr Documented by: Ibuprofen (Ibuprofen 600 Mg Tab) 600 mg PO Q6H [facility] Last Admin: 01/03/21 14:46 Dose: 600 mg Documented by: Insulin Glargine (Insulin Glargine,Human Rec. Analog 100 Units/Ml 3 Ml Pen) 30 units SUBCUT BID [facility] Last Admin: 01/03/21 09:14 Dose: 30 units Documented by: Insulin Human Lispro (Insulin Lispro 100 Unit/Ml 3 Ml Kwikpen) 0 unit SUBCUT QIDACANDBED [facility]; Protocol Last Admin: 01/03/21 12:56 Dose: 2 units Documented by: Levothyroxine Sodium (Levothyroxine 112 Mcg Tab) 112 mcg PO DAILY@0600 [facility] Last Admin: 01/03/21 06:34 Dose: 112 mcg Documented by: Loratadine (Loratadine 10 Mg Tab) 10 mg PO DAILY PRN PRN Reason: Allergies Magnesium Hydroxide (Magnesium Hydroxide 400 Mg/5 Ml Susp 30 Ml Cup) 30 ml PO Q12H PRN PRN Reason: Constipation Last Admin: 12/26/20 08:26 Dose: 30 ml Documented by: Mirtazapine (Mirtazapine 15 Mg Tab) 7.5 mg PO BEDTIME [facility] Last Admin: 01/02/21 20:56 Dose: 7.5 mg Documented by: Multivitamins/Minerals/Vitamin C (Multivitamin Tab) 1 tab PO DAILY [facility] Last Admin: 01/03/21 08:46 Dose: 1 tab Documented by: Ondansetron HCl (Ondansetron 4 Mg/2 Ml Sdv) 4 mg IVPUSH Q6H PRN PRN Reason: Nausea/Vomiting Pantoprazole Sodium (Pantoprazole 40 Mg Tab.Cr) 40 mg PO DAILY [facility] Last Admin: 01/03/21 08:49 Dose: 40 mg Documented by: Paroxetine HCl (Paroxetine 20 Mg Tab) 40 mg PO DAILY [facility] Last Admin: 01/03/21 08:49 Dose: 40 mg Documented by: Polyethylene Glycol (Polyethylene Glycol 3350 Powder 17 Gm Packet) 17 gm PO DAILY [facility] Last Admin: 01/03/21 08:48 Dose: Not Given Documented by: Saccharomyces Boulardii (Saccharomyces Boulardii (Probiotic) 250 Mg Cap) 250 mg PO BID [facility] Last Admin: 01/03/21 08:47 Dose: 250 mg Documented by: Sodium Chloride (Sodium Chloride 0.9% 10 Ml Syringe) 10 ml FLUSH ASDIRECTED PRN PRN Reason: Keep Vein Open Last Admin: 01/03/21 16:48 Dose: 10 ml Documented by: Thiamine HCl (Thiamine 100 Mg Tab) 100 mg PO DAILY [facility] Last Admin: 01/03/21 08:50 Dose: 100 mg Documented by: Zolpidem Tartrate (Zolpidem 5 Mg Tab) 5 mg PO BEDTIME PRN PRN Reason: Sleep Last Admin: 01/02/21 21:03 Dose: 5 mg Documented by: Discontinued Medications Acetaminophen (Acetaminophen 325 Mg Tab) 650 mg PO Q4H PRN PRN Reason: Pain (Mild 1-3)/fever Last Admin: 12/26/20 08:24 Dose: 650 mg Documented by: Hydrocodone Bitart/Acetaminophen (Acetaminophen/Hydrocodone 325-5 Mg Tab) 1 tab PO Q4H PRN PRN Reason: Pain (moderate 4-6) Last Admin: 12/26/20 04:04 Dose: 1 tab Documented by: Hydrocodone Bitart/Acetaminophen (Acetaminophen/Hydrocodone 325-5 Mg Tab) 2 tab PO Q4H PRN PRN Reason: Pain (severe 7-10) Last Admin: 12/25/20 22:20 Dose: 2 tab Documented by: Alprazolam (Alprazolam 0.5 Mg Tab) 0.5 mg PO ONETIME ONE Stop: 12/30/20 08:46 Last Admin: 12/30/20 09:22 Dose: 0.5 mg Documented by: Ceftriaxone Sodium (Ceftriaxone 2 Gm Vial) 2 gm IVPUSH ONETIME ONE Stop: 12/24/20 20:40 Last Admin: 12/24/20 21:12 Dose: 2 gm Documented by: Ceftriaxone Sodium (Ceftriaxone 1 Gm Vial) 1 gm IVPUSH Q24H [facility] Last Admin: 12/26/20 21:23 Dose: 1 gm Documented by: Ceftriaxone Sodium (Ceftriaxone 1 Gm Vial) 2 gm IVPUSH Q24H [facility] Last Admin: 12/28/20 10:14 Dose: 2 gm Documented by: Ceftriaxone Sodium (Ceftriaxone 2 Gm Vial) 2 gm IVPUSH Q24H [facility] Stop: 01/12/21 11:01 Last Admin: 01/03/21 16:53 Dose: Not Given Documented by: Al Hydroxide/Mg Hydroxide 15 (ml/ Lidocaine HCl 15 ml) 0 ml PO ONETIME ONE Stop: 12/22/20 21:46 Last Admin: 12/22/20 21:50 Dose: 30 ml Documented by: Daptomycin (Daptomycin 500 Mg Vial) 390 mg 6 mg/kg (390 mg) IV Q24H [facility] Last Admin: 01/03/21 16:53 Dose: Not Given Documented by: Dexamethasone (Dexamethasone 4 Mg/Ml Sdv) 6 mg IVPUSH ONETIME ONE Stop: 12/27/20 10:48 Last Admin: 12/27/20 11:21 Dose: 6 mg Documented by: Dexamethasone (Dexamethasone 4 Mg/Ml Sdv) 8 mg IVPUSH DAILY [facility] Stop: 12/31/20 10:46 Last Admin: 12/29/20 11:08 Dose: 8 mg Documented by: Dextrose/Water (50% Dextrose In Water 50 Ml Syringe) 50 ml IVPUSH ASDIRECTED PRN PRN Reason: Hypoglycemia Dextrose/Water (50% Dextrose In Water 50 Ml Syringe) 50 ml IVPUSH ASDIRECTED PRN PRN Reason: Hypoglycemia Doxycycline Hyclate (Doxycycline 100 Mg Tab) 100 mg PO BID [facility] Last Admin: 12/27/20 07:59 Dose: 100 mg Documented by: Erythromycin (Erythromycin Base 0.5% Ophth Oint 1 Gm Tube) 0 gm EYEBOTH BID [facility] Stop: 12/31/20 23:00 Last Admin: 12/26/20 08:25 Dose: 1 applic Documented by: Gabapentin (Gabapentin 300 Mg Cap) 300 mg PO BID [facility] Last Admin: 12/27/20 07:59 Dose: 300 mg Documented by: Glucagon (Glucagon,Human Recombinant 1 Mg Vial) 1 mg IM ASDIRECTED PRN PRN Reason: Hypoglycemia Glucagon (Glucagon,Human Recombinant 1 Mg Vial) 1 mg IM ASDIRECTED PRN PRN Reason: Hypoglycemia Hydromorphone HCl (Hydromorphone 2 Mg/Ml Sdv) 1 mg IVPUSH Q2H PRN PRN Reason: Pain (severe 7-10) Last Admin: 01/01/21 13:22 Dose: 1 mg Documented by: Hydromorphone HCl (Hydromorphone 2 Mg/Ml Sdv) 0.5 mg IVPUSH Q2H PRN PRN Reason: Pain (severe 7-10) Last Admin: 01/02/21 07:56 Dose: 0.5 mg Documented by: Sodium Chloride (Normal Saline) 1,000 mls @ 999 mls/hr IV .BOLUS ONE Stop: 12/22/20 18:57 Last Admin: 12/22/20 18:10 Dose: 999 mls/hr Documented by: Sodium Chloride (Normal Saline) 1,000 mls @ 999 mls/hr IV .BOLUS ONE Stop: 12/22/20 21:14 Last Admin: 12/22/20 21:00 Dose: 999 mls/hr Documented by: Sodium Chloride (Normal Saline) 1,000 mls @ 999 mls/hr IV .BOLUS ONE Stop: 12/22/20 21:14 Last Admin: 12/22/20 22:28 Dose: 999 mls/hr Documented by: Potassium Chloride 20 meq/ (Premix) 100 mls @ 50 mls/hr IV ONETIME ONE Stop: 12/22/20 22:13 Last Admin: 12/22/20 21:50 Dose: 50 mls/hr Documented by: Potassium Chloride/Dextrose/Sod Cl (D5 1/2 Ns W/ 20 Meq/L Kcl) 1,000 mls @ 150 mls/hr IV ASDIRECTED [facility] Stop: 12/23/20 08:20 Last Admin: 12/23/20 01:39 Dose: 150 mls/hr Documented by: Potassium Chloride/Dextrose/Sod Cl (D5 1/2 Ns W/ 20 Meq/L Kcl) 1,000 mls @ 150 mls/hr IV Q7H [facility] Sodium Chloride (Normal Saline) 1,000 mls @ 150 mls/hr IV ASDIRECTED [facility] Last Admin: 12/24/20 11:54 Dose: 150 mls/hr Documented by: Magnesium Sulfate 4 gm/ (Dextrose/Water) 258 mls @ 100 mls/hr IV ONETIME ONE Stop: 12/23/20 10:06 Last Admin: 12/23/20 13:00 Dose: Not Given Documented by: Bamlanivimab 700 mg/Etesevimab 1,400 mg/ Sodium Chloride 160 mls @ 310 mls/hr IV ONETIME ONE Stop: 12/23/20 12:30 Last Admin: 12/23/20 12:29 Dose: 310 mls/hr Documented by: Azithromycin 500 mg/ Sodium (Chloride) 250 mls @ 250 mls/hr IV Q24H [facility] Last Admin: 12/25/20 10:03 Dose: 250 mls/hr Documented by: Doxycycline Hyclate 100 mg/ (Sodium Chloride) 100 mls @ 100 mls/hr IV Q12H [facility] Last Admin: 12/31/20 08:29 Dose: 100 mls/hr Documented by: Vancomycin HCl 1 gm/ Premix 200 mls @ 200 mls/hr IV Q12H [facility] Stop: 01/14/21 20:01 Last Admin: 12/31/20 21:06 Dose: Not Given Documented by: Vancomycin HCl 1 gm/ Premix 200 mls @ 200 mls/hr IV Q12H [facility] Last Admin: 01/03/21 09:14 Dose: 200 mls/hr Documented by: Daptomycin 390 mg/ Sodium (Chloride) 50 mls @ 100 mls/hr IV Q24H [facility] Last Admin: 01/03/21 16:54 Dose: Not Given Documented by: Ibuprofen (Ibuprofen 200 Mg Tab) 200 mg PO Q6H [facility] Last Admin: 12/30/20 08:07 Dose: 200 mg Documented by: Insulin Glargine (Insulin Glargine,Human Rec. Analog 100 Units/Ml 3 Ml Pen) 30 units SUBCUT BID [facility] Last Admin: 12/29/20 20:30 Dose: Not Given Documented by: Insulin Glargine (Insulin Glargine,Human Rec. Analog 100 Units/Ml 3 Ml Pen) 15 units SUBCUT ONETIME ONE Stop: 12/27/20 08:59 Last Admin: 12/27/20 09:20 Dose: 15 unit Documented by: Insulin Glargine (Insulin Glargine,Human Rec. Analog 100 Units/Ml 3 Ml Pen) 35 units SUBCUT BID [facility] Last Admin: 12/31/20 21:13 Dose: 35 units Documented by: Insulin Glargine (Insulin Glargine,Human Rec. Analog 100 Units/Ml 3 Ml Pen) 30 units SUBCUT BID [facility] Last Admin: 01/01/21 22:14 Dose: Not Given Documented by: Insulin Glargine (Insulin Glargine,Human Rec. Analog 100 Units/Ml 3 Ml Pen) 15 units SUBCUT ONETIME ONE Stop: 01/01/21 09:11 Last Admin: 01/01/21 09:42 Dose: 15 unit Documented by: Insulin Glargine (Insulin Glargine,Human Rec. Analog 100 Units/Ml 3 Ml Pen) 28 units SUBCUT BID [facility] Last Admin: 01/02/21 20:57 Dose: 28 units Documented by: Insulin Human Lispro (Insulin Lispro 100 Unit/Ml 3 Ml Kwikpen) 0 unit SUBCUT TIDMEALS [facility]; Protocol Last Admin: 12/30/20 08:02 Dose: 15 units Documented by: Insulin Human Lispro (Insulin Lispro 100 Unit/Ml 3 Ml Kwikpen) 20 unit SUBCUT ONETIME ONE Stop: 12/29/20 20:55 Last Admin: 12/29/20 21:17 Dose: 20 units Documented by: Insulin Human Lispro (Insulin Lispro 100 Unit/Ml 3 Ml Kwikpen) 10 unit SUBCUT ONETIME ONE Stop: 01/03/21 08:54 Last Admin: 01/03/21 09:14 Dose: 10 units Documented by: Insulin Human Regular (Insulin Regular, Human 100 Units/Ml 3 Ml Vial) 10 unit IV ONETIME ONE Stop: 12/22/20 20:16 Last Admin: 12/22/20 20:55 Dose: 10 units Documented by: Iopamidol (Iopamidol 755 Mg/Ml 100 Ml Bottle) 85 ml IV . DIRECTED ONE Stop: 12/27/20 09:19 Last Admin: 12/27/20 10:02 Dose: Not Given Documented by: Iopamidol (Iopamidol 755 Mg/Ml 100 Ml Bottle) 85 ml IV . DIRECTED ONE Stop: 12/27/20 09:01 Last Admin: 12/28/20 08:45 Dose: 85 ml Documented by: Iopamidol (Iopamidol 755 Mg/Ml 100 Ml Bottle) 85 ml IV . DIRECTED ONE Stop: 01/02/21 10:19 Last Admin: 01/02/21 13:49 Dose: 85 ml Documented by: Ketorolac Tromethamine (Ketorolac 30 Mg/Ml Sdv) 30 mg IVPUSH ONETIME ONE Stop: 12/22/20 17:57 Last Admin: 12/22/20 18:10 Dose: 30 mg Documented by: Ketorolac Tromethamine (Ketorolac 30 Mg/Ml Sdv) 30 mg IVPUSH Q6H [facility] Stop: 12/28/20 00:43 Last Admin: 12/24/20 18:17 Dose: 30 mg Documented by: Ketorolac Tromethamine (Ketorolac 30 Mg/Ml Sdv) 30 mg IVPUSH Q6H PRN PRN Reason: Headache/Pain Stop: 12/29/20 22:23 Ketorolac Tromethamine (Ketorolac 30 Mg/Ml Sdv) 30 mg IVPUSH Q6H [facility] Stop: 12/29/20 03:01 Last Admin: 12/29/20 04:11 Dose: 30 mg Documented by: Lorazepam (Lorazepam 0.5 Mg Tab) 0.5 mg PO ONETIME ONE Stop: 12/23/20 12:04 Last Admin: 12/23/20 12:30 Dose: 0.5 mg Documented by: Lorazepam (Lorazepam 1 Mg Tab) 0 mg PO ASDIRECTED [facility]; Protocol Lorazepam (Lorazepam 2 Mg/Ml Sdv) 0 mg IV ASDIRECTED [facility]; Protocol Magnesium Oxide (Magnesium Oxide 400 Mg Tab) 400 mg PO Q6H [facility] Stop: 12/25/20 01:00 Last Admin: 12/25/20 00:17 Dose: 400 mg Documented by: Metoclopramide HCl (Metoclopramide 10 Mg/2 Ml Sdv) 10 mg IVPUSH ONETIME ONE Stop: 12/22/20 19:27 Last Admin: 12/22/20 19:37 Dose: 10 mg Documented by: Metoclopramide HCl (Metoclopramide 10 Mg/2 Ml Sdv) 10 mg IVPUSH Q6H [facility] Stop: 12/24/20 00:45 Last Admin: 12/24/20 00:46 Dose: 10 mg Documented by: Morphine Sulfate (Morphine 2 Mg/Ml Syringe) 2 mg IVPUSH Q4H PRN PRN Reason: Pain (severe 7-10) Last Admin: 01/01/21 06:43 Dose: 2 mg Documented by: Ondansetron HCl (Ondansetron 4 Mg/2 Ml Sdv) 4 mg IVPUSH ONETIME ONE Stop: 12/22/20 17:57 Last Admin: 12/22/20 18:10 Dose: 4 mg Documented by: Potassium Chloride (Potassium Chloride 20 Meq Tab.Er) 40 meq PO ONETIME ONE Stop: 12/24/20 07:55 Last Admin: 12/24/20 09:07 Dose: 40 meq Documented by: Sodium Chloride (Sodium Chloride 0.9% 10 Ml Syringe) 30 ml FLUSH ASDIRECTED [facility] Stop: 12/23/20 16:00 Vancomycin HCl (Pharmacy To Dose - Vancomycin) 1 dose .XX ASDIRECTED [facility] - Exam Central Line Total Time: 4Days 2Hours General: Alert, Oriented, Cooperative HEENT: Other (Wosening swelling of forehead, bilateral eyelids, can't see eyelashes, area across eyelids that was scabbed over now has slough tissue present. Erythema over eyelids and lateral forehead, left eyelid is most swollen. TTP over maxilla with increased swelling now. ) Neck: Lymphadenopathy Cardiovascular: Regular Rate, Regular Rhythm GI/Abdominal Exam: Normal Bowel Sounds, Soft, Non-Tender, No Distention (Female) Exam: Deferred Extremities: No Pedal Edema, Normal Capillary Refill Peripheral Pulses: 2+: Radial (L), Radial (R), Posterior Tibial (L), Posterior Tibial (R), Dorsalis Pedis (L), Dorsalis Pedis (R) Skin: Other (see HEENT) Wound/Incisions: Drainage, Erythema (worsening) Psy/Mental Status: Anxious - Patient Data Lab Results Last 24 hrs: Laboratory Results - last 24 hr 01/02/21 01/03/21 01/03/21 Range/Units 20:27 07:00 07:00 WBC 15.0 H (3.0-10.3) x10-3/uL RBC 2.90 L (3.60-5.20) x10(6)uL Hgb 9.0 L (11.4-15.5) g/dL Hct 27.0 L (34.2-48.2) % MCV 93.0 (76.7-100.5) fL MCH 31.1 (23.9-33.9) pg MCHC 33.4 (31.9-34.8) g/dL RDW 14.4 (12.3-16.5) % Plt Count 586 H (151-488) x10(3)uL MPV 6.8 L (7.1-12.4) fL Add Manual Diff Yes Neutrophils % (Manual) 87 H (46-82) % Lymphocytes % (Manual) 10 L (13-37) % Monocytes % (Manual) 3 L (4-12) % Sodium 132 L (135-145) mmol/L Potassium 4.6 (3.5-5.3) mmol/L Chloride 99 L (100-110) mmol/L Carbon Dioxide 25 (21-32) mmol/L BUN 14 (7-18) mg/dL Creatinine 0.9 (0.55-1.02) mg/dL Est Cr Clr Drug Dosing 57.17 mL/min Estimated GFR (MDRD) > 60 (>60) BUN/Creatinine Ratio 15.6 (9-20) Glucose 454 H* D (80-116) mg/dL POC Glucose 216 H D (80-116) mg/dL Calcium 8.0 L (8.6-10.2) mg/dL Creatine Kinase (60-160) IU/L 01/03/21 01/03/21 01/03/21 Range/Units 07:00 11:58 17:12 WBC (3.0-10.3) x10-3/uL RBC (3.60-5.20) x10(6)uL Hgb (11.4-15.5) g/dL Hct (34.2-48.2) % MCV (76.7-100.5) fL MCH (23.9-33.9) pg MCHC (31.9-34.8) g/dL RDW (12.3-16.5) % Plt Count (151-488) x10(3)uL MPV (7.1-12.4) fL Add Manual Diff Neutrophils % (Manual) (46-82) % Lymphocytes % (Manual) (13-37) % Monocytes % (Manual) (4-12) % Sodium (135-145) mmol/L Potassium (3.5-5.3) mmol/L Chloride (100-110) mmol/L Carbon Dioxide (21-32) mmol/L BUN (7-18) mg/dL Creatinine (0.55-1.02) mg/dL Est Cr Clr Drug Dosing mL/min Estimated GFR (MDRD) (>60) BUN/Creatinine Ratio (9-20) Glucose (80-116) mg/dL POC Glucose 175 H 294 H D (80-116) mg/dL Calcium (8.6-10.2) mg/dL Creatine Kinase 37 L (60-160) IU/L Result Diagrams: 01/03/21 07:00 01/03/21 07:00 Louie Results Last 24 hrs: Microbiology 12/31/20 15:50 Gram Stain - Final Eye, Left Testing performed by: [address] [id number] SEE SEPARATE/SCANNED REPORT Eye Culture - Final Testing performed by: [address] [id number] SEE SEPARATE/SCANNED REPORT Sepsis Event Note - Evaluation Sepsis Screening Result: No Definite Risk - Focused Exam Vital Signs: Vital Signs BP 01/03/21 08:48 146/88 H - Problem List & Annotations (1) Cellulitis SNOMED Code(s): 664246030 Code(s): L03.90 - CELLULITIS, UNSPECIFIED Status: Acute Current Visit: Yes Qualifiers: Site of cellulitis: face Qualified Code(s): L03.211 - Cellulitis of face Annotation/Comment:: Preseptal periorbital cellulitis, repeat CT 01/02 showed worsening cellulitis with gas formation, no abscess. Wound culture: MRSA. Isolation: contact, MRSA. (2) Leukocytosis SNOMED Code(s): 073256197, 632069575 Code(s): D72.829 - ELEVATED WHITE BLOOD CELL COUNT, UNSPECIFIED Status: Acu te Current Visit: Yes Annotation/Comment:: Improved 15.0. (3) Facial contusion SNOMED Code(s): 955711364 Code(s): S00.83XA - CONTUSION OF OTHER PART OF HEAD, INITIAL ENCOUNTER Status: Acute Current Visit: Yes (4) SARS-CoV-2 positive SNOMED Code(s): 5067215723854959 Code(s): U07.1 - COVID-19 Status: Acute Current Visit: Yes Annotation/Comment:: Out of isolation for Covid. (5) Head, face & neck injury SNOMED Code(s): 741744193 Code(s): S19.9XXA - UNSPECIFIED INJURY OF NECK, INITIAL ENCOUNTER; S09.90XA - UNSPECIFIED INJURY OF HEAD, INITIAL ENCOUNTER; S09.93XA - UNSPECIFIED INJURY OF FACE, INITIAL ENCOUNTER Status: Acute Current Visit: No (6) Diabetes mellitus type 2 in obese SNOMED Code(s): 68294238 Code(s): E11.69 - TYPE 2 DIABETES MELLITUS WITH OTHER SPECIFIED COMPLICATION; E66.9 - OBESITY, UNSPECIFIED Status: Chronic Current Visit: Yes (7) Hypothyroidism SNOMED Code(s): 50313477 Code(s): E03.9 - HYPOTHYROIDISM, UNSPECIFIED Status: Chronic Current Visit: Yes (8) Hyponatremia SNOMED Code(s): 58799399 Code(s): E87.1 - HYPO-OSMOLALITY AND HYPONATREMIA Status: Resolved Curre nt Visit: Yes Annotation/Comment:: NA 140. (9) Hypokalemia SNOMED Code(s): 83338981 Code(s): E87.6 - HYPOKALEMIA Status: Resolved Current Visit: Yes Annotation/Comment:: Resolved, 4.1 (10) History of MRSA infection SNOMED Code(s): 498091715, 768152505 Code(s): Z86.14 - PERSONAL HISTORY OF METHICILLIN RESIS STAPH INFECTION Status: Acute Current Visit: Yes Onset Date: ~05/2018 - Problem List Review Problem List Initiated/Reviewed/Updated: Yes - My Orders Last 24 Hours: My Active Orders 01/03/21 09:00 Insulin Glarg,Human.Rec.Analog [LantUS Solostar] 30 units SUBCUT BID 01/03/21 10:44 Renew/Continue Central Line Access [OM.PC] Routine 01/03/21 14:30 Cefepime [Maxipime] 2 gm IVPUSH Q8H 01/03/21 16:00 DAPTOmycin [Cubicin] 390 mg Sodium Chloride 0.9% [Normal Saline] 50 ml IV Q24H 01/03/21 17:55 Renew/Continue Central Line Access [OM.PC] Routine 01/03/21 20:30 VANCOMYCIN TROUGH [CHEM] Routine - Plan Plan:: 1. Preseptal periorbital Cellulitis secondary to trauma: worsening. Wound culture: grew MRSA, sensitive to Daptomycin(1), Clindamycin(<=0.5), Tetracycline(<=4), Linezolid(2), Vancomycin(2), Bactrim(<=0.5/9.5) Had spoke to Tomi Salmon Infectious Disease(ID) on Tuesday night and had discontinued Doxycyline, kept Rocephin 2g IV q24h, & started Vancomycin per pharmacy q12h, trough goal 10-15, trough 11.3, Flagyl 500 mg IV q8h day 05/28. Called back and spoke with Tomi Vieira ID, reported the culture results to her: she recommended Discontinuing Rocephin, change to Cefepime 2 g IV q8h, Discontinue Vancomycin and change to Daptomycin 6 mg/kg IV q24h and keep Flagyl. She also recommended having patient upload photos to her MyChart and consulting Ophthalmology irrigation installation specialist to get their recommendations. Also to send all CT facial/sinus to [facility] so ophthalmology can review. Photos uploaded in chart, spoke with Argelia at [facility], she was going to verify that photos were in chart, have Ophthalmology irrigation installation specialist look at CTs and photos and call me back. Still awaiting call at time of note. Acetaminophen 650 mg q6h, Sieper 10/325 mg q4h as needed, Dilaudid 1 mg IV q2h as needed severe pain. WBC decreased 15.0, Plts increased 575. Repeat labs tomorrow. Continue moist warm compresses to eyes. Hydroxyzine po as needed nausea or Zofran IV as needed nausea. Contact precautions for MRSA. 2. DM: glucose checks qid&hs, Humalog high dose sliding scale change to qid&hs. Increased back to Lantus 30 units bid. Adjust as needed. 3. Covid positive: came out of isolation Jan 01 at 2000. Received Bamlanivimab infusion. 4. Disposition: Adjusted antibiotics again today. Dr Conway felt since her BC were negative that ideally she could transition to orals but awaiting ophthalmology imput if she needs to be transferred. Dr Conway also stated that if she wasn't improving in 24-48 hours on new regiment that she would need to be transferred from ID standpoint but currently she wouldn't do anything different.
[2021-01-03] MEDS: Mirtazapine 15 MG Tab PO SCH (21:11)
[2021-01-03] MEDS: Mupirocin Oint 22 GM Tube TOP SCH (22:00)
[2021-01-04] MEDS: Enoxaparin 40 MG/0.4 ML Syringe SUBCUT SCH (00:09)
[2021-01-04] MEDS: Ibuprofen 600 MG Tab PO SCH ×2 (02:22→08:24)
[2021-01-04] MEDS: Acetaminophen 325 MG Tab PO SCH ×3 (02:22→15:07)
[2021-01-04] MEDS: HYDROmorphone 2 MG/ML SDV IVPUSH PRN ×3 (02:22→13:39)
[2021-01-04] MEDS: metroNIDAZOLE/Normal Saline 500 MG in Premix Bag 1 BAG IV SCH ×2 (02:30→09:32)
[2021-01-04] MEDS: Sodium Chloride 0.9% 10 ML Syringe FLUSH PRN ×6 (02:31→14:12)
[2021-01-04] MEDS: Heparin Sodium 10 Units/ML 5 ML Syringe FLUSH PRN ×5 (03:31→14:20)
[2021-01-04] MEDS: Levothyroxine 112 MCG Tab PO SCH (05:17)
[2021-01-04] MEDS: Acetaminophen/HYDROcodone 325-10 MG Tab PO PRN (06:27)
[2021-01-04] MEDS: Cefepime 2 GM Vial IVPUSH SCH ×2 (06:28→14:12)
[2021-01-04] MEDS: Insulin Lispro 100 Unit/ML 3 ML KwikPen SUBCUT SCH ×2 (07:33→11:06)
[2021-01-04] MEDS: Gabapentin 400 MG Cap PO SCH ×2 (08:23→13:39)
[2021-01-04] MEDS: Saccharomyces Boulardii (Probiotic) 250 MG Cap PO SCH (08:24)
[2021-01-04] MEDS: Folic Acid 1 MG Tab PO SCH (08:25)
[2021-01-04] MEDS: PARoxetine 20 MG Tab PO SCH (08:25)
[2021-01-04] MEDS: Pantoprazole 40 MG Tab.CR PO SCH (08:26)
[2021-01-04] MEDS: Multivitamin Tab PO SCH (08:26)
[2021-01-04] MEDS: amLODIPine 10 MG Tab PO SCH (08:26)
[2021-01-04] MEDS: Polyethylene Glycol 3350 Powder 17 GM Packet PO SCH (08:27)
[2021-01-04] MEDS: Thiamine 100 MG Tab PO SCH (08:27)
[2021-01-04] MEDS: Mupirocin Oint 22 GM Tube TOP SCH (08:42)
[2021-01-04] MEDS: Insulin Glargine,Human Rec. Analog 100 Units/ML 3 ML Pen SUBCUT SCH (08:42)
[2021-01-04] MEDS ORDERED: Acetaminophen/oxyCODONE 325-5 MG Tab PO PRN (10:52)
--- NOTE | 2021-01-04 14:14 | PCM.DCSUM1 ---
Discharge Summary - Hospital Course HPI Initial Comments: 55-year-old lady came to the emergency department due to a history of flu-like symptoms that included nausea and vomiting. She states that she fell and hit her head hard about 3 days ago. Emergency room notes show that she states she may have been intoxicated. CTs of face and head are negative. Patient was found to be Covid positive and found to likely have diabetic ketoacidosis. She was given insulin, fluids, electrolyte replenishment and admitted to inpatient status for treatment of DKA and Covid positive pneumonia. Diagnosis: Stroke: No - Discharge Data Discharge Date: 01/04/21 ([facility]) Discharge Disposition: DC/Tfer to Acute Hospital 02 Condition: Good - Referral to Home Health Primary Care Physician: PCP None - Discharge Diagnosis/Problem(s) (1) Cellulitis SNOMED Code(s): 376644025 ICD Code: L03.90 - CELLULITIS, UNSPECIFIED Status: Acute Current Visit: Yes Problem Details: Preseptal periorbital cellulitis, repeat CT 01/02 showed worsening cellulitis, today more fluctuant, picture upload to her [place] chart. Spoke with Dr Steve, ophthalmology, will need I&D. Wound culture: MRSA. Isolation: contact, MRSA. Qualifiers: Site of cellulitis: face Qualified Code(s): L03.211 - Cellulitis of face (2) Leukocytosis SNOMED Code(s): 484538517, 451464030 ICD Code: D72.829 - ELEVATED WHITE BLOOD CELL COUNT, UNSPECIFIED Status: Acute Current Visit: Yes Problem Details: Improved 12.6 (3) Facial contusion SNOMED Code(s): 622091228 ICD Code: S00.83XA - CONTUSION OF OTHER PART OF HEAD, INITIAL ENCOUNTER Status: Acute Current Visit: Yes Onset Date: ~12/21/20 (4) SARS-CoV-2 positive SNOMED Code(s): 3865872155167531 ICD Code: U07.1 - COVID-19 Status: Acute Current Visit: Yes Onset Date: ~12/22/20 Problem Details: Out of isolation for Covid. Received monoclonal antibody on 12/23. Asymptomatic, 98% on Room air. (5) Head, face & neck injury SNOMED Code(s): 504830098 ICD Code: S19.9XXA - UNSPECIFIED INJURY OF NECK, INITIAL ENCOUNTER; S09.90XA - UNSPECIFIED INJURY OF HEAD, INITIAL ENCOUNTER; S09.93XA - UNSPECIFIED INJURY OF FACE, INITIAL ENCOUNTER Status: Acute Current Visit: No (6) Diabetes mellitus type 2 in obese SNOMED Code(s): 52844870 ICD Code: E11.69 - TYPE 2 DIABETES MELLITUS WITH OTHER SPECIFIED COMPLICATION; E66.9 - OBESITY, UNSPECIFIED Status: Chronic Current Visit: Yes (7) Hypothyroidism SNOMED Code(s): 51958672 ICD Code: E03.9 - HYPOTHYROIDISM, UNSPECIFIED Status: Chronic Current Visit: Yes (8) History of MRSA infection SNOMED Code(s): 574013987, 506449855 ICD Code: Z86.14 - PERSONAL HISTORY OF METHICILLIN RESIS STAPH INFECTION Status: Chronic Current Visit: Yes Onset Date: ~05/2018 (9) Hyponatremia SNOMED Code(s): 04773544 ICD Code: E87.1 - HYPO-OSMOLALITY AND HYPONATREMIA Status: Resolved Current Visit: Yes Problem Details: NA 134. (10) Hypokalemia SNOMED Code(s): 44091962 ICD Code: E87.6 - HYPOKALEMIA Status: Resolved Current Visit: Yes Problem Details: Resolved, 4.4 (11) DKA (diabetic ketoacidosis) SNOMED Code(s): 272733241, 517595682 ICD Code: E11.10 - TYPE 2 DIABETES MELLITUS WITH KETOACIDOSIS WITHOUT COMA Status: Resolved Current Visit: Yes (12) Dehydration SNOMED Code(s): 95365824 ICD Code: E86.0 - DEHYDRATION Status: Resolved Current Visit: Yes - Patient Summary/Data Hospital Course: Patient fell on 12/21 carrying something up the stairs, seen in ER, has small laceration from her glasses, ER note stated it was approximated and didn't require suturing. She had negative CT head and discharged home. She returned on 12/22 for nausea, vomiting, BS were over 600, was in DKA, hyponatremia. Given Insulin, IVF, since she was to be admitted she was tested for Covid & found to be positive. She was vaccinated, had positive contacts over 12/13-12/15, started having flu-like symptoms on 12/17. Chest x-ray negative, saturation mid to high 90s was given Bamlanivimab/etesevimab on 12/23. WBC 29.6. She was started on Rocephin & Azithromycin for suspected secondary pneumonia. She was in Covid isolation until evening of 01/01. She had trended up on her Sodium since admission to 135 on 12/26, she dropped 127 on 12/27 but came back up 134 on 12/28 without intervention, she had another episode on 12/30 where she dropped to 129, then next day was back up to 138, she is 134 today. Her blood sugars have been fluctuating back and forth, had to hold a few doses of Lantus due to hypoglycemia but then has trended back up so increased Lantus back to 30 units bid. On Humalog high dose sliding scale: most recent BS were 175, 294, 319, 249, 252, required 26 units of sliding scale in past 24 hours. Her eyes were swollen, red on admission, on 12/23 left eye swollen shut, right eye slightly swollen but still could see. 12/24: both eyes swollen shut, erythromycin ointment ordered. 12/26: She had worsening swelling and erythema, eyes swollen shut, had scabs over bilateral eyelids, & nose bridge, all 3 areas were draining serous fluid. Blood culture: No growth at 5 days. On 12/26: Azithromycin & Erythromycin ointment discontinued and started Doxycycline po(2 doses) then changed to IV for facial cellulitis, Rocephin increased to 2G IV. Decadron given x 2 doses(12/27, & 12/29), swelling improved for a day then worsened over the weekend. Decadron seemed to make swelling worsen and just raise her WBCs. CT facial/sinus on 12/27 showed preseptal periorbital cellulitis without abscess formation. WBC was 16.6 on 12/27, went up to 20 on 12/28, 25.1 on 12/30. She had PICC line placed for IV antibiotics on 12/30, also started on Florastor bid. She remained afebrile. Started having purulent drainage from nose bridge & left eye, wound culture collected on 12/31. Pt stated she had been on Daptomycin & Doxycycline before for MRSA & improved. She clinically was not improving, repeat CT facial/sinus on 12/31, showed worsening cellulitis, no abscess, but some areas of gas present in tissues. Flagyl 500 mg IV q8h started. Spoke with [place] [facility], no medical beds available but asked to speak to [place] ID collection agent, Dr Nicholas; he advised keeping the Rocephin, Flagyl and discontinue Doxycycline, start Vancomycin. Advised 14 days of IV antibiotics, Day 1 starting 01/01. Had also attempted transfer to [facility] and [facility] but no beds available. Preliminary cultures came back G[facility], her WBC continued to trend down 25.1(12/30), and 12.6 today. Her facial swelling, erythema and drainage continued to increase. Repeated CT facial/sinus on 01/02, showed severe cellulitis but no abscess/drainable fluid. On 01/03 WBC was 15.0 but swelling worse than on 01/02. Wound culture came back MRSA sensitive to Daptomycin(1), Clindamycin(<=0.5), Tetracycline(<=4), Linezolid(2), Vancomycin(2), Bactrim(<=0.5/9.5), resistant to Rocephin. In MRSA isolation. Called back to [facility], spoke with [place] ID, Dr Conway, reviewed wound culture ID & sensitivities with her; recommended discontinue Rocephin & Vancomycin, keep Flagyl and start Cefepime 2 g IV q8h, get CK which was 37 and start Daptomycin 6 mg/kg IV q24h. She also recommended speaking to Ophthalmology. Pt had been keeping photo journal of her infection on her phone so we had her upload pictures from admission, earlier this week and 01/[address] to [facility]. Also all CT images transmitted via PACS to [facility]. Spoke with [place] [facility] collection agent, Dr Steve, she wasn't able to view CTs but could see pictures pt uploaded and advised added Bactroban ointment to slough areas on her eyelids, warm compresses(which had been done since 12/26), kristy skin margins, & to call back today(01/04) if she is getting worse. Her WBC today was 12.6, but swelling stayed within skin markings on her forehead but swelling was more pronounced anteriorly, had difficulty keeping skin marker in place due to increased purulent drainage from both her eyes & nose. Bilateral eyelids more swollen and more erythematous, hot to touch. We took pictures(3) and uploaded to her [employer] and called [place] [facility] and spoke with Dr Steve, she advised sending patient up for I&D. Spoke with Dr Tillman, hospitalist who accepted the patient in transfer. Pt is requiring Dilaudid 1 mg IV q2h ordered as needed but she has been using it every 2 hrs, also was on Hydrocodone/APAP which we're giving with Dilaudid but was not controlling the pain so switched to Oxycodone/APAP 5/325 mg po q4h. She went by [facility] in stable condition, left at 1525, going to [facility] room 821. - Patient Instructions Diet: Diabetic Diet Activity: As Tolerated Driving: Do Not Drive Other/Special Instructions: Transfer to [facility] for surgical intervention for facial abscess. - Discharge Plan *PRESCRIPTION DRUG MONITORING PROGRAM REVIEWED*: Not Applicable *COPY OF PRESCRIPTION DRUG MONITORING REPORT IN PATIENT EMANI: Not Applicable Home Medications: Home Meds amLODIPine [Norvasc] 10 mg PO DAILY 12/21/20 [History] Gabapentin [Neurontin] 800 mg PO TID 12/23/20 [History] Levothyroxine 112 mcg PO DAILY@0600 12/23/20 [History] Loratadine 10 mg PO DAILY PRN 12/23/20 [History] Mirtazapine 7.5 mg PO BEDTIME 12/23/20 [History] PARoxetine [Paxil] 40 mg PO DAILY 12/23/20 [History] hydrOXYzine HCL [Hydroxyzine HCl] 50 mg PO Q6H PRN 12/23/20 [History] Acetaminophen [Tylenol] 650 mg PO Q6H tablet 01/04/21 [Rx] Acetaminophen/oxyCODONE [Percocet 325-5 MG] 1 tab PO Q4H PRN tablet 01/04/21 [Rx] Cefepime [Maxipime] 2 gm IVPUSH Q8H vial 01/04/21 [Rx] DAPTOmycin [Cubicin] 390 mg IV Q24H vial 01/04/21 [Rx] Dextrose 50% in Water [Dextrose 50%-Water] 50 ml IVPUSH ASDIRECTED PRN syringe 01/04/21 [Rx] Enoxaparin [Lovenox] 40 mg SUBCUT Q24H syringe 01/04/21 [Rx] Folic Acid 1 mg PO DAILY tablet 01/04/21 [Rx] Glucagon,Human Recombinant [Glucagen] 1 mg IM ASDIRECTED PRN vial 01/04/21 [Rx] HYDROmorphone [Dilaudid] 1 mg IVPUSH Q2H PRN sdv 01/04/21 [Rx] Heparin Sodium [Heparin Lock Flush 10 Units/ML] 50 unit FLUSH ASDIRECTED PRN syringe 01/04/21 [Rx] Insulin Glarg,Human.Rec.Analog [Lantus Solostar] 30 units SUBCUT BID pen 01/04/21 [Rx] Insulin Lispro [Humalog] 0 unit SUBCUT QIDACANDBED pen 01/04/21 [Rx] Magnesium Hydroxide [Milk of Magnesia] 30 ml PO Q12H PRN cup 01/04/21 [Rx] Multivitamins [Tab-A-Gunner] 1 tab PO DAILY tablet 01/04/21 [Rx] Mupirocin Oint [Bactroban Oint] 0 gm TOP BID tube 01/04/21 [Rx] Ondansetron [Zofran] 4 mg IVPUSH Q6H PRN vial 01/04/21 [Rx] Pantoprazole [ProTONIX] 40 mg PO DAILY tab.cr 01/04/21 [Rx] Saccharomyces Boulardii [Florastor] 250 mg PO BID cap 01/04/21 [Rx] Sodium Chloride 0.9% [Normal Saline] 50 ml IV Q24H bag 01/04/21 [Rx] Sodium Chloride 0.9% [Saline Flush] 10 ml FLUSH ASDIRECTED PRN syringe 01/04/21 [Rx] Thiamine [Vitamin B-1] 100 mg PO DAILY tablet 01/04/21 [Rx] Zolpidem [Ambien] 5 mg PO BEDTIME PRN tablet 01/04/21 [Rx] bisacodyL [Dulcolax] 10 mg RECTAL DAILY PRN supp 01/04/21 [Rx] metroNIDAZOLE/Normal Saline [Flagyl in NS 500 MG/100 ML] 500 mg IV Q8H bag 01/04/21 [Rx] polyethylene glycoL 3350 [MiraLAX] 17 gm PO DAILY packet 01/04/21 [Rx] Oxygen Therapy Mode: Room Air Forms: ED Department Discharge Referrals: PCP,None [Primary Care Provider] - - Discharge Summary/Plan Comment DC Time >30 min.: Yes Total # of Minutes for Discharge Time: 45 min - General Info Date of Service: 01/04/21 Subjective Update: Sayda's swelling is worse this morning, having more purulent drainage from both eyes. Forehead swelling worsened. Skin was marked last night after speaking with Dr Steve, nurses have been trying to keep edge margins marked but with difficulty due to using warm compresses and wiping drainage from her face. No fevers or chills. Describes pain as throbbing, sharp. She is frustrated that things are getting worse, and concerned bout her vision. Functional Status: Reports: Tolerating Diet, Ambulating, Urinating, New Symptoms - Patient Data Vitals - Most Recent: Last Vital Signs Temp 97.2 F 01/04/21 12:00 Pulse 97 01/04/21 12:00 Resp 16 01/04/21 12:00 BP 132/80 01/04/21 12:00 Pulse Ox 98 01/04/21 12:00 Weight - Most Recent: 143 lb Lab Results - Last 24 hrs: Laboratory Results - last 24 hr 01/03/21 01/03/21 01/03/21 Range/Units 07:00 17:12 21:13 WBC (3.0-10.3) x10-3/uL RBC (3.60-5.20) x10(6)uL Hgb (11.4-15.5) g/dL Hct (34.2-48.2) % MCV (76.7-100.5) fL MCH (23.9-33.9) pg MCHC (31.9-34.8) g/dL RDW (12.3-16.5) % Plt Count (151-488) x10(3)uL MPV (7.1-12.4) fL Neut % (Auto) (30.8-76.2) % Lymph % (Auto) (18.4-52.1) % Morton % (Auto) (4.4-15.7) % Eos % (Auto) (0.6-8.1) % Baso % (Auto) (0.2-1.5) % Neut # (Auto) (1.5-6.3) x10-3/uL Lymph # (Auto) (1.0-4.4) x10-3/uL Morton # (Auto) (0.3-1.0) x10-3/uL Eos # (Auto) (0.0-0.8) x10-3/uL Baso # (Auto) (0.0-0.1) x10-3/uL Sodium (135-145) mmol/L Potassium (3.5-5.3) mmol/L Chloride (100-110) mmol/L Carbon Dioxide (21-32) mmol/L BUN (7-18) mg/dL Creatinine (0.55-1.02) mg/dL Est Cr Clr Drug Dosing mL/min Estimated GFR (MDRD) (>60) BUN/Creatinine Ratio (9-20) Glucose (80-116) mg/dL POC Glucose 294 H D 319 H (80-116) mg/dL Calcium (8.6-10.2) mg/dL Creatine Kinase 37 L (60-160) IU/L 01/04/21 01/04/21 Range/Units 06:35 06:35 WBC 12.6 H (3.0-10.3) x10-3/uL RBC 2.87 L (3.60-5.20) x10(6)uL Hgb 8.9 L (11.4-15.5) g/dL Hct 26.5 L (34.2-48.2) % MCV 92.5 (76.7-100.5) fL MCH 30.9 (23.9-33.9) pg MCHC 33.4 (31.9-34.8) g/dL RDW 14.3 (12.3-16.5) % Plt Count 563 H (151-488) x10(3)uL MPV 6.5 L (7.1-12.4) fL Neut % (Auto) 79.4 H (30.8-76.2) % Lymph % (Auto) 13.3 L (18.4-52.1) % Morton % (Auto) 5.7 (4.4-15.7) % Eos % (Auto) 0.8 (0.6-8.1) % Baso % (Auto) 0.8 (0.2-1.5) % Neut # (Auto) 10.0 H (1.5-6.3) x10-3/uL Lymph # (Auto) 1.7 (1.0-4.4) x10-3/uL Morton # (Auto) 0.7 (0.3-1.0) x10-3/uL Eos # (Auto) 0.1 (0.0-0.8) x10-3/uL Baso # (Auto) 0.1 (0.0-0.1) x10-3/uL Sodium 134 L (135-145) mmol/L Potassium 4.4 (3.5-5.3) mmol/L Chloride 100 (100-110) mmol/L Carbon Dioxide 28 (21-32) mmol/L BUN 12 (7-18) mg/dL Creatinine 0.7 (0.55-1.02) mg/dL Est Cr Clr Drug Dosing 73.51 mL/min Estimated GFR (MDRD) > 60 (>60) BUN/Creatinine Ratio 17.1 (9-20) Glucose 249 H D (80-116) mg/dL POC Glucose (80-116) mg/dL Calcium 8.3 L (8.6-10.2) mg/dL Creatine Kinase (60-160) IU/L DANIKA Results - Last 24 hrs: Microbiology 12/31/20 15:50 Gram Stain - Final Eye, Left Testing performed by: [address] [id number] SEE SEPARATE/SCANNED REPORT Eye Culture - Final Testing performed by: [address] [id number] SEE SEPARATE/SCANNED REPORT Med Orders - Current: Current Medications Acetaminophen (Acetaminophen 325 Mg Tab) 650 mg PO Q6H [facility] Last Admin: 01/04/21 08:25 Dose: 650 mg Documented by: Amlodipine Besylate (Amlodipine 10 Mg Tab) 10 mg PO DAILY [facility] Last Admin: 01/04/21 08:26 Dose: 10 mg Documented by: Bisacodyl (Bisacodyl 10 Mg Supp) 10 mg RECTAL DAILY PRN PRN Reason: Constipation Last Admin: 12/26/20 21:58 Dose: 10 mg Documented by: Cefepime HCl (Cefepime 2 Gm Vial) 2 gm IVPUSH Q8H [facility] Last Admin: 01/04/21 06:28 Dose: 2 gm Documented by: Dextrose/Water (50% Dextrose In Water 50 Ml Syringe) 50 ml IVPUSH ASDIRECTED PRN PRN Reason: Hypoglycemia Enoxaparin Sodium (Enoxaparin 40 Mg/0.4 Ml Syringe) 40 mg SUBCUT Q24H [facility] Last Admin: 01/04/21 00:09 Dose: 40 mg Documented by: Folic Acid (Folic Acid 1 Mg Tab) 1 mg PO DAILY [facility] Last Admin: 01/04/21 08:25 Dose: 1 mg Documented by: Gabapentin (Gabapentin 400 Mg Cap) 800 mg PO TID [facility] Last Admin: 01/04/21 13:39 Dose: 800 mg Documented by: Glucagon (Glucagon,Human Recombinant 1 Mg Vial) 1 mg IM ASDIRECTED PRN PRN Reason: Hypoglycemia Heparin Sodium (Porcine) (Heparin Sodium 10 Units/Ml 5 Ml Syringe) 50 unit FLUSH ASDIRECTED PRN PRN Reason: Keep Vein Open Last Admin: 01/04/21 06:45 Dose: 50 unit Documented by: Hydromorphone HCl (Hydromorphone 2 Mg/Ml Sdv) 1 mg IVPUSH Q2H PRN PRN Reason: Pain (severe 7-10) Last Admin: 01/04/21 13:39 Dose: 1 mg Documented by: Hydroxyzine Pamoate (Hydroxyzine Pamoate 50 Mg Cap) 50 mg PO Q6H PRN PRN Reason: Anxiety/itching/swelling/nause Last Admin: 01/02/21 23:49 Dose: 50 mg Documented by: Sodium Chloride (Normal Saline) 250 mls @ 30 mls/hr IV ASDIRECTED [facility] Last Admin: 12/30/20 10:00 Dose: 30 mls/hr Documented by: Metronidazole 500 mg/ Premix 100 mls @ 100 mls/hr IV Q8H [facility] Stop: 01/14/21 18:01 Last Admin: 01/04/21 09:32 Dose: 100 mls/hr Documented by: Daptomycin 390 mg/ Sodium (Chloride) 50 mls @ 100 mls/hr IV Q24H [facility] Last Admin: 01/03/21 16:13 Dose: 100 mls/hr Documented by: Insulin Glargine (Insulin Glargine,Human Rec. Analog 100 Units/Ml 3 Ml Pen) 30 units SUBCUT BID [facility] Last Admin: 01/04/21 08:42 Dose: 30 units Documented by: Insulin Human Lispro (Insulin Lispro 100 Unit/Ml 3 Ml Kwikpen) 0 unit SUBCUT QIDACANDBED [facility]; Protocol Last Admin: 01/04/21 11:06 Dose: 6 units Documented by: Levothyroxine Sodium (Levothyroxine 112 Mcg Tab) 112 mcg PO DAILY@0600 [facility] Last Admin: 01/04/21 05:17 Dose: 112 mcg Documented by: Loratadine (Loratadine 10 Mg Tab) 10 mg PO DAILY PRN PRN Reason: Allergies Magnesium Hydroxide (Magnesium Hydroxide 400 Mg/5 Ml Susp 30 Ml Cup) 30 ml PO Q12H PRN PRN Reason: Constipation Last Admin: 12/26/20 08:26 Dose: 30 ml Documented by: Mirtazapine (Mirtazapine 15 Mg Tab) 7.5 mg PO BEDTIME [facility] Last Admin: 01/03/21 21:11 Dose: 7.5 mg Documented by: Multivitamins/Minerals/Vitamin C (Multivitamin Tab) 1 tab PO DAILY [facility] Last Admin: 01/04/21 08:26 Dose: 1 tab Documented by: Mupirocin (Mupirocin Oint 22 Gm Tube) 0 gm TOP BID [facility] Last Admin: 01/04/21 08:42 Dose: 1 applic Documented by: Ondansetron HCl (Ondansetron 4 Mg/2 Ml Sdv) 4 mg IVPUSH Q6H PRN PRN Reason: Nausea/Vomiting Oxycodone/Acetaminophen (Acetaminophen/Oxycodone 325-5 Mg Tab) 1 tab PO Q4H PRN PRN Reason: Pain (moderate 4-6) Last Admin: 01/04/21 11:00 Dose: 1 tab Documented by: Pantoprazole Sodium (Pantoprazole 40 Mg Tab.Cr) 40 mg PO DAILY [facility] Last Admin: 01/04/21 08:26 Dose: 40 mg Documented by: Paroxetine HCl (Paroxetine 20 Mg Tab) 40 mg PO DAILY [facility] Last Admin: 01/04/21 08:25 Dose: 40 mg Documented by: Polyethylene Glycol (Polyethylene Glycol 3350 Powder 17 Gm Packet) 17 gm PO DAILY [facility] Last Admin: 01/04/21 08:27 Dose: Not Given Documented by: Saccharomyces Boulardii (Saccharomyces Boulardii (Probiotic) 250 Mg Cap) 250 mg PO BID [facility] Last Admin: 01/04/21 08:24 Dose: 250 mg Documented by: Sodium Chloride (Sodium Chloride 0.9% 10 Ml Syringe) 10 ml FLUSH ASDIRECTED PRN PRN Reason: Keep Vein Open Last Admin: 01/04/21 08:45 Dose: 10 ml Documented by: Thiamine HCl (Thiamine 100 Mg Tab) 100 mg PO DAILY [facility] Last Admin: 01/04/21 08:27 Dose: 100 mg Documented by: Zolpidem Tartrate (Zolpidem 5 Mg Tab) 5 mg PO BEDTIME PRN PRN Reason: Sleep Last Admin: 01/02/21 21:03 Dose: 5 mg Documented by: Discontinued Medications Acetaminophen (Acetaminophen 325 Mg Tab) 650 mg PO Q4H PRN PRN Reason: Pain (Mild 1-3)/fever Last Admin: 12/26/20 08:24 Dose: 650 mg Documented by: Hydrocodone Bitart/Acetaminophen (Acetaminophen/Hydrocodone 325-5 Mg Tab) 1 tab PO Q4H PRN PRN Reason: Pain (moderate 4-6) Last Admin: 12/26/20 04:04 Dose: 1 tab Documented by: Hydrocodone Bitart/Acetaminophen (Acetaminophen/Hydrocodone 325-5 Mg Tab) 2 tab PO Q4H PRN PRN Reason: Pain (severe 7-10) Last Admin: 12/25/20 22:20 Dose: 2 tab Documented by: Hydrocodone Bitart/Acetaminophen (Acetaminophen/Hydrocodone 325-10 Mg Tab) 1 tab PO Q4H PRN PRN Reason: Pain (moderate 4-6) Last Admin: 01/04/21 06:27 Dose: 1 tab Documented by: Alprazolam (Alprazolam 0.5 Mg Tab) 0.5 mg PO ONETIME ONE Stop: 12/30/20 08:46 Last Admin: 12/30/20 09:22 Dose: 0.5 mg Documented by: Ceftriaxone Sodium (Ceftriaxone 2 Gm Vial) 2 gm IVPUSH ONETIME ONE Stop: 12/24/20 20:40 Last Admin: 12/24/20 21:12 Dose: 2 gm Documented by: Ceftriaxone Sodium (Ceftriaxone 1 Gm Vial) 1 gm IVPUSH Q24H [facility] Last Admin: 12/26/20 21:23 Dose: 1 gm Documented by: Ceftriaxone Sodium (Ceftriaxone 1 Gm Vial) 2 gm IVPUSH Q24H [facility] Last Admin: 12/28/20 10:14 Dose: 2 gm Documented by: Ceftriaxone Sodium (Ceftriaxone 2 Gm Vial) 2 gm IVPUSH Q24H [facility] Stop: 01/12/21 11:01 Last Admin: 01/03/21 16:53 Dose: Not Given Documented by: Al Hydroxide/Mg Hydroxide 15 (ml/ Lidocaine HCl 15 ml) 0 ml PO ONETIME ONE Stop: 12/22/20 21:46 Last Admin: 12/22/20 21:50 Dose: 30 ml Documented by: Daptomycin (Daptomycin 500 Mg Vial) 390 mg 6 mg/kg (390 mg) IV Q24H [facility] Last Admin: 01/03/21 16:53 Dose: Not Given Documented by: Dexamethasone (Dexamethasone 4 Mg/Ml Sdv) 6 mg IVPUSH ONETIME ONE Stop: 12/27/20 10:48 Last Admin: 12/27/20 11:21 Dose: 6 mg Documented by: Dexamethasone (Dexamethasone 4 Mg/Ml Sdv) 8 mg IVPUSH DAILY [facility] Stop: 12/31/20 10:46 Last Admin: 12/29/20 11:08 Dose: 8 mg Documented by: Dextrose/Water (50% Dextrose In Water 50 Ml Syringe) 50 ml IVPUSH ASDIRECTED PRN PRN Reason: Hypoglycemia Dextrose/Water (50% Dextrose In Water 50 Ml Syringe) 50 ml IVPUSH ASDIRECTED PRN PRN Reason: Hypoglycemia Doxycycline Hyclate (Doxycycline 100 Mg Tab) 100 mg PO BID [facility] Last Admin: 12/27/20 07:59 Dose: 100 mg Documented by: Erythromycin (Erythromycin Base 0.5% Ophth Oint 1 Gm Tube) 0 gm EYEBOTH BID [facility] Stop: 12/31/20 23:00 Last Admin: 12/26/20 08:25 Dose: 1 applic Documented by: Gabapentin (Gabapentin 300 Mg Cap) 300 mg PO BID [facility] Last Admin: 12/27/20 07:59 Dose: 300 mg Documented by: Glucagon (Glucagon,Human Recombinant 1 Mg Vial) 1 mg IM ASDIRECTED PRN PRN Reason: Hypoglycemia Glucagon (Glucagon,Human Recombinant 1 Mg Vial) 1 mg IM ASDIRECTED PRN PRN Reason: Hypoglycemia Hydromorphone HCl (Hydromorphone 2 Mg/Ml Sdv) 1 mg IVPUSH Q2H PRN PRN Reason: Pain (severe 7-10) Last Admin: 01/01/21 13:22 Dose: 1 mg Documented by: Hydromorphone HCl (Hydromorphone 2 Mg/Ml Sdv) 0.5 mg IVPUSH Q2H PRN PRN Reason: Pain (severe 7-10) Last Admin: 01/02/21 07:56 Dose: 0.5 mg Documented by: Sodium Chloride (Normal Saline) 1,000 mls @ 999 mls/hr IV .BOLUS ONE Stop: 12/22/20 18:57 Last Admin: 12/22/20 18:10 Dose: 999 mls/hr Documented by: Sodium Chloride (Normal Saline) 1,000 mls @ 999 mls/hr IV .BOLUS ONE Stop: 12/22/20 21:14 Last Admin: 12/22/20 21:00 Dose: 999 mls/hr Documented by: Sodium Chloride (Normal Saline) 1,000 mls @ 999 mls/hr IV .BOLUS ONE Stop: 12/22/20 21:14 Last Admin: 12/22/20 22:28 Dose: 999 mls/hr Documented by: Potassium Chloride 20 meq/ (Premix) 100 mls @ 50 mls/hr IV ONETIME ONE Stop: 12/22/20 22:13 Last Admin: 12/22/20 21:50 Dose: 50 mls/hr Documented by: Potassium Chloride/Dextrose/Sod Cl (D5 1/2 Ns W/ 20 Meq/L Kcl) 1,000 mls @ 150 mls/hr IV ASDIRECTED [facility] Stop: 12/23/20 08:20 Last Admin: 12/23/20 01:39 Dose: 150 mls/hr Documented by: Potassium Chloride/Dextrose/Sod Cl (D5 1/2 Ns W/ 20 Meq/L Kcl) 1,000 mls @ 150 mls/hr IV Q7H [facility] Sodium Chloride (Normal Saline) 1,000 mls @ 150 mls/hr IV ASDIRECTED [facility] Last Admin: 12/24/20 11:54 Dose: 150 mls/hr Documented by: Magnesium Sulfate 4 gm/ (Dextrose/Water) 258 mls @ 100 mls/hr IV ONETIME ONE Stop: 12/23/20 10:06 Last Admin: 12/23/20 13:00 Dose: Not Given Documented by: Bamlanivimab 700 mg/Etesevimab 1,400 mg/ Sodium Chloride 160 mls @ 310 mls/hr IV ONETIME ONE Stop: 12/23/20 12:30 Last Admin: 12/23/20 12:29 Dose: 310 mls/hr Documented by: Azithromycin 500 mg/ Sodium (Chloride) 250 mls @ 250 mls/hr IV Q24H [facility] Last Admin: 12/25/20 10:03 Dose: 250 mls/hr Documented by: Doxycycline Hyclate 100 mg/ (Sodium Chloride) 100 mls @ 100 mls/hr IV Q12H [facility] Last Admin: 12/31/20 08:29 Dose: 100 mls/hr Documented by: Vancomycin HCl 1 gm/ Premix 200 mls @ 200 mls/hr IV Q12H [facility] Stop: 01/14/21 20:01 Last Admin: 12/31/20 21:06 Dose: Not Given Documented by: Vancomycin HCl 1 gm/ Premix 200 mls @ 200 mls/hr IV Q12H [facility] Last Admin: 01/03/21 09:14 Dose: 200 mls/hr Documented by: Daptomycin 390 mg/ Sodium (Chloride) 50 mls @ 100 mls/hr IV Q24H [facility] Last Admin: 01/03/21 16:54 Dose: Not Given Documented by: Ibuprofen (Ibuprofen 200 Mg Tab) 200 mg PO Q6H [facility] Last Admin: 12/30/20 08:07 Dose: 200 mg Documented by: Ibuprofen (Ibuprofen 600 Mg Tab) 600 mg PO Q6H [facility] Last Admin: 01/04/21 08:24 Dose: 600 mg Documented by: Insulin Glargine (Insulin Glargine,Human Rec. Analog 100 Units/Ml 3 Ml Pen) 30 units SUBCUT BID [facility] Last Admin: 12/29/20 20:30 Dose: Not Given Documented by: Insulin Glargine (Insulin Glargine,Human Rec. Analog 100 Units/Ml 3 Ml Pen) 15 units SUBCUT ONETIME ONE Stop: 12/27/20 08:59 Last Admin: 12/27/20 09:20 Dose: 15 unit Documented by: Insulin Glargine (Insulin Glargine,Human Rec. Analog 100 Units/Ml 3 Ml Pen) 35 units SUBCUT BID [facility] Last Admin: 12/31/20 21:13 Dose: 35 units Documented by: Insulin Glargine (Insulin Glargine,Human Rec. Analog 100 Units/Ml 3 Ml Pen) 30 units SUBCUT BID [facility] Last Admin: 01/01/21 22:14 Dose: Not Given Documented by: Insulin Glargine (Insulin Glargine,Human Rec. Analog 100 Units/Ml 3 Ml Pen) 15 units SUBCUT ONETIME ONE Stop: 01/01/21 09:11 Last Admin: 01/01/21 09:42 Dose: 15 unit Documented by: Insulin Glargine (Insulin Glargine,Human Rec. Analog 100 Units/Ml 3 Ml Pen) 28 units SUBCUT BID [facility] Last Admin: 01/02/21 20:57 Dose: 28 units Documented by: Insulin Human Lispro (Insulin Lispro 100 Unit/Ml 3 Ml Kwikpen) 0 unit SUBCUT TIDMEALS [facility]; Protocol Last Admin: 12/30/20 08:02 Dose: 15 units Documented by: Insulin Human Lispro (Insulin Lispro 100 Unit/Ml 3 Ml Kwikpen) 20 unit SUBCUT ONETIME ONE Stop: 12/29/20 20:55 Last Admin: 12/29/20 21:17 Dose: 20 units Documented by: Insulin Human Lispro (Insulin Lispro 100 Unit/Ml 3 Ml Kwikpen) 10 unit SUBCUT ONETIME ONE Stop: 01/03/21 08:54 Last Admin: 01/03/21 09:14 Dose: 10 units Documented by: Insulin Human Regular (Insulin Regular, Human 100 Units/Ml 3 Ml Vial) 10 unit IV ONETIME ONE Stop: 12/22/20 20:16 Last Admin: 12/22/20 20:55 Dose: 10 units Documented by: Iopamidol (Iopamidol 755 Mg/Ml 100 Ml Bottle) 85 ml IV . DIRECTED ONE Stop: 12/27/20 09:19 Last Admin: 12/27/20 10:02 Dose: Not Given Documented by: Iopamidol (Iopamidol 755 Mg/Ml 100 Ml Bottle) 85 ml IV . DIRECTED ONE Stop: 12/27/20 09:01 Last Admin: 12/28/20 08:45 Dose: 85 ml Documented by: Iopamidol (Iopamidol 755 Mg/Ml 100 Ml Bottle) 85 ml IV . DIRECTED ONE Stop: 01/02/21 10:19 Last Admin: 01/02/21 13:49 Dose: 85 ml Documented by: Ketorolac Tromethamine (Ketorolac 30 Mg/Ml Sdv) 30 mg IVPUSH ONETIME ONE Stop: 12/22/20 17:57 Last Admin: 12/22/20 18:10 Dose: 30 mg Documented by: Ketorolac Tromethamine (Ketorolac 30 Mg/Ml Sdv) 30 mg IVPUSH Q6H [facility] Stop: 12/28/20 00:43 Last Admin: 12/24/20 18:17 Dose: 30 mg Documented by: Ketorolac Tromethamine (Ketorolac 30 Mg/Ml Sdv) 30 mg IVPUSH Q6H PRN PRN Reason: Headache/Pain Stop: 12/29/20 22:23 Ketorolac Tromethamine (Ketorolac 30 Mg/Ml Sdv) 30 mg IVPUSH Q6H [facility] Stop: 12/29/20 03:01 Last Admin: 12/29/20 04:11 Dose: 30 mg Documented by: Lorazepam (Lorazepam 0.5 Mg Tab) 0.5 mg PO ONETIME ONE Stop: 12/23/20 12:04 Last Admin: 12/23/20 12:30 Dose: 0.5 mg Documented by: Lorazepam (Lorazepam 1 Mg Tab) 0 mg PO ASDIRECTED [facility]; Protocol Lorazepam (Lorazepam 2 Mg/Ml Sdv) 0 mg IV ASDIRECTED [facility]; Protocol Magnesium Oxide (Magnesium Oxide 400 Mg Tab) 400 mg PO Q6H [facility] Stop: 12/25/20 01:00 Last Admin: 12/25/20 00:17 Dose: 400 mg Documented by: Metoclopramide HCl (Metoclopramide 10 Mg/2 Ml Sdv) 10 mg IVPUSH ONETIME ONE Stop: 12/22/20 19:27 Last Admin: 12/22/20 19:37 Dose: 10 mg Documented by: Metoclopramide HCl (Metoclopramide 10 Mg/2 Ml Sdv) 10 mg IVPUSH Q6H [facility] Stop: 12/24/20 00:45 Last Admin: 12/24/20 00:46 Dose: 10 mg Documented by: Morphine Sulfate (Morphine 2 Mg/Ml Syringe) 2 mg IVPUSH Q4H PRN PRN Reason: Pain (severe 7-10) Last Admin: 01/01/21 06:43 Dose: 2 mg Documented by: Ondansetron HCl (Ondansetron 4 Mg/2 Ml Sdv) 4 mg IVPUSH ONETIME ONE Stop: 12/22/20 17:57 Last Admin: 12/22/20 18:10 Dose: 4 mg Documented by: Potassium Chloride (Potassium Chloride 20 Meq Tab.Er) 40 meq PO ONETIME ONE Stop: 12/24/20 07:55 Last Admin: 12/24/20 09:07 Dose: 40 meq Documented by: Sodium Chloride (Sodium Chloride 0.9% 10 Ml Syringe) 30 ml FLUSH ASDIRECTED [facility] Stop: 12/23/20 16:00 Vancomycin HCl (Pharmacy To Dose - Vancomycin) 1 dose .XX ASDIRECTED [facility] - Exam General: Reports: Alert, Oriented, Cooperative HEENT: Reports: Other (see pictures in nurse note: marked swelling of bilateral eyes, maxilla, forehead, purulent drainage from both eye, erythema of bilateral eyelids, upper maxilla/zygoma. TTP, warmth, forehead is more fluctuant today.) Neck: Reports: Trachea Midline, Lymphadenopathy Lungs: Reports: Clear to Auscultation, Normal Respiratory Effort. Denies: Crackles, Wheezing Cardiovascular: Reports: Regular Rate, Regular Rhythm GI/Abdominal Exam: Normal Bowel Sounds, Soft, Non-Tender, No Distention Extremities: No Pedal Edema, Normal Capillary Refill Skin: Reports: Other (Vitiligo scattered throughout) Wound/Incisions: Reports: Drainage (purulent), Erythema (periorbital, forehead, & maxilla) Neurological: Reports: Normal Speech Psy/Mental Status: Reports: Agitated (upset about worsening progress) *Q Meaningful Use (DIS) - VTE *Q VTE Anticoagulation Contraindications: Alternative [place] Request PT
[2021-01-04] MEDS ORDERED: Insulin Lispro 100 Unit/ML 3 ML KwikPen SUBCUT ONE (15:24)
== END 2021-01-04 15:25 | DRG 177 ==
LOC: FB.ED 17:45 → FB.MS 21:52
PROVIDERS: ADMIT Emergency Medicine; ATTEND Family Medicine
PROC: XW033F6 Introduction of Bamlanivimab Monoclonal Antibody into Peripheral Vein, Percutaneous Approach, New Technology Group 6 (ICD-10-PCS; 2020-12-23)
PROC: 3E0333Z Introduction of Anti-inflammatory into Peripheral Vein, Percutaneous Approach (ICD-10-PCS; 2020-12-27)
PROC: 02H633Z Insertion of Infusion Device into Right Atrium, Percutaneous Approach (ICD-10-PCS; principal; 2020-12-31)
PROC: 8E0ZXY6 Isolation (ICD-10-PCS; 2021-01-02)
DX: U07.1 COVID-19 (principal); E11.10 Type 2 diabetes mellitus with ketoacidosis without coma; J12.82 Pneumonia due to coronavirus disease 2019; L03.213 Periorbital cellulitis; E87.1 Hypo-osmolality and hyponatremia; B95.62 Methicillin resistant Staphylococcus aureus infection as the cause of diseases classified elsewhere; S00.83XA Contusion of other part of head, initial encounter; S19.9XXA Unspecified injury of neck, initial encounter; S09.93XA Unspecified injury of face, initial encounter; E11.69 Type 2 diabetes mellitus with other specified complication; E66.9 Obesity, unspecified; E03.9 Hypothyroidism, unspecified; E87.6 Hypokalemia; E86.0 Dehydration; F17.210 Nicotine dependence, cigarettes, uncomplicated; I10 Essential (primary) hypertension; K59.09 Other constipation; E11.42 Type 2 diabetes mellitus with diabetic polyneuropathy; F41.9 Anxiety disorder, unspecified; Z88.0 Allergy status to penicillin; Z23 Encounter for immunization; Z79.4 Long term (current) use of insulin; Z79.899 Other long term (current) drug therapy; Z90.49 Acquired absence of other specified parts of digestive tract; W19.XXXA Unspecified fall, initial encounter
CPT/HCPCS: 36415; 36569; 70486; 70487; 71045; 71046; 80048; 80053; 80202; 81001; 82550; 82947; 83605; 83735; 85025; 86140; 87040; 87070; 87077; 87186; 87205; 96374; 96375; 99223; 99232; 99233; 99239; 99285-25; A9270-GY; J0456; J0692; J0696; J0878; J1100; J1170; J1642; J1650; J1815; J1815-GY; J1885; J2270; J2405; J2765; J3370; J3480; J3490; J7030; J7050; M0245; Q0245; Q9967; U0002

== ENCOUNTER 2022-01-27 18:25 | Emergency (ER) | payer MEDICAID ==
[2022-01-27] MEDS ORDERED: Sulfamethoxazole/Trimethoprim 800-160 MG Tab PO ONE (18:26)
[2022-01-27 19:49] LABS: ESTIMATED GFR 67 mL/min (>60)
== END 2022-01-27 19:46 | disposition home or self-care (01) ==
LOC: FB.ED 18:25
DX: L03.011 Cellulitis of right finger (principal); E11.40 Type 2 diabetes mellitus with diabetic neuropathy, unspecified; E66.9 Obesity, unspecified; I10 Essential (primary) hypertension; Z68.1 Body mass index [BMI] 19.9 or less, adult; Z88.0 Allergy status to penicillin; Z79.899 Other long term (current) drug therapy; Z79.4 Long term (current) use of insulin
CPT/HCPCS: 36415; 80048; 85025; 85651; 86140; 99283; A9270

== ENCOUNTER 2022-01-29 22:38 | Emergency (ER) | payer MEDICAID | END 2022-01-29 23:34 | disposition left against medical advice (07) | LOC: FB.ED 22:38 | DX: Z53.21 Procedure and treatment not carried out due to patient leaving prior to being seen by health care provider (principal) ==

== ENCOUNTER 2022-02-22 16:38 | Emergency (ER) | payer MEDICAID ==
[2022-02-22] MEDS ORDERED: Sodium Chloride 0.9% 10 ML Syringe FLUSH PRN (16:43)
[2022-02-22] MEDS ORDERED: Ondansetron 4 MG/2 ML SDV IVPUSH ONE (16:48)
[2022-02-22] MEDS ORDERED: Sodium Chloride 0.9% 1,000 ML IV SCH (17:00)
[2022-02-22 17:21] LABS: BASE EXCESS VENOUS,POC 0 mmol/L (-2 - 3+); PCO2 VENOUS,POC 32 mmHg (41-51); PH VENOUS,POC 7.46 pH Units (7.32-7.43)
[2022-02-22] MEDS ORDERED: LORazepam 2 MG/ML SDV IVPUSH STA (17:28)
[2022-02-22] MEDS ORDERED: Prochlorperazine 10 MG/2 ML SDV IVPUSH ONE (17:30)
[2022-02-22 17:34] LABS: ESTIMATED GFR 60 mL/min (>60)
[2022-02-22 18:14] LABS: CORONAVIRUS COVID-19 NAA NEGATIVE (NEGATIVE)
[2022-02-22] MEDS ORDERED: Aspirin 325 MG Tab.EC PO ONE (18:18)
[2022-02-22] MEDS ORDERED: Heparin Sodium 5,000 Units/ML Vial IVPUSH ONE (18:20)
[2022-02-22] MEDS ORDERED: Aspirin 81 MG Tab.Chew PO ONE (18:23)
[2022-02-22] MEDS ORDERED: Heparin Sodium/0.45% NaCl 500 ML IV SCH (18:30)
[2022-02-22] MEDS ORDERED: Metoprolol Tartrate 25 MG Tab PO ONE (18:43)
== END 2022-02-22 20:04 ==
LOC: FB.ED 16:38
DX: I21.4 Non-ST elevation (NSTEMI) myocardial infarction (principal); A08.4 Viral intestinal infection, unspecified; E86.0 Dehydration; E11.40 Type 2 diabetes mellitus with diabetic neuropathy, unspecified; I11.0 Hypertensive heart disease with heart failure; I50.9 Heart failure, unspecified; I25.10 Atherosclerotic heart disease of native coronary artery without angina pectoris; Z88.0 Allergy status to penicillin; Z79.899 Other long term (current) drug therapy; Z79.4 Long term (current) use of insulin; Z20.822 Contact with and (suspected) exposure to COVID-19
CPT/HCPCS: 0240U; 36415; 71045; 80053; 82150; 82947; 83605; 83690; 83880; 84484; 85025; 85610; 85730; 93005; 96361; 96365; 96375; 99285; A9270; J0780; J1644; J2060; J2405; J3490; J7030; 93010

== ENCOUNTER 2022-07-15 22:47 | Emergency (ER) | payer MEDICAID ==
[2022-07-15] MEDS ORDERED: traMADol 50 MG Tab PO ONE (22:48)
[2022-07-15] MEDS ORDERED: Cyclobenzaprine 10 MG Tab PO ONE (22:48)
[2022-07-15] MEDS ORDERED: Sodium Chloride 0.9% 10 ML Syringe FLUSH PRN (23:08)
[2022-07-15] MEDS ORDERED: fentaNYL 100 MCG/2 ML SDV IVPUSH ONE (23:09)
[2022-07-15] MEDS ORDERED: Sodium Chloride 0.9% 1,000 ML IV SCH (23:15)
[2022-07-15 23:38] LABS: BASOPHILS PERCENT AUTO 0.3 % (0.2-1.5); EOSINOPHILS ABSOLUTE AUTO 0.1 x10-3/uL (0.0-0.8); EOSINOPHILS PERCENT AUTO 0.6 % (0.6-8.1); HEMATOCRIT 31.1 % (34.2-48.2); HEMOGLOBIN 10.5 g/dL (11.4-15.5); LYMPHOCYTES ABSOLUTE AUTO 2.6 x10-3/uL (1.0-4.4); LYMPHOCYTES PERCENT AUTO 23.8 % (18.4-52.1); MEAN CORPUSCULAR HEMOGLOBIN 31.8 pg (23.9-33.9); MEAN CORPUSCULAR HGB CONC 33.7 g/dL (31.9-34.8); MEAN CORPUSCULAR VOLUME 94.5 fL (76.7-100.5); MEAN PLATELET VOLUME 9.6 fL (7.1-12.4); MONOCYTES ABSOLUTE AUTO 0.9 x10-3/uL (0.3-1.0); NEUTROPHILS ABSOLUTE AUTO 7.2 x10-3/uL (1.5-6.3); NEUTROPHILS PERCENT AUTO 67.3 % (30.8-76.2); PLATELET COUNT,PLT 202 x10(3)uL (151-488); RED BLOOD CELL COUNT 3.29 x10(6)uL (3.60-5.20); RED CELL DISTRIBUTION WIDTH 13.2 % (12.3-16.5); WHITE BLOOD CELL COUNT,WBC 10.7 x10-3/uL (3.0-10.3)
[2022-07-15 23:40] LABS: BLOOD UREA NITROGEN,BUN 38 mg/dL (7-18); BUN/CREATININE RATIO 14.6 (9-20); CALCIUM 8.3 mg/dL (8.6-10.2); CARBON DIOXIDE,CO2 24 mmol/L (21-32); CHLORIDE,CL 101 mmol/L (100-110); EST CRCL DRUG DOSING (CG) 19.56 mL/min; ESTIMATED GFR 21 mL/min (>60); GLUCOSE RANDOM 338 mg/dL (80-116); POTASSIUM,K 4.8 mmol/L (3.5-5.3); SODIUM,NA 135 mmol/L (135-145)
[2022-07-16] LABS: CREATININE 2.6 mg/dL (0.55-1.02)
== END 2022-07-16 00:40 | disposition home or self-care (01) ==
LOC: FB.ED 22:47
DX: Z86.14 Personal history of Methicillin resistant Staphylococcus aureus infection (principal); I10 Essential (primary) hypertension; E11.40 Type 2 diabetes mellitus with diabetic neuropathy, unspecified; I25.10 Atherosclerotic heart disease of native coronary artery without angina pectoris; D64.9 Anemia, unspecified; F17.200 Nicotine dependence, unspecified, uncomplicated; Z88.0 Allergy status to penicillin; Z79.899 Other long term (current) drug therapy
CPT/HCPCS: 71046; 83605; 84484; 85025; 86140; 93005; 96361; 96374; 99284; A9270; J3010; J3490; J7030

== ENCOUNTER 2022-12-13 12:28 | Emergency (ER) | payer MEDICAID ==
[2022-12-13] MEDS ORDERED: Sodium Chloride 0.9% 10 ML Syringe FLUSH PRN (12:47)
[2022-12-13] MEDS ORDERED: Prochlorperazine 10 MG in Sodium Chloride 0.9% 50 ML IV ONE (12:49)
[2022-12-13] MEDS ORDERED: Labetalol 20 MG/4 ML Syringe IVPUSH ONE ×2 (12:53→14:09)
[2022-12-13] MEDS ORDERED: Sodium Chloride 0.9% 1,000 ML IV SCH (13:00)
[2022-12-13] MEDS ORDERED: LORazepam 2 MG/ML SDV IVPUSH ONE (13:07)
[2022-12-13 13:16] LABS: HEMATOCRIT 38.3 % (34.2-48.2); HEMOGLOBIN 13.2 g/dL (11.4-15.5); MEAN CORPUSCULAR HEMOGLOBIN 31.5 pg (23.9-33.9); MEAN CORPUSCULAR HGB CONC 34.4 g/dL (31.9-34.8); MEAN CORPUSCULAR VOLUME 91.7 fL (76.7-100.5); MEAN PLATELET VOLUME 9.2 fL (7.1-12.4); PLATELET COUNT,PLT 277 x10(3)uL (151-488); RED BLOOD CELL COUNT 4.17 x10(6)uL (3.60-5.20); RED CELL DISTRIBUTION WIDTH 13.9 % (12.3-16.5); WHITE BLOOD CELL COUNT,WBC 15.5 x10-3/uL (3.0-10.3)
[2022-12-13 13:25] LABS: A/G RATIO 0.8; ALANINE AMINOTRANSFERASE,ALT 28 U/L (12-36); ALBUMIN 3.6 g/dL (3.5-5.2); ALKALINE PHOSPHATASE 195 IU/L (56-112); AMYLASE 41 U/L (25-115); ASPARTATE AMNIOTRANSFERASE,AST 18 IU/L (5-25); BILIRUBIN TOTAL 0.7 mg/dL (0.1-1.3); BLOOD UREA NITROGEN,BUN 30 mg/dL (7-18); BUN/CREATININE RATIO 27.3 (9-20); CALCIUM 9.7 mg/dL (8.6-10.2); CARBON DIOXIDE,CO2 28 mmol/L (21-32); CHLORIDE,CL 100 mmol/L (100-110); CREATININE 1.1 mg/dL (0.55-1.02); ESTIMATED GFR 59 mL/min (>60); GLUCOSE RANDOM 394 mg/dL (80-116); INR 0.97 (1.00-1.24); POTASSIUM,K 4.2 mmol/L (3.5-5.3); PROTEIN TOTAL,TP 8.3 g/dL (6.0-8.0); PTT,PARTIAL THROMBOPLSTIN TIME 23.7 SECONDS (24.4-33.2); SODIUM,NA 137 mmol/L (135-145)
[2022-12-13 13:40] LABS: LYMPHOCYTES PERCENT MAN 9 % (13-37); MONOCYTES PERCENT MAN 4 % (4-12); SEG NEUTROPHILS PERCENT MAN 87 % (46-82)
[2022-12-13] MEDS ORDERED: Morphine 4 MG/ML VIAL IVPUSH ONE (13:40)
[2022-12-13] MEDS ORDERED: Iopamidol 755 Mg/ML 100 ML Bottle IV SCH (14:00)
[2022-12-13 14:54] LABS: INFLUENZA A NAA NEGATIVE (NEGATIVE); INFLUENZA B NAA NEGATIVE (NEGATIVE)
[2022-12-13 14:55] LABS: CORONAVIRUS COVID-19 NAA NEGATIVE (NEGATIVE)
[2022-12-13 16:53] LABS: BILIRUBIN,URINE NEGATIVE (NEGATIVE); GLUCOSE,URINE >1000 mg/dL (NORMAL); KETONES,URINE 15 mg/dL (NEGATIVE); LEUKOCYTE ESTERASE,URINE NEGATIVE (NEGATIVE); NITRITE,URINE NEGATIVE (NEGATIVE); OCCULT BLOOD,URINE MODERATE (NEGATIVE); PH,URINE 6.5 (5.0-6.5); PROTEIN,URINE 500 mg/dL (NEGATIVE); UROBILINOGEN,URINE NORMAL (NEGATIVE)
[2022-12-13 16:56] LABS: APPEARANCE,URINE CLEAR (CLEAR); BACTERIA,URINE OCCASIONAL (NS); COLOR,URINE YELLOW (YELLOW); MUCUS,URINE OCCASIONAL (NS); RBC,URINE 0-5 (0-5); SQUAMOUS EPITHELIAL CELLS,UR OCCASIONAL (NS,R,O); WBC,URINE 0-5 (0-5)
== END 2022-12-13 17:14 | disposition home or self-care (01) ==
LOC: FB.ED 12:28
DX: A08.4 Viral intestinal infection, unspecified (principal); E86.0 Dehydration; R79.89 Other specified abnormal findings of blood chemistry; I10 Essential (primary) hypertension; E78.00 Pure hypercholesterolemia, unspecified; E11.40 Type 2 diabetes mellitus with diabetic neuropathy, unspecified; Z20.822 Contact with and (suspected) exposure to COVID-19; Z95.1 Presence of aortocoronary bypass graft; Z79.4 Long term (current) use of insulin; Z88.0 Allergy status to penicillin; Z79.899 Other long term (current) drug therapy; Z79.01 Long term (current) use of anticoagulants
CPT/HCPCS: 0240U; 36415; 74177; 80053; 81001; 82150; 82947; 83690; 83880; 84484; 85025; 85610; 85730; 93005; 96361; 96365; 96375; 99284-25; J0780; J2270; J3490; J7030; Q9967

== ENCOUNTER 2023-01-18 14:25 | Emergency (ER) | payer MEDICAID ==
[2023-01-18 14:56] LABS: BASOPHILS ABSOLUTE AUTO 0.1 x10-3/uL (0.0-0.1); BASOPHILS PERCENT AUTO 0.7 % (0.2-1.5); EOSINOPHILS PERCENT AUTO 0.1 % (0.6-8.1); HEMATOCRIT 33.3 % (34.2-48.2); HEMOGLOBIN 11.3 g/dL (11.4-15.5); LYMPHOCYTES ABSOLUTE AUTO 1.4 x10-3/uL (1.0-4.4); LYMPHOCYTES PERCENT AUTO 9.9 % (18.4-52.1); MEAN CORPUSCULAR HEMOGLOBIN 31.4 pg (23.9-33.9); MEAN CORPUSCULAR HGB CONC 34.1 g/dL (31.9-34.8); MONOCYTES ABSOLUTE AUTO 0.8 x10-3/uL (0.3-1.0); MONOCYTES PERCENT AUTO 5.6 % (4.4-15.7); NEUTROPHILS ABSOLUTE AUTO 11.7 x10-3/uL (1.5-6.3); NEUTROPHILS PERCENT AUTO 83.7 % (30.8-76.2); PLATELET COUNT,PLT 255 x10(3)uL (151-488); RED BLOOD CELL COUNT 3.62 x10(6)uL (3.60-5.20); RED CELL DISTRIBUTION WIDTH 13.4 % (12.3-16.5)
[2023-01-18 15:00] LABS: BASE EXCESS VENOUS,POC -2 mmol/L (-2 - 3+); PCO2 VENOUS,POC 41 mmHg (41-51); PH VENOUS,POC 7.37 pH Units (7.32-7.43)
[2023-01-18 15:12] LABS: C-REACTIVE PROTEIN 0.91 mg/dL (<0.50)
[2023-01-18 15:14] LABS: A/G RATIO 0.8; ALANINE AMINOTRANSFERASE,ALT 26 U/L (12-36); ALBUMIN 3.5 g/dL (3.5-5.2); ALKALINE PHOSPHATASE 164 IU/L (56-112); ASPARTATE AMNIOTRANSFERASE,AST 14 IU/L (5-25); BILIRUBIN TOTAL 0.8 mg/dL (0.1-1.3); BLOOD UREA NITROGEN,BUN 39 mg/dL (7-18); BUN/CREATININE RATIO 27.9 (9-20); CALCIUM 9.1 mg/dL (8.6-10.2); CARBON DIOXIDE,CO2 26 mmol/L (21-32); CHLORIDE,CL 90 mmol/L (100-110); CREATININE 1.4 mg/dL (0.55-1.02); EST CRCL DRUG DOSING (CG) 35.91 mL/min; ESTIMATED GFR 44 mL/min (>60); MAGNESIUM 2.4 mg/dL (1.8-2.5); POTASSIUM,K 4.4 mmol/L (3.5-5.3); PROTEIN TOTAL,TP 7.7 g/dL (6.0-8.0); SODIUM,NA 128 mmol/L (135-145)
[2023-01-18 15:16] LABS: GLUCOSE RANDOM 636 mg/dL (80-116); TROPONIN I 1001.6 pg/mL (4.0-60.3)
[2023-01-18 15:17] LABS: INR 0.98 (1.00-1.24); PROTHROMBIN TIME 10.1 sec (9.0-11.1); PTT,PARTIAL THROMBOPLSTIN TIME 24.3 SECONDS (24.4-33.2)
[2023-01-18] MEDS ORDERED: Sodium Chloride 0.9% 1,000 ML IV SCH (15:30)
[2023-01-18 15:55] LABS: INFLUENZA A NAA NEGATIVE (NEGATIVE); INFLUENZA B NAA NEGATIVE (NEGATIVE); RESPIRATORY SYNCYTIAL VIR NAA NEGATIVE (NEGATIVE)
[2023-01-18 15:58] LABS: CORONAVIRUS COVID-19 NAA NEGATIVE (NEGATIVE)
[2023-01-18] MEDS ORDERED: Insulin Regular, Human 100 Units/ML 3 ML Vial IV ONE (17:08)
[2023-01-18] MEDS ORDERED: Glucagon,Human Recombinant 1 MG Vial IM PRN (17:08)
[2023-01-18] MEDS ORDERED: 50% Dextrose in Water 50 ML Syringe IVPUSH PRN (17:08)
[2023-01-18] MEDS ORDERED: Heparin Sodium/0.45% NaCl 500 ML IV SCH (17:14)
[2023-01-18] MEDS ORDERED: Aspirin 81 MG Tab.Chew PO ONE (17:28)
[2023-01-18] MEDS ORDERED: Heparin Sodium 5,000 Units/ML Vial IVPUSH ONE (17:30)
[2023-01-18 21:48] LABS: APPEARANCE,URINE CLEAR (CLEAR); BACTERIA,URINE FEW (NS); BILIRUBIN,URINE NEGATIVE (NEGATIVE); COLOR,URINE YELLOW (YELLOW); GLUCOSE,URINE >1000 mg/dL (NORMAL); KETONES,URINE 15 mg/dL (NEGATIVE); LEUKOCYTE ESTERASE,URINE NEGATIVE (NEGATIVE); NITRITE,URINE NEGATIVE (NEGATIVE); OCCULT BLOOD,URINE NEGATIVE (NEGATIVE); PROTEIN,URINE 30 mg/dL (NEGATIVE); RBC,URINE 0-5 (0-5); SQUAMOUS EPITHELIAL CELLS,UR MODERATE (NS,R,O); UROBILINOGEN,URINE NORMAL (NEGATIVE); WBC,URINE 0-5 (0-5)
== END 2023-01-18 21:25 ==
LOC: FB.ED 14:25
DX: R11.2 Nausea with vomiting, unspecified (principal); I21.4 Non-ST elevation (NSTEMI) myocardial infarction; N18.9 Chronic kidney disease, unspecified; R77.8 Other specified abnormalities of plasma proteins; R79.89 Other specified abnormal findings of blood chemistry; H93.242 Temporary auditory threshold shift, left ear; R79.82 Elevated C-reactive protein (CRP); E11.65 Type 2 diabetes mellitus with hyperglycemia; D72.829 Elevated white blood cell count, unspecified; I10 Essential (primary) hypertension; E78.00 Pure hypercholesterolemia, unspecified; Z88.0 Allergy status to penicillin; Z79.4 Long term (current) use of insulin; Z79.899 Other long term (current) drug therapy; Z90.49 Acquired absence of other specified parts of digestive tract; Z20.822 Contact with and (suspected) exposure to COVID-19
CPT/HCPCS: 0241U; 36415; 71046; 80053; 81001; 82947; 83735; 83880; 84484; 85025; 85610; 85730; 86140; 93005; 93010; 96361; 96365; 96366; 99285; 99285-25; A9270-GY; J1644; J1815-GY; J7030

== ENCOUNTER 2023-02-16 10:27 | Emergency (ER) | payer MEDICAID ==
[2023-02-16] MEDS ORDERED: Sodium Chloride 0.9% 10 ML Syringe FLUSH PRN (11:01)
[2023-02-16] MEDS ORDERED: Ondansetron 4 MG/2 ML SDV IVPUSH ONE (11:01)
[2023-02-16] MEDS ORDERED: Atropine/Diphenoxylate 0.025-2.5 MG Tab PO ONE (11:06)
[2023-02-16] MEDS ORDERED: Sodium Chloride 0.9% 1,000 ML IV SCH (11:15)
[2023-02-16 11:33] LABS: HEMATOCRIT 39.6 % (34.2-48.2); HEMOGLOBIN 13.2 g/dL (11.4-15.5); MEAN CORPUSCULAR HGB CONC 33.4 g/dL (31.9-34.8); MEAN PLATELET VOLUME 9.5 fL (7.1-12.4); PLATELET COUNT,PLT 255 x10(3)uL (151-488); RED BLOOD CELL COUNT 4.26 x10(6)uL (3.60-5.20); RED CELL DISTRIBUTION WIDTH 13.8 % (12.3-16.5); WHITE BLOOD CELL COUNT,WBC 16.9 x10-3/uL (3.0-10.3)
[2023-02-16 11:34] LABS: BLOOD UREA NITROGEN,BUN 26 mg/dL (7-18); BUN/CREATININE RATIO 21.7 (9-20); CALCIUM 9.4 mg/dL (8.6-10.2); CARBON DIOXIDE,CO2 22 mmol/L (21-32); CHLORIDE,CL 103 mmol/L (100-110); CREATININE 1.2 mg/dL (0.55-1.02); EST CRCL DRUG DOSING (CG) 41.89 mL/min; ESTIMATED GFR 53 mL/min (>60); GLUCOSE RANDOM 298 mg/dL (80-116); POTASSIUM,K 4.7 mmol/L (3.5-5.3); SODIUM,NA 136 mmol/L (135-145)
[2023-02-16 11:49] LABS: LYMPHOCYTES PERCENT MAN 2 % (13-37); MONOCYTES PERCENT MAN 2 % (4-12); SEG NEUTROPHILS PERCENT MAN 96 % (46-82)
[2023-02-16 13:17] LABS: BILIRUBIN,URINE NEGATIVE (NEGATIVE); COLOR,URINE YELLOW (YELLOW); GLUCOSE,URINE >1000 mg/dL (NORMAL); KETONES,URINE 15 mg/dL (NEGATIVE); LEUKOCYTE ESTERASE,URINE NEGATIVE (NEGATIVE); NITRITE,URINE NEGATIVE (NEGATIVE); OCCULT BLOOD,URINE NEGATIVE (NEGATIVE); PROTEIN,URINE 500 mg/dL (NEGATIVE); UROBILINOGEN,URINE NORMAL (NEGATIVE)
[2023-02-16 13:18] LABS: APPEARANCE,URINE CLEAR (CLEAR); BACTERIA,URINE FEW (NS); SQUAMOUS EPITHELIAL CELLS,UR FEW (NS,R,O); WBC,URINE 0-5 (0-5)
== END 2023-02-16 13:35 | disposition home or self-care (01) ==
LOC: FB.ED 10:27
DX: K52.9 Noninfective gastroenteritis and colitis, unspecified (principal); E86.0 Dehydration; E78.00 Pure hypercholesterolemia, unspecified; I10 Essential (primary) hypertension; I25.2 Old myocardial infarction; E03.9 Hypothyroidism, unspecified; E11.9 Type 2 diabetes mellitus without complications; Z86.16 Personal history of COVID-19; Z79.02 Long term (current) use of antithrombotics/antiplatelets; Z79.4 Long term (current) use of insulin; Z79.899 Other long term (current) drug therapy; Z88.0 Allergy status to penicillin; Z88.1 Allergy status to other antibiotic agents
CPT/HCPCS: 80048; 81001; 85025; 96361; 96374; 99284; A9270; J2405; J3490; J7030

== ENCOUNTER 2023-06-26 09:05 | Emergency (ER) | payer MEDICAID ==
[2023-06-26] MEDS: Sodium Chloride 0.9% 1,000 ML IV ONE ×2 (09:45)
[2023-06-26 09:46] LABS: BASOPHILS ABSOLUTE AUTO 0.1 x10-3/uL (0.0-0.1); BASOPHILS PERCENT AUTO 0.4 % (0.2-1.5); EOSINOPHILS PERCENT AUTO 0.3 % (0.6-8.1); HEMATOCRIT 41.2 % (34.2-48.2); HEMOGLOBIN 13.6 g/dL (11.4-15.5); LYMPHOCYTES ABSOLUTE AUTO 1.9 x10-3/uL (1.0-4.4); LYMPHOCYTES PERCENT AUTO 14.8 % (18.4-52.1); MEAN CORPUSCULAR HEMOGLOBIN 31.1 pg (23.9-33.9); MEAN CORPUSCULAR VOLUME 94.3 fL (76.7-100.5); MEAN PLATELET VOLUME 9.6 fL (7.1-12.4); MONOCYTES ABSOLUTE AUTO 0.7 x10-3/uL (0.3-1.0); MONOCYTES PERCENT AUTO 5.1 % (4.4-15.7); NEUTROPHILS ABSOLUTE AUTO 10.5 x10-3/uL (1.5-6.3); NEUTROPHILS PERCENT AUTO 79.4 % (30.8-76.2); PLATELET COUNT,PLT 280 x10(3)uL (151-488); RED BLOOD CELL COUNT 4.37 x10(6)uL (3.60-5.20); WHITE BLOOD CELL COUNT,WBC 13.2 x10-3/uL (3.0-10.3)
[2023-06-26 09:50] LABS: BASE EXCESS VENOUS,POC -3 mmol/L (-2 - 3+); PCO2 VENOUS,POC 28 mmHg (41-51); PH VENOUS,POC 7.46 pH Units (7.32-7.43)
[2023-06-26 09:51] LABS: BLOOD UREA NITROGEN,BUN 24 mg/dL (7-18); BUN/CREATININE RATIO 18.5 (9-20); CALCIUM 9.6 mg/dL (8.6-10.2); CARBON DIOXIDE,CO2 22 mmol/L (21-32); CHLORIDE,CL 104 mmol/L (100-110); CREATININE 1.3 mg/dL (0.55-1.02); ESTIMATED GFR 49 mL/min (>60); GLUCOSE RANDOM 245 mg/dL (80-116); POTASSIUM,K 4.2 mmol/L (3.5-5.3); SODIUM,NA 142 mmol/L (135-145)
[2023-06-26 09:56] LABS: A/G RATIO 0.8; ALANINE AMINOTRANSFERASE,ALT 31 U/L (12-36); ALBUMIN 3.7 g/dL (3.5-5.2); ALKALINE PHOSPHATASE 158 IU/L (56-112); ASPARTATE AMNIOTRANSFERASE,AST 23 IU/L (5-25); BILIRUBIN TOTAL 0.7 mg/dL (0.1-1.3); PROTEIN TOTAL,TP 8.4 g/dL (6.0-8.0)
[2023-06-26 09:59] LABS: LIPASE 114 U/L (16-77); TROPONIN I 14.4 pg/mL (4.0-60.3)
[2023-06-26 10:03] LABS: C-REACTIVE PROTEIN < 0.50 mg/dL (<0.50)
[2023-06-26] MEDS: diphenhydrAMINE 50 MG/ML SDV IVPUSH ONE (10:07)
[2023-06-26] MEDS: Ondansetron 4 MG/2 ML SDV IVPUSH ONE (10:07)
[2023-06-26] MEDS: hydrOXYzine HCl 50 MG/ML SDV IM ONE (11:33)
[2023-06-26] MEDS: Metoclopramide 10 MG/2 ML SDV IVPUSH ONE (11:33)
[2023-06-26] MEDS ORDERED: LORazepam 2 MG/ML SDV IVPUSH ONE (11:42)
[2023-06-26] MEDS ORDERED: Ketorolac 30 MG/ML SDV IVPUSH ONE (11:42)
[2023-06-26] MEDS ORDERED: Sodium Chloride 0.9% 1,000 ML IV ONE (11:42)
[2023-06-26] MEDS ORDERED: diphenhydrAMINE 50 MG/ML SDV IVPUSH ONE (11:43)
== END 2023-06-26 12:01 | disposition left against medical advice (07) ==
LOC: FB.ED 09:05
DX: E86.0 Dehydration (principal); E87.20 Acidosis, unspecified; E78.00 Pure hypercholesterolemia, unspecified; I10 Essential (primary) hypertension; I25.2 Old myocardial infarction; E03.9 Hypothyroidism, unspecified; E11.9 Type 2 diabetes mellitus without complications; Z79.899 Other long term (current) drug therapy; Z86.16 Personal history of COVID-19; Z79.4 Long term (current) use of insulin
CPT/HCPCS: 80053; 83605; 83690; 83735; 84484; 85025; 86140; 93005; 96361; 96372; 96374; 96375; 99284; J1200; J2405; J2765; J3410; J7030

== ENCOUNTER 2024-01-19 16:08 | Emergency (ER) | payer MEDICAID, MEDICARE ==
[2024-01-19] MEDS ORDERED: Sodium Chloride 0.9% 10 ML Syringe FLUSH PRN (16:26)
[2024-01-19] MEDS ORDERED: Glucagon,Human Recombinant 1 MG Vial IM PRN ×2 (16:36→16:38)
[2024-01-19] MEDS ORDERED: Insulin Lispro 100 Unit/ML 3 ML KwikPen SUBCUT STA (16:36)
[2024-01-19] MEDS ORDERED: 50% Dextrose in Water 50 ML Syringe IVPUSH PRN ×2 (16:36→16:38)
[2024-01-19] MEDS: Sodium Chloride 0.9% 1,000 ML IV SCH ×2 (16:42→17:05)
[2024-01-19 16:47] LABS: BASOPHILS PERCENT AUTO 0.2 % (0.2-1.5); EOSINOPHILS PERCENT AUTO 0.1 % (0.6-8.1); HEMATOCRIT 32.2 % (34.2-48.2); HEMOGLOBIN 10.8 g/dL (11.4-15.5); LYMPHOCYTES PERCENT AUTO 8.3 % (18.4-52.1); MEAN CORPUSCULAR HEMOGLOBIN 30.8 pg (23.9-33.9); MEAN CORPUSCULAR HGB CONC 33.6 g/dL (31.9-34.8); MEAN CORPUSCULAR VOLUME 91.6 fL (76.7-100.5); MEAN PLATELET VOLUME 11.4 fL (7.1-12.4); MONOCYTES ABSOLUTE AUTO 1.2 x10-3/uL (0.3-1.0); MONOCYTES PERCENT AUTO 10.6 % (4.4-15.7); NEUTROPHILS ABSOLUTE AUTO 9.3 x10-3/uL (1.5-6.3); NEUTROPHILS PERCENT AUTO 80.8 % (30.8-76.2); PLATELET COUNT,PLT 153 x10(3)uL (151-488); RED BLOOD CELL COUNT 3.51 x10(6)uL (3.60-5.20); RED CELL DISTRIBUTION WIDTH 14.4 % (12.3-16.5); WHITE BLOOD CELL COUNT,WBC 11.6 x10-3/uL (3.0-10.3)
[2024-01-19] MEDS: Insulin Lispro 100 Unit/ML 3 ML KwikPen SUBCUT STA (16:47)
[2024-01-19 16:58] LABS: A/G RATIO 0.6; ALANINE AMINOTRANSFERASE,ALT 28 U/L (12-36); ALBUMIN 2.9 g/dL (3.5-5.2); ALKALINE PHOSPHATASE 154 IU/L (56-112); ASPARTATE AMNIOTRANSFERASE,AST 18 IU/L (5-25); BILIRUBIN TOTAL 0.6 mg/dL (0.1-1.3); BLOOD UREA NITROGEN,BUN 37 mg/dL (7-18); BUN/CREATININE RATIO 16.8 (9-20); CALCIUM 8.8 mg/dL (8.6-10.2); CARBON DIOXIDE,CO2 22 mmol/L (21-32); ESTIMATED GFR 26 mL/min (>60); POTASSIUM,K 3.9 mmol/L (3.5-5.3); PROTEIN TOTAL,TP 7.4 g/dL (6.0-8.0); SODIUM,NA 123 mmol/L (135-145)
[2024-01-19 17:04] LABS: BASE EXCESS VENOUS,POC -5 mmol/L (-2 - 3+); PCO2 VENOUS,POC 44 mmHg (41-51); PH VENOUS,POC 7.29 pH Units (7.32-7.43)
[2024-01-19 17:06] LABS: LACTIC ACID 2.1 mmol/L (0.4-2.0)
[2024-01-19 17:07] LABS: CHLORIDE,CL 89 mmol/L (100-110); CREATININE 2.2 mg/dL (0.55-1.02); GLUCOSE RANDOM 660 mg/dL (80-116)
[2024-01-19 17:41] LABS: BILIRUBIN,URINE NEGATIVE (NEGATIVE); GLUCOSE,URINE >1000 mg/dL (NORMAL); KETONES,URINE NEGATIVE (NEGATIVE); LEUKOCYTE ESTERASE,URINE NEGATIVE (NEGATIVE); NITRITE,URINE NEGATIVE (NEGATIVE); OCCULT BLOOD,URINE NEGATIVE (NEGATIVE); PROTEIN,URINE TRACE mg/dL (NEGATIVE); UROBILINOGEN,URINE NORMAL (NEGATIVE)
[2024-01-19 17:46] LABS: APPEARANCE,URINE CLEAR (CLEAR); BACTERIA,URINE FEW (NS); COLOR,URINE YELLOW (YELLOW); EPITHELIAL CELLS,URINE FEW; RBC,URINE 0-5 (0-5); WBC,URINE 0-5 (0-5)
== END 2024-01-19 19:05 | disposition home or self-care (01) ==
LOC: FB.ED 16:08
DX: E11.65 Type 2 diabetes mellitus with hyperglycemia (principal); E86.0 Dehydration; I25.2 Old myocardial infarction; I10 Essential (primary) hypertension; E78.00 Pure hypercholesterolemia, unspecified; E11.42 Type 2 diabetes mellitus with diabetic polyneuropathy; E03.9 Hypothyroidism, unspecified; F17.210 Nicotine dependence, cigarettes, uncomplicated; Z86.16 Personal history of COVID-19; Z95.5 Presence of coronary angioplasty implant and graft; Z90.49 Acquired absence of other specified parts of digestive tract; Z90.710 Acquired absence of both cervix and uterus; Z88.0 Allergy status to penicillin; Z79.4 Long term (current) use of insulin; Z79.890 Hormone replacement therapy; Z79.899 Other long term (current) drug therapy
CPT/HCPCS: 36415; 71045; 80053; 81001; 82947; 83605; 84443; 84484; 85025; 87040; 93005; 93010; 96360; 96361; 99285; J1815; J7030

== ENCOUNTER 2024-01-19 20:34 | Emergency (ER) | payer MEDICARE ==
[2024-01-19 21:00] LABS: BASOPHILS PERCENT AUTO 0.2 % (0.2-1.5); EOSINOPHILS PERCENT AUTO 0.1 % (0.6-8.1); HEMATOCRIT 28.4 % (34.2-48.2); HEMOGLOBIN 9.8 g/dL (11.4-15.5); LYMPHOCYTES ABSOLUTE AUTO 1.5 x10-3/uL (1.0-4.4); LYMPHOCYTES PERCENT AUTO 15.6 % (18.4-52.1); MEAN CORPUSCULAR HEMOGLOBIN 31.1 pg (23.9-33.9); MEAN CORPUSCULAR HGB CONC 34.6 g/dL (31.9-34.8); MEAN PLATELET VOLUME 10.5 fL (7.1-12.4); MONOCYTES ABSOLUTE AUTO 0.9 x10-3/uL (0.3-1.0); MONOCYTES PERCENT AUTO 8.8 % (4.4-15.7); NEUTROPHILS ABSOLUTE AUTO 7.4 x10-3/uL (1.5-6.3); NEUTROPHILS PERCENT AUTO 75.3 % (30.8-76.2); PLATELET COUNT,PLT 137 x10(3)uL (151-488); RED BLOOD CELL COUNT 3.16 x10(6)uL (3.60-5.20); RED CELL DISTRIBUTION WIDTH 14.5 % (12.3-16.5); WHITE BLOOD CELL COUNT,WBC 9.8 x10-3/uL (3.0-10.3)
[2024-01-19 21:04] LABS: BLOOD UREA NITROGEN,BUN 34 mg/dL (7-18); BUN/CREATININE RATIO 18.9 (9-20); CALCIUM 8.1 mg/dL (8.6-10.2); CARBON DIOXIDE,CO2 22 mmol/L (21-32); CHLORIDE,CL 98 mmol/L (100-110); CREATININE 1.8 mg/dL (0.55-1.02); ESTIMATED GFR 33 mL/min (>60); GLUCOSE RANDOM 203 mg/dL (80-116); POTASSIUM,K 3.4 mmol/L (3.5-5.3); SODIUM,NA 131 mmol/L (135-145)
[2024-01-19] MEDS ORDERED: 50% Dextrose in Water 50 ML Syringe IVPUSH PRN (21:07)
[2024-01-19] MEDS ORDERED: Ondansetron 4 MG/2 ML SDV IV PRN (21:07)
[2024-01-19] MEDS ORDERED: Sodium Chloride 0.9% 10 ML Syringe FLUSH PRN (21:07)
[2024-01-19] MEDS ORDERED: LORazepam 2 MG/ML SDV IV PRN (21:07)
[2024-01-19] MEDS ORDERED: Glucagon,Human Recombinant 1 MG Vial IM PRN (21:07)
[2024-01-19] MEDS ORDERED: Sodium Chloride 0.9% 1,000 ML IV SCH (21:15)
[2024-01-19 21:16] LABS: TROPONIN I 9.2 pg/mL (4.0-60.3)
[2024-01-19] MEDS: Sodium Chloride 0.9% 500 ML IV ONE (21:24)
[2024-01-19] MEDS: cefTRIAXone 2 GM Vial IVPUSH ONE (21:54)
[2024-01-19] MEDS: metroNIDAZOLE/Normal Saline 500 MG in Premix Bag 1 BAG IV ONE (22:03)
[2024-01-20] MEDS ORDERED: Insulin Lispro 100 Unit/ML 3 ML KwikPen SUBCUT SCH (07:30)
== END 2024-01-19 23:10 ==
LOC: FB.ED 20:34
DX: I99.8 Other disorder of circulatory system (principal); E87.1 Hypo-osmolality and hyponatremia; I95.9 Hypotension, unspecified; I25.2 Old myocardial infarction; I10 Essential (primary) hypertension; E78.00 Pure hypercholesterolemia, unspecified; E03.9 Hypothyroidism, unspecified; E11.42 Type 2 diabetes mellitus with diabetic polyneuropathy; Z86.16 Personal history of COVID-19; Z90.49 Acquired absence of other specified parts of digestive tract; Z90.710 Acquired absence of both cervix and uterus; Z90.722 Acquired absence of ovaries, bilateral; Z88.0 Allergy status to penicillin; Z79.4 Long term (current) use of insulin; Z79.890 Hormone replacement therapy; Z79.899 Other long term (current) drug therapy
CPT/HCPCS: 36415; 74176; 80048; 83605; 83880; 84484; 85025; 93005; 93010; 96361; 96365; 96375; 99285; J0696; J1836; J7040

== ENCOUNTER 2024-01-31 21:14 | Emergency (ER) | payer MEDICARE ==
[2024-01-31] MEDS: Ondansetron 4 MG/2 ML SDV IVPUSH ONE (21:32)
[2024-01-31] MEDS: LORazepam 2 MG/ML SDV IVPUSH ONE (21:33)
[2024-01-31] MEDS: Sodium Chloride 0.9% 1,000 ML IV ONE (21:40)
[2024-01-31 21:43] LABS: BASOPHILS PERCENT AUTO 0.3 % (0.2-1.5); EOSINOPHILS PERCENT AUTO 0.1 % (0.6-8.1); HEMATOCRIT 34.6 % (34.2-48.2); HEMOGLOBIN 11.5 g/dL (11.4-15.5); LYMPHOCYTES ABSOLUTE AUTO 1.3 x10-3/uL (1.0-4.4); LYMPHOCYTES PERCENT AUTO 12.3 % (18.4-52.1); MEAN CORPUSCULAR HEMOGLOBIN 30.8 pg (23.9-33.9); MEAN CORPUSCULAR HGB CONC 33.4 g/dL (31.9-34.8); MEAN CORPUSCULAR VOLUME 92.4 fL (76.7-100.5); MONOCYTES ABSOLUTE AUTO 0.3 x10-3/uL (0.3-1.0); MONOCYTES PERCENT AUTO 2.7 % (4.4-15.7); NEUTROPHILS ABSOLUTE AUTO 8.9 x10-3/uL (1.5-6.3); NEUTROPHILS PERCENT AUTO 84.6 % (30.8-76.2); PLATELET COUNT,PLT 304 x10(3)uL (151-488); RED BLOOD CELL COUNT 3.74 x10(6)uL (3.60-5.20); RED CELL DISTRIBUTION WIDTH 15.1 % (12.3-16.5); WHITE BLOOD CELL COUNT,WBC 10.5 x10-3/uL (3.0-10.3)
[2024-01-31 21:44] LABS: BLOOD UREA NITROGEN,BUN 28 mg/dL (7-18); BUN/CREATININE RATIO 23.3 (9-20); CALCIUM 9.5 mg/dL (8.6-10.2); CARBON DIOXIDE,CO2 22 mmol/L (21-32); CHLORIDE,CL 107 mmol/L (100-110); CREATININE 1.2 mg/dL (0.55-1.02); ESTIMATED GFR 53 mL/min (>60); GLUCOSE RANDOM 230 mg/dL (80-116); POTASSIUM,K 4.2 mmol/L (3.5-5.3); SODIUM,NA 145 mmol/L (135-145)
[2024-01-31 21:45] LABS: LIPASE 58 U/L (16-77)
[2024-01-31 21:48] LABS: C-REACTIVE PROTEIN < 0.50 mg/dL (<0.50)
[2024-01-31 21:50] LABS: A/G RATIO 0.8; ALANINE AMINOTRANSFERASE,ALT 23 U/L (12-36); ALBUMIN 3.5 g/dL (3.5-5.2); ALKALINE PHOSPHATASE 152 IU/L (56-112); ASPARTATE AMNIOTRANSFERASE,AST 17 IU/L (5-25); BILIRUBIN TOTAL 0.4 mg/dL (0.1-1.3)
[2024-01-31] MEDS: LORazepam 1 MG Tab PO ONE (22:50)
== END 2024-01-31 22:45 | disposition home or self-care (01) ==
LOC: FB.ED 21:14
DX: R11.15 Cyclical vomiting syndrome unrelated to migraine (principal); I25.2 Old myocardial infarction; I10 Essential (primary) hypertension; E78.00 Pure hypercholesterolemia, unspecified; E11.42 Type 2 diabetes mellitus with diabetic polyneuropathy; E03.9 Hypothyroidism, unspecified; F17.200 Nicotine dependence, unspecified, uncomplicated; Z86.16 Personal history of COVID-19; Z90.49 Acquired absence of other specified parts of digestive tract; Z90.710 Acquired absence of both cervix and uterus; Z88.0 Allergy status to penicillin; Z79.4 Long term (current) use of insulin; Z79.890 Hormone replacement therapy; Z79.899 Other long term (current) drug therapy
CPT/HCPCS: 36415; 80053; 82947; 83605; 83690; 85025; 86140; 96361; 96374; 96375; 99284; A9270; J2060; J2405; J7030

== ENCOUNTER 2024-07-09 09:59 | Emergency (ER) | payer MEDICAID, MEDICARE ==
[2024-07-09] MEDS: cloNIDine 0.1 MG Tab PO ONE (10:24)
== END 2024-07-09 11:30 | disposition home or self-care (01) ==
LOC: FB.ED 09:59
DX: E11.610 Type 2 diabetes mellitus with diabetic neuropathic arthropathy (principal); E03.9 Hypothyroidism, unspecified; I10 Essential (primary) hypertension; E78.00 Pure hypercholesterolemia, unspecified; I25.2 Old myocardial infarction; Z90.49 Acquired absence of other specified parts of digestive tract; Z88.0 Allergy status to penicillin; Z95.5 Presence of coronary angioplasty implant and graft; Z79.890 Hormone replacement therapy; Z79.899 Other long term (current) drug therapy; Z79.4 Long term (current) use of insulin
CPT/HCPCS: 99283; 99284; A9270-GY